=== PATIENT | male | born 1945 | race Caucasian/White ===

== ENCOUNTER 2018-01-23 00:14 | Outpatient (CLI) | payer OTHER, SELFPAY ==
--- NOTE | 2018-01-23 14:15 | DI.US_ITS ---
SYMPTOMS/DIAGNOSIS: ABDOMINAL PAIN, H/O PARTIAL NEPHRECTOMY, RENAL CELL CARCINOMA, HEMATOMA OF KIDNEY, C64.9, Z90.5, S37.019A RENAL ULTRASOUND: Routine examination. Comparison CT scans are 02/16/17 and 07/14/17. The right kidney measures 10.8 cm long. No renal mass, calculus or obstruction is seen. There is normal blood flow to the right kidney. The left kidney measures 9.3 cm long. No renal mass, calculus or obstruction is seen. Sonographically, the left kidney has a normal appearance. Given the CT scan on 07/14/17, if there is continued concern for recurrent mass, a noncontrast CT scan of the abdomen may be obtained. The prevoid urinary bladder volume is 48 cc. The ureteral jets were both visualized. Postvoid urinary bladder volume is 0. IMPRESSION: No sonographic evidence of a residual or recurrent renal mass. If there is continued clinical concern, a CT scan of the abdomen may be obtained for further evaluation.
== END 2018-01-23 00:34 ==
PROVIDERS: PCP Family Medicine; Visit Provider Urology
DX: R10.9 Unspecified abdominal pain (principal); C64.9 Malignant neoplasm of unspecified kidney, except renal pelvis; Z90.5 Acquired absence of kidney
CPT/HCPCS: 76770

== ENCOUNTER 2018-02-25 01:39 | Outpatient (RCR) | payer OTHER, SELFPAY ==
[2018-02-12] MEDS: Normal Saline Flush 10 ML SYR IVP (11:52)
[2018-02-12] MEDS: IRON SUCROSE COMPLEX 100 MG in Normal Saline 100 ML 420 MG IVPB (12:01)
[2018-02-25] MEDS: Normal Saline Flush 10 ML SYR IVP (08:53)
[2018-02-25] MEDS: IRON SUCROSE COMPLEX 100 MG in Normal Saline 100 ML 420 MG IVPB (08:56)
== END 2018-03-04 23:59 | disposition home or self-care (01) ==
LOC: INF 01:39
PROVIDERS: PCP Family Medicine; Visit Provider Internal Medicine
DX: N18.9 Chronic kidney disease, unspecified (principal); D63.1 Anemia in chronic kidney disease; D50.9 Iron deficiency anemia, unspecified
CPT/HCPCS: 96365; J1756

== ENCOUNTER 2018-03-10 01:35 | Outpatient (RCR) | payer OTHER, SELFPAY ==
[2018-03-10] MEDS: IRON SUCROSE COMPLEX 100 MG in Normal Saline 100 ML 420 MG IVPB (11:14)
[2018-03-10] MEDS: Normal Saline Flush 10 ML SYR IVP (11:37)
== END 2018-04-03 23:59 | disposition home or self-care (01) ==
LOC: INF 01:35
PROVIDERS: PCP Family Medicine; Visit Provider Internal Medicine
DX: N18.9 Chronic kidney disease, unspecified (principal); D63.1 Anemia in chronic kidney disease; D50.9 Iron deficiency anemia, unspecified
CPT/HCPCS: 96365; J1756

== ENCOUNTER 2018-04-15 10:01 | Outpatient (CLI) | payer OTHER, SELFPAY ==
[2018-04-15 11:18] LABS: Mean Corp. HGB Concentration 32.5 g/dL (32.0-36.0); Mean Corpuscular Hemoglobin 30.7 pg (27.0-33.0); Mean Corpuscular Volume 94.6 fL (80-95); Mean Platelet Volume 10.5 fL (8.0-11.0); Platelet Count 302 x1000/uL (130-400); RBC 4.23 m/cumm (4.50-6.00); RBC Distribution Width 14.3 % (11.8-14.1)
[2018-04-15 11:33] LABS: Hemoglobin A1C 8.2 % (4.5-6.2)
[2018-04-15 12:16] LABS: Anion Gap 7.7 mmol/L (3-11); BUN 20 mg/dL (7-18); CO2 28.3 mmol/L (21.0-32.0); CREATININE 1.79 mg/dL (0.70-1.30); Calcium 8.9 mg/dL (8.5-10.1); Chloride 106 mmol/L (98-107); Estimated GFR 37.52 (mL/min/1.73m2); Ferritin 70 ng/mL (8-388); Glucose 90 mg/dL (70-100); Potassium 4.4 mmol/L (3.5-5.1); Sodium 142 mmol/L (136-145)
[2018-04-15 12:17] LABS: Iron 83 ug/dL (50-175); Total Iron Binding Capacity 248 ug/dL (250-450); Transferrin Sat 33 % (20-55)
[2018-04-15 12:27] LABS: PHOSPHORUS 3.9 mg/dL (2.6-4.7)
[2018-04-16 07:58] LABS: Vitamin D 25 Total 65.2 ng/ml (30-100)
[2018-04-16 10:47] LABS: Parathyroid Hormone,Intact 96 pg/ml (19-88)
== END 2018-04-15 10:21 ==
PROVIDERS: PCP Family Medicine; Visit Provider Family Medicine
DX: D64.9 Anemia, unspecified (principal); I10 Essential (primary) hypertension; E11.9 Type 2 diabetes mellitus without complications; N18.3 Chronic kidney disease, stage 3 (moderate); C64.2 Malignant neoplasm of left kidney, except renal pelvis
CPT/HCPCS: 36415; 80048; 82306; 85027; 82728; 83036; 83540; 83550; 83970; 84100

== ENCOUNTER 2018-05-04 08:18 | Outpatient (CLI) | payer OTHER, SELFPAY | END 2018-05-04 08:38 | PROVIDERS: PCP Family Medicine; Visit Provider Internal Medicine Interventional Cardiology | DX: I25.10 Atherosclerotic heart disease of native coronary artery without angina pectoris (principal); I47.1 Supraventricular tachycardia; I10 Essential (primary) hypertension; Z90.2 Acquired absence of lung [part of]; J44.9 Chronic obstructive pulmonary disease, unspecified; Z87.891 Personal history of nicotine dependence; E78.5 Hyperlipidemia, unspecified; E11.9 Type 2 diabetes mellitus without complications; Z79.4 Long term (current) use of insulin | CPT/HCPCS: 93005; 93010; 99213 ==

== ENCOUNTER → 2018-05-04 11:54 | Outpatient (BNVA) | payer OTHER, SELFPAY | PROVIDERS: Visit Provider Internal Medicine Interventional Cardiology | DX: R69 Illness, unspecified (principal) ==

== ENCOUNTER → 2018-07-27 08:51 | Outpatient (BNVA) | payer OTHER, SELFPAY | PROVIDERS: PCP Family Medicine; Visit Provider Urology | DX: C64.2 Malignant neoplasm of left kidney, except renal pelvis (principal); R14.0 Abdominal distension (gaseous) | CPT/HCPCS: 99213 ==

== ENCOUNTER 2018-08-21 00:42 | Outpatient (CLI) | payer OTHER, SELFPAY ==
--- NOTE | 2018-08-21 08:30 | DI.US_ITS ---
SYMPTOM/DIAGNOSIS: RENAL CELL CA LT KIDNEY, C64.2, ? RECURRENCE RENAL ULTRASOUND: The patient has reportedly had a previous partial left nephrectomy for renal cell carcinoma. Left kidney is grossly unchanged in appearance in comparison with previous examination of 01/23/18. There is some limitation to renal scanning due to the patient's body habitus and if there is a clinical suspicion of recurrent disease, MRI or CT would be recommended. Right kidney is unremarkable in appearance. No hydronephrosis or nephrolithiasis identified on either side. Urinary bladder is unremarkable in appearance with pre and post void urinary bladder volume measurements of 94 cc's and 0 cc's respectively. CONCLUSION: No gross interval change in appearance of the kidneys in a patient who is reportedly status post left partial nephrectomy for renal cell carcinoma. Please note that in this patient ultrasound may not be an ideal screening tool to evaluate for recurrence and evaluation with MRI is recommended.
== END 2018-08-21 01:02 ==
PROVIDERS: PCP Family Medicine; Visit Provider Urology
DX: C64.2 Malignant neoplasm of left kidney, except renal pelvis (principal); Z90.5 Acquired absence of kidney; R14.0 Abdominal distension (gaseous)
CPT/HCPCS: 76770; 99213

== ENCOUNTER 2018-10-01 09:07 | Outpatient (REF) | payer OTHER, SELFPAY ==
[2018-10-01 12:37] LABS: Abs Immature Grans 0.12 k/cumm (0.0-0.09); Absolute Basophil Count 0.05 k/cumm (0.0-0.2); Absolute Monocyte Count 1.75 k/cumm (0.11-0.7); Basophils % 0.3; Eosinophils % 3.7; HCT 40.6 % (40.0-50.0); HGB 13.1 g/dL (13.5-17.5); Immature Grans % 0.7; Lymphocytes % 12.9; Mean Corp. HGB Concentration 32.3 g/dL (32.0-36.0); Mean Corpuscular Hemoglobin 31.2 pg (27.0-33.0); Mean Corpuscular Volume 96.7 fL (80-95); Mean Platelet Volume 11.1 fL (8.0-11.0); Monocytes % 9.6; Neutrophils % 72.8; Platelet Count 332 x1000/uL (130-400); RBC Distribution Width 13.3 % (11.8-14.1); White Blood Cell Count 18.28 k/cumm (4.4-10.8)
[2018-10-01 12:39] LABS: Absolute Eosinophil Count 0.68 k/cumm (0.0-0.7); Absolute Lymphocyte Count 2.36 k/cumm (1.2-3.4); Absolute Neutrophil Count 13.31 k/cumm (1.2-6.7)
[2018-10-01 12:54] LABS: ALT 18 U/L (12-78); AST 14 U/L (15-37); Albumin 3.6 g/dL (3.4-5.0); Alkaline Phosphatase 133 U/L (46-116); Anion Gap 6.7 mmol/L (3-11); BUN 24 mg/dL (7-18); Bilirubin, Total 0.3 mg/dL (0.2-1.0); CO2 27.3 mmol/L (21.0-32.0); CREATININE 1.83 mg/dL (0.70-1.30); Chloride 104 mmol/L (98-107); Estimated GFR 36.57 (mL/min/1.73m2); Glucose 169 mg/dL (70-100); Lipase 58 U/L (73-393); Potassium 5.3 mmol/L (3.5-5.1); Sodium 138 mmol/L (136-145); Total Protein 6.9 g/dL (6.4-8.2)
[2018-10-01 13:24] LABS: Diff Comment Agrees w/ Instrument; RBC Morphology Normal
[2018-10-01 14:14] LABS: COMMENT (LAB VIEW ONLY) 188.35 mg/dL; Microalb ug/mg Crea 8.1 ug/mg Cr
== END 2018-10-01 09:27 ==
LOC: NCHCN 09:07
PROVIDERS: PCP Family Medicine; Visit Provider Family Medicine
DX: R10.11 Right upper quadrant pain (principal); E11.9 Type 2 diabetes mellitus without complications; Z79.4 Long term (current) use of insulin
CPT/HCPCS: 80053; 83690; 82043; 82570; 85025

== ENCOUNTER 2018-12-03 09:57 | Outpatient (CLI) | payer OTHER, SELFPAY ==
--- NOTE | 2018-12-03 09:19 | DI.RAD_ITS ---
SYMPTOM/DIAGNOSIS: F/U LEFT FOOT: when compared with the prior examination of 06/29/16 there has been no appreciable interval change. Again noted is the amputation of the great toe and distal portion of the first metatarsal There are degenerative changes involving the intertarsal and tarsal metatarsal joints. There is nothing to suggest an acute fracture or dislocation.
== END 2018-12-03 10:17 ==
PROVIDERS: PCP Family Medicine; Referring Provider Family Medicine; Visit Provider Orthopaedic Surgery
DX: M86.9 Osteomyelitis, unspecified (principal); M19.072 Primary osteoarthritis, left ankle and foot; Z89.412 Acquired absence of left great toe; L08.9 Local infection of the skin and subcutaneous tissue, unspecified; Z79.4 Long term (current) use of insulin
CPT/HCPCS: 99212; 99213; 73630

== ENCOUNTER 2018-12-11 14:48 | Outpatient (REF) | payer OTHER, SELFPAY ==
[2018-12-11 18:57] LABS: Abs Immature Grans 0.28 k/cumm (0.0-0.09); Absolute Eosinophil Count 0.73 k/cumm (0.0-0.7); Absolute Neutrophil Count 10.89 k/cumm (1.2-6.7); Basophils % 0.3; Eosinophils % 4.7; HCT 38.9 % (40.0-50.0); HGB 12.4 g/dL (13.5-17.5); Immature Grans % 1.8; Mean Corp. HGB Concentration 31.9 g/dL (32.0-36.0); Mean Corpuscular Hemoglobin 30.5 pg (27.0-33.0); Mean Corpuscular Volume 95.6 fL (80-95); Mean Platelet Volume 10.9 fL (8.0-11.0); Monocytes % 7.1; Neutrophils % 70.1; Platelet Count 425 x1000/uL (130-400); RBC 4.07 m/cumm (4.50-6.00); RBC Distribution Width 13.1 % (11.8-14.1); White Blood Cell Count 15.53 k/cumm (4.4-10.8)
[2018-12-11 18:58] LABS: Absolute Basophil Count 0.05 k/cumm (0.0-0.2); Absolute Lymphocyte Count 2.48 k/cumm (1.2-3.4)
[2018-12-11 19:13] LABS: BUN 32 mg/dL (7-18); CREATININE 2.24 mg/dL (0.70-1.30); Calcium 8.7 mg/dL (8.5-10.1); Chloride 104 mmol/L (98-107); Estimated GFR 28.88 (mL/min/1.73m2); Glucose 267 mg/dL (70-100); Potassium 5.7 mmol/L (3.5-5.1); Sodium 138 mmol/L (136-145)
[2018-12-11 20:36] LABS: ESR 21 mm/hr (1-20)
== END 2018-12-11 15:08 ==
LOC: NCHCN 14:48
PROVIDERS: PCP Family Medicine; Visit Provider Family Medicine
DX: E11.621 Type 2 diabetes mellitus with foot ulcer (principal); N18.3 Chronic kidney disease, stage 3 (moderate)
CPT/HCPCS: 80048; 85652; 85025

== ENCOUNTER → 2018-12-17 08:44 | Outpatient (BNVA) | payer OTHER, SELFPAY | PROVIDERS: PCP Family Medicine; Referring Provider Family Medicine; Visit Provider Orthopaedic Surgery | DX: M86.9 Osteomyelitis, unspecified (principal); L08.9 Local infection of the skin and subcutaneous tissue, unspecified | CPT/HCPCS: 99213 ==

== ENCOUNTER 2019-01-15 10:01 | Outpatient (CLI) | payer OTHER, SELFPAY ==
--- NOTE | 2019-01-15 09:18 | DI.US_ITS ---
SYMPTOM/DIAGNOSIS: LOWER QUADRANT ABDOMINAL WALL MASS, LEFT R19.04, S/P NEPHRECTOMY ULTRASOUND OF THE LEFT ABDOMINAL WALL: The patient has a history of renal cell carcinoma. The area of palpable abnormality is seen in the skin and subcutaneous fat and measures 2.1 x 1 x 1.5 cm This is hypoechoic but solid appearing. The margins are irregular and there is some internal blood flow. This corresponds to the area of incision site. IMPRESSION: Solid appearing mass in the left anterior abdominal wall suspicious for a mass which could be related to renal cell carcinoma.
== END 2019-01-15 10:21 ==
PROVIDERS: PCP Family Medicine; Visit Provider Family Medicine
DX: R10.32 Left lower quadrant pain (principal); R19.04 Left lower quadrant abdominal swelling, mass and lump; Z85.528 Personal history of other malignant neoplasm of kidney
CPT/HCPCS: 76705

== ENCOUNTER → 2019-02-19 08:23 | Outpatient (BNVA) | payer OTHER, SELFPAY | PROVIDERS: PCP Family Medicine; Referring Provider Family Medicine; Visit Provider Urology | DX: C64.2 Malignant neoplasm of left kidney, except renal pelvis (principal); Z90.5 Acquired absence of kidney | CPT/HCPCS: 99213 ==

== ENCOUNTER → 2019-03-03 08:39 | Outpatient (BNVA) | payer OTHER, SELFPAY | PROVIDERS: PCP Family Medicine; Referring Provider Family Medicine; Visit Provider Orthopaedic Surgery | DX: E11.621 Type 2 diabetes mellitus with foot ulcer (principal); L97.529 Non-pressure chronic ulcer of other part of left foot with unspecified severity | CPT/HCPCS: 99214 ==

== ENCOUNTER 2019-04-29 12:14 | Outpatient (CLI) | payer OTHER, SELFPAY ==
--- NOTE | 2019-04-29 12:45 | DI.US_ITS ---
EXAM: US SOFT TISS ABD WALL/LOW BACK CLINICAL HISTORY: ANTERIOR ABD WALL MASS, R22.2, MASS REMOVED FEW MONTHS AGO, WAS RENAL CELL CA, NOW APPEARS TO BE RECURRING TECHNIQUE: Ultrasound performed using standard protocol. COMPARISON: US renal from 08/21/2018 FINDINGS: There is a hypoechoic mass in the right anterior abdominal wall. This corresponds to the palpable ab normality. This area measures 1.9 cm x 1.4 cm x 4.2 cm. No internal blood flow is seen. Finding is nonspecific sonographically. A CT scan of the abdomen is recommended for further evaluation.
== END 2019-04-29 12:34 ==
PROVIDERS: PCP Family Medicine; Visit Provider Family Medicine
DX: Z85.528 Personal history of other malignant neoplasm of kidney; R19.03 Right lower quadrant abdominal swelling, mass and lump
CPT/HCPCS: 76705

== ENCOUNTER 2019-05-31 01:19 | Outpatient (CLI) | payer OTHER, SELFPAY ==
--- NOTE | 2019-05-31 09:44 | DI.NM_ITS ---
APPROVED REPORT Exam: Pharmacologic Patient Location: Out-Patient Room/Bed: Stress Nurse: Erica Escamilla RN BMI: 31.19 Baseline Rhythm: RBBB Indications: Exertional chest pain. Medical History Medical History: CAD s/p stent, RBBB Cardiac Medications: Metoprolol, Atorvastatin, Aspirin, Albuterol, Allergies: Oxycodone. Lisinopril Cardiac Risk Factors: DM, Hyperlipidemia, FHX of CAD, Smoking, COPD Previous Cardiac Procedures: PCI Pretest Chest Pain Characteristics: Exertional Chest pain Exercise History: Physically active Lung Sounds: Crackles in left posterior base. Heart Sounds: Regular Stress Test Details Test: Pharmacologic stress testing performed using 0.4 mg of regadenoson per 5 mL given IV over 10 s econds. Nuclear Acquisition: Rest Tc-99m/Stress Tc-99m 1 day Rest Isotope: Tc-99m Sestamibi. Dose: 12.5 Date: 05/31/2019 Injection Time: 0815 Stress Isotope: Tc-99m Sestamibi. Dose: 38.5 Date: 05/31/2019 Injection Time: 1012 HR Max Heart Rate (APMHR): 147 bpm Resting HR Supine: 81 bpm Target HR (85% APMHR): 124 bpm Max HR Achieved: 99 bpm % of APMHR: 67 Recovery HR: 92 bpm HR response to stress: Normal HR response to stress BP Resting BP Supine: 142/72 mmHg Max BP: 142/76 mmHg Recovery BP: 140/70 mmHg BP response to stress: Normal blood pressure response to stress. ECG Resting ECG: RBBB ST Change: Normal Ectopy: none Stress ECG: RBBB ST Change: No significant ST segment changes noted Arrhythmia: None Recovery ECG: RBBB Recovery Arrhythmia: None Clinical Stress Symptoms: SOB 30 seconds after lexiscan injection, subsided after 3 minutes post injection. Stress ECG Conclusion 1. There was no evidence of ischemia on the ECG portion of this exam Protocol Used: Regadenoson Stress Test Summary STAGE HR BP Symptoms NOTES Supine 81 142/76 Standing 1 min 99 140/56 2 min 3 min 92 130/70 4 min 5 min 6 min 92 140/70 7 min 8 min 9 min 10 min 1 min recovery 3 min recovery 6 min recovery MPI Conclusion Ejection fraction was 78% without wall motion abnormalities. Bowel tracer uptake limited sensitivity of the interpretation of this study. There is no evidence of ischemia on the imaging portion of this exam. This represents a normal SPECT imaging study. Radiologist Interpretation Radiologist agrees with [employer]visor [employer]'s Interpretation. Radiologist Interpretation by: Phyllis Aguilar MD Interpretation Date/Time: 06/01/2019 09:27:52
[2019-05-31] MEDS: Regadenoson 0.4 MG/5 ML SYR IVP (10:47)
== END 2019-05-31 01:39 ==
PROVIDERS: PCP Family Medicine; Visit Provider Family Medicine
DX: R07.9 Chest pain, unspecified (principal); I25.10 Atherosclerotic heart disease of native coronary artery without angina pectoris; I45.10 Unspecified right bundle-branch block; I25.2 Old myocardial infarction; E78.5 Hyperlipidemia, unspecified; E11.9 Type 2 diabetes mellitus without complications; Z82.49 Family history of ischemic heart disease and other diseases of the circulatory system
CPT/HCPCS: 78452; 93016; 93018; 93017; J2785

== ENCOUNTER → 2019-06-15 13:51 | Outpatient (BNVA) | payer OTHER, SELFPAY | PROVIDERS: PCP Family Medicine; Referring Provider Family Medicine; Visit Provider Internal Medicine Cardiovascular Disease | DX: I25.10 Atherosclerotic heart disease of native coronary artery without angina pectoris (principal); R06.02 Shortness of breath; I47.1 Supraventricular tachycardia; E11.8 Type 2 diabetes mellitus with unspecified complications; Z79.4 Long term (current) use of insulin; J44.9 Chronic obstructive pulmonary disease, unspecified; Z87.891 Personal history of nicotine dependence | CPT/HCPCS: 99204; 99215 ==

== ENCOUNTER → 2019-09-13 14:01 | Outpatient (BNVA) | payer OTHER, SELFPAY | PROVIDERS: PCP Family Medicine; Referring Provider Family Medicine; Visit Provider Internal Medicine Cardiovascular Disease | DX: R06.02 Shortness of breath (principal); J44.9 Chronic obstructive pulmonary disease, unspecified; E11.621 Type 2 diabetes mellitus with foot ulcer; Z79.4 Long term (current) use of insulin | CPT/HCPCS: 99214; 99442 ==

== ENCOUNTER 2019-09-22 12:57 | Emergency (ER) | payer OTHER, SELFPAY ==
[2019-09-22] VITALS (32 sets, daily range): BP systolic 107–164; BP diastolic 39–70; PULSE 70–102; RESP 12–22; TEMP 36.5; O2SAT 90–93
--- NOTE | 2019-09-22 13:00 | DI.RAD_ITS ---
EXAM: XR CHEST 2V PA LATERAL CLINICAL HISTORY: Chest pain, SOB TECHNIQUE: 2D digital imaging was performed. COMPARISON: CR CHEST 2 VIEWS PA,LAT from 04/30/2016 FINDINGS: MEDIASTINUM: Normal. HEART: Normal. PULMONARY VASCULATURE: Normal. LUNGS: Pleural and parenchymal scarring is again seen in the right lung which appears stable parenchy mal scarring is also seen in the left lung base. No acute infiltrates are present. PLEURAL SPACE: No pleural effusion or pneumothorax. BONE:Age-appropriate degenerative changes. OTHER FINDINGS:Normal. IMPRESSION: No acute pulmonary findings. DATA REPOSITORY: RADIATION DOSE DELIVERED:
--- NOTE | 2019-09-22 13:13 | W.ED.GENAD ---
Discharge Plan Disposition Patient Disposition: HOME Condition: Stable Discharge Details Chief Complaint: Chest Pain Clinical Impression: Chest pain Primary Care Provider: Zakiya Reyna ED Provider: Mark Rosa Home Meds and New Rx's Prescriptions: New isosorbide mononitrate 30 mg tablet extended release 24 hr 30 mg PO DAILY Qty: 30 RF: 0 Continued oxycodone 10 mg tablet 10 mg PO HS PRN RF: 0 Victoza 2-Edy 0.6 mg/0.1 mL (18 mg/3 mL) pen injector 1.8 mg SC DAILY RF: 0 calcitriol 0.25 mcg capsule 0.25 mcg PO .3 DAYS/WK RF: 0 nitroglycerin 0.4 MG tablet, sublingual 0.4 mg Sublingual ONCE RF: 0 olmesartan [Benicar] 5 MG tablet 5 mg PO DAILY RF: 0 cholecalciferol (vitamin D3) 1,000 UNIT tablet 1,000 unit PO DAILY RF: 0 pantoprazole [Protonix] 40 MG tablet,delayed release (DR/EC) 40 mg PO BID Qty: 60 RF: 3 aspirin [Aspir-81] 81 MG tablet,delayed release (DR/EC) 81 mg PO DAILY RF: 0 multivitamin 1 EACH capsule 1 ea PO DAILY RF: 0 sertraline 50 MG tablet 50 mg PO DAILY RF: 0 Lantus U-100 Insulin 100 unit/mL solution 63 unit subcut HS RF: 0 atorvastatin [Lipitor] 40 MG tablet 40 mg PO DAILY RF: 0 ascorbic acid (vitamin C) [Vitamin C] 1,000 MG tablet 1,000 mg PO DAILY RF: 0 albuterol sulfate [Proventil HFA] 6.7 GM HFA aerosol inhaler 2 inh PO Q4H PRN PRNRF: 0 melatonin 10 MG tablet 10 mg PO HS RF: 0 cyanocobalamin (vitamin B-12) [Vitamin B-12] 1,000 mcg Tablet 1,000 mcg PO DAILY RF: 0 metoprolol succinate 50 mg tablet extended release 24 hr 50 mg PO DAILY RF: 0 Discharge Instructions Instructions: Chest Pain (ED) Additional Instructions: Follow-up with with cardiology within the next 2 to 3 days. Return immediately to the ED if any worsening chest pain, increase in frequency of chest pain or any concerns.. Referrals: Zakiya Reyna MD [Primary Care Provider] - Colby Velasquez MD [MD CONSULTING PHYSICIAN] - Discharge Data Discharge Date/Time-TO BE ENTERED AT DEPARTURE: 09/22/19 17:05 Medical Decision Making <Margaux Garcia - Last Filed: 09/24/19 16:43> 73-year-old male presents to the ED with chief complaint of chest pain. Patient has a history of coronary artery disease with multiple stents placed, history of COPD, insulin-dependent diabetic. Patient states approximately 30 minutes prior to arrival he was doing the dishes and began having chest pain associated with high heart rate. Patient states he checked his pulse at home had a heart rate in 160s, he states he took a nitro sublingual and 2 to 3 minutes later chest pain subsided. He reports intermittent chest pains lasting for approximately an hour x2 weeks. Patient had a telehealth visit recently September [address] Velasquez cardiology who recently stopped his Imdur. He had a stress test May 31 which showed no ischemic changes. He also had an echocardiogram done in May as well which showed mild left ventricular hypertrophy. Patient does state that he did take all of his medications today prior to arrival including aspirin. Upon arrival his chest pain is now gone 0 out of 10. Heart rate upon arrival is high 90s to low 100s. He does not use home O2, oxygen room air sat is 92%. Cardiac work-up ordered including BNP to evaluate for congestive heart failure. 1304: EKG was reviewed by Marlene Sherman MD ER attending, less than [address] depression in V2 and V3 T wave inversion in V3.. Initial troponin is negative within normal limits, BNP is within normal limits no significant change upon baseline to CBC and CMP. He does have a white blood cell count of 16.3 which has been more elevated in the past. His BUN is 22 creatinine 2.08 glucose is 209. 1424: Patient continues to be chest pain free through out stay, Cardiology paged for consult for possible unstable angina. Discussed options with patient, he does not wish to be admitted at this time. 1432: Cardiology at [facility] [place]aged for consult 1448: Spoke with Lucille Abreu with [facility] cardiology regarding patient discussed patient details in case. She recommends restarting the Imdur at 30 mg a day. She states that she will reach out to Dr. Jalloh regarding patient and having close follow-up care will give strict return instructions patient including worsening severe chest pain or recurrence of multiple chest pain episodes to return to the ED immediately. At this time patient has remained chest pain-free throughout stay and does not wish to be admitted at this time. Due to negative troponin I agree this is appropriate. I will however wait to discharge patient until second negative troponin result. Care is to be handed off to oncoming provider ALIZA Bowser pending negative second troponin. Discussed patient case in details with Mark, verbalized understanding. Patient was hemodynamically stable at the time of this dictation. Medical Records Medical records reviewed: Yes I reviewed the patient's medical records. Lab Data Lab results reviewed: Yes I reviewed the patient's lab results. <ALIZA Wells - Last Filed: 09/22/19 16:56> I assumed care of Mr. Thompson at shift change. Patient had initially presented with chest pain although asymptomatic now. Thorough work-up ensued, cardiology consultation was made. At this time patient is asymptomatic and the plan is to repeat an EKG and troponin if unremarkable then we will initiate a prescription for Imdur, he can safely be discharged, and will follow-up with cardiology. EKG performed at 1552. Reviewed and interpreted with Dr. Sherman. Sinus rhythm, first-degree AV block. Ventricular rate of 87. No acute ST elevation or depression. No dynamic changes when compared to earlier EKG. Repeat troponin is less than 0.05. Patient is resting comfortably in a home ER chair. He reports that he is currently asymptomatic. Head normocephalic. Moist mucous membranes. Lungs clear to auscultation, heart regular rate and rhythm. Patient appears well, no acute distress, nontoxic. We discussed his repeat EKG and troponin. He has no additional questions or concerns and is comfortable discharge at this time with the understanding he will initiate indoor therapy and follow-up with cardiology. He was encouraged to return to the ER for new or worsening symptoms. Lab Data Lab results reviewed: Yes I reviewed the patient's lab results. HPI <Margaux Garcia - Last Filed: 09/24/19 16:43> General Mode of arrival: ambulatory. Date/Time Provider Initiated Documentation: 09/22/19 13:00. Limitations to Documentation: no limitations. Information obtained by: patient. HPI Narrative: 73-year-old male presents to the ED with chief complaint of chest pain. Patient has a history of coronary artery disease with multiple stents placed, RBBB, history of COPD, insulin-dependent diabetic. Patient states approximately 30 minutes prior to arrival he was doing the dishes and began having chest pain associated with high heart rate. Patient states he checked his pulse at home had a heart rate in 160s, he states he took a nitro sublingual and 2 to 3 minutes later chest pain subsided. He reports intermittent chest pains lasting for approximately an hour x2 weeks. Patient had a telehealth visit recently September [address] Velasquez cardiology who recently stopped his Imdur. He had a stress test May 31 which showed no ischemic changes. He also had an echocardiogram done in May as well which showed mild left ventricular hypertrophy. Patient does state that he did take all of his medications today prior to arrival including aspirin. Upon arrival his chest pain is now gone 0 out of 10. Heart rate upon arrival is high 90s to low 100s. He does not use home O2, oxygen room air sat is 92%. Related Data Home Medications Medication Instructions Recorded Confirmed aspirin [Aspir-81] 81 mg PO DAILY 09/25/12 09/22/19 multivitamin 1 ea PO DAILY 09/25/12 09/22/19 sertraline 50 mg PO DAILY 09/25/12 09/22/19 cholecalciferol (vitamin D3) 1,000 unit PO DAILY tab-cap 09/21/15 09/22/19 nitroglycerin 0.4 mg SUBLINGUAL ONCE tab-cap 09/21/15 09/22/19 olmesartan [Benicar] 5 mg PO DAILY tab-cap 09/21/15 09/22/19 pantoprazole [Protonix] 40 mg PO BID #60 tab-cap 01/03/17 09/22/19 albuterol sulfate [Proventil HFA] 2 inh PO Q4H PRN PRN 02/16/17 09/22/19 ascorbic acid (vitamin C) [Vitamin 1,000 mg PO DAILY 02/16/17 09/22/19 C] atorvastatin [Lipitor] 40 mg PO DAILY 02/16/17 09/22/19 melatonin 10 mg PO HS 02/16/17 09/22/19 liraglutide 0.6 mg/0.1 mL (18 mg/3 1.8 mg SC DAILY ml 05/04/18 09/22/19 mL) subcutaneous pen injector oxycodone 10 mg tablet 10 mg PO HS PRN tab 05/04/18 09/22/19 insulin glargine 100 unit/mL 63 unit SUBCUT HS ml 12/03/18 09/22/19 subcutaneous solution calcitriol 0.25 mcg capsule 0.25 mcg PO .3 DAYS/WK 09/13/19 09/22/19 cyanocobalamin (vitamin B-12) 1,000 mcg PO DAILY 09/22/19 09/22/19 [Vitamin B-12] isosorbide mononitrate 30 mg PO DAILY #30 tab 09/22/19 metoprolol succinate 50 mg PO DAILY 09/22/19 09/22/19 Previous Rx's Medication Instructions Recorded isosorbide mononitrate 30 mg PO DAILY #30 tab 09/22/19 Allergies Allergy/AdvReac Type Severity Reaction Status Date / Time pneumococcal vaccine Allergy Severe Swelling/Ed Verified 09/22/19 13:07 nandini sulfamethoxazole Allergy difficulty Verified 09/22/19 13:07 [From Bactrim] breathing trimethoprim [From Bactrim] Allergy difficulty Verified 09/22/19 13:07 breathing General Stated Complaint: Chest Pain MESERET: 2 Review of Systems <Margaux Garcia - Last Filed: 09/24/19 16:43> Narrative: Constitutional: Negative for weight loss, alert and oriented, well groomed, normal body habitus, appears anxious. HEENT: Denies trauma, headaches, blurry vision, nasal discharge, sore throat, trouble swallowing. Chest: Denies irregular rhythm, hypertension. Positive intermittent chest pains on exertion and at rest, reports high heart rate earlier today at 160. Respiratory: Denies Shortness of breath, cough, hemoptysis. GI: Denies abdominal pain, nausea, vomiting, diarrhea, constipation. : Denies dysuria, hematuria, flank pain, rectal bleeding. Neuro: Denies dizziness, blurry vision, weakness, syncope, headache or facial numbness. Hematologic: Denies easy bruising, intolerance to heat or cold, hair loss. All systems reviewed & are unremarkable except as noted in HPI and below PFSH <Margaux Garcia - Last Filed: 09/24/19 16:43> Medical History Abdominal wall mass of left lower quadrant (Acute) Anemia (Chronic) Bilateral cataracts (Acute) COPD (chronic obstructive pulmonary disease) (Chronic) Coronary Artery Disease Depression (Chronic) Diabetes mellitus Diabetic foot ulcer (Acute) GERD (gastroesophageal reflux disease) (Chronic) Hoarseness (Acute) Hyperkalemia (Acute) RBBB (right bundle branch block) (Acute) RUQ pain (Acute) Surgical History Colonoscopy - MAC (12/18/16) Completion of amputation (09/30/12) L great toe EGD - MAC (12/18/16) Heart Stent (12/03/11) Pt records show heart stent placed 12/03/11 at [facility]. 12.02.12HE Lobectomy Pt states 2 lobes removed from R. lung. No date given. 12.02.12HE Osteotomy Partial & Debridment of first metatarsal on Left foot. Social History Smoking/Tobacco Use Status: Former Tobacco Use Quit Date: 05/05/14 Tobacco: How many years used: 50 Alcohol Intake: never Drug use: Never Current gender identity: male What type of physical activity do you participate in: none and independent ambulation Do you feel safe in your relationship?: Yes Exam <Margaux Garcia - Last Filed: 09/24/19 16:43> Narrative Exam Narrative: Constitutional: Alert and oriented x3. Appears stated age. Normal body habitus. Head: Normocephalic, no trauma. Eyes: Pupils PERRLA, Red reflex noted, EOM's intact. Eyelids symmetrical without lesions, discharge, or swelling. ENT: Bilateral TM's WNL, External ear normal to inspection, no mastoid TTP, swelling, or erythema, Nasal turbinates WNL, no nasal discharge. Normal dentition, Posterior pharynx WNL, no exudate. Chest: RRR, Normal S1, S2, distal pulses intact. Resp: Lungs clear to auscultation bilaterally, no wheezes, rales, or rhonchi. Abdomen: Soft nondistended nontender to palpation. Musculoskeletal: Normal gait, 5/5 strength to all four extremities. Skin: No suspicious rashes or lesions. Does have old surgical scars from basal cell carcinoma removal to face and nose. Capillary refill less than 2 sec. Neurologic: Cranial nerves II-XII intact. Alert and oriented x 3. DTR's intact. Hematologic/Lymphatic: No ecchymosis, no lymphadenopathy. Course <Margaux Garcia - Last Filed: 09/24/19 16:43> Vital Signs Vital signs: Vital Signs Temperature 36.5 C 09/22/19 13:02 Pulse 100 H 09/22/19 13:02 Respiratory Rate 09/22/19 13:02 Blood Pressure 164/70 H 09/22/19 13:02 Pulse Oximetry 92 L 09/22/19 13:02 Temperature 36.5 C 09/22/19 13:02 Temperature Source Skin 09/22/19 13:02 Pulse 100 H 09/22/19 13:02 Respiratory Rate 09/22/19 13:02 Respiratory Effort Non-Labored 09/22/19 13:02 Blood Pressure 164/70 H 09/22/19 13:02 Blood Pressure Position Sitting 09/22/19 13:02 Pulse Oximetry 92 L 09/22/19 13:02 Oxygen Delivery Method Room Air 09/22/19 13:02 Oxygen Flow Rate 0 09/22/19 13:02 Pain Level 0 09/22/19 13:02 Sign Out <Margaux Garcia - Last Filed: 09/24/19 16:43> Sign Out Data: Sign Out Comment: Pending Second troponin and discharge with instructions to restart his Isosorbide monotartrate Last updated by Margaux Garcia at 09/22/19 16:05
[2019-09-22 13:23] LABS: Abs Immature Grans 0.09 k/cumm (0.0-0.09); Absolute Basophil Count 0.03 k/cumm (0.0-0.2); Absolute Lymphocyte Count 2.64 k/cumm (1.2-3.4); Absolute Monocyte Count 0.99 k/cumm (0.11-0.7); Basophils % 0.2; Eosinophils % 2.8; Immature Grans % 0.6 %; Lymphocytes % 16.2; Mean Corp. HGB Concentration 31.7 g/dL (32.0-36.0); Mean Corpuscular Hemoglobin 30.7 pg (27.0-33.0); Mean Corpuscular Volume 96.7 fL (80-95); Mean Platelet Volume 10.4 fL (8.0-11.0); Monocytes % 6.1; Neutrophils % 74.1; Platelet Count 383 x1000/uL (130-400); RBC 4.24 m/cumm (4.50-6.00); RBC Distribution Width 13.4 % (11.8-14.1)
[2019-09-22 13:27] LABS: Absolute Eosinophil Count 0.46 k/cumm (0.0-0.7); Absolute Neutrophil Count 12.08 k/cumm (1.2-6.7)
[2019-09-22 13:48] LABS: ALT 20 U/L (16-63); AST 20 U/L (15-37); Albumin 3.6 g/dL (3.4-5.0); Alkaline Phosphatase 112 U/L (46-116); Anion Gap 5.4 mmol/L (3-11); BUN 22 mg/dL (7-18); Bilirubin, Total 0.5 mg/dL (0.2-1.0); CO2 29.6 mmol/L (21.0-32.0); CREATININE 2.08 mg/dL (0.70-1.30); Calcium 8.8 mg/dL (8.5-10.1); Chloride 102 mmol/L (98-107); Estimated GFR 31.46 (mL/min/1.73m2); Glucose 209 mg/dL (74-106); Magnesium 1.8 mg/dL (1.8-2.4); NT-proBNP 228 pg/mL (<300); Potassium 5.1 mmol/L (3.5-5.1); Sodium 137 mmol/L (136-145); Total Protein 7.5 g/dL (6.4-8.2)
[2019-09-22 13:50] LABS: Troponin I < 0.05 ng/Ml (<0.06)
[2019-09-22] MEDS: Normal Saline 250 ML IV (14:00)
[2019-09-22] MEDS: Normal Saline Flush 10 ML SYR IVP (14:46)
[2019-09-22 16:37] LABS: Troponin I < 0.05 ng/Ml (<0.06)
== END 2019-09-22 17:05 | disposition home or self-care (01) ==
PROVIDERS: Registered Nurse Emergency; Emergency Provider Physician Assistant; PCP Family Medicine
DX: R07.9 Chest pain, unspecified (principal); R00.0 Tachycardia, unspecified; I25.10 Atherosclerotic heart disease of native coronary artery without angina pectoris; Z95.5 Presence of coronary angioplasty implant and graft; J44.9 Chronic obstructive pulmonary disease, unspecified; Z87.891 Personal history of nicotine dependence; E11.9 Type 2 diabetes mellitus without complications; Z79.4 Long term (current) use of insulin
CPT/HCPCS: 36415; 80053; 93005; 96360; 99285; 71046; 83735; 83880; 84484; 85025; 93010

== ENCOUNTER → 2019-10-01 13:07 | Outpatient (BNVA) | payer OTHER, SELFPAY | PROVIDERS: PCP Family Medicine; Referring Provider Family Medicine; Visit Provider Internal Medicine Cardiovascular Disease | DX: I25.10 Atherosclerotic heart disease of native coronary artery without angina pectoris (principal); I47.1 Supraventricular tachycardia; R06.02 Shortness of breath | CPT/HCPCS: 99214 ==

== ENCOUNTER 2019-10-04 08:08 | Outpatient (CLI) | payer OTHER, SELFPAY ==
[2019-10-05 18:23] LABS: COVID-19 RT-PCR UVMMC Result Negative (Negative)
== END 2019-10-04 08:28 ==
PROVIDERS: PCP Family Medicine; Visit Provider Family Medicine
DX: Z11.59 Encounter for screening for other viral diseases (principal)
CPT/HCPCS: U0003

== ENCOUNTER 2019-10-07 04:41 | Outpatient (CLI) | payer OTHER, SELFPAY ==
--- NOTE | 2019-10-11 16:04 | W.PFT ---
Date of service: 10/07/19 Time of Service: 14:59 Pulmonary Function Test Result Interpretation Spirometry: Spirometry shows no evidence of obstructive airways disease, no bronchodilator response Lung Volumes: Lung volumes show moderate restriction Diffusion Capacity: Diffusion capacity is severely reduced which is mildly reduced when corrected to alveolar volume Airway Pressure: Airways resistance is normal Impression No evidence of obstructive airways disease. There is moderate restrictive lung disease, this is associated with severe diffusion defect. This constellation of finding can certainly be seen in interstitial lung disease. Respiratory neuromuscular dysfunction can also give similar findings. Therefore clinical correlation recommended. The patient already had a right middle and lower lobe resection, which can contribute to underlying restrictive pattern Clinical Correlation therefore is recommended.
== END 2019-10-07 05:01 ==
PROVIDERS: PCP Family Medicine; Visit Provider Internal Medicine Cardiovascular Disease
DX: R06.02 Shortness of breath (principal); R07.89 Other chest pain; Z87.891 Personal history of nicotine dependence
CPT/HCPCS: 94060; 94726; 94729

== ENCOUNTER → 2019-11-08 10:16 | Outpatient (BNVA) | payer OTHER, SELFPAY | PROVIDERS: PCP Family Medicine; Referring Provider Family Medicine; Visit Provider Internal Medicine Cardiovascular Disease | DX: R69 Illness, unspecified (principal) ==

== ENCOUNTER → 2019-11-09 13:54 | Outpatient (BNVA) | payer OTHER, SELFPAY | PROVIDERS: PCP Family Medicine; Referring Provider Family Medicine; Visit Provider Internal Medicine Cardiovascular Disease | DX: I47.1 Supraventricular tachycardia (principal); J44.9 Chronic obstructive pulmonary disease, unspecified; I25.10 Atherosclerotic heart disease of native coronary artery without angina pectoris; E11.9 Type 2 diabetes mellitus without complications; Z87.891 Personal history of nicotine dependence | CPT/HCPCS: 99212; 99442 ==

== ENCOUNTER 2019-11-16 07:07 | Outpatient (CLI) | payer OTHER, SELFPAY | END 2019-11-16 07:27 | PROVIDERS: PCP Family Medicine; Visit Provider Family Medicine | DX: R00.2 Palpitations (principal); R06.89 Other abnormalities of breathing | CPT/HCPCS: 93225 ==

== ENCOUNTER 2019-11-18 16:21 | Outpatient (CLI) | payer OTHER, SELFPAY ==
--- NOTE | 2019-11-22 08:37 | W.HOLTRPT ---
Date of service: 11/22/19 Time of Service: 08:38 Holter Monitor Report Referring Provider:: KEATON Indications:: Palpitations dyspnea on exertion Holter Monitor Note: There is a 2-day Holter monitor ordered for the indication of palpitations and dyspnea on exertion. ?Patient was normal sinus rhythm for majority of the cardia ?Patient had 17 episodes of supraventricular tachycardia with the longest lasting 255 beats (rate of 145 bpm) ?Patient had rare premature atrial contractions. ?There are no episodes of ventricular tachycardia and 6 total single ventricular ectopic beats. ?There were no episodes of atrial fibrillation, no pauses greater than 3 seconds and no evidence of high degree heart block. ?The single diary event was associated with sinus rhythm.
== END 2019-11-18 16:41 ==
PROVIDERS: PCP Family Medicine; Visit Provider Family Medicine
DX: R06.89 Other abnormalities of breathing (principal); R00.2 Palpitations
CPT/HCPCS: 93226

== ENCOUNTER 2019-11-22 12:00 | Outpatient (CLI) | payer OTHER, SELFPAY | END 2019-11-22 12:20 | PROVIDERS: PCP Family Medicine; Referring Provider Family Medicine; Visit Provider Internal Medicine Cardiovascular Disease | DX: R00.2 Palpitations (principal); R06.89 Other abnormalities of breathing; I47.1 Supraventricular tachycardia; I49.3 Ventricular premature depolarization | CPT/HCPCS: 93227 ==

== ENCOUNTER 2019-12-30 08:59 | Outpatient (RCR) | payer OTHER, SELFPAY ==
[2019-12-30 09:48] LABS: Abs Immature Grans 0.16 10^3/uL (0.0-0.06); Absolute Eosinophil Count 0.49 10^3/uL (0.0-0.7); Absolute Lymphocyte Count 2.06 10^3/uL (1.2-3.4); Absolute Monocyte Count 1.05 10^3/uL (0.1-0.8); Basophils % 0.3; Eosinophils % 3.1; HGB 13.2 g/dL (13.5-17.5); Lymphocytes % 12.9; MCH 29.3 pg (27.0-33.0); MCHC 30.7 % (32.0-36.0); MCV 95.6 fL (80-95); MPV 10.4 fL (8.0-11.0); Monocytes % 6.6; Neutrophils % 76.1; Nucleated RBC 0 %; Platelet Count 360 10^3/uL (130-400); RDW 13.2 % (11.8-14.1); RDW-SD 46.4 fL; WBC 15.95 10^3/uL (4.4-10.8)
[2019-12-30 09:50] LABS: Absolute Basophil Count 0.05 10^3/uL (0.0-0.2); Absolute Neutrophil Count 12.14 10^3/uL (1.2-6.7)
[2019-12-30 10:07] LABS: ALT 8 U/L (16-63); AST 10 U/L (15-37); Albumin 3.4 g/dL (3.4-5.0); Alkaline Phosphatase 96 U/L (46-116); Anion Gap 7.2 mmol/L (3-11); BUN 20 mg/dL (7-18); Bilirubin, Total 0.5 mg/dL (0.2-1.0); CO2 29.8 mmol/L (21.0-32.0); CREATININE 1.84 mg/dL (0.70-1.30); Calcium 8.6 mg/dL (8.5-10.1); Chloride 103 mmol/L (98-107); Estimated GFR 36.14 (mL/min/1.73m2); Glucose 144 mg/dL (74-106); Potassium 4.3 mmol/L (3.5-5.1); Sodium 140 mmol/L (136-145); Total Protein 7.1 g/dL (6.4-8.2)
[2019-12-30 10:36] LABS: ESR 16 mm/hr (1-20)
[2020-01-04 13:01] LABS: JAK2 Result see interpretation
[2020-01-06 10:16] LABS: Specimen Type Peripheral blood
== END 2020-01-03 23:59 | disposition home or self-care (01) ==
LOC: INF 08:59
PROVIDERS: PCP Family Medicine; Visit Provider Internal Medicine Hematology & Oncology
DX: D72.829 Elevated white blood cell count, unspecified (principal)
CPT/HCPCS: 36415; 80053; 81206; 85652; 81270; 85025

== ENCOUNTER 2020-01-20 01:20 | Outpatient (CLI) | payer OTHER, SELFPAY ==
[2020-01-20 08:07] LABS: Abs Immature Grans 0.15 10^3/uL (0.0-0.06); Absolute Basophil Count 0.04 10^3/uL (0.0-0.2); Absolute Monocyte Count 0.94 10^3/uL (0.1-0.8); Absolute Neutrophil Count 9.43 10^3/uL (1.2-6.7); Basophils % 0.3; Eosinophils % 4.3; HCT 39.7 % (40.0-50.0); HGB 12.2 g/dL (13.5-17.5); Immature Grans % 1.1; Lymphocytes % 16.9; MCH 29.5 pg (27.0-33.0); MCHC 30.7 % (32.0-36.0); MCV 96.1 fL (80-95); MPV 9.9 fL (8.0-11.0); Neutrophils % 70.4; Nucleated RBC 0 %; Platelet Count 340 10^3/uL (130-400); RBC 4.13 10^6/uL (4.36-5.78); RDW 13.2 % (11.8-14.1); RDW-SD 46.5 fL
[2020-01-20 08:08] LABS: Absolute Eosinophil Count 0.58 10^3/uL (0.0-0.7); Absolute Lymphocyte Count 2.26 10^3/uL (1.2-3.4)
[2020-01-20 08:22] LABS: ALT 12 U/L (16-63); AST 10 U/L (15-37); Albumin 3.2 g/dL (3.4-5.0); Alkaline Phosphatase 95 U/L (46-116); Anion Gap 4.8 mmol/L (3-11); BUN 23 mg/dL (7-18); Bilirubin, Total 0.4 mg/dL (0.2-1.0); CO2 31.2 mmol/L (21.0-32.0); CREATININE 2.31 mg/dL (0.70-1.30); Calcium 8.4 mg/dL (8.5-10.1); Chloride 104 mmol/L (98-107); Glucose 133 mg/dL (74-106); Potassium 4.3 mmol/L (3.5-5.1); Sodium 140 mmol/L (136-145); Total Protein 6.6 g/dL (6.4-8.2)
[2020-01-20 09:04] LABS: ESR 13 mm/hr (1-20)
[2020-01-24 10:10] LABS: BCR/ABL1, p210 Result see interpretation; Specimen Type blood
[2020-01-24 16:13] LABS: JAK2 Result see interpretation
== END 2020-01-20 01:40 ==
PROVIDERS: PCP Family Medicine; Visit Provider Internal Medicine Hematology & Oncology
DX: D72.829 Elevated white blood cell count, unspecified (principal)
CPT/HCPCS: 0027U; 80053; 85652; 81206; 81270; 85025

== ENCOUNTER → 2020-02-25 09:26 | Outpatient (BNVA) | payer OTHER, SELFPAY | PROVIDERS: PCP Family Medicine; Referring Provider Family Medicine; Visit Provider Internal Medicine Cardiovascular Disease | DX: I47.1 Supraventricular tachycardia (principal); J44.9 Chronic obstructive pulmonary disease, unspecified; Z87.891 Personal history of nicotine dependence; E11.9 Type 2 diabetes mellitus without complications | CPT/HCPCS: 99213 ==

== ENCOUNTER 2020-04-17 11:07 | Outpatient (REF) | payer OTHER, SELFPAY ==
[2020-04-18 15:21] LABS: COVID-19 RT-PCR UVMMC Result Negative (Negative)
== END 2020-04-17 11:27 ==
LOC: NCHCN 11:07
PROVIDERS: PCP Family Medicine; Visit Provider Nurse Practitioner Family
DX: Z11.59 Encounter for screening for other viral diseases (principal)
CPT/HCPCS: U0003

== ENCOUNTER 2020-04-18 21:18 | Emergency (ER) | payer OTHER, SELFPAY ==
[2020-04-18] VITALS (12 sets, daily range): BP systolic 124–167; BP diastolic 53–71; PULSE 66–93; RESP 10–20; TEMP 36.1; O2SAT 94–97
--- NOTE | 2020-04-18 21:15 | RT.EKG_ITS ---
APPROVED REPORT Exam: Resting ECG Patient Location: E HR:93 bpm ECG Measurements Heart Rate 93 AXIS HI 206 P 26 QRSd 117 QRS -157 QT 367 T 5 QTc 456 Conclusion Sinus rhythm...normal P axis, V-rate 60- 99 Ventricular premature complex...V complex w/ short R-R interval IRBBB and LPFB...RAD, QRSd>120, term axis(90,270) Low voltage, precordial leads...precordial leads <1.0mV No STEMI
--- NOTE | 2020-04-18 21:22 | W.ED.GENAD ---
Discharge Plan Disposition Patient Disposition: HOME Condition: Good Discharge Details Clinical Impression: Chest pain Primary Care Provider: Zakiya Reyna ED Provider: Blake Galicia [place] Meds and New Rx's Prescriptions: Continued oxycodone 10 mg tablet 10 mg PO HS PRN RF: 0 Victoza 2-Edy 0.6 mg/0.1 mL (18 mg/3 mL) pen injector 1.8 mg SC DAILY RF: 0 calcitriol 0.25 mcg capsule 0.25 mcg PO .3 DAYS/WK RF: 0 nitroglycerin 0.4 MG tablet, sublingual 0.4 mg Sublingual ONCE RF: 0 olmesartan [Benicar] 5 MG tablet 5 mg PO DAILY RF: 0 cholecalciferol (vitamin D3) 1,000 UNIT tablet 1,000 unit PO DAILY RF: 0 pantoprazole [Protonix] 40 MG tablet,delayed release (DR/EC) 40 mg PO BID Qty: 60 RF: 3 metoprolol succinate 50 mg tablet extended release 24 hr 50 mg PO BID RF: 0 aspirin [Aspir-81] 81 MG tablet,delayed release (DR/EC) 81 mg PO DAILY RF: 0 multivitamin 1 EACH capsule 1 ea PO DAILY RF: 0 sertraline 50 MG tablet 50 mg PO DAILY RF: 0 Lantus U-100 Insulin 100 unit/mL solution 63 unit subcut HS RF: 0 atorvastatin [Lipitor] 40 MG tablet 40 mg PO DAILY RF: 0 ascorbic acid (vitamin C) [Vitamin C] 1,000 MG tablet 1,000 mg PO DAILY RF: 0 albuterol sulfate [Proventil HFA] 6.7 GM HFA aerosol inhaler 2 inh PO Q4H PRN PRNRF: 0 melatonin 10 MG tablet 10 mg PO HS RF: 0 cyanocobalamin (vitamin B-12) [Vitamin B-12] 1,000 mcg Tablet 1,000 mcg PO DAILY RF: 0 isosorbide mononitrate 30 mg tablet extended release 24 hr 30 mg PO DAILY Qty: 30 RF: 0 Discharge Instructions Instructions: Chest Pain (ED) Additional Instructions: Please contact cardiology for prompt follow-up given that you are supposed to have surgery on . Contact your surgeon to discuss possible postponement of surgery. Continue medications as before. Avoid caffeine and other stimulants so as not to trigger your SVT. Return to ED for recurrent chest pain, shortness of breath, palpitations, fainting. Referrals: Unique Sánchez MD [ [facility] STAFF PHYSICIAN] - Zakiya Reyna MD [Primary Care Provider] - Medical Decision Making Patient presenting with chest pressure in the setting of rapid heart rate. He does have history of SVT. He is on metoprolol for this. Currently sinus rhythm at a rate of 90 with no chest discomfort. Seen recently by both cardiology and pulmonary. Nuclear stress test in May 2019 normal. He reports symptoms for about an hour this evening. Will hold of on aspirin since supposed to have surgery in three days. However, symptoms suggestive of demand ischemia so may need repeat consult/discussion with cardiology before proceeding. NTG did not help. Presentation not consistent with dissection, PE, pneumonia. Labs ok. Magnesium low so will replace. Kidney function and elevated WBC are baseline for patient. First trop is negative. CXR with continued right pleural effusion and bibasilar parenchymal markings seen previously, though more prominent tonight. Will plan repeat trop and EKG. Patient without any recurrent pain, no evidence of SVT on monitor. Patient requested coffee which prompted discussion regarding caffeine and stimulants in his SVT. Patient's repeat troponin remains negative. EKG remains unchanged with no evidence of ischemia. Patient will contact cardiology as well as his surgeon in morning to discuss follow up and pre-op clearance. 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 Patient unwilling to stay in hospital as his is just home from hospital herself and is currently wheelchair bound and reliant upon him. He will return if any recurrent symptoms. Medical Records Medical records reviewed: Yes I reviewed the patient's medical records. Medical records narrative: Reviewed [facility] and [facility] records Lab Data Lab results reviewed: Yes I reviewed the patient's lab results. ECG Data Attestation: I personally reviewed and interpreted this ECG (s) as follows: Interpretation: see EKG HPI General Mode of arrival: EMS. Date/Time Provider Initiated Documentation: 04/18/20 21:22. Limitations to Documentation: no limitations. Information obtained by: patient, RN notes reviewed and old records reviewed. HPI Narrative: Patient presents to the ED with episode of chest pressure at home. Patient reports developing chest pressure that lasted a little less than 1 hour. Currently no pain/pressure. Reports then when he had the pressure, heart rate was 140 to 160 on his portable pulse ox. He did not feel anymore short of breath than his baseline. He denied diaphoresis or nausea. [place] pressure in his shoulders some, but not in back, jaw, arms. He did take nitro without relief. Symptoms have resolved here. He denies leg pain or swelling. He denies fever or cough. He is due to surgery at [facility] in three days and reports pending COVID result. Related Data Home Medications Medication Instructions Recorded Confirmed aspirin [Aspir-81] 81 mg PO DAILY 09/25/12 09/22/19 multivitamin 1 ea PO DAILY 09/25/12 09/22/19 sertraline 50 mg PO DAILY 09/25/12 09/22/19 cholecalciferol (vitamin D3) 1,000 unit PO DAILY tab-cap 09/21/15 09/22/19 nitroglycerin 0.4 mg SUBLINGUAL ONCE tab-cap 09/21/15 09/22/19 olmesartan [Benicar] 5 mg PO DAILY tab-cap 09/21/15 09/22/19 pantoprazole [Protonix] 40 mg PO BID #60 tab-cap 01/03/17 09/22/19 albuterol sulfate [Proventil HFA] 2 inh PO Q4H PRN PRN 02/16/17 09/22/19 ascorbic acid (vitamin C) [Vitamin 1,000 mg PO DAILY 02/16/17 09/22/19 C] atorvastatin [Lipitor] 40 mg PO DAILY 02/16/17 09/22/19 melatonin 10 mg PO HS 02/16/17 09/22/19 liraglutide 0.6 mg/0.1 mL (18 mg/3 1.8 mg SC DAILY ml 05/04/18 09/22/19 mL) subcutaneous pen injector oxycodone 10 mg tablet 10 mg PO HS PRN tab 05/04/18 09/22/19 insulin glargine 100 unit/mL 63 unit SUBCUT HS ml 12/03/18 09/22/19 subcutaneous solution calcitriol 0.25 mcg capsule 0.25 mcg PO .3 DAYS/WK 09/13/19 09/22/19 cyanocobalamin (vitamin B-12) 1,000 mcg PO DAILY 09/22/19 09/22/19 [Vitamin B-12] isosorbide mononitrate 30 mg PO DAILY #30 tab 09/22/19 metoprolol succinate 50 mg 50 mg PO BID 03/27/20 tablet,extended release 24 hr Previous Rx's Medication Instructions Recorded isosorbide mononitrate 30 mg PO DAILY #30 tab 09/22/19 Allergies Allergy/AdvReac Type Severity Reaction Status Date / Time pneumococcal vaccine Allergy Severe Swelling/Ed Verified 11/09/19 11:40 nandini sulfamethoxazole Allergy difficulty Verified 11/09/19 11:40 [From Bactrim] breathing trimethoprim [From Bactrim] Allergy difficulty Verified 11/09/19 11:40 breathing General MESERET: 2 Review of Systems Narrative: As documented in HPI otherwise negative as below. Const: no fever, chills, weakness Resp: no cough, SOB, pleuritic pain CV: no diaphoresis, edema, syncope GI: no abdominal pain, nausea, vomiting, diarrhea Neuro: no headache, numbness, focal weakness, confusion PFSH Medical History (Updated 04/19/20 @ 01:20 by Blake Galicia MD) Anemia Bilateral cataracts CKD (chronic kidney disease) COPD (chronic obstructive pulmonary disease) Coronary Artery Disease Depression Diabetes mellitus Diabetic foot ulcer GERD (gastroesophageal reflux disease) Hoarseness Hyperkalemia RBBB (right bundle branch block) Renal cell carcinoma of left kidney (05/30/17) Surgical History (Updated 04/18/20 @ 21:50 by Blake Galicia MD) Colonoscopy - MAC (12/18/16) 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 12.02.13HE Lobectomy Pt states 2 lobes removed from R. lung. No date given. 12.02.12HE Osteotomy Partial & Debridment of first metatarsal on Left foot. Social History Smoking/Tobacco Use Status: Former Tobacco Use Quit Date: 05/05/14 Tobacco: How many years used: 50 Smoking risk assessment performed?: Yes Alcohol Intake: never Drug use: Never Current gender identity: male What type of physical activity do you participate in: none and independent ambulation Do you feel safe at home: Yes Do you feel safe in your relationship?: Yes Exam Narrative Exam Narrative: Const: WDWN elderly male in NAD. HEENT: NC/AT. Normal facial exam. Eyes: Normal conjunctiva and sclera. Neck: Supple. Trachea midline. Lungs: Normal respiratory effort. Lungs are clear anterior and laterally Cor: RRR without murmur/gallop. Good radial pulses. GI: Soft. NT/ND. No guarding or rebound. Neuro: A+O x 3. Normal speech, mentation. Cranial nerves II - XII grossly intact. No gross motor or sensory deficit. Ext: No C/C/E. No calf tenderness. Skin: Warm and dry without rash.
--- NOTE | 2020-04-18 21:30 | DI.RAD_ITS ---
EXAM: XR PORTABLE CHEST AP CLINICAL HISTORY: chest pain. TECHNIQUE: 2D digital imaging was performed. COMPARISON: CR XR CHEST 2V PA LATERAL from 09/22/2019 FINDINGS: Chest leads in place. Heart size unchanged. Right-sided aortic arch is again noted. There is a mod erate size right pleural effusion again noted, unchanged in size. Also some infiltrate in both lung bases, slightly increasing on the left. Findings are superimposed upon COPD. Healed right 5th rib f racture noted. IMPRESSION: Persistent moderate-sized right pleural effusion. Bibasilar infiltrates with slight increase in infi ltrate in the left lung base. DATA REPOSITORY: RADIATION DOSE DELIVERED:
[2020-04-18 21:52] LABS: Abs Immature Grans 0.21 10^3/uL (0.0-0.06); Absolute Basophil Count 0.05 10^3/uL (0.0-0.2); Absolute Eosinophil Count 0.36 10^3/uL (0.0-0.7); Absolute Monocyte Count 1.19 10^3/uL (0.1-0.8); Absolute Neutrophil Count 12.64 10^3/uL (1.2-6.7); Basophils % 0.3; Eosinophils % 2.2; HCT 37.4 % (40.0-50.0); Immature Grans % 1.3; Lymphocytes % 11.6; MCH 30.5 pg (27.0-33.0); MCHC 32.1 % (32.0-36.0); MCV 95.2 fL (80-95); MPV 10.4 fL (8.0-11.0); Monocytes % 7.3; Neutrophils % 77.3; Nucleated RBC 0 %; Platelet Count 325 10^3/uL (130-400); RBC 3.93 10^6/uL (4.36-5.78); RDW 13.6 % (11.8-14.1); RDW-SD 47.9 fL; WBC 16.35 10^3/uL (4.4-10.8)
[2020-04-18 22:12] LABS: ALT 13 U/L (16-63); AST 13 U/L (15-37); Albumin 3.3 g/dL (3.4-5.0); Alkaline Phosphatase 122 U/L (46-116); Anion Gap 4.7 mmol/L (3-11); BUN 24 mg/dL (7-18); Bilirubin, Total 0.3 mg/dL (0.2-1.0); CO2 28.3 mmol/L (21.0-32.0); CREATININE 2.22 mg/dL (0.70-1.30); Calcium 8.7 mg/dL (8.5-10.1); Chloride 103 mmol/L (98-107); Glucose 238 mg/dL (74-106); Magnesium 1.5 mg/dL (1.8-2.4); Potassium 4.3 mmol/L (3.5-5.1); Sodium 136 mmol/L (136-145); Total Protein 6.9 g/dL (6.4-8.2)
[2020-04-18 22:15] LABS: Troponin I < 0.05 ng/mL (<0.06)
--- NOTE | 2020-04-18 22:17 | DI.VRAD_ITS ---
PROCEDURE INFORMATION: Exam: XR Chest, 1 View Exam date and time: 04/18/2020 9:59 PM Age: 74 years old Clinical indication: Chest pain; Type not specified TECHNIQUE: Imaging protocol: XR of the chest Views: 1 view. Other technique: Portable exam. COMPARISON: CR XR CHEST 2V PA LATERAL 09/22/2019 1:26 PM FINDINGS: Lungs: Coarse bibasilar parenchymal markings are noted, increased at the left lung base compared to prior study. Pleural space: There is a small right pleural effusion which is increased since previous exam. Heart/Mediastinum: Unremarkable. No cardiomegaly. Vasculature: Mild aortic ectasia with right-sided aortic arch again noted. Atherosclerotic change present. Bones/joints: Unremarkable. IMPRESSION: 1. Increased right pleural effusion and left lung base markings. 2. Right-sided arch incidentally seen. Dictated and Authenticated by: Analisa Miller MD. Ordering:SHELLIE Lozano MD
[2020-04-18] MEDS: MAGNESIUM SULFATE 2 GM/50 ML BAG IVPB (22:27)
[2020-04-19] VITALS (10 sets, daily range): BP systolic 121–130; BP diastolic 57–59; PULSE 60–79; RESP 13–27; TEMP 36.1; O2SAT 83–97
--- NOTE | 2020-04-19 00:15 | RT.EKG_ITS ---
APPROVED REPORT Exam: Resting ECG Patient Location: E HR:71 bpm ECG Measurements Heart Rate 71 AXIS WI [id number] P [id number] QRSd 128 QRS 84 QT 403 T 7 QTc 437 Conclusion Atrial flutter/fibrillation...A-rate 224, multiple Ps NSR not Afib/Aflutter per computer Right bundle branch block...QRSd>120, terminal axis(90,270) No ST changes.
[2020-04-19 01:05] LABS: Troponin I < 0.05 ng/mL (<0.06)
== END 2020-04-19 01:33 | disposition home or self-care (01) ==
PROVIDERS: Emergency Provider Emergency Medicine; PCP Family Medicine
DX: R07.89 Other chest pain (principal); E83.42 Hypomagnesemia; I47.1 Supraventricular tachycardia; E11.22 Type 2 diabetes mellitus with diabetic chronic kidney disease; N18.9 Chronic kidney disease, unspecified; J44.9 Chronic obstructive pulmonary disease, unspecified; Z87.891 Personal history of nicotine dependence; Z99.81 Dependence on supplemental oxygen; I25.10 Atherosclerotic heart disease of native coronary artery without angina pectoris; Z95.5 Presence of coronary angioplasty implant and graft; Z79.4 Long term (current) use of insulin
CPT/HCPCS: 80053; 93005; 96365; 96366; 99285; 71045; 83735; 84484; 85025; 93010

== ENCOUNTER 2020-04-24 13:04 | Emergency (ER) | payer OTHER, SELFPAY ==
[2020-04-24] VITALS (37 sets, daily range): BP systolic 103–134; BP diastolic 48–67; PULSE 61–99; RESP 13–22; TEMP 36.3–36.6; O2SAT 91–97
--- NOTE | 2020-04-24 12:45 | RT.EKG_ITS ---
APPROVED REPORT Exam: Resting ECG Patient Location: E HR:99 bpm ECG Measurements Heart Rate 99 AXIS VA 214 P 34 QRSd 130 QRS 103 QT 357 T -25 QTc 458 Conclusion Sinus rhythm...normal P axis, V-rate 60- 99 Atrial premature complex...SV complex w/ short R-R interval Borderline prolonged VA interval...VA >207, V-rate 91-120 Right bundle branch block...QRSd>120, terminal axis(90,270) sinus rhythm at 99, right axis, right bundle branch block, nonspecific ST changes, no STEMI, nondiagn ostic EKG
--- NOTE | 2020-04-24 13:03 | ED.GENADUL_ITS ---
Discharge Plan Disposition Patient Disposition: STILL A PATIENT Condition: Stable Discharge Details Clinical Impression: SVT (supraventricular tachycardia), Chest pain, Hypomagnesemia Primary Care Provider: Zakiya Reyna ED Provider: Mario Freedman Home Meds and New Rx's Prescriptions: New metoprolol succinate 100 mg tablet extended release 24 hr 100 mg PO BID Qty: 60 RF: 0 Continued oxycodone 10 mg tablet 15 mg PO .QHS RF: 0 Victoza 2-Edy 0.6 mg/0.1 mL (18 mg/3 mL) pen injector 1.8 mg SC DAILY RF: 0 nitroglycerin 0.4 MG tablet, sublingual 0.4 mg Sublingual ONCE RF: 0 cholecalciferol (vitamin D3) 1,000 UNIT tablet 1,000 unit PO DAILY RF: 0 aspirin [Aspir-81] 81 MG tablet,delayed release (DR/EC) 81 mg PO DAILY RF: 0 multivitamin 1 EACH capsule 1 ea PO DAILY RF: 0 sertraline 50 MG tablet 50 mg PO DAILY RF: 0 Lantus U-100 Insulin 100 unit/mL solution 26 unit subcut HS RF: 0 atorvastatin [Lipitor] 40 MG tablet 40 mg PO DAILY RF: 0 ascorbic acid (vitamin C) [Vitamin C] 1,000 MG tablet 500 mg PO DAILY RF: 0 albuterol sulfate [Proventil HFA] 6.7 GM HFA aerosol inhaler 2 inh PO Q4H PRN PRNRF: 0 melatonin 10 MG tablet 3 mg PO HS PRNRF: 0 docusate sodium [Colace] 100 mg Capsule 100 mg PO BID RF: 0 acetaminophen [Tylenol Extra Strength] 500 mg Tablet 1,000 mg PO .Q6 HRS PRNRF: 0 tamsulosin 0.4 mg Capsule 0.4 mg PO DAILY RF: 0 pantoprazole 40 mg tablet,delayed release (DR/EC) 40 mg PO DAILY RF: 0 oxycodone 5 mg Tablet 5 mg PO .Q4HR PRNRF: 0 Lantus Solostar U-100 Insulin 100 unit/mL (3 mL) insulin pen 30 unit SUBCUT DAILY RF: 0 Breo Ellipta 200-25 mcg/dose blister with device 1 inh INHALATION DAILY RF: 0 Vision Oral RF: 0 cyanocobalamin (vitamin B-12) [Vitamin B-12] 1,000 mcg Tablet 1,000 mcg PO DAILY RF: 0 Discontinued metoprolol succinate 50 mg tablet extended release 24 hr 50 mg PO BID RF: 0 Discharge Instructions Instructions: Supraventricular Tachycardia (ED), Chest Pain (ED), Hypomagnesemia (ED) Additional Instructions: Please return immediately to the emergency department if you develop any new or worsening symptoms, if your condition does not improve as expected, or if you become otherwise concerned. It is extremely important that you call soon as possible to make an appointment to be seen in follow-up for this visit by your primary care doctor and with cardiology as we discussed. Please stop taking your metoprolol 50 mg twice daily, and begin taking your new prescription of metoprolol 100 mg twice daily. It is also strongly important that you have an echocardiogram performed as an outpatient. You will be contacting regarding scheduling this appointment. Referrals: Unique Sánchez MD [[facility] STAFF PHYSICIAN] - Zakiya Reyna MD [Primary Care Provider] - Discharge Data Discharge Date/Time-TO BE ENTERED AT DEPARTURE: 04/24/20 17:19 Medical Decision Making <Supriya Hanson MD - Last Filed: 05/08/20 15:21> Alvaro Thompson is a 24-year-old man with a history of COPD, SVT, coronary artery disease, renal cell carcinoma, skin cancer status post left abdominal wall mass resection 04/21 who presented to the emergency department with chest pain and rapid heart rate; patient found to be in SVT, converted spontaneously, now chest pain-free and back to baseline. Benign cardiopulmonary exam. O2 sats 92 to 95% on 2 L nasal cannula, per record review this appears to be patient's baseline. I discussed the patient's presentation with Dr. Velasquez of cardiology, who felt chest pain likely to be rate related in nature, if ED work-up negative no indication for ACS rule out admission. Dr. Velasquez recommends increase metoprolol to 100 mg twice daily, outpatient echocardiogram. Concern for metabolic/electrolyte derangement, other. Doubt ACS, chest pain likely secondary to SVT. Exam/history at this time is not consistent with pulmonary embolism, acute aortic pathology, pneumonia, pneumothorax, sepsis. EKG shows ST changes V2 V3 present intermittently on prior EKGs. Plan for screening labs, telemetry, if initial troponin negative plan for repeat trops/EKG. Troponin negative. Patient reports that he feels completely somatic at this time. Hypomagnesemia noted, will replete. Plan for delta troponin, repeat EKG. Patient signed out to Dr. Freedman at time of shift change with repeat EKG, troponin pending. Patient placed on care management list for outpatient echocardiogram. Medical Records Medical records reviewed: Yes I reviewed the patient's medical records. Lab Data Lab results reviewed: Yes I reviewed the patient's lab results. ECG Data Attestation: I personally reviewed and interpreted this ECG (s) as follows: Interpretation: EKG shows sinus rhythm at 99, right axis, right bundle branch b lock, nonspecific ST changes, no STEMI, nondiagnostic EKG <Mario Freedman MD - Last Filed: 04/24/20 17:29> Received signout from Dr. Hanson. Please see her note for details the initial presentation, exam, plan of care. Patient's repeat troponin negative. Will be discharged as per previous plan. Patient to increase Metoprolol as per Dr Hanson's Rx. HPI <Supriya Hanson MD - Last Filed: 05/08/20 15:21> General Mode of arrival: EMS . Date/Time Provider Initiated Documentation: 04/24/20 13:09 . Limitations to Documentation: no limitations . Information obtained by: patient, EMS, RN notes reviewed and old records reviewed . HPI Narrative: Alvaro Thompson is a 74-year-old man with a history of coronary artery disease, diabetes, COPD, SVT, skin cancer, renal cell carcinoma, chronic kidney disease presenting to emergency department with chest pain and rapid heart rate. Patient reports that approximately an hour prior to arrival he developed chest pain, which was a pressure sensation in his central chest. Pain was nonradiating. Patient noted a heart rate of 150s to 170s on his pulse oximeter at this time. Patient called EMS. EMS reports that patient was in SVT on their arrival, rate reportedly 150-170. EMS moved him onto the [facility], and patient converted spontaneously to sinus rhythm. Blood pressure was stable during episode per EMS. EMS reports that patient's chest pain gradually began to resolve after return to normal heart rate. EMS gave patient 324 mg of aspirin. Patient reports that he took 1 nitroglycerin at home after onset of chest pain, which did not improve his symptoms. Patient reports that he currently feels back to baseline. He denies any current chest pain. Patient reports that he recently had surgery at [facility], and has been feeling fatigued since his discharge. Patient was admitted to [facility] 04/20 and discharged 04/22. Patient underwent left abdominal wall mass excision extending to rectus muscle. Patient reports that since returning home he has had some constipation. He has had mild generalized abdominal pain that has been gradually improving. He denies any current pain, fevers, vomiting, diarrhea, numbness, weakness, skin rash. Patient reports that he has baseline shortness of breath which is unchanged. Per patient and record review, patient was seen here 04/18 for same, chest pain and elevated heart rate. Patient was found to be in SVT and converted spontaneously. Patient reports that this episode today felt exactly similar to that episode. No recent med changes. Related Data Home Medications Medication Instructions Recorded Confirmed aspirin [Aspir-81] 81 mg PO DAILY 09/25/12 04/24/20 multivitamin 1 ea PO DAILY 09/25/12 04/24/20 sertraline 50 mg PO DAILY 09/25/12 04/24/20 cholecalciferol (vitamin D3) 1,000 unit PO DAILY tab-cap 09/21/15 04/24/20 nitroglycerin 0.4 mg SUBLINGUAL ONCE tab-cap 09/21/15 04/24/20 albuterol sulfate [Proventil HFA] 2 inh PO Q4H PRN PRN 02/16/17 04/24/20 ascorbic acid (vitamin C) [Vitamin 500 mg PO DAILY 02/16/17 04/24/20 C] atorvastatin [Lipitor] 40 mg PO DAILY 02/16/17 04/24/20 melatonin 3 mg PO HS PRN 02/16/17 04/24/20 liraglutide 0.6 mg/0.1 mL (18 mg/3 1.8 mg SC DAILY ml 05/04/18 04/24/20 mL) subcutaneous pen injector oxycodone 10 mg tablet 15 mg PO .QHS tab 05/04/18 04/24/20 insulin glargine 100 unit/mL 26 unit SUBCUT HS ml 12/03/18 04/24/20 subcutaneous solution cyanocobalamin (vitamin B-12) 1,000 mcg PO DAILY 09/22/19 04/24/20 [Vitamin B-12] Breo Ellipta 1 inh INHALATION DAILY 04/24/20 04/24/20 Lantus Solostar U-100 Insulin 30 unit SUBCUT DAILY 04/24/20 04/24/20 Vision Oral 04/24/20 acetaminophen [Tylenol Extra 1,000 mg PO .Q6 HRS PRN 04/24/20 04/24/20 Strength] docusate sodium [Colace] 100 mg PO BID 04/24/20 04/24/20 metoprolol succinate 100 mg PO BID #60 tab 04/24/20 oxycodone 5 mg PO .Q4HR PRN 04/24/20 04/24/20 pantoprazole 40 mg PO DAILY 04/24/20 04/24/20 tamsulosin 0.4 mg PO DAILY 04/24/20 04/24/20 Previous Rx's Medication Instructions Recorded metoprolol succinate 100 mg PO BID #60 tab 04/24/20 Allergies Allergy/AdvReac Type Severity Reaction Status Date / Time pneumococcal vaccine Allergy Severe Swelling/Ed Verified 04/24/20 13:13 nandini sulfamethoxazole Allergy difficulty Verified 04/24/20 13:13 [From Bactrim] breathing trimethoprim [From Bactrim] Allergy difficulty Verified 04/24/20 13:13 breathing General MESERET: 2 Review of Systems <Supriya Hanson MD - Last Filed: 05/08/20 15:21> Narrative: Constitutional: denies fevers, report fatigue Eyes: denies eye pain ENT: denies ear pain, dental pain, sore throat Cardiovascular: denies edema, reports chest pain Respiratory: denies cough, report chronic shortness of breath at baseline (unchanged) GI: denies vomiting, diarrhea, reports abdominal pain as per HPI, constipation : denies flank pain MSK: denies back pain, neck pain, arthralgias, myalgias Skin: denies rash Neuro: denies headaches, numbness, weakness PFSH <Supriya Hanson MD - Last Filed: 05/08/20 15:21> Medical History Anemia Bilateral cataracts CKD (chronic kidney disease) COPD (chronic obstructive pulmonary disease) Coronary Artery Disease Depression Diabetes mellitus Diabetic foot ulcer GERD (gastroesophageal reflux disease) Hoarseness Hyperkalemia RBBB (right bundle branch block) Renal cell carcinoma of left kidney (05/30/17) Surgical History (Updated 04/18/20 @ 21:50 by Blake Galicia MD) Colonoscopy - MAC (12/18/16) Completion of amputation (09/30/12) L great toe EGD - MAC (12/18/16) H/O partial nephrectomy Heart Stent (12/03/11) Pt records show heart stent placed 12/03/11 at [facility] 12.02.12HE Lobectomy Pt states 2 lobes removed from R. lung. No date given. 12.02.12HE Osteotomy Partial & Debridment of first metatarsal on Left foot. Social History Smoking/Tobacco Use Status: Former Tobacco Use Quit Date: 05/05/14 Tobacco: How many years used: 50 Smoking risk assessment performed?: Yes Alcohol Intake: never Drug use: Never Current gender identity: male What type of physical activity do you participate in: none and independent ambulation Do you feel safe at home: Yes Do you feel safe in your relationship?: Yes Exam <Supriya Hanson MD - Last Filed: 05/08/20 15:21> Narrative Exam Narrative: Constitutional: well and [id number], pleasant, conversing normally HENT: head atraumatic/normocephalic/normal inspection, mucous membranes moist Eyes: conjunctiva normal, sclera normal, pupils 3mm b/l Neck: no stridor, normal ROM, trachea midline Chest: normal inspection Resp: normal work of breathing, LCTAB, sats 92-95% on RA Cardio: normal rate, normal rhythm, no murmur appreciated GI: abdomen soft, non-tender, non-distended, surgical wound with dressing in place, clean/dry/intact, no drainage or erythema Back: normal inspection, no rash Skin: warm, dry, normal color, no rash Neuro: alert, not altered, grossly non-focal, normal tone Ext: no edema, no posterior calf TTP Psych: normal mood, normal affect, normal behavior Sign Out <Supriya Hanson MD - Last Filed: 05/08/20 15:21> Sign Out Data: Sign Out Comment: Patient signed out to Dr. Freedman at time of shift change with repeat troponin, repeat EKG pending. Last updated by Supriya Hanson MD at 04/24/20 15:27
[2020-04-24 13:31] LABS: Abs Immature Grans 0.19 10^3/uL (0.0-0.06); Absolute Basophil Count 0.04 10^3/uL (0.0-0.2); Absolute Eosinophil Count 0.26 10^3/uL (0.0-0.7); Absolute Lymphocyte Count 0.84 10^3/uL (1.2-3.4); Basophils % 0.3; Eosinophils % 1.9; HCT 33.2 % (40.0-50.0); HGB 10.6 g/dL (13.5-17.5); Immature Grans % 1.4; Lymphocytes % 6.2; MCH 30.8 pg (27.0-33.0); MCHC 31.9 % (32.0-36.0); MCV 96.5 fL (80-95); MPV 10.2 fL (8.0-11.0); Monocytes % 6.7; Neutrophils % 83.5; Nucleated RBC 0 %; Platelet Count 307 10^3/uL (130-400); RBC 3.44 10^6/uL (4.36-5.78); RDW 14.1 % (11.8-14.1); RDW-SD 49.8 fL; WBC 13.48 10^3/uL (4.4-10.8)
[2020-04-24 13:38] LABS: Absolute Neutrophil Count 11.26 10^3/uL (1.2-6.7)
[2020-04-24 13:50] LABS: ALT 17 U/L (16-63); AST 20 U/L (15-37); Albumin 2.7 g/dL (3.4-5.0); Alkaline Phosphatase 113 U/L (46-116); Anion Gap 6.6 mmol/L (3-11); BUN 20 mg/dL (7-18); Bilirubin, Total 0.3 mg/dL (0.2-1.0); CO2 27.4 mmol/L (21.0-32.0); CREATININE 1.71 mg/dL (0.70-1.30); Calcium 8.7 mg/dL (8.5-10.1); Chloride 103 mmol/L (98-107); Estimated GFR 39.33 (mL/min/1.73m2); Glucose 378 mg/dL (74-106); Magnesium 1.6 mg/dL (1.8-2.4); Potassium 4.4 mmol/L (3.5-5.1); Sodium 137 mmol/L (136-145); Total Protein 6.3 g/dL (6.4-8.2); Troponin I < 0.05 ng/mL (<0.06)
[2020-04-24] MEDS: MAGNESIUM SULFATE 2 GM/50 ML BAG IVPB (14:12)
--- NOTE | 2020-04-24 16:22 | NUR.NOTE ---
Nursing Note: Request for outpatient echo faxed to DI. Nohemi Kimball
[2020-04-24 17:09] LABS: Troponin I < 0.05 ng/mL (<0.06)
--- NOTE | 2020-04-27 08:34 | NUR.NOTE ---
Nursing Note: Radu West states she spoke with pt to schedule ECHO, pt states he is recovery from surgery and has declined ECHO.
== END 2020-04-24 17:19 | disposition still patient (30) ==
PROVIDERS: Student in an Organized Health Care Education/Training Program; Emergency Provider Emergency Medicine; PCP Family Medicine
DX: I47.1 Supraventricular tachycardia (principal); R07.89 Other chest pain; E83.42 Hypomagnesemia; E11.65 Type 2 diabetes mellitus with hyperglycemia; Z79.4 Long term (current) use of insulin; E11.22 Type 2 diabetes mellitus with diabetic chronic kidney disease; N18.9 Chronic kidney disease, unspecified; J44.9 Chronic obstructive pulmonary disease, unspecified; Z87.891 Personal history of nicotine dependence
CPT/HCPCS: 36415; 80053; 93005; 96365; 96366; 99285; 83735; 84484; 85025; 93010

== ENCOUNTER → 2020-04-26 08:19 | Outpatient (BNVA) | payer OTHER, SELFPAY | PROVIDERS: PCP Family Medicine; Referring Provider Family Medicine; Visit Provider Nurse Practitioner Gerontology | DX: D30.02 Benign neoplasm of left kidney (principal); E11.22 Type 2 diabetes mellitus with diabetic chronic kidney disease; N18.9 Chronic kidney disease, unspecified; J44.9 Chronic obstructive pulmonary disease, unspecified; Z46.6 Encounter for fitting and adjustment of urinary device | CPT/HCPCS: 99213 ==

== ENCOUNTER → 2020-05-24 02:48 | Outpatient (CLI) | payer OTHER, SELFPAY ==
--- NOTE | 2020-05-24 | DI.US_ITS ---
APPROVED REPORT EXAM: Comprehensive 2D, Doppler, and color-flow Echocardiogram Patient Location: Out-Patient [facility] Operator: Courtney Cao RDCS (AE) Indications: H/O SVT, Hypoxemia, Chest pain Other Information Study Quality: Fair. Technically limited study due to body habitus. Conclusion Technically difficult but adequate study Normal left ventricular chamber size and wall thickness. Estimated ejection fraction is 60%. There are no segmental wall motion abnormalities Normal right ventricular size and systolic function Both atria are normal in size Normal aortic valve without stenosis or regurgitation Thickened mitral annulus. Trace mitral regurgitation Normal tricuspid valve with mild regurgitation. Estimated right ventricular systolic pressure is 54 mmHg consistent with moderate pulmonary hypertension The pulmonic valve is not well visualized Wall motion Left Ventricle The left ventricle is normal size. The left ventricular systolic function is normal. The left ventric ular ejection fraction is within the normal range. There is normal left ventricular wall thickness. T here is normal LV segmental wall motion. There is no ventricular septal defect visualized. LVEF is 60 %. Right Ventricle The right ventricle is normal size. The right ventricular systolic function is normal. The RVSP is 53 .5mmHg. Atria The left atrium size is normal. The right atrium size is normal. The interatrial septum is intact wit h no evidence for an atrial septal defect. Aortic Valve The aortic valve is normal in structure. Aortic valve is trileaflet. There is no aortic valvular sten osis. No aortic regurgitation is present. Mitral Valve Mild mitral annular calcification. No evidence of mitral valve stenosis. Trace mitral regurgitation. Tricuspid Valve The tricuspid valve is normal in structure. There is no tricuspid valve stenosis. Mild tricuspid regu rgitation. Pulmonic Valve Pulmonic valve is not well visualized. There is no pulmonic valvular stenosis. There is no pulmonic v alvular regurgitation. Great Vessels The aortic root is normal in size. The ascending aorta is normal in size. IVC is normal in size and c ollapses >50% with inspiration. Pericardium There is no pericardial effusion. 2D Dimensions IVSD d PLAX 1.10 cm M: 0.6-1.2 LV Vol A2C d MOD 86.7 mL LVPW d PLAX 1.15 cm M: 0.6 - 1.2 LV Vol A4C d MOD 87.7 mL LVID d PLAX 4.63 cm M: 4.2 - 5.8 LA vol/ BSA A2C s A-L 14.4 mL/m2 LVDs 3.00 cm M: 2.5 - 4.0 LA vol/ BSA A4C s A-L 13.6 mL/m2 Ao Root d 2.91 cm M: 3.1 - 3.7 LA Vol/ BSA Biplane s A-L 14.1 mL/m2 RA Area A4C 13.58 cm2 LA Area A4C s MOD 12.68 cm2 RA Vol/ BSA A4C s A-L 14.6 mL/m2 LA Area A2C s MOD 12.92 cm2 Ao Asc Diam d 2.92 cm M: 2.6 - 3.4 LV EF A4C MOD 57.2 % LV EF Teichholz 63.4 % LV EF A2C MOD 60.0 % LVEF (Weiner's) 58.29 % M: 52 - 72 LV EF Biplane MOD 58.3 % LV Volume 63.97 mL M: 62 - 150 SV 51.70 mL LV Volume Index 28.30 mL/m2 M: 34 - 74 SV Index 22.87 mL/m2 LV Vol Biplane MOD 88.7 mL FS 34.30 % M-Mode TAPSE 2.13 cm (M/F) >1.7 LV Diastology MV E' medial 0.066 (>0.07 m/s) E/A Ratio 1.0 LV E/e MED 11.20 (<14) MV E Vmax 0.75 (0.4-1.3 m/s) MV E' lateral 0.077 (>0.1 m/s) MV A Vmax 0.75 (0.4-1.3 m/s) LV E/e LAT 9.65 (<14) MV E/A Ratio 0.99 MV E/E' medial 11.21 MV E/E' lateral 9.65 Aortic Valve LVOT Area 3.20 cm2 AoV Area Vmax 2.84 cm2 LVOT Vmax 1.12 m/s AoV Area/ BSA (Vmax) 1.26 cm2/m2 LVOT Mean Callum. 0.65 m/s ZONIA Mean Callum. 2.37 cm2 LVOT Peak Grad 5.0 mmHg ZONIA Mean Callum. Index 1.05 cm2/m2 LVOT Mean Grad 2.1 mmHg LVOT VTI 0.264 m LVOT Diam s 2.00 cm AoV Vmax 1.25 m/s Velocity Ratio 0.89 AoV Mean Callum. 0.88 m/s AoV Peak Grad 6.3 mmHg LVOT SV 84.31 mL AoV Mean Grad 3.6 mmHg AoV VTI 0.295 m AoV Area VTI 2.86 cm2 AoV Area/ BSA (VTI) 1.26 cm/m2 Mitral Valve MV DT 255 (160-240 msec) MV PHT 74 msec MV Area PHT 2.98 cm2 Pulmonary Valve PV Vmax 1.00 (0.5-1.5 m/s) RVOT Peak Gr. 1.79 mmHg PV Peak Grad 4.0 mmHg RVOT Mean Gr. 0.90 mmHg PV Mean Grad 2.6 mmHg RVOT VTI 0.149 m PV VTI 0.220 m RVOT Vmax 0.67 m/s Tricuspid Valve TR Peak Grad 50.4 mmHg TR Vmax 3.55 m/s RA Pressure 3.00 mmHg RVSP (TR) 53.5 mmHg
== END ==
PROVIDERS: PCP Family Medicine; Visit Provider Family Medicine
DX: I07.1 Rheumatic tricuspid insufficiency (principal)
CPT/HCPCS: 93306

== ENCOUNTER 2020-06-14 19:30 | Outpatient (REF) | payer OTHER, SELFPAY ==
[2020-06-14 20:09] LABS: HCT 34.9 % (40.0-50.0); MCH 31.2 pg (27.0-33.0); MCHC 31.5 % (32.0-36.0); MCV 98.9 fL (80-95); MPV 11.1 fL (8.0-11.0); Platelet Count 331 10^3/uL (130-400); RBC 3.53 10^6/uL (4.36-5.78); RDW 13.2 % (11.8-14.1); RDW-SD 47.9 fL; WBC 15.73 10^3/uL (4.4-10.8)
[2020-06-14 20:27] LABS: Anion Gap 8.1 mmol/L (3-11); BUN 26 mg/dL (7-18); CO2 27.9 mmol/L (21.0-32.0); CREATININE 2.1 mg/dL (0.70-1.30); Calcium 8.6 mg/dL (8.5-10.1); Chloride 104 mmol/L (98-107); Estimated GFR 31.03 (mL/min/1.73m2); Glucose 237 mg/dL (74-106); Magnesium 1.7 mg/dL (1.8-2.4); Potassium 5.3 mmol/L (3.5-5.1); Sodium 140 mmol/L (136-145)
[2020-06-14 20:57] LABS: Hemoglobin A1C 7.6 % (<5.7)
[2020-06-14 23:00] LABS: Absolute Neutrophil Count 12.14 10^3/uL (1.2-6.7); Neutrophils % 77.2
[2020-06-14 23:01] LABS: Absolute Basophil Count 0.06 10^3/uL (0.0-0.2); Absolute Lymphocyte Count 1.87 10^3/uL (1.2-3.4); Basophils % 0.4; Eosinophils % 1.9; Immature Grans % 1.6; Lymphocytes % 11.9; Nucleated RBC 0 %
== END 2020-06-14 19:31 | disposition home or self-care (01) ==
LOC: NCHCN 19:30
PROVIDERS: PCP Family Medicine; Visit Provider Family Medicine
DX: E83.42 Hypomagnesemia (principal); E11.9 Type 2 diabetes mellitus without complications; D72.829 Elevated white blood cell count, unspecified
CPT/HCPCS: 80048; 85027; 83036; 83735; 85025

== ENCOUNTER 2020-09-06 09:55 | Outpatient (REF) | payer OTHER, SELFPAY ==
[2020-09-06 15:52] LABS: Microalb ug/mg Crea 14.9 ug/mg Cr
== END 2020-09-06 09:56 | disposition home or self-care (01) ==
LOC: NCHCN 09:55
PROVIDERS: PCP Family Medicine; Visit Provider Family Medicine
DX: E11.9 Type 2 diabetes mellitus without complications (principal)
CPT/HCPCS: 82043; 82570

== ENCOUNTER 2020-09-09 19:23 | Emergency (ER) | payer OTHER, SELFPAY ==
[2020-09-09] VITALS (53 sets, daily range): BP systolic 84–119; BP diastolic 38–98; PULSE 78–176; RESP 22–37; TEMP 36.5–38.9; O2SAT 84–96
--- NOTE | 2020-09-09 19:15 | RT.EKG_ITS ---
APPROVED REPORT Exam: Resting ECG Reason for Exam: DIFF BREATHING Patient Location: E HR:90 bpm ECG Measurements Heart Rate 90 AXIS MA [id number] P [id number] QRSd 125 QRS 67 QT 361 T -13 QTc 443 Conclusion Atrial fibrillation...V-rate 90- 91, irreg A-activity Right bundle branch block...QRSd>120, terminal axis(90,270) There are no significant changes compared to prior EKG performed on 04/19/2020 at 00:35.
--- NOTE | 2020-09-09 19:53 | W.ED.GENAD ---
Discharge Plan Disposition Patient Disposition: [facility] Condition: Serious Discharge Details Clinical Impression: Pneumonia, MARY (acute kidney injury), Elevated brain natriuretic peptide (BNP) level Primary Care Provider: Zakiya Reyna ED Provider: Mark Rosa Home Meds and New Rx's Prescriptions: No Action oxycodone 10 mg tablet 15 mg PO .QHS RF: 0 Victoza 2-Edy 0.6 mg/0.1 mL (18 mg/3 mL) pen injector 1.8 mg SC DAILY RF: 0 nitroglycerin 0.4 MG tablet, sublingual 0.4 mg Sublingual ONCE RF: 0 cholecalciferol (vitamin D3) 1,000 UNIT tablet 1,000 unit PO DAILY RF: 0 aspirin [Aspir-81] 81 MG tablet,delayed release (DR/EC) 81 mg PO DAILY RF: 0 multivitamin 1 EACH capsule 1 ea PO DAILY RF: 0 sertraline 50 MG tablet 50 mg PO DAILY RF: 0 Lantus U-100 Insulin 100 unit/mL solution 26 unit subcut HS RF: 0 atorvastatin [Lipitor] 40 MG tablet 40 mg PO DAILY RF: 0 ascorbic acid (vitamin C) [Vitamin C] 1,000 MG tablet 500 mg PO DAILY RF: 0 albuterol sulfate [Proventil HFA] 6.7 GM HFA aerosol inhaler 2 inh PO Q4H PRN PRNRF: 0 melatonin 10 MG tablet 3 mg PO HS PRNRF: 0 docusate sodium [Colace] 100 mg Capsule 100 mg PO BID RF: 0 acetaminophen [Tylenol Extra Strength] 500 mg Tablet 1,000 mg PO .Q6 HRS PRNRF: 0 tamsulosin 0.4 mg Capsule 0.4 mg PO DAILY RF: 0 pantoprazole 40 mg tablet,delayed release (DR/EC) 40 mg PO DAILY RF: 0 oxycodone 5 mg Tablet 5 mg PO .Q4HR PRNRF: 0 Lantus Solostar U-100 Insulin 100 unit/mL (3 mL) insulin pen 30 unit SUBCUT DAILY RF: 0 Breo Ellipta 200-25 mcg/dose blister with device 1 inh INHALATION DAILY RF: 0 Vision Oral RF: 0 metoprolol succinate 100 mg tablet extended release 24 hr 100 mg PO BID Qty: 60 RF: 0 cyanocobalamin (vitamin B-12) [Vitamin B-12] 1,000 mcg Tablet 1,000 mcg PO DAILY RF: 0 Medical Decision Making This is a 74-year-old gentleman, past medical history that includes anemia, CKD, COPD, CAD, depression, diabetes, GERD, renal cell carcinoma, presenting to the ER via EMS for shortness of breath. reports generalized weakness, bilateral hand swelling, decreased appetite, concern for dehydration. Clinically he is afebrile, satting 96% on 2 L nasal cannula, respirations 34, blood pressure 106/91. Although his mucous membranes are dry, his examination is certainly concerning for CHF. Will obtain a cardiac work-up, given his multiple comorbidities will obtain CTA of chest for further evaluation as opposed to 1 view chest x-ray. Will obtain Covid swab as well. Will not empirically treat with any antibiotics as he is afebrile. Denies productive cough. Will not reflexively give IV fluids given my concern for CHF. Laboratory values reveal a white blood cell count of 38.23, hemoglobin 11.1 hematocrit 34.9 platelet count 257. INR 1.2. Given his white blood cell count, will initiate more of a septic work-up including blood cultures. Lactate 2.0, BUN 53, creatinine 4.0 with GFR 14.75. Glucose 280. Magnesium 1.4. Initial troponin less than 0.05. BNP 9650. Procalcitonin of greater than 190. Given his GFR, will not obtain CTA Chest x-ray read by radiology as right pleural effusion with bibasilar atelectasis favored over pneumonia. Probable interstitial edema Blood pressure as high as 116/48, now 98/44. Will initiate IV antibiotic therapy 2 g IV ceftriaxone and 500 IV azithromycin as well as initiate gentle hydration at 125 cc/h. I did discuss the case with our hospitalist team Dr. Koehler, who after reviewing the case felt as though the patient may be too ill to keep the critical access hospital had recommended transfer to a higher level of care. Call was placed to [facility] at 9:30 PM to initiate transfer. Covid negative Patient was unable to provide a urinalysis. A straight catheter was inserted but no urine returned. Bladder scan revealed between 80 and 90 cc of urine. BP noted to be 84/45, recheck and up to 90/41. Considered initiating Levophed, patient still mentating, will hold off on any pressors at the moment. Manual BP 1113 was 90/54 I received a call from Dr. Navarro, hospitalist at [facility]. We discussed the case. She would like to initiate a bolus of 500 cc normal saline now, will hold off on any pressors, does not have any other recommendations. Patient will be transferred to the stepdown unit. This plan was discussed with patient. All appropriate paperwork completed. Patient has no additional questions or concerns and is comfortable with this plan. Medical Records Medical records reviewed: Yes I reviewed the patient's medical records. Imaging Data Radiologic Study: Attestation: I personally reviewed and interpreted this imaging study as follows: Imaging: X-Ray Radiologist's impression: Stable study. Right pleural effusion with bibasilar atelectasis favored over pneumonia. Probable interstitial edema Lab Data Lab results reviewed: Yes I reviewed the patient's lab results. Lab results narrative: 09/09/20 22:40 Blood Blood Culture - Pending 09/09/20 21:12 Blood Blood Culture - Pending Laboratory Tests Range/Units 09/09/20 09/09/20 09/09/20 19:40 19:40 19:40 WBC (4.4-10.8) 10^3/uL 38.23 H* RBC (4.36-5.78) 10^6/uL 3.52 L Hgb (13.5-17.5) g/dL 11.1 L Hct (40.0-50.0) % 34.9 L MCV (80-95) fL 99.1 H MCH (27.0-33.0) pg 31.5 MCHC (32.0-36.0) % 31.8 L RDW (11.8-14.1) % 13.2 Plt Count (130-400) 10^3/uL 257 MPV (8.0-11.0) fL 11.4 H Immature Gran % See Differential Neutrophils % 73.0 Band Neutrophils % 16 Lymphocytes % 9.0 Monocytes % 1.0 Eosinophils % 0.0 Basophils % 0.0 Metamyelocytes % 1 Nucleated RBC % % 0 Absolute Neutrophils (1.2-6.7) 10^3/uL 34.02 H Absolute Lymphocytes (1.2-3.4) 10^3/uL 3.44 H Absolute Monocytes (0.1-0.8) 10^3/uL 0.38 Absolute Eosinophils (0.0-0.7) 10^3/uL 0.00 Absolute Basophils (0.0-0.2) 10^3/uL 0.00 RBC Morphology Normal PT Cancelled INR Cancelled APTT Cancelled VBG Lactate (0.6-1.4) mmol/L Sodium (136-145) mmol/L 131 L Potassium (3.5-5.1) mmol/L 4.8 Chloride (98-107) mmol/L 96 L Carbon Dioxide (21.0-32.0) mmol/L 23.9 Anion Gap (3-11) mmol/L 11.1 H BUN (7-18) mg/dL 53 H Creatinine (0.70-1.30) mg/dL 4.0 H* Estimated GFR/1.73 m2 (mL/min/1.73m2) 14.75 Glucose (74-106) mg/dL 280 H Calcium (8.5-10.1) mg/dL 8.6 Magnesium (1.8-2.4) mg/dL 1.4 L Total Bilirubin (0.2-1.0) mg/dL 0.7 AST (15-37) U/L 19 ALT (16-63) U/L 18 Alkaline Phosphatase (46-116) U/L 109 Troponin I (<0.06) ng/mL < 0.05 NT-Pro-B Natriuret Pep (<300) pg/mL 9650 H Total Protein (6.4-8.2) g/dL 7.3 Albumin (3.4-5.0) g/dL 2.8 L Procalcitonin ng/mL COVID-19 Source SARS-CoV-2 (PCR) (Negative) Range/Units 09/09/20 09/09/20 09/09/20 20:30 21:00 21:12 WBC (4.4-10.8) 10^3/uL RBC (4.36-5.78) 10^6/uL Hgb (13.5-17.5) g/dL Hct (40.0-50.0) % MCV (80-95) fL MCH (27.0-33.0) pg MCHC (32.0-36.0) % RDW (11.8-14.1) % Plt Count (130-400) 10^3/uL MPV (8.0-11.0) fL Immature Gran % Neutrophils % Band Neutrophils % Lymphocytes % Monocytes % Eosinophils % Basophils % Metamyelocytes % Nucleated RBC % % Absolute Neutrophils (1.2-6.7) 10^3/uL Absolute Lymphocytes (1.2-3.4) 10^3/uL Absolute Monocytes (0.1-0.8) 10^3/uL Absolute Eosinophils (0.0-0.7) 10^3/uL Absolute Basophils (0.0-0.2) 10^3/uL RBC Morphology PT 12.4 H INR 1.2 H APTT 32.8 H VBG Lactate (0.6-1.4) mmol/L 2.0 H Sodium (136-145) mmol/L Potassium (3.5-5.1) mmol/L Chloride (98-107) mmol/L Carbon Dioxide (21.0-32.0) mmol/L Anion Gap (3-11) mmol/L BUN (7-18) mg/dL Creatinine (0.70-1.30) mg/dL Estimated GFR/1.73 m2 (mL/min/1.73m2) Glucose (74-106) mg/dL Calcium (8.5-10.1) mg/dL Magnesium (1.8-2.4) mg/dL Total Bilirubin (0.2-1.0) mg/dL AST (15-37) U/L ALT (16-63) U/L Alkaline Phosphatase (46-116) U/L Troponin I (<0.06) ng/mL NT-Pro-B Natriuret Pep (<300) pg/mL Total Protein (6.4-8.2) g/dL Albumin (3.4-5.0) g/dL Procalcitonin ng/mL > 190.0 COVID-19 Source Nasal/nares SARS-CoV-2 (PCR) (Negative) Negative Range/Units 09/09/20 22:40 WBC (4.4-10.8) 10^3/uL RBC (4.36-5.78) 10^6/uL Hgb (13.5-17.5) g/dL Hct (40.0-50.0) % MCV (80-95) fL MCH (27.0-33.0) pg MCHC (32.0-36.0) % RDW (11.8-14.1) % Plt Count (130-400) 10^3/uL MPV (8.0-11.0) fL Immature Gran % Neutrophils % Band Neutrophils % Lymphocytes % Monocytes % Eosinophils % Basophils % Metamyelocytes % Nucleated RBC % % Absolute Neutrophils (1.2-6.7) 10^3/uL Absolute Lymphocytes (1.2-3.4) 10^3/uL Absolute Monocytes (0.1-0.8) 10^3/uL Absolute Eosinophils (0.0-0.7) 10^3/uL Absolute Basophils (0.0-0.2) 10^3/uL RBC Morphology PT INR APTT VBG Lactate (0.6-1.4) mmol/L Sodium (136-145) mmol/L Potassium (3.5-5.1) mmol/L Chloride (98-107) mmol/L Carbon Dioxide (21.0-32.0) mmol/L Anion Gap (3-11) mmol/L BUN (7-18) mg/dL Creatinine (0.70-1.30) mg/dL Estimated GFR/1.73 m2 (mL/min/1.73m2) Glucose (74-106) mg/dL Calcium (8.5-10.1) mg/dL Magnesium (1.8-2.4) mg/dL Total Bilirubin (0.2-1.0) mg/dL AST (15-37) U/L ALT (16-63) U/L Alkaline Phosphatase (46-116) U/L Troponin I (<0.06) ng/mL < 0.05 NT-Pro-B Natriuret Pep (<300) pg/mL Total Protein (6.4-8.2) g/dL Albumin (3.4-5.0) g/dL Procalcitonin ng/mL COVID-19 Source SARS-CoV-2 (PCR) (Negative) ECG Data Attestation: I personally reviewed and interpreted this ECG (s) as follows: Interpretation: Please see official report by Dr. Galicia HPI General Mode of arrival: EMS. Date/Time Provider Initiated Documentation: 09/09/20 19:27. Limitations to Documentation: no limitations. Information obtained by: patient and EMS. HPI Narrative: This is a 74-year-old gentleman, past medical history that includes anemia, CKD, COPD, CAD, depression, diabetes, GERD, renal cell carcinoma, presenting to the ER via EMS for shortness of breath. Patient reports that he wears oxygen, 2 L at home at baseline. Unfortunately he is a rather vague and poor historian. He tells me that he has felt short of breath increased for the past 3-4 days, simply cannot take a deep breath. Denies recent illness or trauma, headache, visual changes, neck pain, chest pain, productive cough, dysuria, constipation. He does report chronic right flank discomfort that is unchanged, he has had couple episodes of vomiting over the past couple of days which she also reports is not that atypical. One episode of diarrhea yesterday. I was able to talk with his on the phone Kimber. She tells me that he has been short of breath for the past 3 or 4 days, overall weakness, decreased appetite, and she questions if his hands are slightly more swollen than baseline. She is able to elaborate on his overall medical history and provide us with a medication list. He is not anticoagulated. He has been taken off of medications as directed. She states that he was most recently admitted at [facility] approximately 6 months ago when he had a tumor removed from his left kidney Related Data Home Medications Medication Instructions Recorded Confirmed aspirin [Aspir-81] 81 mg PO DAILY 09/25/12 04/24/20 multivitamin 1 ea PO DAILY 09/25/12 04/24/20 sertraline 50 mg PO DAILY 09/25/12 04/24/20 cholecalciferol (vitamin D3) 1,000 unit PO DAILY tab-cap 09/21/15 04/24/20 nitroglycerin 0.4 mg SUBLINGUAL ONCE tab-cap 09/21/15 04/24/20 albuterol sulfate [Proventil HFA] 2 inh PO Q4H PRN PRN 02/16/17 04/24/20 ascorbic acid (vitamin C) [Vitamin 500 mg PO DAILY 02/16/17 04/24/20 C] atorvastatin [Lipitor] 40 mg PO DAILY 02/16/17 04/24/20 melatonin 3 mg PO HS PRN 02/16/17 04/24/20 liraglutide 0.6 mg/0.1 mL (18 mg/3 1.8 mg SC DAILY ml 05/04/18 04/24/20 mL) subcutaneous pen injector oxycodone 10 mg tablet 15 mg PO .QHS tab 05/04/18 04/24/20 insulin glargine 100 unit/mL 26 unit SUBCUT HS ml 12/03/18 04/24/20 subcutaneous solution cyanocobalamin (vitamin B-12) 1,000 mcg PO DAILY 09/22/19 04/24/20 [Vitamin B-12] Breo Ellipta 1 inh INHALATION DAILY 04/24/20 04/24/20 Lantus Solostar U-100 Insulin 30 unit SUBCUT DAILY 04/24/20 04/24/20 Vision Oral 04/24/20 acetaminophen [Tylenol Extra 1,000 mg PO .Q6 HRS PRN 04/24/20 04/24/20 Strength] docusate sodium [Colace] 100 mg PO BID 04/24/20 04/24/20 metoprolol succinate 100 mg PO BID #60 tab 04/24/20 oxycodone 5 mg PO .Q4HR PRN 04/24/20 04/24/20 pantoprazole 40 mg PO DAILY 04/24/20 04/24/20 tamsulosin 0.4 mg PO DAILY 04/24/20 04/24/20 Previous Rx's Medication Instructions Recorded metoprolol succinate 100 mg PO BID #60 tab 04/24/20 Allergies Allergy/AdvReac Type Severity Reaction Status Date / Time pneumococcal vaccine Allergy Severe Swelling/Ed Verified 09/09/20 19:42 nandini sulfamethoxazole Allergy difficulty Verified 09/09/20 19:42 [From Bactrim] breathing trimethoprim [From Bactrim] Allergy difficulty Verified 09/09/20 19:42 breathing General Stated Complaint: SOB MESERET: 2 Review of Systems Constitutional Constitutional: Denies fatigue and Denies fever(s) Eyes Eyes: Denies change in vision ENT Ears, Nose, Mouth, and Throat: Denies neck pain Cardiovascular Cardiovascular: Denies chest pain and Reports dyspnea Respiratory Respiratory: Denies cough and Reports dyspnea Gastrointestinal Gastrointestinal: Reports abdominal pain (Chronic), Denies nausea and Denies vomiting Genitourinary Genitourinary: Denies dysuria Musculoskeletal Musculoskeletal: Denies neck pain Integumentary/Breasts Skin/Breast: Denies rash Neurologic Neurologic: Reports weakness (Generalized) Endocrine Endocrine: Denies fatigue Hematologic/Lymphatic Hematologic/Lymphatic: Denies easy bleeding and Denies easy bruising [facility] Medical History Anemia Bilateral cataracts CKD (chronic kidney disease) COPD (chronic obstructive pulmonary disease) Coronary Artery Disease Depression Diabetes mellitus Diabetic foot ulcer GERD (gastroesophageal reflux disease) Hoarseness Hyperkalemia RBBB (right bundle branch block) Renal cell carcinoma of left kidney (05/30/17) Surgical History Colonoscopy - MAC (12/18/16) 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 12.02.13HE Lobectomy Pt states 2 lobes removed from R. lung. No date given. 12.02.HE Osteotomy Partial & Debridment of first metatarsal on Left foot. Social History Smoking/Tobacco Use Status: Former Tobacco Use Quit Date: 05/05/14 Tobacco: How many years used: 50 Smoking risk assessment performed?: Yes Alcohol Intake: never Drug use: Never Current gender identity: male What type of physical activity do you participate in: none and independent ambulation Do you feel safe at home: Yes Do you feel safe in your relationship?: Yes Exam Const General: cooperative, comfortable and no acute distress Orientation: alert, awake, oriented to person, oriented to place and confused (Of exact date) [facility] Head: normal to inspection, normocephalic and atraumatic Face and sinus: normal facial exam Mouth: moist mucous membranes abnormal (Dry) Eyes General: appearance normal, both eyes and all related structures Alignment and Position: alignment normal Periorbital: periorbital findings normal Eyelids: eyelids normal Conjunctivae: conjunctivae normal Sclera: sclerae normal Cornea: corneas normal Pupils: PERRL EOM: EOM intact bilaterally Direct ophthalmoscopy: normal light reflex Neck Neck: normal visual inspection, full ROM, no meningeal signs, trachea midline, supple and nontender Chest Chest: normal inspection of the chest and normal palpation of entire chest wall Resp Effort & Inspection: normal respiratory effort, able to speak in complete sentences and tachypneic (34) Auscultation: crackles bilaterally 1/[address] up and diminished lung sounds bilaterally in the lower lung segal Cardio Rate: regular rate Rhythm: regular rhythm GI Inspection: normal to inspection and obesity Palpation: soft and nontender Auscultation: normal bowel sounds Back/Spine/Pelvis Back: No back tenderness Skin General skin exam: no rashes or lesions noted Neuro General: patient alert, patient awake, moves all extremities and no focal motor deficits Cognition: normal cognition Speech: speech normal Sensory Exam: no sensory deficits noted Extrem General: full ROM, capillary refill normal, no calf tenderness and edema Laterality: bilateral (Lower extremities 1+) Psych Appearance: grossly normal Mental Status: mental status grossly normal Course Vital Signs Vital signs: Vital Signs Temperature 36.5 C 09/09/20 19:23 Pulse 91 H 09/09/20 19:23 Respiratory Rate 34 H 09/09/20 19:23 Blood Pressure 106/91 H 09/09/20 19:23 Pulse Oximetry 96 09/09/20 19:23 Temperature 36.5 C 09/09/20 19:23 Temperature Source Skin 09/09/20 19:23 Pulse 91 H 09/09/20 19:23 Respiratory Rate 34 H 09/09/20 19:23 Respiratory Effort Accessory Muscle Use 09/09/20 19:32 Blood Pressure 106/91 H 09/09/20 19:23 Blood Pressure Position Sitting 09/09/20 19:23 Pulse Oximetry 96 09/09/20 19:23 Oxygen Delivery Method Nasal Cannula 09/09/20 19:23 Oxygen Flow Rate 4 09/09/20 19:23 Pain Level 8 09/09/20 19:23 Critical Care Time Critical Care Time Critical Care Time: Yes Total Critical Care Time: 40 Attestation: Upon my evaluation, this patient had a high probability of clinically significant, life-threatening deterioration due to their current medical conditions, which required my direct attention, intervention, and personal management. I have personally provided greater than 30 minutes of critical care time exclusive of the time spend on separately billable procedures. Time includes obtaining a history, examining the patient, pulse oximetry, review of laboratory data, radiology results, discussion with consultants, arranging urgent treatment with development of a management plan, evaluation of patient's response to treatment, and monitoring for potential decompensation. Interventions were performed as documented above.
[2020-09-09 20:07] LABS: HCT 34.9 % (40.0-50.0); HGB 11.1 g/dL (13.5-17.5); MCH 31.5 pg (27.0-33.0); MCHC 31.8 % (32.0-36.0); MCV 99.1 fL (80-95); MPV 11.4 fL (8.0-11.0); Nucleated RBC 0 %; Platelet Count 257 10^3/uL (130-400); RBC 3.52 10^6/uL (4.36-5.78); RDW 13.2 % (11.8-14.1); RDW-SD 47.6 fL
[2020-09-09 20:13] LABS: WBC 38.23 10^3/uL (4.4-10.8)
--- NOTE | 2020-09-09 20:30 | DI.RAD_ITS ---
Exam(s) XR PORTABLE CHEST AP EXAM: XR PORTABLE CHEST AP CLINICAL HISTORY: sob. TECHNIQUE: 2D digital imaging was performed. COMPARISON: CR,XR XR PORTABLE CHEST AP from 04/18/2020 FINDINGS: Heart size is normal. The mediastinum is not widened. Lungs are clear. No infiltrates nor obvious pleural effusions. IMPRESSION: No acute pulmonary findings on this single AP portable view of the chest. DATA REPOSITORY: RADIATION DOSE DELIVERED: All CT scans at this facility use at least one of these dose optimization techniques: automated exposure control; mA and/or kV adjustment per patient size (includes targeted e xams where dose is matched to clinical indication); or iterative reconstruction.
[2020-09-09 20:33] LABS: ALT 18 U/L (16-63); AST 19 U/L (15-37); Albumin 2.8 g/dL (3.4-5.0); Alkaline Phosphatase 109 U/L (46-116); Anion Gap 11.1 mmol/L (3-11); BUN 53 mg/dL (7-18); Bilirubin, Total 0.7 mg/dL (0.2-1.0); CO2 23.9 mmol/L (21.0-32.0); Calcium 8.6 mg/dL (8.5-10.1); Chloride 96 mmol/L (98-107); Estimated GFR 14.75 (mL/min/1.73m2); Glucose 280 mg/dL (74-106); Magnesium 1.4 mg/dL (1.8-2.4); NT-proBNP 9650 pg/mL (<300); Potassium 4.8 mmol/L (3.5-5.1); Sodium 131 mmol/L (136-145); Total Protein 7.3 g/dL (6.4-8.2)
[2020-09-09 20:35] LABS: Troponin I < 0.05 ng/mL (<0.06)
[2020-09-09 20:45] LABS: Absolute Lymphocyte Count 3.44 10^3/uL (1.2-3.4); Absolute Monocyte Count 0.38 10^3/uL (0.1-0.8); Absolute Neutrophil Count 34.02 10^3/uL (1.2-6.7); Bands % 16; Diff Comment Manual Differential; Metamyelocytes % 1
[2020-09-09 20:46] LABS: RBC Morphology Normal
[2020-09-09 20:56] LABS: INR 1.2 (0.9-1.1); PTT Activated 32.8 sec (21.0-27.5); Prothrombin Time 12.4 sec (9.3-11.0)
[2020-09-09 21:17] LABS: Source Nasal/Nares
--- NOTE | 2020-09-09 21:23 | DI.VRAD_ITS ---
PROCEDURE INFORMATION: Exam: XR Chest Exam date and time: 09/09/2020 20:57 Age: 74 years old Clinical indication: Shortness of breath; Patient HX: SOB TECHNIQUE: Imaging protocol: XR of the chest. Views: 1 view. COMPARISON: CR XR PORTABLE CHEST AP 04/18/2020 21:44 FINDINGS: Lungs: Moderate bibasilar opacities right greater than left lung base. Low lung volumes. Interstitial prominence is stable and probably reflects edema. Pleural spaces: Persistent small right pleural effusion is similar to prior. No pneumothorax. Heart/Mediastinum: No significant cardiomegaly for position and projection. Vasculature: Right-sided aortic arch again seen, probably a normal variant. Atherosclerosis. Bones/joints: Chronic rib fractures. IMPRESSION: 1. Stable study. Right pleural effusion with bibasilar atelectasis favored over pneumonia. Probable interstitial edema. 2. Additional findings as described. Dictated and Authenticated by: Mariana Rick MD. Ordering:DEBBIE Flores MD
[2020-09-09 21:49] LABS: Procalcitonin > 190.0 ng/mL
[2020-09-09 21:59] LABS: COVID-19 PCR Negative (Negative)
[2020-09-09] MEDS: Acetaminophen 500 MG TAB 1000 MG PO (22:33)
[2020-09-09] MEDS: Normal Saline 1,000 ML 125 ML IV (22:33)
[2020-09-09] MEDS: cefTRIAXone 2 GM/50 ML BAG IVPB (22:39)
[2020-09-09] MEDS: MAGNESIUM SULFATE 1 GM/100 ML BAG IVPB (22:55)
[2020-09-09 23:01] LABS: Troponin I < 0.05 ng/mL (<0.06)
[2020-09-09] MEDS: AZITHROMYCIN 500 MG in Normal Saline 250 ML 250 MG IVPB (23:23)
[2020-09-09] MEDS: Normal Saline 500 ML IV (23:30)
[2020-09-09] MEDS: Lidocaine 2% Jelly 6 ML SYR (23:42)
[2020-09-10] VITALS (20 sets, daily range): BP systolic 78–92; BP diastolic 26–58; PULSE 72–86; RESP 17–31; O2SAT 91–94
[2020-09-10 00:07] LABS: Bilirubin Small (Negative); Blood Large (Negative); Clarity Cloudy (Clear); Glucose Negative (Negative); Ketones Trace mg/dL (Negative); Leukocyte Esterase Negative (Negative); Nitrite Negative (Negative); Specific Gravity >= 1.030 (1.005-1.025); Urobilinogen 0.2 EU/dL (Up TO 0.2)
[2020-09-10 00:08] LABS: Bacteria Few HPF (Negative); C & S Indicated? No; Casts Negative LPF (Negative); Crystals Moderate Amorphous HPF (Negative); Epithelial Cells Negative HPF (Negative); Mucus Negative (Negative); WBC Negative HPF (0-5)
== END 2020-09-10 01:35 | disposition short-term general hospital (02) ==
PROVIDERS: Emergency Provider Physician Assistant; PCP Family Medicine
DX: J18.9 Pneumonia, unspecified organism (principal); R06.02 Shortness of breath; N17.9 Acute kidney failure, unspecified; R79.89 Other specified abnormal findings of blood chemistry; Z20.822 Contact with and (suspected) exposure to COVID-19
CPT/HCPCS: 36415; 80053; 84145; 87040; 87635; 93005; 96361; 96365; 96367; 99291; 71045; 81003; 81015; 83605; 83735; 83880; 84484; 85025; 85610; 85730; 93010; J0456; J3475; J3490

== ENCOUNTER 2020-12-25 13:25 | Outpatient (CLI) | payer OTHER, SELFPAY ==
[2020-12-25 11:23] LABS: Anion Gap 12.5 mmol/L (3-11); BUN 40 mg/dL (7-18); CO2 22.5 mmol/L (21.0-32.0); Calcium 8.5 mg/dL (8.5-10.1); Chloride 103 mmol/L (98-107); Estimated GFR 12.84 (mL/min/1.73m2); Glucose 409 mg/dL (74-106); Potassium 4.1 mmol/L (3.5-5.1); Sodium 138 mmol/L (136-145)
[2020-12-25 11:30] LABS: CREATININE 4.5 mg/dL (0.70-1.30)
== END 2020-12-25 13:26 | disposition home or self-care (01) ==
LOC: LBO 13:31
PROVIDERS: PCP Family Medicine; Visit Provider Internal Medicine Nephrology
DX: N17.9 Acute kidney failure, unspecified (principal)
CPT/HCPCS: 36415; 80048

== ENCOUNTER 2021-03-09 14:54 | Emergency (ER) | payer OTHER, SELFPAY ==
--- NOTE | 2021-03-09 15:00 | RT.EKG_ITS ---
APPROVED REPORT Exam: Resting ECG Reason for Exam: sob Patient Location: E HR:94 bpm ECG Measurements Heart Rate 94 AXIS MI 189 P 19 QRSd 124 QRS 145 QT 379 T -7 QTc 475 Conclusion Sinus rhythm...normal P axis, V-rate 60- 99 Atrial premature complex...SV complex w/ short R-R interval RBBB and LPFB...QRSd >120mS, axis(90,210)
[2021-03-09 15:07] VITALS: BP 116/52; PULSE 100; RESP 15; TEMP 36.7; O2SAT 99
[2021-03-09] MEDS: methylPREDNISolone SUCC 125 MG VIAL IVP (15:47)
[2021-03-09] MEDS: diphenhydrAMINE 50 MG/ML VIAL 25 MG IVP (15:47)
--- NOTE | 2021-03-09 16:00 | W.ED.GENAD ---
Discharge Plan Disposition Patient Disposition: HOME Condition: Good Discharge Details Clinical Impression: Acute urticaria Primary Care Provider: Zakiya Reyna ED Provider: Evin Stoddard Home Meds and New Rx's Prescriptions: New prednisone 50 MG tablet 50 mg PO DAILY Qty: 5 RF: 0 diphenhydramine HCl [Benadryl] 25 MG capsule 25 mg PO Q6H Qty: 100 RF: 0 loratadine 10 mg capsule 10 mg PO DAILY Qty: 20 RF: 0 Continued oxycodone 10 mg tablet 15 mg PO .QHS RF: 0 Victoza 2-Edy 0.6 mg/0.1 mL (18 mg/3 mL) pen injector 1.8 mg SC DAILY RF: 0 nitroglycerin 0.4 MG tablet, sublingual 0.4 mg Sublingual ONCE PRNRF: 0 cholecalciferol (vitamin D3) 1,000 UNIT tablet 1,000 unit PO DAILY RF: 0 aspirin [Aspir-81] 81 MG tablet,delayed release (DR/EC) 81 mg PO DAILY RF: 0 multivitamin 1 EACH capsule 1 ea PO DAILY RF: 0 sertraline 50 MG tablet 100 mg PO DAILY RF: 0 Lantus U-100 Insulin 100 unit/mL solution 26 unit subcut HS RF: 0 atorvastatin [Lipitor] 40 MG tablet 40 mg PO DAILY RF: 0 ascorbic acid (vitamin C) [Vitamin C] 1,000 MG tablet 500 mg PO DAILY RF: 0 albuterol sulfate [Proventil HFA] 6.7 GM HFA aerosol inhaler 2 inh PO Q4H PRN PRNRF: 0 melatonin 10 MG tablet 10 mg PO HS PRNRF: 0 docusate sodium [Colace] 100 mg Capsule 100 mg PO BID RF: 0 acetaminophen [Tylenol Extra Strength] 500 mg Tablet 1,000 mg PO .Q6 HRS PRNRF: 0 tamsulosin 0.4 mg Capsule 0.4 mg PO DAILY RF: 0 pantoprazole 40 mg tablet,delayed release (DR/EC) 40 mg PO DAILY RF: 0 oxycodone 5 mg Tablet 5 mg PO .Q4HR PRNRF: 0 Lantus Solostar U-100 Insulin 100 unit/mL (3 mL) insulin pen 30 unit SUBCUT DAILY RF: 0 Breo Ellipta 200-25 mcg/dose blister with device 1 inh INHALATION DAILY RF: 0 Vision Oral RF: 0 metoprolol succinate 100 mg tablet extended release 24 hr 100 mg PO BID Qty: 60 RF: 0 cyanocobalamin (vitamin B-12) [Vitamin B-12] 1,000 mcg Tablet 1,000 mcg PO DAILY RF: 0 olmesartan [Benicar] 5 mg Tablet 5 mg PO DAILY RF: 0 lutein 20 mg Capsule 20 mg PO DAILY RF: 0 Incruse Ellipta 62.5 mcg/actuation Blister With Device 1 inh INHALATION DAILY RF: 0 oxycodone 10 mg tablet 30 mg PO HS PRN MDD 3 Tabs PRNRF: 0 Discharge Instructions Instructions: Urticaria (ED) Additional Instructions: At this time the exact cause of your 5 is unknown, it may have been caused from the new cactus that you have or a new cleaning solution. Please do your best to avoid these potential agents. Please take Benadryl 25 mg every 6 hours, loratadine 10 mg every day, and prednisone 50 mg every day. These 3 scripts have been sent to your pharmacy on file. Please fill these this evening. You do not have to take the steroid until tomorrow. Additionally your lab work did show an elevation in your white count. This appears to be a trend recently for you. Please follow-up closely with your primary care provider for further outpatient assessment of this. Thankfully at this time there is no clinical evidence of significant infection. If you notice any worsening of your symptoms or symptoms such as tightness in your throat, difficulty swallowing, vomiting or diarrhea, please return immediately for reassessment. If you notice any worsening of your symptoms, or any new symptoms such as vomiting, diarrhea, fever, chills, shortness of breath, chest pain, numbness, weakness, or fainting , please return immediately to the emergency department for reevaluation. Please follow up with your primary care provider as soon as possible for reassessment and reevaluation. As always, it was a pleasure participating in your medical care today. Referrals: Zakiya Reyna MD [Primary Care Provider] - Medical Decision Making This is a 75-year-old male with a past medical history of dialysis, partial nephrectomy, partial lobectomy of his lungs, diabetes, hypertension, coronary artery disease with stents, right bundle branch block, with no history of significant allergies, who presents today for evaluation of rash. Patient states that at around 3 AM this morning he woke up felt fatigued, noted notable pruritic rash over his arms chest legs. He took a Benadryl and had mild to moderate improvement of his symptoms. He went to dialysis later today, and that after dialysis he developed a notable return of his rash. In addition to this he noticed mild hoarseness of his voice. He denies any vomiting or diarrhea. He denies any difficulty breathing. He denies any history of allergies like this in the past. He denies any new medications, new foods, new detergent or bug bites. He had his to have a new mixing house operator that started yesterday, but they did get a new cactus at their house but he denies any trauma with the cactus, or any new cleaning agents/detergents being used by the new mixing house operator. No other complaints at this time. no other modifying factors. Physical exam demonstrates hives over his arms and abdomen just below his back. No angioedema, no stridor or wheeze. No signs of airway compromise whatsoever. Uncertain as to what the exact etiology/agent was at practice of bowel, the patient is very clear that he has not had anything atypical different different. We will give Benadryl, steroids, gently rehydrate, check basic labs, monitor closely and reassess. At this time there is no evidence of angioedema, or anaphylaxis this whatsoever. 5:51 PM Reassessment patient is feeling much better. His rash is completely resolved on his chest, abdomen, back, arms and neck except for 1 or 2 small lesions on his elbow. His voice has returned to normal. Patient states that he feels well and would like to get home and get to his . Uncertain as to what brought about his reaction, but it may have been the new cleaning person, potentially the cactus, toward something iatrogenic. Symptoms appear clinically inconsistent with mast cell degranulation syndrome. No current clinical evidence of staph scalded skin syndrome, erythema multiforme, erythema migrans, toxic epidermal necrolysis, Dominguez-Bernardo syndrome, Kawasaki-like rash, meningococcemia, pemphigus vulgaris, or necrotizing fasciitis. At this time we will discharge home with prescription for prednisone, loratadine, Benadryl. Patient does have an elevated white count, however upon review of records this is not new. I did discuss this with the patient, and he states that it is being followed on an outpatient basis already. Clinically he does not demonstrate evidence of infection. Likely has a chronic myelogenous component. Recommend close follow-up on an outpatient basis with his PCP. No signs of anaphylaxis whatsoever on exam at this time after prolonged observation. Patient will be discharged home. I have extensively reviewed the treatment plan and discharge instructions with the patient. I have addressed all patient concerns at this time. The patient was made aware of what symptoms to monitor for that would warrant a return to the emergency department. Discussed the plan with the patient, they demonstrate verbal understanding and agreement with our assessment and plan at this time. The documentation in this chart was dictated using [employer] dictation software. Please excuse any dictation errors. HPI General Date/Time Provider Initiated Documentation: 03/09/21 15:18. HPI Narrative: This is a 75-year-old male with a past medical history of dialysis, partial nephrectomy, partial lobectomy of his lungs, diabetes, hypertension, coronary artery disease with stents, right bundle branch block, with no history of significant allergies, who presents today for evaluation of rash. Patient states that at around 3 AM this morning he woke up felt fatigued, noted notable pruritic rash over his arms chest legs. He took a Benadryl and had mild to moderate improvement of his symptoms. He went to dialysis later today, and that after dialysis he developed a notable return of his rash. In addition to this he noticed mild hoarseness of his voice. He denies any vomiting or diarrhea. He denies any difficulty breathing. He denies any history of allergies like this in the past. He denies any new medications, new foods, new detergent or bug bites. He had his to have a new mixing house operator that started yesterday, but they did get a new cactus at their house but he denies any trauma with the cactus, or any new cleaning agents/detergents being used by the new mixing house operator. No other complaints at this time. no other modifying factors. Related Data Home Medications Medication Instructions Recorded Confirmed aspirin [Aspir-81] 81 mg PO DAILY 09/25/12 03/09/21 multivitamin 1 ea PO DAILY 09/25/12 03/09/21 sertraline 100 mg PO DAILY 09/25/12 03/09/21 cholecalciferol (vitamin D3) 1,000 unit PO DAILY tab-cap 09/21/15 03/09/21 nitroglycerin 0.4 mg SUBLINGUAL ONCE PRN tab-cap 09/21/15 03/09/21 albuterol sulfate [Proventil HFA] 2 inh PO Q4H PRN PRN 02/16/17 03/09/21 ascorbic acid (vitamin C) [Vitamin 500 mg PO DAILY 02/16/17 03/09/21 C] atorvastatin [Lipitor] 40 mg PO DAILY 02/16/17 03/09/21 melatonin 10 mg PO HS PRN 02/16/17 03/09/21 liraglutide 0.6 mg/0.1 mL (18 mg/3 1.8 mg SC DAILY ml 05/04/18 03/09/21 mL) subcutaneous pen injector oxycodone 10 mg tablet 15 mg PO .QHS tab 05/04/18 03/09/21 insulin glargine 100 unit/mL 26 unit SUBCUT HS ml 12/03/18 03/09/21 subcutaneous solution cyanocobalamin (vitamin B-12) 1,000 mcg PO DAILY 09/22/19 03/09/21 [Vitamin B-12] Breo Ellipta 1 inh INHALATION DAILY 04/24/20 03/09/21 Lantus Solostar U-100 Insulin 30 unit SUBCUT DAILY 04/24/20 03/09/21 Vision Oral 04/24/20 acetaminophen [Tylenol Extra 1,000 mg PO .Q6 HRS PRN 04/24/20 03/09/21 Strength] docusate sodium [Colace] 100 mg PO BID 04/24/20 03/09/21 metoprolol succinate 100 mg PO BID #60 tab 04/24/20 03/09/21 oxycodone 5 mg PO .Q4HR PRN 04/24/20 03/09/21 pantoprazole 40 mg PO DAILY 04/24/20 03/09/21 tamsulosin 0.4 mg PO DAILY 04/24/20 03/09/21 Incruse Ellipta 1 inh INHALATION DAILY 09/10/20 03/09/21 lutein 20 mg PO DAILY 09/10/20 03/09/21 olmesartan [Benicar] 5 mg PO DAILY 09/10/20 03/09/21 oxycodone 30 mg PO HS PRN PRN MDD 3 Tabs 09/10/20 03/09/21 diphenhydramine HCl [Benadryl] 25 mg PO Q6H #100 cap 03/09/21 loratadine 10 mg PO DAILY #20 cap 03/09/21 prednisone 50 mg PO DAILY #5 tab 03/09/21 Previous Rx's Medication Instructions Recorded metoprolol succinate 100 mg PO BID #60 tab 04/24/20 diphenhydramine HCl [Benadryl] 25 mg PO Q6H #100 cap 03/09/21 loratadine 10 mg PO DAILY #20 cap 03/09/21 prednisone 50 mg PO DAILY #5 tab 03/09/21 Allergies Allergy/AdvReac Type Severity Reaction Status Date / Time pneumococcal vaccine Allergy Severe Swelling/Ed Verified 03/09/21 15:10 nandini sulfamethoxazole Allergy difficulty Verified 03/09/21 15:10 [From Bactrim] breathing trimethoprim [From Bactrim] Allergy difficulty Verified 03/09/21 15:10 breathing General Stated Complaint: SOB MESERET: 2 Review of Systems All systems reviewed & are unremarkable except as noted in HPI and below PFSH Medical History Anemia Bilateral cataracts CKD (chronic kidney disease) COPD (chronic obstructive pulmonary disease) Coronary Artery Disease Depression Diabetes mellitus Diabetic foot ulcer GERD (gastroesophageal reflux disease) Hoarseness Hyperkalemia RBBB (right bundle branch block) Renal cell carcinoma of left kidney (05/30/17) Surgical History Colonoscopy - MAC (12/18/16) Completion of amputation (09/30/12) L great toe EGD - MAC (12/18/16) H/O partial nephrectomy Heart Stent (12/03/11) Pt records show heart stent placed 12/03/11 at [facility]. 12.02.12HE Lobectomy Pt states 2 lobes removed from R. lung. No date given. 12.02.12HE Osteotomy Partial & Debridment of first metatarsal on Left foot. Social History Smoking/Tobacco Use Status: Former Tobacco Use Quit Date: 05/05/14 Tobacco: How many years used: 50 Smoking risk assessment performed?: Yes Alcohol Intake: never Drug use: Never Current gender identity: male What type of physical activity do you participate in: none and independent ambulation Do you feel safe at home: Yes Do you feel safe in your relationship?: Yes Exam Narrative Exam Narrative: 1.Const: Well-nourished, Well-developed, appearing stated age 2.Eyes: PERRL, no conjunctival injection, and symmetrical lids. 3.ENT: Atraumatic external nose and ears. Moist MM. Neck: Symmetric, trachea midline, No thyromegaly. No signs of airway compromise whatsoever. No stridor or wheezes. Posterior oropharynx demonstrates no swelling in the posterior oropharynx, no angioedema of the tongue. 4.CVS: +S1/S2, No murmurs or gallops. Peripheral pulses 2+ and equal in all extremities. Brisk capillary refill in all extremities. 5.RESP: Unlabored respiratory effort. Clear to auscultation bilaterally. No wheezes rales or rhonchi 6.GI: Soft, Nontender/Nondistended, No hepatosplenomegaly. No guarding or rebound. 7.MSK: Normocephalic/Atraumatic, Extremities w/o deformity or ttp No cyanosis or clubbing, Normal movement of all extremities 8.Skin: Warm, Dry. N multiple hives over his arms, abdomen, chest, just below his back. No lesions of the mouth. No other significant abnormality. Patient does haveII grossly intact. Sensation grossly intact, no focal neurologic deficits. 10.Psych: (AAO) x3. Appropriate mood and affect Course Vital Signs Vital signs: Vital Signs Temperature 36.7 C 03/09/21 15:07 Pulse 100 H 03/09/21 15:07 Respiratory Rate 15 03/09/21 15:07 Blood Pressure 116/52 L 03/09/21 15:07 Pulse Oximetry 99 03/09/21 15:07 Temperature 36.7 C 03/09/21 15:07 Temperature Source Temporal Artery Scan 03/09/21 15:07 Pulse 100 H 03/09/21 15:07 Respiratory Rate 15 03/09/21 15:07 Blood Pressure 116/52 L 03/09/21 15:07 Blood Pressure Position Sitting 03/09/21 15:07 Pulse Oximetry 99 03/09/21 15:07 Oxygen Delivery Method Room Air 03/09/21 15:07 Oxygen Flow Rate 0 03/09/21 15:07 Pain Level 0 03/09/21 15:07
[2021-03-09 16:02] LABS: HCT 39.8 % (40.0-50.0); HGB 12.7 g/dL (13.5-17.5); MCH 30.7 pg (27.0-33.0); MCHC 31.9 % (32.0-36.0); MCV 96.1 fL (80-95); MPV 11.5 fL (8.0-11.0); Nucleated RBC 0 %; Platelet Count 365 10^3/uL (130-400); RBC 4.14 10^6/uL (4.36-5.78); RDW 14.4 % (11.8-14.1); RDW-SD 51.3 fL; WBC 22.33 10^3/uL (4.4-10.8)
[2021-03-09] MEDS: Normal Saline 1,000 ML 500 ML IV (16:02)
[2021-03-09 16:30] LABS: Absolute Lymphocyte Count 2.68 10^3/uL (1.2-3.4); Absolute Monocyte Count 0.67 10^3/uL (0.1-0.8); Absolute Neutrophil Count 18.98 10^3/uL (1.2-6.7); Diff Comment Manual Differential; RBC Morphology Normal
[2021-03-09 16:34] VITALS: RESP 18
[2021-03-09 16:37] VITALS: BP 108/53; PULSE 89; RESP 20; TEMP 36.6; O2SAT 100
[2021-03-09 16:39] VITALS: BP 116/52; PULSE 93; O2SAT 94
[2021-03-09 16:44] LABS: ALT 11 U/L (16-63); AST 10 U/L (15-37); Alkaline Phosphatase 92 U/L (46-116); Anion Gap 7.2 mmol/L (3-11); BUN 18 mg/dL (7-18); Bilirubin, Total 0.4 mg/dL (0.2-1.0); CO2 32.8 mmol/L (21.0-32.0); CREATININE 2.6 mg/dL (0.70-1.30); Calcium 8.4 mg/dL (8.5-10.1); Chloride 100 mmol/L (98-107); Estimated GFR 24.18 (mL/min/1.73m2); Glucose 158 mg/dL (74-106); Potassium 3.2 mmol/L (3.5-5.1); Sodium 140 mmol/L (136-145); Total Protein 6.8 g/dL (6.4-8.2)
[2021-03-09 16:45] LABS: Troponin I < 0.05 ng/mL (<0.06)
[2021-03-09] MEDS: FAMOTIDINE 20 MG/50 ML BAG 200 MG IVPB (17:35)
[2021-03-09 17:54] VITALS: BP 116/52; PULSE 93; RESP 20; TEMP 36.6; O2SAT 94
== END 2021-03-09 18:38 | disposition home or self-care (01) ==
PROVIDERS: Emergency Provider Student in an Organized Health Care Education/Training Program; PCP Family Medicine
DX: L50.9 Urticaria, unspecified (principal)
CPT/HCPCS: 80053; 93005; 96361; 96374; 96375; 99284; 84484; 85025; 93010; J1200; J2930

== ENCOUNTER 2021-06-05 11:59 | Inpatient (IN) | payer MEDICARE, SELFPAY ==
[2021-06-05] VITALS (120 sets, daily range): BP systolic 115–165; BP diastolic 45–64; PULSE 58–107; RESP 12–28; TEMP 36.6–36.9; O2SAT 78–100
--- NOTE | 2021-06-05 12:00 | RT.EKG_ITS ---
APPROVED REPORT Exam: Resting ECG Reason for Exam: tachycardia Patient Location: E HR:99 bpm ECG Measurements Heart Rate 99 AXIS OR 210 P 27 QRSd 122 QRS 76 QT 371 T -14 QTc 477 Conclusion Sinus rhythm...normal P axis, V-rate 60- 99 Borderline prolonged OR interval...OR >207, V-rate 91-120 Right bundle branch block...QRSd>120, terminal axis(90,270)
[2021-06-05 13:24] LABS: Source Nasal/Nares
[2021-06-05 13:25] LABS: Abs Immature Grans 0.27 10^3/uL (0.0-0.06); Absolute Eosinophil Count 0.35 10^3/uL (0.0-0.7); Absolute Lymphocyte Count 3.07 10^3/uL (1.2-3.4); Absolute Monocyte Count 1.29 10^3/uL (0.1-0.8); Basophils % 0.4; Eosinophils % 1.7; HGB 11.9 g/dL (13.5-17.5); Immature Grans % 1.3; MCH 31.5 pg (27.0-33.0); MCHC 31.3 % (32.0-36.0); MCV 100.5 fL (80-95); Monocytes % 6.3; Neutrophils % 75.3; Nucleated RBC 0 %; Platelet Count 367 10^3/uL (130-400); RBC 3.78 10^6/uL (4.36-5.78); RDW 13.5 % (11.8-14.1); RDW-SD 50.4 fL; WBC 20.44 10^3/uL (4.4-10.8)
[2021-06-05 13:27] LABS: Absolute Basophil Count 0.08 10^3/uL (0.0-0.2); Absolute Neutrophil Count 15.39 10^3/uL (1.2-6.7)
[2021-06-05 13:42] LABS: ALT 13 U/L (16-63); AST 14 U/L (15-37); Albumin 3.6 g/dL (3.4-5.0); Alkaline Phosphatase 126 U/L (46-116); Anion Gap 12.2 mmol/L (3-11); BUN 18 mg/dL (7-18); Bilirubin, Total 0.4 mg/dL (0.2-1.0); CO2 28.8 mmol/L (21.0-32.0); CREATININE 3.2 mg/dL (0.70-1.30); Calcium 8.8 mg/dL (8.5-10.1); Chloride 99 mmol/L (98-107); Estimated GFR 19.03 (mL/min/1.73m2); Glucose 283 mg/dL (74-106); Magnesium 1.7 mg/dL (1.8-2.4); Potassium 3.8 mmol/L (3.5-5.1); Sodium 140 mmol/L (136-145); Total Protein 7.5 g/dL (6.4-8.2); Troponin I < 50 ng/L (<or=60)
--- NOTE | 2021-06-05 13:43 | ED.GENADUL_ITS ---
Discharge Plan Disposition Condition: Improving Discharge Details Chief Complaint: Chest Pain Admit Date/Time: 06/05/21 18:33 Admit Provider: Tammy Jimenez Attending Provider: Tammy Jimenez Primary Care Provider: Zakiya Reyna ED Provider: Aung Hanson Discharge Instructions Activity:: Activity as Tolerated Equipment/Supplies:: No Equipment Needed Diet:: renal diet Discharge Orders Discharge Orders: Discharge Order (Routine); Ordered 06/06/21 Ordered By: Mark Pruitt Discharge Data Discharge Date/Time-TO BE ENTERED AT DEPARTURE: 06/05/21 19:22 Medical Decision Making 1530--75-year-old male with multimedical problems occluding history of coronary artery disease status post stent, COPD, on chronic home O2, palpitations in the past, here with episodes of palpitations that started last night with associated chest pain. Patient is tachycardic on arrival. Normotensive. Saturating well on 2 L nasal cannula. I am concerned that he is having intermittent tachyarrhythmia and experiencing anginal chest pain during these episodes. EKG was reviewed and interpreted by me: Please see report, sinus rhythm 99 bpm, right bundle branch block, borderline prolonged GA, no STEMI, nondiagnostic. Consider pulmonary embolism. Will check D-dimer. 1644 -- Labs reviewed: age-adjusted D-dimer normal. Initial troponin negative. Second troponin at 2 hours elevated to 66. Repeat EKG was reviewed and interpreted by me: No significant change, nondiagnostic, please see report. Chest x-ray reviewed and interpreted by radiology: 1. Increased interstitial markings in the left lung base. Developing pneumonia or edema cannot be excluded. Please correlate clinically. 2. Stable pleural and parenchymal scarring in the right hemithorax. No signs or symptoms concerning for pneumonia on exam. I called [facility] transfer center and requested transfer. I spoke with the historical guide continuous improvement engineer and discussed ED presentation and course, he notes that that [facility] is unable to accept as result of capacity and recommends starting the patient on low-dose beta-nohemi, obtaining echocardiogram, not treating for ACS unless troponin continues to trends up, and calling [facility] tomorrow morning and providing update. I called [facility] transfer center and requested transfer and I am awaiting call back. 1654 --I spoke with Dr. Aguila at [facility], discussed ED presentation and course, he agrees with likely demand ischemia and notes that typically there is some bump in troponin that is expected. Unfortunately, [facility] does not have a bed to accept the patient in transfer. 1728 -- [place], [facility], [facility], [place], and [facility] were contacted and unable to accept patient in transfer secondary to capacity. 181 -- I spoke with Dr. Angeles and Dr. Macedo (transfer medical directors at [facility]), they will plan to accept patient tomorrow if needs dialysis and [facility] cannot accept and patient cannot be discharged. I spoke again with [facility] transfer center and spoke with Dr. Perales, continuous improvement engineer hospitalist, she recommends hospitalizing at [facility] and reassesing in AM. 1823 -- I spoke with Dr. Jones, continuous improvement engineer hospitalist, discussed ED presentation and course and transfer challenges, she will contact [facility]. HPI General Mode of arrival: ambulatory . Date/Time Provider Initiated Documentation: 06/05/21 12:04 . Limitations to Documentation: no limitations . Information obtained by: patient . HPI Narrative: 75-year-old male with mult iple medical problems including history of coronary artery disease status post stent, COPD on chronic home O2, here with chief complaint of palpitations. Patient notes intermittent episodes of fast heart rate. This started last night and lasted about 30 to 45 minutes. He had another episode this morning of similar duration. Symptoms were severe. No modifiers. He notes he has had similar in the past. He has associated central chest discomfort when he is having the palpitations. No associated shortness of breath or leg swelling. Related Data Home Medications Medication Instructions Recorded Confirmed aspirin [Aspir-81] 81 mg PO DAILY 09/25/12 06/05/21 multivitamin 1 ea PO DAILY 09/25/12 06/05/21 sertraline 100 mg PO DAILY 09/25/12 06/05/21 cholecalciferol (vitamin D3) 1,000 unit PO DAILY tab-cap 09/21/15 06/05/21 nitroglycerin 0.4 mg SUBLINGUAL ONCE PRN tab-cap 09/21/15 06/05/21 albuterol sulfate [Proventil HFA] 2 inh PO Q4H PRN PRN 02/16/17 06/05/21 ascorbic acid (vitamin C) [Vitamin 500 mg PO DAILY 02/16/17 06/05/21 C] atorvastatin [Lipitor] 40 mg PO DAILY 02/16/17 06/05/21 melatonin 10 mg PO HS PRN 02/16/17 06/05/21 cyanocobalamin (vitamin B-12) 1,000 mcg PO DAILY 09/22/19 06/05/21 [Vitamin B-12] Breo Ellipta 1 inh INHALATION DAILY 04/24/20 06/05/21 Lantus Solostar U-100 Insulin 24 - 26 unit SUBCUT HS 04/24/20 06/05/21 acetaminophen [Tylenol Extra 1,000 mg PO .Q6 HRS PRN 04/24/20 06/05/21 Strength] pantoprazole 40 mg PO DAILY 04/24/20 06/05/21 tamsulosin 0.4 mg PO DAILY 04/24/20 06/05/21 lutein 20 mg PO DAILY 09/10/20 06/05/21 diphenhydramine HCl [Benadryl] 25 mg PO Q6H #100 cap 03/09/21 06/05/21 loratadine 10 mg PO DAILY #20 cap 03/09/21 06/05/21 Eliquis 2.5 mg PO BID 06/05/21 06/05/21 insulin lispro [Humalog KwikPen 1 sliding scale dose SUBCUT 06/05/21 06/05/21 Insulin] USEASDIRECTD midodrine 2.5 mg PO TID 06/05/21 06/05/21 sennosides [senna] 8.6 mg PO DAILY 06/05/21 06/05/21 trazodone 25 mg PO HS 06/05/21 06/05/21 metoprolol tartrate [Lopressor] 25 mg PO BID #30 tab 06/06/21 Previous Rx's Medication Instructions Recorded diphenhydramine HCl [Benadryl] 25 mg PO Q6H #100 cap 03/09/21 loratadine 10 mg PO DAILY #20 cap 03/09/21 metoprolol tartrate [Lopressor] 25 mg PO BID #30 tab 06/06/21 Allergies Allergy/AdvReac Type Severity Reaction Status Date / Time pneumococcal vaccine Allergy Severe Swelling/Ed Verified 06/05/21 12:15 nandini sulfamethoxazole Allergy difficulty Verified 06/05/21 12:15 [From Bactrim] breathing trimethoprim [From Bactrim] Allergy difficulty Verified 06/05/21 12:15 breathing General Stated Complaint: Chest Pain MESERET: 2 Review of Systems All systems reviewed & are unremarkable except as noted in HPI and below Constitutional Constitutional: Denies fever(s) Cardiovascular Cardiovascular: Reports as per HPI, Reports chest pain, Denies syncope and Reports dyspnea (chronic) Respiratory Respiratory: Reports dyspnea (chronic) Neurologic Neurologic: Denies syncope PFSH All Active Problems (Updated 06/06/21 @ 15:58 by Mark Pruitt) Elevated troponin I level (Acute) Leucocytosis (Chronic) DVT prophylaxis (Acute) Chest discomfort (Acute) Palpitations (Acute) Exertional shortness of breath (Chronic) Neoplasm of unspecified nature of bone, soft tissue, and skin (Acute 06/19/15) Medical History (Updated 06/06/21 @ 15:58 by Mark Pruitt) Actinic keratosis (05/01/16) Anemia Basal cell carcinoma of skin (03/11/16) Bilateral cataracts Bronchiectasis Chronic respiratory failure with hypoxia 2L of O2 by [place] COPD (chronic obstructive pulmonary disease) Coronary Artery Disease Depression Diabetes mellitus Diabetic foot ulcer Diabetic ulcer of left foot ESRD on hemodialysis GERD (gastroesophageal reflux disease) Hoarseness Hyperkalemia Moderate pulmonary hypertension Orthostatic hypotension Paroxysmal atrial fibrillation with rapid ventricular response Perihepatic abscess RBBB (right bundle branch block) Renal cell carcinoma of left kidney (05/30/17) Shortness of breath Supraventricular tachycardia Toe infection Tubular adenoma of colon (12/18/16) Surgical History Colonoscopy - MAC (12/18/16) 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 12.02.12HE Hx of cardiac cath x2, per patient Lobectomy Pt states 2 lobes removed from R. lung. No date given. 12.02.12HE Osteotomy Partial & Debridment of first metatarsal on Left foot. S/P hemodialysis catheter insertion Family History Mother Heart disease Diabetes Sister Stroke Diabetes Sister Diabetes Cancer laryngeal cancer Sister Diabetes Social History Smoking/Tobacco Use Status: Former Tobacco Use tobacco type: cigarettes Quit Date: 05/05/14 Pack-years: 100 Tobacco: How many years used: 50 Counseling given: provider counseling Smoking risk assessment performed?: Yes Alcohol Intake: never Drug use: Never Household members: spouse Current gender identity: male What type of physical activity do you participate in: none and independent ambulation Do you feel safe at home: Yes Do you feel safe in your relationship?: Yes Exam Const General: cooperative and no acute distress HENMT Head: normocephalic and atraumatic Eyes Conjunctivae: normal conjunctivae Sclera: normal sclerae Neck Neck: trachea midline and supple Resp Auscultation: clear to auscultation bilaterally, no rales, no rhonchi and no wheezes Cardio Rate: tachycardic Rhythm: regular rhythm GI Palpation: soft, not firm, no guarding, no masses, not rigid and nontender Skin General skin exam: no rashes or lesions noted Neuro General: patient alert, patient awake, patient oriented x3 and tone normal Extrem General: no calf tenderness and no edema Psych Appearance: grossly normal Mental Status: mental status grossly normal Course Vital Signs Vital signs: Vital Signs Temperature 36.6 C 06/05/21 12:02 Pulse 107 H 06/05/21 12:02 Respiratory Rate 20 06/05/21 12:02 Blood Pressure 149/62 H 06/05/21 12:02 Pulse Oximetry 92 06/05/21 12:02 Temperature 36.6 C 06/05/21 12:02 Temperature Source Temporal Artery Scan 06/05/21 12:02 Pulse 107 H 06/05/21 12:02 Respiratory Rate 18 06/05/21 12:21 Respiratory Effort Labored 06/05/21 12:21 Blood Pressure 149/62 H 06/05/21 12:02 Blood Pressure Position Supine 06/05/21 12:02 Pulse Oximetry 92 06/05/21 12:02 Oxygen Delivery Method Nasal Cannula 06/05/21 12:02 Oxygen Flow Rate 2 06/05/21 12:02 Pain Level 2 06/05/21 12:21 Comment 06/05/21 12:02 Lab/Test Results Lab/Test Results: Laboratory Tests Range/Units 06/05/21 06/05/21 12:14 12:50 WBC (4.4-10.8) 10^3/uL 20.44 H RBC (4.36-5.78) 10^6/uL 3.78 L Hgb (13.5-17.5) g/dL 11.9 L Hct (40.0-50.0) % 38.0 L MCV (80-95) fL 100.5 H MCH (27.0-33.0) pg 31.5 MCHC (32.0-36.0) % 31.3 L RDW (11.8-14.1) % 13.5 Plt Count (130-400) 10^3/uL 367 MPV (8.0-11.0) fL 11.0 Immature Gran % 1.3 Neutrophils % 75.3 Lymphocytes % 15.0 Monocytes % 6.3 Eosinophils % 1.7 Basophils % 0.4 Nucleated RBC % % 0 Absolute Neutrophils (1.2-6.7) 10^3/uL 15.39 H Absolute Lymphocytes (1.2-3.4) 10^3/uL 3.07 Absolute Monocytes (0.1-0.8) 10^3/uL 1.29 H Absolute Eosinophils (0.0-0.7) 10^3/uL 0.35 Absolute Basophils (0.0-0.2) 10^3/uL 0.08 COVID-19 Source Nasal/Nares
[2021-06-05 14:14] LABS: D-Dimer 637 ng/mlFEU (<500)
--- NOTE | 2021-06-05 14:51 | DI.RAD_ITS ---
Exam(s) XR CHEST 2V PA LATERAL EXAM: XR CHEST 2V PA LATERAL CLINICAL HISTORY: chest pain TECHNIQUE: 2D digital imaging was performed of the chest. Two images were obtained. PA and lateral views were obtained. COMPARISON: CR XR CHEST 2V PA LATERAL from 09/22/2019 FINDINGS: MEDIASTINUM: Normal. HEART: Normal. PULMONARY VASCULATURE: Normal. LUNGS: There is unchanged pleural and parenchymal scarring in the right hemithorax. Increased inters titial markings are seen in the left lung base. PLEURAL SPACE: No pleural effusion or pneumothorax. BONE:Within normal limits for the patient's age. OTHER FINDINGS:A right IJ catheter is present. The tip is in the superior vena cava. IMPRESSION: 1. Increased interstitial markings in the left lung base. Developing pneumonia or edema cannot be ex cluded. Please correlate clinically. 2. Stable pleural and parenchymal scarring in the right hemithorax. DATA REPOSITORY: RADIATION DOSE DELIVERED:
--- NOTE | 2021-06-05 15:00 | RT.EKG_ITS ---
APPROVED REPORT Exam: Resting ECG Reason for Exam: chest pain Patient Location: E HR:67 bpm ECG Measurements Heart Rate 67 AXIS MO 204 P 26 QRSd 124 QRS 56 QT 428 T -2 QTc 452 Conclusion Sinus rhythm...normal P axis, V-rate 60- 99 Right bundle branch block...QRSd>120, terminal axis(90,270)
[2021-06-05 15:03] LABS: Troponin I 66 ng/L (<or=60)
[2021-06-05 16:28] LABS: COVID-19 PCR Negative (Negative)
[2021-06-05 16:35] LABS: Lab Add On Test DONE
[2021-06-05 17:06] LABS: TSH (W/Ref FT4) 1.18 uIU/mL (0.36-3.74)
[2021-06-05 17:41] LABS: Troponin I 133 ng/L (<or=60)
--- NOTE | 2021-06-05 21:22 | W.PM.HP.N ---
Date of service: 06/05/21 Time of Service: 20:15 Assessment and Plan Assessment and plan (1) Palpitations: Status: Acute Assessment and plan: Given h/o both SVT and Afib, I suspect that he had a recurrence of one of these tachyarrhythmias, causing elevation in his troponin. Continue cardiac monitoring. Trend serial troponins. I will re-initiate low dose metoprolol (12.5 mg PO BID). Monitor for sings of infection which could be triggering the HR to go up. Obtain echo in am. Also, given h/o pulmonary hypertension and both Afib/SVT,the patient should undergo an outpatient sleep study. He should also have extended cardiac monitoring once he is discharged. (2) Chest discomfort: Status: Acute Assessment and plan: With mildly elevated troponins in setting of tachyarrhythmia. Continue aspirin, statin. Trend troponins. Continue cardiac monitoring. Obtain echo. Control HR - initiate beta blockade. (3) Coronary Artery Disease: Assessment and plan: The patient is s/p cardiac cath x 2 at [facility]: -in 2011, PCI to OM1. -in 2015, DEE x 2 to mid 2nd obtuse marginal A. There was also 60% in-stent restenosis in the left circumflex. He had a negative MPI stress test in 2019. As above. (4) ESRD on hemodialysis: Assessment and plan: The patient is due for HD tomorrow. He is accepted in transfer to [facility] where HD can be provided. (5) Leucocytosis: Status: Chronic Assessment and plan: The patient appears to have a chronic leucocytosis. He was evaluated for this in the past by ID in the setting of his septic illness in September-November, at [facility], but I do not believe that he has ever seen heme/onc. We will obtain a UA, as the patient has a h/o UTIs. He does still urinate. He also has a h/o perihepatic abscess, but reports no abdominal discomfort at this point. He specifically denies diarrhea, endorsing chronically soft stools. He denies a cough. Denies fevers. We will monitor for a fever. I am not initiating him on empiric abx at this time. (6) DVT prophylaxis: Status: Acute Assessment and plan: on apixaban (7) Discharge planning issues: Status: Acute Assessment and plan: Full code The patient was accepted in transfer to [facility] with a bed expected tomorrow. Accepted MD: Dr Paola Perales. 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 The first episode happened yesterday between 5 and 6 pm, at rest. It lasted about 30 minutes and resolved on its own. The patient states that he felt palpitations and chest pressure. He denies dizziness, numbness/tingling, radiation, worsening shortness of breath (always feels a little short of breath), or nausea at that time.The 2nd episode woke him up from sleep at 10 pm last night and, again, resolved on its own. The third episode hapened at 10 am today and lasted until he got to the hospital, he thinks for about an hour, resolving spontaneously right before he was put on a transformer builder. He has had no symptoms ever since. His last HD was yesterday. He still urinates. He ended up on HD as a result of sepsis, per [facility] records. He denies any exposures to anyone with COVID-19 and denies any sx of COVID-19. In the ED, his workup revealed a mildly elevated troponin of 66 ng/L, while repeat troponin was 133 ng/L. His EKGs revealed a RBBB with exaggerated ST depressions on his first EKG as opposed to repeat. RBBB is old. The patient states that he usually gets palpitations about once a month. He wore a holter monitor in 11/2019 for palpitations, which was read as SVT and no Afib. Reviewing his [facility] records from admission 09/10/2020 until 11/17/2020, he was diagnosed with Afib there. He was on amiodarone therapy which was stopped after 1 month. It appears that his beta blockers were discontinued during that admission due to bradycardia and because he had remained in NSR. He was initiated on apixaban on that admission. He is s/p cardiac cath x 2 at [facility]. He thinks he has 3 stents, but he is not sure. He had an echo at our facility on 05/24/2020 which revealed LVEF of 60%, no wall motion abnormalities, no significant valvular disease, and moderate pulmonary hypertension with RVSP of 54 mmHg. His MPI stress test on 05/31/2019 did not show ischemia. The patient is expected to have his next HD tomorrow. [facility] is unable to provide hemodialysis, and the patient was accepted at [facility] by Dr Paola Perales of Hospitalist Medicine for a bed tomorrow. Review of Systems All systems reviewed & are unremarkable except as noted in HPI and below PFSH All Active Problems (Updated 06/05/21 @ 22:11 by Tammy Jimenez MD) Leucocytosis (Chronic) Discharge planning issues (Acute) DVT prophylaxis (Acute) Chest discomfort (Acute) Palpitations (Acute) Pneumonia (Acute) MARY (acute kidney injury) (Acute) Elevated brain natriuretic peptide (BNP) level (Acute) Acute urticaria (Acute) Exertional shortness of breath (Acute) Neoplasm of unspecified nature of bone, soft tissue, and skin (Acute 06/19/15) GI (gastrointestinal bleed) (Acute) Medical History (Updated 06/05/21 @ 22:11 by Tammy Jimenez MD) Actinic keratosis (05/01/16) Anemia Basal cell carcinoma of skin (03/11/16) Bilateral cataracts Bronchiectasis Chronic respiratory failure with hypoxia 2L of O2 by FL COPD (chronic obstructive pulmonary disease) Coronary Artery Disease Depression Diabetes mellitus Diabetic foot ulcer Diabetic ulcer of left foot ESRD on hemodialysis GERD (gastroesophageal reflux disease) Hoarseness Hyperkalemia Moderate pulmonary hypertension Orthostatic hypotension Paroxysmal atrial fibrillation with rapid ventricular response Perihepatic abscess RBBB (right bundle branch block) Renal cell carcinoma of left kidney (05/30/17) Shortness of breath Supraventricular tachycardia Toe infection Tubular adenoma of colon (12/18/16) Surgical History Colonoscopy - MAC (12/18/16) 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 12.02.12HE Hx of cardiac cath x2, per patient Lobectomy Pt states 2 lobes removed from R. lung. No date given. 12.02.12HE Osteotomy Partial & Debridment of first metatarsal on Left foot. S/P hemodialysis catheter insertion Family History Mother Heart disease Diabetes Sister Stroke Diabetes Sister Diabetes Cancer laryngeal cancer Sister Diabetes Social History Smoking/Tobacco Use Status: Former Tobacco Use tobacco type: cigarettes Quit Date: 05/05/14 Pack-years: 100 Tobacco: How many years used: 50 Counseling given: provider counseling Smoking risk assessment performed?: Yes Alcohol Intake: never Drug use: Never Household members: spouse Current gender identity: male What type of physical activity do you participate in: none and independent ambulation Do you feel safe at home: Yes Do you feel safe in your relationship?: Yes Meds Allergies and Home Medications Allergies Allergy/AdvReac Type Severity Reaction Status Date / Time pneumococcal vaccine Allergy Severe Swelling/Ed Verified 06/05/21 12:15 nandini sulfamethoxazole Allergy difficulty Verified 06/05/21 12:15 [From Bactrim] breathing trimethoprim [From Bactrim] Allergy difficulty Verified 06/05/21 12:15 breathing Home Medications Medication Instructions Recorded Confirmed Type aspirin [Aspir-81] 81 mg PO DAILY 09/25/12 06/05/21 History multivitamin 1 ea PO DAILY 09/25/12 06/05/21 History sertraline 100 mg PO DAILY 09/25/12 06/05/21 History cholecalciferol (vitamin D3) 1,000 unit PO DAILY tab-cap 09/21/15 06/05/21 History nitroglycerin 0.4 mg SUBLINGUAL ONCE PRN tab-cap 09/21/15 06/05/21 History albuterol sulfate [Proventil HFA] 2 inh PO Q4H PRN PRN 02/16/17 06/05/21 History ascorbic acid (vitamin C) [Vitamin 500 mg PO DAILY 02/16/17 06/05/21 History C] atorvastatin [Lipitor] 40 mg PO DAILY 02/16/17 06/05/21 History melatonin 10 mg PO HS PRN 02/16/17 06/05/21 History cyanocobalamin (vitamin B-12) 1,000 mcg PO DAILY 09/22/19 06/05/21 History [Vitamin B-12] Breo Ellipta 1 inh INHALATION DAILY 04/24/20 06/05/21 History Lantus Solostar U-100 Insulin 24 - 26 unit SUBCUT HS 04/24/20 06/05/21 History acetaminophen [Tylenol Extra 1,000 mg PO .Q6 HRS PRN 04/24/20 06/05/21 History Strength] pantoprazole 40 mg PO DAILY 04/24/20 06/05/21 History tamsulosin 0.4 mg PO DAILY 04/24/20 06/05/21 History lutein 20 mg PO DAILY 09/10/20 06/05/21 History diphenhydramine HCl [Benadryl] 25 mg PO Q6H #100 cap 03/09/21 06/05/21 Rx loratadine 10 mg PO DAILY #20 cap 03/09/21 06/05/21 Rx apixaban [Eliquis] 2.5 mg PO BID 06/05/21 06/05/21 History insulin lispro [Humalog KwikPen 1 sliding scale dose SUBCUT 06/05/21 06/05/21 History Insulin] USEASDIRECTD midodrine 2.5 mg PO TID 06/05/21 06/05/21 History sennosides [senna] 8.6 mg PO DAILY 06/05/21 06/05/21 History trazodone 25 mg PO HS 06/05/21 06/05/21 History Exam Narrative Exam Narrative: General: Very pleasant male who is not dyspneic/tachypneic laying flat in bed, A&Ox3, mildly anxious when talking about the health of his and his son Neurological: A&Ox3, no focal deficits Psychiatric: Appropriate speech pattern/content Skin: Visible skin, including skin on B feet, intact HEENT: Atraumatic, normocephalic, EOMI, dry MM, white film over tongue, no submandibular or cervical lymphadenopathy, no goiter or JVD Cardiovascular: RRR, no m/r/g; R chest TDC dressed - c/d/i. Lungs: No breath sounds at R base -up until about 1/2 of the R lung field. CTA on L Gastrointestinal: soft, nontender, nondistended Genitourinary: deferred Extremities: no edema, clubbing, or cyanosis. Trace pedal pulses B; s//p amputation of LLE 1st digit Results Imaging Additional studies: CXR: 1. Increased interstitial markings in the left lung base. Developing pneumonia or edema cannot be excluded. Please correlate clinically. 2. Stable pleural and parenchymal scarring in the right hemithorax. EKG #1: HR 99, sinus tachycardia, RBBB (old), exaggerated ST depressions EKG #2: HR 67, NSR, improvement in ST depressions, RBBB Labs Result diagrams: 06/05/21 12:14 06/05/21 12:14 Labs: Laboratory Results - last 24 hr 06/05/21 06/05/21 06/05/21 12:14 12:14 12:14 WBC 20.44 H RBC 3.78 L Hgb 11.9 L Hct 38.0 L MCV 100.5 H MCH 31.5 MCHC 31.3 L RDW 13.5 Plt Count 367 MPV 11.0 Immature Gran % 1.3 Neutrophils % 75.3 Lymphocytes % 15.0 Monocytes % 6.3 Eosinophils % 1.7 Basophils % 0.4 Nucleated RBC % 0 Absolute Neutrophils 15.39 H Absolute Lymphocytes 3.07 Absolute Monocytes 1.29 H Absolute Eosinophils 0.35 Absolute Basophils 0.08 D-Dimer 637 H Sodium 140 Potassium 3.8 Chloride 99 Carbon Dioxide 28.8 Anion Gap 12.2 H BUN 18 Creatinine 3.2 H Estimated GFR/1.73 m2 19.03 Glucose 283 H Calcium 8.8 Magnesium 1.7 L Total Bilirubin 0.4 AST 14 L ALT 13 L Alkaline Phosphatase 126 H Troponin I < 50 Total Protein 7.5 Albumin 3.6 TSH COVID-19 Source SARS-CoV-2 (PCR) Influenza Type A (PCR) Influenza Type B (PCR) RSV (PCR) Add-On Test Request 06/05/21 06/05/21 06/05/21 12:50 14:20 14:20 WBC RBC Hgb Hct MCV MCH MCHC RDW Plt Count MPV Immature Gran % Neutrophils % Lymphocytes % Monocytes % Eosinophils % Basophils % Nucleated RBC % Absolute Neutrophils Absolute Lymphocytes Absolute Monocytes Absolute Eosinophils Absolute Basophils D-Dimer Sodium Potassium Chloride Carbon Dioxide Anion Gap BUN Creatinine Estimated GFR/1.73 m2 Glucose Calcium Magnesium Total Bilirubin AST ALT Alkaline Phosphatase Troponin I 66 H* Total Protein Albumin TSH COVID-19 Source Nasal/Nares SARS-CoV-2 (PCR) Negative Influenza Type A (PCR) Influenza Type B (PCR) RSV (PCR) Add-On Test Request DONE 06/05/21 06/05/21 06/05/21 14:20 17:15 18:47 WBC RBC Hgb Hct MCV MCH MCHC RDW Plt Count MPV Immature Gran % Neutrophils % Lymphocytes % Monocytes % Eosinophils % Basophils % Nucleated RBC % Absolute Neutrophils Absolute Lymphocytes Absolute Monocytes Absolute Eosinophils Absolute Basophils D-Dimer Sodium Potassium Chloride Carbon Dioxide Anion Gap BUN Creatinine Estimated GFR/1.73 m2 Glucose Calcium Magnesium Total Bilirubin AST ALT Alkaline Phosphatase Troponin I 133 H* Total Protein Albumin TSH 1.18 COVID-19 Source Cancelled SARS-CoV-2 (PCR) Cancelled Influenza Type A (PCR) Cancelled Influenza Type B (PCR) Cancelled RSV (PCR) Cancelled Add-On Test Request Last Vital Signs Temp 36.9 C 06/05/21 19:49 Pulse 65 06/05/21 19:31 Resp 21 06/05/21 19:31 BP 146/56 H 06/05/21 19:31 Pulse Ox 99 06/05/21 19:31
[2021-06-05 22:46] LABS: Troponin I 171 ng/L (<or=60)
[2021-06-05] MEDS: Aspirin 81 MG CHEW 162 MG CH (23:16)
[2021-06-05] MEDS: Apixaban 2.5 MG TAB PO (23:17)
[2021-06-05] MEDS: traZODone 50 MG TAB 25 MG PO (23:18)
[2021-06-05] MEDS: Midodrine 2.5 MG TAB PO (23:19)
[2021-06-05] MEDS: Metoprolol 12.5 MG TAB PO (23:19)
[2021-06-05] MEDS: Insulin Aspart 300 UNITS/3 ML PEN SC (23:21)
[2021-06-05] MEDS: Insulin Glargine 300 UNITS/3 ML PEN 24 UNITS SC (23:22)
[2021-06-06] VITALS (139 sets, daily range): BP systolic 101–131; BP diastolic 37–60; PULSE 51–72; RESP 0–26; TEMP 36.5–36.6; O2SAT 91–98
[2021-06-06 00:19] LABS: Bilirubin Negative (Negative); Blood Trace-intact (Negative); Clarity Sl Cloudy (Clear); Glucose 100 mg/dL (Negative); Ketones Negative (Negative); Leukocyte Esterase Small (Negative); Nitrite Negative (Negative); Urobilinogen 0.2 EU/dL (Up TO 0.2); pH 6.5 (5-8)
[2021-06-06 00:33] LABS: Epithelial Cells Rare HPF (Negative); WBC >50 HPF (0-5)
[2021-06-06 00:34] LABS: Bacteria Few HPF (Negative); C & S Indicated? Yes; Casts Negative LPF (Negative); Crystals Negative HPF (Negative); Mucus Negative (Negative); Other Cells Moderate Yeast (Negative)
[2021-06-06] MEDS: diphenhydrAMINE 25 MG CAP PO ×2 (00:44→06:00)
[2021-06-06] MEDS: Nystatin 500000 UNITS/5 ML SUSP 5ML CUP PO (06:47)
--- NOTE | 2021-06-06 07:15 | RT.EKG_ITS ---
APPROVED REPORT Exam: Resting ECG Reason for Exam: elevated troponin, chest pain Patient Location: I HR:55 bpm ECG Measurements Heart Rate 55 AXIS RI 201 P 19 QRSd 125 QRS 35 QT 470 T 0 QTc 450 Conclusion Sinus rhythm...normal P axis, V-rate 50- 99 Right bundle branch block...QRSd>120, terminal axis(90,270) Baseline wander in lead(s) V3
[2021-06-06 07:21] LABS: Abs Immature Grans 0.19 10^3/uL (0.0-0.06); Absolute Basophil Count 0.04 10^3/uL (0.0-0.2); Absolute Lymphocyte Count 2.57 10^3/uL (1.2-3.4); Absolute Monocyte Count 1.11 10^3/uL (0.1-0.8); Absolute Neutrophil Count 9.87 10^3/uL (1.2-6.7); Basophils % 0.3; HCT 32.4 % (40.0-50.0); Immature Grans % 1.3; Lymphocytes % 18.1; MCH 30.9 pg (27.0-33.0); MCHC 30.9 % (32.0-36.0); MPV 10.9 fL (8.0-11.0); Monocytes % 7.8; Neutrophils % 69.5; Nucleated RBC 0 %; Platelet Count 320 10^3/uL (130-400); RBC 3.24 10^6/uL (4.36-5.78); RDW 13.6 % (11.8-14.1); RDW-SD 49.6 fL
[2021-06-06 07:25] LABS: Absolute Eosinophil Count 0.43 10^3/uL (0.0-0.7)
[2021-06-06 07:46] LABS: Anion Gap 7.6 mmol/L (3-11); BUN 29 mg/dL (7-18); CO2 30.4 mmol/L (21.0-32.0); CREATININE 3.4 mg/dL (0.70-1.30); Calcium 8.2 mg/dL (8.5-10.1); Chloride 102 mmol/L (98-107); Estimated GFR 17.75 (mL/min/1.73m2); Glucose 171 mg/dL (74-106); Magnesium 1.6 mg/dL (1.8-2.4); Potassium 3.5 mmol/L (3.5-5.1); Sodium 140 mmol/L (136-145)
[2021-06-06 08:11] LABS: Calculated LDL 51 mg/dL (<100); Cholesterol 127 mg/dL (<200); HDL Cholesterol 55 mg/dL (40-60); Triglyceride 109 mg/dL (<150)
[2021-06-06 08:21] LABS: Troponin I 106 ng/L (<or=60)
[2021-06-06] MEDS: Loratidine 10 MG TAB PO (09:00)
[2021-06-06] MEDS: Apixaban 2.5 MG TAB PO (09:00)
[2021-06-06] MEDS: Ascorbic Acid 500 MG TAB PO (09:00)
[2021-06-06] MEDS: Multivitamin TAB 1 TAB PO (09:00)
[2021-06-06] MEDS: Aspirin E.C. 81 MG TABEC PO (09:00)
[2021-06-06] MEDS: Metoprolol 12.5 MG TAB PO (09:01)
[2021-06-06] MEDS: Atorvastatin 40 MG TAB PO (09:01)
[2021-06-06] MEDS: Cyanocobalamin 500 MCG TAB 1000 MCG PO (09:01)
[2021-06-06] MEDS: Pantoprazole 40 MG TABCR PO (09:01)
[2021-06-06] MEDS: Cholecalciferol (Vitamin D3) 1,000 UNIT TAB 1000 UNITS PO (09:01)
[2021-06-06] MEDS: Sertraline 50 MG TAB 100 MG PO (09:01)
[2021-06-06] MEDS: Tamsulosin 0.4 MG CAPCR PO (09:02)
[2021-06-06] MEDS: Midodrine 2.5 MG TAB PO (09:13)
--- NOTE | 2021-06-06 09:23 | PDOC.CMIN ---
- If Service Date Differs Date of service: 06/06/21 Time of Service: 09:23 Care Management Initial Assess REASON FOR HOSPITALIZATION:: Palpitations
[2021-06-06] MEDS: Insulin Aspart 300 UNITS/3 ML PEN SC (09:54)
[2021-06-06] MEDS: Budesonide/Formoterol 160/4.5 6 GM 60 PUFF INH IH (10:36)
--- NOTE | 2021-06-06 11:15 | PGE_ITS ---
Date of Service Date of service: 06/06/21 Time of Service: 11:16 Assessment and Plan Assessment and plan (1) Palpitations: Status: Acute Assessment and plan: probable PSVT although may have been afib. He is now in sinus rhythm to sinus bradycardia. He has been off metoprolol for some time now. He is willing to take this and to undergo follow up w/ cardiology next week. I think his transient rise in troponin is d/t demand ischemia. He can be discharged home on lopressor and we will set him up w/ a holter monitor to go home on and he will follow up w/ Dr. Andrews next week. His echocardiogram was done this morning and showed normal LV fxn LVEF 65% wtih no RWMA but borderline concentric LVH. RV size and systolic fxn were normal but he has mild PHTN w/ PASP 46 mm. He has no hemodynamically significant valvular lesions. I will defer to Dr. Sánchez's decision as to whether or not to order a stress Lexiscan MPI study. (2) Elevated troponin I level: Status: Acute Assessment and plan: demand ischemia as above (3) Discharge planning issues: Status: Resolved Assessment and plan: dc home. CM arranged for RCT to take him to the dialysis center in [facility] for 12:30 pm appointment. Subjective Subjective Interval history since last seen: Patient denies any chest pain or palpitations. He remains in NSR. He was admitted last night for palpitations and chest pain. he had transient rise in his tropoonin I levels which peaked last night at 171 and are coming down to 106 ng/L this morning. His EKG's demonstrated NSR w/ RBBB (which is unchanged from prior EKG's from 03/09/2021). Upon arrival to the ER his palpitations stopped prior to his getting on any telemetry monitoring. He has hx of PAF and PSVT associated w/ prior admission to [facility] last year for sepsis in which he developed respiratory failure and was intubated and developed renal failure. He has ESRD and is on hemodialysis every Mon/Wed/Fri. He is due for hemodialysis today and wants to be discharged home. He was set up for transfer to [facility] for today because of his acute troponin rise in setting of CP and tachycardia and because he would need inpatient hemodialysis which we can not provide. He is concerned about his who is ill and he is her sole support. He understands that if he absolutely needed to go to [facility] then he would have to go. However given that he is now back on a beta nohemi and his rhythm has remained stable overnight, I think it reasonable to discharge him home on lopressor w/ follow up 48 hr holter monitor and cardiology office visit early next week. I told him that he probably should have a chemical stress test (which he did not like the idea due to prior poor experience), however, I will defer to cargo surveyor to decide when he is seen on Friday. By allowing him to be discharged home now he can make it to his dialysis appointment in [facility] for 12:30 pm. Exam Narrative Exam Narrative: male sitting up in his bed in no acute respiratory distress. He is wearing his oxygen which he is on chronically at home. He is on 2 L/min nasal cannula with oxygen saturation 95%. Lungs with diminished breath sounds over the right lung base coarse breath sounds of the left lung base with some end expiratory wheezing Heart is regular slightly bradycardic no appreciable murmur Abdomen: soft, nontender, nondistended Objective Last Vital Signs Temp 36.5 C 06/06/21 04:00 Pulse 54 L 06/06/21 06:00 Resp 20 06/06/21 06:30 BP 118/60 06/06/21 06:00 Pulse Ox 97 06/06/21 06:30 Laboratory Results - last 24 hr 06/05/21 06/05/21 06/05/21 12:14 12:14 12:14 WBC 20.44 H RBC 3.78 L Hgb 11.9 L Hct 38.0 L MCV 100.5 H MCH 31.5 MCHC 31.3 L RDW 13.5 Plt Count 367 MPV 11.0 Immature Gran % 1.3 Neutrophils % 75.3 Lymphocytes % 15.0 Monocytes % 6.3 Eosinophils % 1.7 Basophils % 0.4 Nucleated RBC % 0 Absolute Neutrophils 15.39 H Absolute Lymphocytes 3.07 Absolute Monocytes 1.29 H Absolute Eosinophils 0.35 Absolute Basophils 0.08 D-Dimer 637 H Sodium 140 Potassium 3.8 Chloride 99 Carbon Dioxide 28.8 Anion Gap 12.2 H BUN 18 Creatinine 3.2 H Estimated GFR/1.73 m2 19.03 Glucose 283 H Calcium 8.8 Phosphorus Magnesium 1.7 L Total Bilirubin 0.4 AST 14 L ALT 13 L Alkaline Phosphatase 126 H Troponin I < 50 Total Protein 7.5 Albumin 3.6 Triglycerides Total Cholesterol LDL Cholesterol, Calc HDL Cholesterol TSH Urine Color Urine Clarity Urine pH Ur Specific [place] Urine Protein Urine Ketones Urine Blood Urine Nitrite Urine Bilirubin Urine Urobilinogen Ur Leukocyte Esterase Urine RBC Urine WBC Ur Epithelial Cells Urine Crystals Urine Bacteria Urine Casts Urine Mucus Urine Other Ur Culture Indicated? Urine Glucose COVID-19 Source SARS-CoV-2 (PCR) Influenza Type A (PCR) Influenza Type B (PCR) RSV (PCR) Add-On Test Request 06/05/21 06/05/21 06/05/21 12:50 14:20 14:20 WBC RBC Hgb Hct MCV MCH MCHC RDW Plt Count MPV Immature Gran % Neutrophils % Lymphocytes % Monocytes % Eosinophils % Basophils % Nucleated RBC % Absolute Neutrophils Absolute Lymphocytes Absolute Monocytes Absolute Eosinophils Absolute Basophils D-Dimer Sodium Potassium Chloride Carbon Dioxide Anion Gap BUN Creatinine Estimated GFR/1.73 m2 Glucose Calcium Phosphorus Magnesium Total Bilirubin AST ALT Alkaline Phosphatase Troponin I 66 H* Total Protein Albumin Triglycerides Total Cholesterol LDL Cholesterol, Calc HDL Cholesterol TSH Urine Color Urine Clarity Urine pH Ur Specific [place] Urine Protein Urine Ketones Urine Blood Urine Nitrite Urine Bilirubin Urine Urobilinogen Ur Leukocyte Esterase Urine RBC Urine WBC Ur Epithelial Cells Urine Crystals Urine Bacteria Urine Casts Urine Mucus Urine Other Ur Culture Indicated? Urine Glucose COVID-19 Source Nasal/Nares SARS-CoV-2 (PCR) Negative Influenza Type A (PCR) Influenza Type B (PCR) RSV (PCR) Add-On Test Request DONE 06/05/21 06/05/21 06/05/21 14:20 17:15 18:47 WBC RBC Hgb Hct MCV MCH MCHC RDW Plt Count MPV Immature Gran % Neutrophils % Lymphocytes % Monocytes % Eosinophils % Basophils % Nucleated RBC % Absolute Neutrophils Absolute Lymphocytes Absolute Monocytes Absolute Eosinophils Absolute Basophils D-Dimer Sodium Potassium Chloride Carbon Dioxide Anion Gap BUN Creatinine Estimated GFR/1.73 m2 Glucose Calcium Phosphorus Magnesium Total Bilirubin AST ALT Alkaline Phosphatase Troponin I 133 H* Total Protein Albumin Triglycerides Total Cholesterol LDL Cholesterol, Calc HDL Cholesterol TSH 1.18 Urine Color Urine Clarity Urine pH Ur Specific [place] Urine Protein Urine Ketones Urine Blood Urine Nitrite Urine Bilirubin Urine Urobilinogen Ur Leukocyte Esterase Urine RBC Urine WBC Ur Epithelial Cells Urine Crystals Urine Bacteria Urine Casts Urine Mucus Urine Other Ur Culture Indicated? Urine Glucose COVID-19 Source Cancelled SARS-CoV-2 (PCR) Cancelled Influenza Type A (PCR) Cancelled Influenza Type B (PCR) Cancelled RSV (PCR) Cancelled Add-On Test Request 06/05/21 06/05/21 06/06/21 22:00 23:45 06:13 WBC RBC Hgb Hct MCV MCH MCHC RDW Plt Count MPV Immature Gran % Neutrophils % Lymphocytes % Monocytes % Eosinophils % Basophils % Nucleated RBC % Absolute Neutrophils Absolute Lymphocytes Absolute Monocytes Absolute Eosinophils Absolute Basophils D-Dimer Sodium 140 Potassium 3.5 Chloride 102 Carbon Dioxide 30.4 Anion Gap 7.6 BUN 29 H D Creatinine 3.4 H Estimated GFR/1.73 m2 17.75 Glucose 171 H D Calcium 8.2 L Phosphorus 4.0 Magnesium 1.6 L Total Bilirubin AST ALT Alkaline Phosphatase Troponin I 171 H* Total Protein Albumin Triglycerides 109 Total Cholesterol 127 LDL Cholesterol, Calc 51 HDL Cholesterol 55 TSH Urine Color Yellow Urine Clarity Sl Cloudy Urine pH 6.5 Ur Specific [place] 1.020 Urine Protein 100 H Urine Ketones Negative Urine Blood Trace-intact H Urine Nitrite Negative Urine Bilirubin Negative Urine Urobilinogen 0.2 Ur Leukocyte Esterase Small H Urine RBC Urine WBC >50 H Ur Epithelial Cells Rare Urine Crystals Negative Urine Bacteria Few Urine Casts Negative Urine Mucus Negative Urine Other Moderate Yeast Ur Culture Indicated? Yes Urine Glucose 100 COVID-19 Source SARS-CoV-2 (PCR) Influenza Type A (PCR) Influenza Type B (PCR) RSV (PCR) Add-On Test Request 06/06/21 06/06/21 06:13 06:13 WBC 14.20 H D RBC 3.24 L Hgb 10.0 L Hct 32.4 L MCV 100.0 H MCH 30.9 MCHC 30.9 L RDW 13.6 Plt Count 320 MPV 10.9 Immature Gran % 1.3 Neutrophils % 69.5 Lymphocytes % 18.1 Monocytes % 7.8 Eosinophils % 3.0 Basophils % 0.3 Nucleated RBC % 0 Absolute Neutrophils 9.87 H Absolute Lymphocytes 2.57 Absolute Monocytes 1.11 H Absolute Eosinophils 0.43 Absolute Basophils 0.04 D-Dimer Sodium Potassium Chloride Carbon Dioxide Anion Gap BUN Creatinine Estimated GFR/1.73 m2 Glucose Calcium Phosphorus Magnesium Total Bilirubin AST ALT Alkaline Phosphatase Troponin I 106 H* Total Protein Albumin Triglycerides Total Cholesterol LDL Cholesterol, Calc HDL Cholesterol TSH Urine Color Urine Clarity Urine pH Ur Specific [place] Urine Protein Urine Ketones Urine Blood Urine Nitrite Urine Bilirubin Urine Urobilinogen Ur Leukocyte Esterase Urine RBC Urine WBC Ur Epithelial Cells Urine Crystals Urine Bacteria Urine Casts Urine Mucus Urine Other Ur Culture Indicated? Urine Glucose COVID-19 Source SARS-CoV-2 (PCR) Influenza Type A (PCR) Influenza Type B (PCR) RSV (PCR) Add-On Test Request
--- NOTE | 2021-06-06 11:39 | W.PM.DS.N ---
Date of service: 06/06/21 Time of Service: 11:40 DS: Diagnosis Discharge Diagnosis (1) Palpitations: Status: Acute (2) Chest discomfort: Status: Acute (3) Coronary Artery Disease: (4) ESRD on hemodialysis: (5) Leucocytosis: Status: Chronic (6) DVT prophylaxis: Status: Acute (7) Discharge planning issues: Status: Resolved Discharge Plan Disposition Patient Disposition: HOME Condition: Improving Discharge Details Reason For Visit: NSTEMI, Palpitations, Hemodialysis Patient Admit Date/Time: 06/05/21 18:33 Admit Provider: Tammy Jimenez Attending Provider: Tammy Jimenez Primary Care Provider: Zakiya Reyna [facility] Hospital Course: Jay is 75 year old male with PMHx of SVT and Afib, on anticoagulation with eliquis, ESRD on HD MWF (via R chest TDC; last HD yesterday), as well as h/o CAD s/p two cardiac caths and 3 stents, per patient, pulmonary hypertension, IDDM2, O2-dependent COPD (chronically on 2L of O2 by DC), bronchiectasis s/p lobectomies x 2, and renal cell ca s/p 3 partial nephrectomies, who presented to [facility] ED today complaining of 3 episodes of palpitations and midsternal chest pressure/pain. The first episode happened yesterday between 5 and 6 pm, at rest. It lasted about 30 minutes and resolved on its own. The patient states that he felt palpitations and chest pressure. He denies dizziness, numbness/tingling, radiation, worsening shortness of breath (always feels a little short of breath), or nausea at that time.The 2nd episode woke him up from sleep at 10 pm last night and, again, resolved on its own. The third episode hapened at 10 am today and lasted until he got to the hospital, he thinks for about an hour, resolving spontaneously right before he was put on a court recording monitor. He has had no symptoms ever since. His last HD was yesterday. He still urinates. He ended up on HD as a result of sepsis, per [facility] records. He denies any exposures to anyone with COVID-19 and denies any sx of COVID-19. In the ED, his workup revealed a mildly elevated troponin of 66 ng/L, while repeat troponin was 133 ng/L. His EKGs revealed a RBBB with exaggerated ST depressions on his first EKG as opposed to repeat. RBBB is old. The patient states that he usually gets palpitations about once a month. He wore a holter monitor in 11/2019 for palpitations, which was read as SVT and no Afib. Reviewing his [facility] records from admission 09/10/2020 until 11/17/2020, he was diagnosed with Afib there. He was on amiodarone therapy which was stopped after 1 month. It appears that his beta blockers were discontinued during that admission due to bradycardia and because he had remained in NSR. He was initiated on apixaban on that admission. He is s/p cardiac cath x 2 at [facility]. He thinks he has 3 stents, but he is not sure. He had an echo at our facility on 05/24/2020 which revealed LVEF of 60%, no wall motion abnormalities, no significant valvular disease, and moderate pulmonary hypertension with RVSP of 54 mmHg. His MPI stress test on 05/31/2019 did not show ischemia. The patient is expected to have his next HD tomorrow. [facility] is unable to provide hemodialysis, and the patient was accepted at [facility] by Dr Paola Perales of Hospitalist Medicine for a bed tomorrow. While in the ER but prior to being hooked up to a monitor his palpitations ceased and he was in NSR. Because of the elevated troponin levels and the hx of PSVT/afib and symptoms of palpitations and chest pain and due to lack of bed capacity in any of the [facility] he was admitted to [facility] intensive care unit. He as started back on lopressor 12.5 mg bid and he remains in sinus bradycardia in the mid to upper 50's. He has had no chest pain nor pressure overnight. His troponins have declined to 106 ng/L from a peak of 171. His repeat EKG on the morning of discharge did not demonstrate any acute ischemia or injury pattern (sinus bradycardia @ 54 bpm w/ RBBB). An echocardiogram was performed and demonstrated: Normal global left ventricular systolic function.Left ventricular chamber size is normal. Borderline concentric LVH. Left ventricular ejection fraction 65%. No left ventricular segmental wall motion abnormalities. Right ventricular chamber size, wall thickness, systolic function within normal limits. Estimated pulmonary artery systolic pressure 46 mm. No hemodynamically significant valvular disease. The patient desires to return home after discharge to his local hemodialysis center. As it appears that his primary issue was one of probable supraventricular tachycardia causing demand ischemia leading to transient elevated troponin I and he did not have evidence of an acute myocardial infarction, it seems that the most sensible thing to do is to keep him on beta blockers and follow up w/ holter monitoring and arrange outpatient cardiology followup which he is willing to do. I will defer to cardiology decision to proceed with a stress test. Patient was discharged to go immediately to the dialysis center in [facility] for his appointed hemodialysis run and a 48 hr holter monitor was applied prior to his leaving the hospital. A follow up was set up for him to see Dr. Unique Sánchez next Friday, 06/11 at 9:40 am. An Rx for lopressor 25 mg 1/2 tablet po bid was sent to his pharmacy. Home Meds and New Rx's Prescriptions: New metoprolol tartrate [Lopressor] 50 mg tablet 25 mg PO BID Qty: 30 RF: 1 Continued nitroglycerin 0.4 MG tablet, sublingual 0.4 mg Sublingual ONCE PRNRF: 0 cholecalciferol (vitamin D3) 1,000 UNIT tablet 1,000 unit PO DAILY RF: 0 aspirin [Aspir-81] 81 MG tablet,delayed release (DR/EC) 81 mg PO DAILY RF: 0 multivitamin 1 EACH capsule 1 ea PO DAILY RF: 0 sertraline 50 MG tablet 100 mg PO DAILY RF: 0 atorvastatin [Lipitor] 40 MG tablet 40 mg PO DAILY RF: 0 ascorbic acid (vitamin C) [Vitamin C] 1,000 MG tablet 500 mg PO DAILY RF: 0 albuterol sulfate [Proventil HFA] 6.7 GM HFA aerosol inhaler 2 inh PO Q4H PRN PRNRF: 0 melatonin 10 MG tablet 10 mg PO HS PRNRF: 0 acetaminophen [Tylenol Extra Strength] 500 mg Tablet 1,000 mg PO .Q6 HRS PRNRF: 0 tamsulosin 0.4 mg Capsule 0.4 mg PO DAILY RF: 0 pantoprazole 40 mg tablet,delayed release (DR/EC) 40 mg PO DAILY RF: 0 Lantus Solostar U-100 Insulin 100 unit/mL (3 mL) insulin pen 24 - 26 unit SUBCUT HS RF: 0 Breo Ellipta 200-25 mcg/dose blister with device 1 inh INHALATION DAILY RF: 0 cyanocobalamin (vitamin B-12) [Vitamin B-12] 1,000 mcg Tablet 1,000 mcg PO DAILY RF: 0 lutein 20 mg Capsule 20 mg PO DAILY RF: 0 diphenhydramine HCl [Benadryl] 25 MG capsule 25 mg PO Q6H Qty: 100 RF: 0 loratadine 10 mg capsule 10 mg PO DAILY Qty: 20 RF: 0 sennosides [senna] 8.6 mg Tablet 8.6 mg PO DAILY RF: 0 trazodone 50 mg tablet 25 mg PO HS RF: 0 midodrine 2.5 mg tablet 2.5 mg PO TID RF: 0 insulin lispro [Humalog KwikPen Insulin] 100 unit/mL Insulin Pen 1 sliding scale dose SUBCUT USEASDIRECTD RF: 0 Eliquis 2.5 mg tablet 2.5 mg PO BID RF: 0 Discharge Instructions Referrals: Unique Sánchez MD [ [facility] STAFF PHYSICIAN] - 06/11/21 9:40 am Zakiya Reyna MD [Primary Care Provider] - Activity:: Activity as Tolerated Equipment/Supplies:: No Equipment Needed Diet:: renal diet Discharge Orders Discharge Orders: Discharge Order (Routine); Ordered 06/06/21 Ordered By: Mark Pruitt Other Ambulatory Orders: Holter Monitor (Routine) Timeframe: 1 Day Facility: [facility] - Location: Respiratory Therapy Ordered By: Mark Pruitt Discharge Data Discharge Date/Time-TO BE ENTERED AT DEPARTURE: 06/06/21 11:58 Discharge Comment: Pt transported to Dialysis by [facility] at discharge DS: Summary Time Spent with Patient providing and/or coordinating discharge services: Greater than 30 minutes Status at Discharge Functional status at discharge: independent ambulation Overall status at discharge: patient is back to baseline Mental Status: mental status grossly normal Speech and Movement: speech and movement normal Mood: congruent mood Affect: normal affect Exam Narrative Exam Narrative: male sitting up in his bed in no acute respiratory distress. He is wearing his oxygen which he is on chronically at home. He is on 2 L/min nasal cannula with oxygen saturation 95%. Lungs with diminished breath sounds over the right lung base coarse breath sounds of the left lung base with some end expiratory wheezing Heart is regular slightly bradycardic no appreciable murmur Abdomen: soft, nontender, nondistended Psych Mental Status: mental status grossly normal Speech and Movement: speech and movement normal Mood: congruent mood Affect: normal affect DS: Data Vitals/I&O Vitals and I&O: Vital Signs Temperature 36.5 C 06/06/21 04:00 Temperature Source Temporal Artery Scan 06/06/21 04:00 Pulse 54 L 06/06/21 06:00 Pulse 54 L 06/06/21 06:30 Respiratory Rate 20 06/06/21 06:30 Respiratory Effort Non-Labored 06/06/21 04:00 Respiratory Depth Normal 06/06/21 04:00 Respiratory Pattern Normal 06/06/21 04:00 Blood Pressure 118/60 06/06/21 06:00 Blood Pressure Mean 75 06/06/21 06:00 Blood Pressure Position Supine 06/06/21 04:00 Pulse Oximetry 97 06/06/21 06:30 Oxygen Delivery Method Nasal Cannula 06/06/21 04:00 Oxygen Flow Rate 2 06/06/21 04:00 Pain Level 0 06/06/21 04:00 Comment 06/05/21 12:02 Intake & Output 06/05/21 06/05/21 06/06/21 11:59 23:59 11:59 Intake Total 400 / 400 1200 / 1200 Output Total 550 / 550 Balance 400 / 400 650 / 650 Weight 96.7 kg 89.6 kg Intake: Oral 400 / 400 1200 / 1200 Output: Urine 550 / 550 Other: Urine Color Dark Ila Urine Appearance Cloudy Sediment Urine Odor None Comment pt able to void in urinal about every 4 hrs Voiding Methods Urinal Data Completed and Pending Labs on day of discharge: Labs from last 24 hours 06/06/21 06/06/21 06/06/21 06:13 06:13 06:13 WBC 14.20 H D RBC 3.24 L Hgb 10.0 L Hct 32.4 L MCV 100.0 H MCH 30.9 MCHC 30.9 L RDW 13.6 Plt Count 320 MPV 10.9 Immature Gran % 1.3 Neutrophils % 69.5 Lymphocytes % 18.1 Monocytes % 7.8 Eosinophils % 3.0 Basophils % 0.3 Nucleated RBC % 0 Absolute Neutrophils 9.87 H Absolute Lymphocytes 2.57 Absolute Monocytes 1.11 H Absolute Eosinophils 0.43 Absolute Basophils 0.04 D-Dimer Sodium 140 Potassium 3.5 Chloride 102 Carbon Dioxide 30.4 Anion Gap 7.6 BUN 29 H D Creatinine 3.4 H Estimated GFR/1.73 m2 17.75 Glucose 171 H D Calcium 8.2 L Phosphorus 4.0 Magnesium 1.6 L Total Bilirubin AST ALT Alkaline Phosphatase Troponin I 106 H* Total Protein Albumin Triglycerides 109 Total Cholesterol 127 LDL Cholesterol, Calc 51 HDL Cholesterol 55 TSH Urine Color Urine Clarity Urine pH Ur Specific Inverness Urine Protein Urine Ketones Urine Blood Urine Nitrite Urine Bilirubin Urine Urobilinogen Ur Leukocyte Esterase Urine RBC Urine WBC Ur Epithelial Cells Urine Crystals Urine Bacteria Urine Casts Urine Mucus Urine Other Ur Culture Indicated? Urine Glucose COVID-19 Source SARS-CoV-2 (PCR) Influenza Type A (PCR) Influenza Type B (PCR) RSV (PCR) Add-On Test Request 06/05/21 06/05/21 06/05/21 23:45 22:00 18:47 WBC RBC Hgb Hct MCV MCH MCHC RDW Plt Count MPV Immature Gran % Neutrophils % Lymphocytes % Monocytes % Eosinophils % Basophils % Nucleated RBC % Absolute Neutrophils Absolute Lymphocytes Absolute Monocytes Absolute Eosinophils Absolute Basophils D-Dimer Sodium Potassium Chloride Carbon Dioxide Anion Gap BUN Creatinine Estimated GFR/1.73 m2 Glucose Calcium Phosphorus Magnesium Total Bilirubin AST ALT Alkaline Phosphatase Troponin I 171 H* Total Protein Albumin Triglycerides Total Cholesterol LDL Cholesterol, Calc HDL Cholesterol TSH Urine Color Yellow Urine Clarity Sl Cloudy Urine pH 6.5 Ur Specific [place] 1.020 Urine Protein 100 H Urine Ketones Negative Urine Blood Trace-intact H Urine Nitrite Negative Urine Bilirubin Negative Urine Urobilinogen 0.2 Ur Leukocyte Esterase Small H Urine RBC Urine WBC >50 H Ur Epithelial Cells Rare Urine Crystals Negative Urine Bacteria Few Urine Casts Negative Urine Mucus Negative Urine Other Moderate Yeast Ur Culture Indicated? Yes Urine Glucose 100 COVID-19 Source Cancelled SARS-CoV-2 (PCR) Cancelled Influenza Type A (PCR) Cancelled Influenza Type B (PCR) Cancelled RSV (PCR) Cancelled Add-On Test Request 06/05/21 06/05/21 06/05/21 17:15 14:20 14:20 WBC RBC Hgb Hct MCV MCH MCHC RDW Plt Count MPV Immature Gran % Neutrophils % Lymphocytes % Monocytes % Eosinophils % Basophils % Nucleated RBC % Absolute Neutrophils Absolute Lymphocytes Absolute Monocytes Absolute Eosinophils Absolute Basophils D-Dimer Sodium Potassium Chloride Carbon Dioxide Anion Gap BUN Creatinine Estimated GFR/1.73 m2 Glucose Calcium Phosphorus Magnesium Total Bilirubin AST ALT Alkaline Phosphatase Troponin I 133 H* Total Protein Albumin Triglycerides Total Cholesterol LDL Cholesterol, Calc HDL Cholesterol TSH 1.18 Urine Color Urine Clarity Urine pH Ur Specific Inver[place] Urine Protein Urine Ketones Urine Blood Urine Nitrite Urine Bilirubin Urine Urobilinogen Ur Leukocyte Esterase Urine RBC Urine WBC Ur Epithelial Cells Urine Crystals Urine Bacteria Urine Casts Urine Mucus Urine Other Ur Culture Indicated? Urine Glucose COVID-19 Source SARS-CoV-2 (PCR) Influenza Type A (PCR) Influenza Type B (PCR) RSV (PCR) Add-On Test Request DONE 06/05/21 06/05/21 06/05/21 14:20 12:50 12:14 WBC RBC Hgb Hct MCV MCH MCHC RDW Plt Count MPV Immature Gran % Neutrophils % Lymphocytes % Monocytes % Eosinophils % Basophils % Nucleated RBC % Absolute Neutrophils Absolute Lymphocytes Absolute Monocytes Absolute Eosinophils Absolute Basophils D-Dimer 637 H Sodium Potassium Chloride Carbon Dioxide Anion Gap BUN Creatinine Estimated GFR/1.73 m2 Glucose Calcium Phosphorus Magnesium Total Bilirubin AST ALT Alkaline Phosphatase Troponin I 66 H* Total Protein Albumin Triglycerides Total Cholesterol LDL Cholesterol, Calc HDL Cholesterol TSH Urine Color Urine Clarity Urine pH Ur Specific Inverness Urine Protein Urine Ketones Urine Blood Urine Nitrite Urine Bilirubin Urine Urobilinogen Ur Leukocyte Esterase Urine RBC Urine WBC Ur Epithelial Cells Urine Crystals Urine Bacteria Urine Casts Urine Mucus Urine Other Ur Culture Indicated? Urine Glucose COVID-19 Source Nasal/Nares SARS-CoV-2 (PCR) Negative Influenza Type A (PCR) Influenza Type B (PCR) RSV (PCR) Add-On Test Request 06/05/21 06/05/21 12:14 12:14 WBC 20.44 H RBC 3.78 L Hgb 11.9 L Hct 38.0 L MCV 100.5 H MCH 31.5 MCHC 31.3 L RDW 13.5 Plt Count 367 MPV 11.0 Immature Gran % 1.3 Neutrophils % 75.3 Lymphocytes % 15.0 Monocytes % 6.3 Eosinophils % 1.7 Basophils % 0.4 Nucleated RBC % 0 Absolute Neutrophils 15.39 H Absolute Lymphocytes 3.07 Absolute Monocytes 1.29 H Absolute Eosinophils 0.35 Absolute Basophils 0.08 D-Dimer Sodium 140 Potassium 3.8 Chloride 99 Carbon Dioxide 28.8 Anion Gap 12.2 H BUN 18 Creatinine 3.2 H Estimated GFR/1.73 m2 19.03 Glucose 283 H Calcium 8.8 Phosphorus Magnesium 1.7 L Total Bilirubin 0.4 AST 14 L ALT 13 L Alkaline Phosphatase 126 H Troponin I < 50 Total Protein 7.5 Albumin 3.6 Triglycerides Total Cholesterol LDL Cholesterol, Calc HDL Cholesterol TSH Urine Color Urine Clarity Urine pH Ur Specific Inverness Urine Protein Urine Ketones Urine Blood Urine Nitrite Urine Bilirubin Urine Urobilinogen Ur Leukocyte Esterase Urine RBC Urine WBC Ur Epithelial Cells Urine Crystals Urine Bacteria Urine Casts Urine Mucus Urine Other Ur Culture Indicated? Urine Glucose COVID-19 Source SARS-CoV-2 (PCR) Influenza Type A (PCR) Influenza Type B (PCR) RSV (PCR) Add-On Test Request 06/05/21 23:45 Urine - Reflex from Urine Culture - Pending Preliminary micro results at discharge 06/05/21 23:45 Urine Culture - Pending Urine - Reflex from [facility] All Active Problems (Updated 06/06/21 @ 15:58 by Mark Pruitt) Elevated troponin I level (Acute) Leucocytosis (Chronic) DVT prophylaxis (Acute) Chest discomfort (Acute) Palpitations (Acute) Exertional shortness of breath (Chronic) Neoplasm of unspecified nature of bone, soft tissue, and skin (Acute 06/19/15) Medical History (Updated 06/06/21 @ 15:58 by Mark Pruitt) Actinic keratosis (05/01/16) Anemia Basal cell carcinoma of skin (03/11/16) Bilateral cataracts Bronchiectasis Chronic respiratory failure with hypoxia 2L of O2 by DC COPD (chronic obstructive pulmonary disease) Coronary Artery Disease Depression Diabetes mellitus Diabetic foot ulcer Diabetic ulcer of left foot ESRD on hemodialysis GERD (gastroesophageal reflux disease) Hoarseness Hyperkalemia Moderate pulmonary hypertension Orthostatic hypotension Paroxysmal atrial fibrillation with rapid ventricular response Perihepatic abscess RBBB (right bundle branch block) Renal cell carcinoma of left kidney (05/30/17) Shortness of breath Supraventricular tachycardia Toe infection Tubular adenoma of colon (12/18/16) Surgical History Colonoscopy - MAC (12/18/16) 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 7.31.13HE Hx of cardiac cath x2, per patient Lobectomy Pt states 2 lobes removed from R. lung. No date given. 12.02.12HE Osteotomy Partial & Debridment of first metatarsal on Left foot. S/P hemodialysis catheter insertion Family History Mother Heart disease Diabetes Sister Stroke Diabetes Sister Diabetes Cancer laryngeal cancer Sister Diabetes Social History Smoking/Tobacco Use Status: Former Tobacco Use tobacco type: cigarettes Quit Date: 05/05/14 Pack-years: 100 Tobacco: How many years used: 50 Counseling given: provider counseling Smoking risk assessment performed?: Yes Alcohol Intake: never Drug use: Never Household members: spouse Current gender identity: male What type of physical activity do you participate in: none and independent ambulation Do you feel safe at home: Yes Do you feel safe in your relationship?: Yes
--- NOTE | 2021-06-06 11:45 | NUR.NOTE ---
[facility] transfer center called per MD request to cancel transfer. Nursing Note:
--- NOTE | 2021-06-06 15:53 | PDOC.CMPRO ---
- If Service Date Differs Date of service: 06/06/21 Time of Service: 15:53 Care Management Progress Note S/O: Alvaro was sitting up in bed when CM met with him. He was anxious to be discharged to enable him to have his dialysis treatment at the [facility] down the [place]. ERIN was able to get his appointment postponed and schedule [facility] for transportation. He will return home following his treatment and follow up with cardiology. He has an appointment with Dr. Sánchez on Friday06/11/21. He will also follow up with his PCP and plan of care. A: Alvaro is a 75 year old man admitted on 06/05/21 with an NSTEMI P: Alvaro will be discharged today. He will go to the dialysis center for his dialysis treatment with [facility] transporting and then return home after the treatment. He has a prescription for beta blockers, a Holter monitor and an appointment with Dr. Sánchez on Friday06/11/21 at 9:40 am.
== END 2021-06-06 11:58 | disposition home or self-care (01) | DRG 308 ==
LOC: ER 18:54 → ICU 19:20
PROVIDERS: Admitting Provider Internal Medicine; Emergency Provider Student in an Organized Health Care Education/Training Program; PCP Family Medicine; Visit Provider Internal Medicine
DX: I48.0 Paroxysmal atrial fibrillation (principal); N18.6 End stage renal disease; J96.10 Chronic respiratory failure, unspecified whether with hypoxia or hypercapnia; I24.8 Other forms of acute ischemic heart disease; I47.1 Supraventricular tachycardia; I27.20 Pulmonary hypertension, unspecified; R07.89 Other chest pain; I25.10 Atherosclerotic heart disease of native coronary artery without angina pectoris; Z95.5 Presence of coronary angioplasty implant and graft; D72.829 Elevated white blood cell count, unspecified; Z79.01 Long term (current) use of anticoagulants; Z99.2 Dependence on renal dialysis; J44.9 Chronic obstructive pulmonary disease, unspecified; Z99.81 Dependence on supplemental oxygen; K21.9 Gastro-esophageal reflux disease without esophagitis; I45.10 Unspecified right bundle-branch block; E11.621 Type 2 diabetes mellitus with foot ulcer; L97.529 Non-pressure chronic ulcer of other part of left foot with unspecified severity; Z85.528 Personal history of other malignant neoplasm of kidney; Z90.5 Acquired absence of kidney; Z90.2 Acquired absence of lung [part of]
CPT/HCPCS: 36415; 80048; 80053; 80061; 87635; 87637; 93005; 99285; 71046; 81003; 81015; 83735; 84100; 84443; 84484; 85025; 85379; 87086; 93010; 93225; 93306; 99223; 99232; 99239; J3490

== ENCOUNTER 2021-06-06 11:33 | Outpatient (RCR) | payer MEDICARE, SELFPAY ==
--- NOTE | 2021-06-06 11:30 | HOLTER_ITS ---
APPROVED REPORT Conclusion This was a 48-hour Holter monitor reportedly ordered for palpitations Predominant rhythm is sinus with an average heart rate of 68. Minimum was 49, maximum 105 There were rare ventricular ectopic beats Patient had several episodes of supraventricular tachycardia. The longest of these lasted for severa l minutes, at a rate of 147. The others were more brief lasting anywhere from 4 to 28 beats in durat ion There was no atrial fibrillation, no high-grade AV block, no pauses greater than 3 seconds Unable to determine if patient symptoms were present
== END 2021-07-02 23:59 | disposition home or self-care (01) ==
LOC: RT 11:33
PROVIDERS: PCP Family Medicine; Visit Provider Family Medicine
DX: R00.2 Palpitations (principal); I47.1 Supraventricular tachycardia
CPT/HCPCS: 93227; 93225; 93226

== ENCOUNTER 2021-06-11 08:54 | Outpatient (CLI) | payer MEDICARE, SELFPAY ==
--- NOTE | 2021-06-11 08:45 | RT.EKG_ITS ---
APPROVED REPORT Exam: Resting ECG Reason for Exam: afib, svt Patient Location: O HR:62 bpm ECG Measurements Heart Rate 62 AXIS OH 204 P 11 QRSd 122 QRS 12 QT 423 T -3 QTc 430 Conclusion Sinus rhythm...normal P axis, V-rate 50- 99 Right bundle branch block...QRSd>120, terminal axis(90,270)
== END 2021-06-11 08:55 | disposition home or self-care (01) ==
LOC: DI.CARD 08:55
PROVIDERS: PCP Family Medicine; Visit Provider Internal Medicine Cardiovascular Disease
DX: R00.2 Palpitations (principal)
CPT/HCPCS: 93010

== ENCOUNTER → 2021-06-11 09:23 | Outpatient (BNVA) | payer MEDICARE, SELFPAY | PROVIDERS: PCP Family Medicine; Referring Provider Family Medicine; Visit Provider Internal Medicine Cardiovascular Disease | DX: R00.2 Palpitations (principal); I47.1 Supraventricular tachycardia; N18.6 End stage renal disease; Z99.2 Dependence on renal dialysis; J44.9 Chronic obstructive pulmonary disease, unspecified; I48.0 Paroxysmal atrial fibrillation | CPT/HCPCS: 93005; 99214 ==

== ENCOUNTER 2021-06-22 12:34 | Outpatient (REF) | payer MEDICARE, SELFPAY ==
--- NOTE | 2021-06-22 10:00 | SKI_PTH ---
PATIENT: Alvaro Thompson LOC: [facility] U#:[id number] AGE/SX: 75/M ROOM: RE06/22/[address]: ALIZA Merchant : 1945 BED: DIS: 06/22/2021 SPEC #: [id number] RECD: 06/22/21 18:18 STATUS: SANKET REAnisa #: [id number] MICHELLE: 06/22/21 10:[address]: Shyam Phoenix DEPT: Surgical Specimen RECD BY: Neelima Campos ENTERED: 06/22/21 18:19 SP TYPE: JENNA ALVARADO DR: Zakiya Reyna Tissues: 1 - SKIN BIOPSY(SHAVE/PUNCH) 2 - SKIN BIOPSY(SHAVE/PUNCH) 3 - SKIN BIOPSY(SHAVE/PUNCH) Procedures: SKIN LEVEL 4 Comments: [id number]
== END 2021-06-22 12:35 | disposition home or self-care (01) ==
LOC: LBN 12:34
PROVIDERS: PCP Family Medicine; Visit Provider Physician Assistant
DX: C44.619 Basal cell carcinoma of skin of left upper limb, including shoulder (principal); C44.311 Basal cell carcinoma of skin of nose; C44.219 Basal cell carcinoma of skin of left ear and external auricular canal
CPT/HCPCS: 88305

== ENCOUNTER 2021-09-28 08:50 | Outpatient (REF) | payer MEDICARE, SELFPAY ==
--- NOTE | 2021-09-28 08:00 | SKI_PTH ---
PATIENT: Alvaro Thompson LOC: [facility] U#:[id number] AGE/SX: 75/M ROOM: RE09/28/[address]: ALIZA Merchant : 1945 BED: DIS: 09/28/2021 SPEC #: [id number] RECD: 09/28/21 15:45 STATUS: SANKET REQ #: [id number] MICHELLE: 09/28/21 08:[address]: Shyam Phoenix DEPT: Surgical Specimen RECD BY: Neelima Campos ENTERED: 09/28/21 15:46 SP TYPE: SKI OTHR DR: Zakiya Reyna Tissues: 1 - SKIN BIOPSY(SHAVE/PUNCH) Procedures: SKIN LEVEL 4 Comments: [id number]
== END 2021-09-28 08:51 | disposition home or self-care (01) ==
LOC: LBN 08:50
PROVIDERS: PCP Family Medicine; Visit Provider Physician Assistant
DX: C44.629 Squamous cell carcinoma of skin of left upper limb, including shoulder (principal)
CPT/HCPCS: 88305

== ENCOUNTER 2021-10-16 13:01 | Outpatient (CLI) | payer MEDICARE, SELFPAY ==
--- OUTSIDE RECORDS SUMMARY | 2021-10-16 13:07 | XMS_ITS ---
:[address] [facility], NA DOCUMENT DISCLAIMER The information in the [facility] Continuity of Care Document represents a summary of certain health and medical information. It may not contain the complete medical history for the patient and should be independently verified. The represented time in the document is Eastern Time. PROBLEMS Problem Code Status Onset Date Pain, unspecified R52 Active May 01, 2021 Pruritus, unspecified L29.9 Active April 24, 2021 End stage renal disease N18.6 Active Octobe r 2020 Other specified symptoms and signs R09.89 Active December 01, 2020 involving the circulatory and respiratory systems Pure hypercholesterolemia, unspecified E78.00 Active November 19, 2020 Encounter for immunization Z23 Active Nov Secondary hyperparathyroidism of renal N25.81 Active November 19, 2020 origin Encounter for adequacy testing for Z49.31 Active November 19, 2020 hemodialysis Coagulation defect, unspecified D68.9 Active November 19, 2020 Encounter for screening for respiratory Z11.1 Active November 19, 2020 tuberculosis Type 2 diabetes mellitus with E11.65 Active November 14, 2020 hyperglycemia Anemia in chronic kidney disease D63.1 Active November 14, 2020 Iron deficiency anemia, unspecified D50.9 Active November 14, 2020 Type 2 diabetes mellitus with hypoglycemia E11.649 Act vasu October 17, 2020 without coma Unspecified atrial flutter I48.92 Active Oct Type 2 diabetes mellitus with diabetic E11.22 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, 2020 chronic kidney disease Major depressive disorder, single episode, F32.9 Act vasu October 13, 2020 unspecified Acute on chronic diastolic (congestive) I50.33 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, 2020 heart failure Chronic obstructive pulmonary disease, J44.9 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, 2020 unspecified 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, 2020 disease with heart failure and stage 1 through stage 4 chronic kidney disease, or unspecified chronic kidney disease 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, 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 Chronic kidney disease, stage 3 N18.30 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, 2020 unspecified Acquired absence of kidney Z90.5 Active Oct Personal history of nicotine dependence Z87.891 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, 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 Z79.4 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, 2020 halfway (current) use of aspirin Z79.82 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, 2020 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 Z79.899 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, 2020 Unspecified atrial fibrillation I48.91 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, 2020 Basal cell carcinoma of skin, unspecified C44.91 Acti ve October 13, 2020 Dependence on renal dialysis Z99.2 Active J 2020 ALLERGIES AND ADVERSE REACTIONS No Known Allergies SOCIAL HISTORY Tobacco Use Status Tobacco Type Unknown if ever consumed tobacco - 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 Characteristics No Information Available Characteristics of Home environment No Information Available MEDICATIONS Prescribed Medications for Dialysis Treatments Medication Instructions Dosage Route Start Date End Date Statu s Acetaminophen PRN 650 mg Oral April Acti ve 2020 Heparin Sodium Every 2000 Arterial Red November 20November 19, Active (Porcine) 1,000 Treatment units Port 2020 2021 Units/mL Catheter Lock Arterial Heparin Sodium Every 2000 Venous Blue November 20November 19, Active (Porcine) 1,000 Treatment units Port 2020 2021 Units/mL Catheter Lock Venous Heparin Sodium Bolus, Every 6000 Intravenous November 20November 02 8, Active (Porcine) 1,000 Treatment, units - push 2020 2021 Units/mL Total Systemic treatment minutes 240 Iron Sucrose 1X Week 50 mg Intravenous September 28September 20, Ac tive (Venofer) - push 2021 2022 Mircera Every 4 weeks 30 mcg Intravenous September 07September 06, A ctive - push 2021 2022 Ondansetron HCl During 4 mg Intravenous October 03October 02, Active (Zofran) Dialysis, - push 2021 2022 PRN-september repeat x1 nausea/vomitin g Vitamin D Every 1.0 mcg Oral August 17August 16, Active (Calcitriol) Treatment 2021 2022 Oral Iron Sucrose Every 100 mg Intravenous September 14September 24, Di scontinued (Venofer) Treatment - push 2021 2021 Home Medications Medication Instructions Dosage Route Start Date End Statu s Date acetaminophen 500 Take by mouth 2 tablet ORAL November 29, Active mg every six hours 2020 as needed for pain apixaban 2.5 mg Take by mouth 1 tablet May Active twice a day as 2021 directed ascorbate calcium Take by mouth 1 tablet ORAL November 29, Active (vitamin C) 500 mg once a day 2020 atorvastatin 40 Take by mouth 1 tablet ORAL November 29, Active mg once a day 2020 Chayito Low Dose Take by mouth 1 tablet ORAL November 29, Active Aspirin 81 mg once a day 2020 Breo Ellipta Inhale as 1 puff INHALATION November 29, Ac tive 200-25 mcg/dose directed once a 2020 day cholecalciferol Take by mouth 1 capsule ORAL November 29, Active (vitamin D3) 25 once a day 2020 mcg (1,000 unit) cyanocobalamin Take by mouth 1 tablet ORAL November 29, Active (vitamin B-12) once a day 2020 1,000 mcg Humalog KwikPen subcutaneously 2 unit SUBCUTANEOUS November 29, Active Insulin 100 as directed 2020 unit/mL Humalog KwikPen SUBCUTANEOUS November 29, Active Insulin 100 2020 unit/mL Lantus U-100 Inject 22 unit SUBCUTANEOUS November 29, A ctive Insulin 100 subcutaneously 2020 unit/mL once a day melatonin 3 mg Take by mouth 2 tablet ORAL November 29, Active every night as 2020 needed metoprolol Take by mouth 1 tablet ORAL September 17, Ac tive tartrate 25 mg twice a day 2021 midodrine 2.5 mg Take by mouth 1 tablet ORAL December Active twice a day as 2020 directed multivitamin Take by mouth 1 tablet ORAL November 29, Active once a day 2020 nitroglycerin 0.4 Take under 1 tablet SUBLINGUAL November 29, Active mg tongue as 2020 directed pantoprazole 40 Take by mouth 1 tablet ORAL November 29, Active mg once a day as 2020 directed ProAir HFA 90 Inhale using 1 puff INHALATION November 29, Active mcg/actuation inhaler once a 2020 day as directed senna 8.6 mg Take by mouth 1 tablet ORAL November 29, Active once a day as 2020 directed sertraline 50 mg Take by mouth 2 tablet ORAL November 29, Active once a day 2020 tamsulosin 0.4 mg Take by mouth 1 capsule ORAL November 29, Active once a day as 2020 directed trazodone 50 mg Take by mouth 1 tablet ORAL December Active every evening 2020 with meals VITAL SIGNS Post-Treatment Vital Signs Vital Sign Value Date / Time Blood Pressure-sitting 146/66 mmHg October 15, 2021 10: 24 AM Blood Pressure-standing 135/62 mmHg October 15, 2021 10 :24 AM Heart Rate 75 beats per minute October 15, 2021 10:24 AM Respiratory Rate 15 breaths per minute October 15, 2021 10:2 4 AM Temperature 100.0 deg. F October 15, 2021 10:24 AM Weight Vital Sign Value Date / Time Estimated Dry Weight 98.5 kg June 04, 2021 11 :59 PM Pre-Dialysis 97.40 kg October 15, 2021 10:24 AM Post-Dialysis 99.00 kg October 15, 2021 10:24 AM Other Other Value Date / Time Height 182 cm November 20, 2020 12:00 AM HEALTH CONCERNS Tuberculosis Testing TST Date Administered TST Date Read TST Result 11/20/2020 11/22/2020 Negative (<5) mm LAB RESULTS Hematology Result Type Result Value Relevant Reference Range Interpretation D ate HGB 11.2 g/dL Males: 14.0 - 18.0 g/dL Low September 17, 2021 Females: 12.0 - 16.0 g/dL Hemoglobin x 3 33.6 % Male: 14.0 - 18.0 g/dL; Low Ma y 2021 Female: 12.0-16.0 g/dL HGB 11.0 g/dL Males: 14.0 - 18.0 g/dL Low September 24, 2021 Females: 12.0 - 16.0 g/dL Hemoglobin x 3 33.0 % Male: 14.0 - 18.0 g/dL; Low Ma y 2021 Female: 12.0-16.0 g/dL HGB 11.2 g/dL Males: 14.0 - 18.0 g/dL Low October 01, 2021 Females: 12.0 - 16.0 g/dL Hemoglobin x 3 33.6 % Male: 14.0 - 18.0 g/dL; Low Ma y 2021 Female: 12.0-16.0 g/dL Hemoglobin x 3 35.4 % Male: 14.0 - 18.0 g/dL; Low ne 2021 Female: 12.0-16.0 g/dL HGB 11.8 g/dL Males: 14.0 - 18.0 g/dL Low October 08, 2021 Females: 12.0 - 16.0 g/dL Infectious Diseases Result Type Result Value Relevant Reference Interpretation Date Range Hep B core Ab Negative Negative - November 20, 2020 Total (anti-HBc) HCV Ab (anti-HCV) Nonreactive Non-Reactive - May Hep B Surface Ab < 10 mIU/mL < 10 mIU/mL, Non- - Januar 2021 (anti-HBs) Immune Hep B Surface Ag Negative Negative - September 10 2 (HBsAg) DIALYSIS PRESCRIPTION Conventional Hemodialysis Data Element Value Order Date/Time June 04, 2021 Frequency 3X Week Treatment Days MonWedFri Dialyzer [id number] Optiflux Treatment Time (Total Minutes) 240 min Blood Flow Rate (mL/min) 450 mL/min Dialysate Flow Rate Manual 500 Estimated Dry Weight 98.5 kg Dialysate Concentrate 3.0 K, 2.5 Ca, 1.0 Mg, 100 D extrose (G3251) Sodium (mEq/L) 137 meq/L Bicarb Machine Setting (mEq/L) 35 meq/L Dialysis Access Hemodialysis-CV Catheter-Al neled, Chest, Right Jugular Access Placed on September 23 21 IMMUNIZATIONS Vaccine Date Dose Route Status HEPLISAV-B, series 4 October 15, 2021 20.0 mcg Intramuscular C ompleted of 4 HEPLISAV-B, series 3 August 13, 2021 20.0 mcg Intramuscular Completed of 4 HEPLISAV-B, series 2 July 16, 2021 20.0 mcg Intramuscular Completed of 4 HEPLISAV-B, series 1 June 18, 2021 20.0 mcg Intramuscula r Completed of 4 HEPLISAV-B, series 4 April 16, 2021 20.0 mcg Intramuscula r Completed of 4 HEPLISAV-B, series 3 February 12, 2021 20.0 mcg Intramuscular Completed of 4 HEPLISAV-B, series 2 January 15, 2021 20.0 mcg Intramuscul ar Completed of 4 HEPLISAV-B, series 1 December 11, 2020 20.0 mcg Intramuscular Completed of 4 TRANSPLANT WAITLIST STATUS No Information on Transplant Waitlist Status ADVANCE DIRECTIVES Directive Description Ordered By Effective Date Resuscitation status Full Code Esvinana Ramírezsadie May 30 2 DIALYSIS TREATMENTS Conventional Hemodialysis Date Pre-Treatment Post-Treatment Duration BFR Dialysate Dialyzer Dialysis Meds Vitals Vitals (hr) (mL/min) Access Admin Abigail Weight 99.90 Weight 98.20 03:57:00 420 3.0 K, 180nre Hemodial ysis-CV Catheter-Tunneled, Chest, Right Jugular Heparin Sodium (Porcine) 1,000 Units/mL Catheter Lock Arterial; 2000units,Arterial Red Port 08, kg kg 2.5 Ca, Optiflux Access Placed on September 23, 2020 Heparin Sodium (Porcine) 1,000 Units/mL Catheter Lock Venous; 2000units,Venous Blue Port 2021 1.0 Mg, Heparin Sodi um (Porcine) 1,000 Units/mL Systemic; 6000units,Intravenous - push 100 Vitamin D (Zhen citriol) Oral; 1.0mcg,Oral Dextrose (G3251) Blood Pressure-sitting 103/51 mmHg Blood Pressure-sitting 11 5/58 mmHg Heart Rate 65 beats per Blood Pressure-standing 102/50 m mHg minute Respiratory Rate 14 breaths per Heart Rate 52 beats per minute minute Temperature 97.4 deg. F Respiratory Rate 14 breaths per minute - - Temperature 98.2 deg. F October Weight 99.90 Weight 98.30 04:01:00 370 3.0 K, 180nre Hemodial ysis-CV Catheter-Tunneled, Chest, Right Jugular Heparin Sodium (Porcine) 1,000 Units/mL Catheter Lock Arterial; 2000units,Arterial Red Port 10, kg kg 2.5 Ca, Optiflux Access Placed on September 23, 2020 Heparin Sodium (Porcine) 1,000 Units/mL Catheter Lock Venous; 1999units,Venous Blue Port 2021 1.0 Mg, Heparin Sodi um (Porcine) 1,000 Units/mL Systemic; 6000units,Intravenous - push 100 Iron Sucrose ( Venofer); 50mg,Intravenous - push Dextrose Vitamin D ( Calcitriol) Oral; 1.0mcg,Oral (G3251) Blood Pressure-sitting 115/55 mmHg Blood Pressure-sitting 10 1/49 mmHg Heart Rate 67 beats per Blood Pressure-standing 113/51 m mHg minute Respiratory Rate 12 breaths per Heart Rate 65 beats per minute minute Temperature 97.8 deg. F Respiratory Rate 12 breaths per minute - - Temperature 97.6 deg. F October Weight 97.40 Weight 99.00 04:05:00 450 3.0 K, 180nre Hemodial ysis-CV Catheter-Tunneled, Chest, Right Jugular Acetaminophen; 650mg,Oral 13, kg kg 2.5 Ca, Optiflux Access Placed on September 23, 2020 Heparin Sodium (Porcine) 1,000 Units/mL Catheter Lock Arterial; 2000units,Arterial Red Port 2021 1.0 Mg, Heparin Sodi um (Porcine) 1,000 Units/mL Catheter Lock Venous; 2000units,Venous Blue Port 100 Heparin Sodium (Porcine) 1,000 Units/mL Systemic; 6000units,Intravenous - push Dextrose Vitamin D ( Calcitriol) Oral; 1.0mcg,Oral (G3251) Blood Pressure-sitting 111/55 mmHg Blood Pressure-sitting 14 6/66 mmHg Heart Rate 68 beats per Blood Pressure-standing 135/62 m mHg minute Respiratory Rate 15 breaths per Heart Rate 75 beats per minute minute Temperature 97.2 deg. F Respiratory Rate 15 breaths per minute - - Temperature 100.0 deg. F
[2021-10-16 13:30] VITALS: BP 94/44; PULSE 70; RESP 16; TEMP 37; O2SAT 96
[2021-10-16 13:55] VITALS: BP 95/46; PULSE 70; RESP 12; O2SAT 95
[2021-10-16 14:19] VITALS: BP 101/50; PULSE 70; RESP 12; O2SAT 94
[2021-10-16 14:31] VITALS: BP 107/48; PULSE 70; RESP 16; O2SAT 93
[2021-10-16 14:43] VITALS: BP 114/50; PULSE 68; RESP 12; O2SAT 93
[2021-10-16 14:52] VITALS: BP 116/48; PULSE 68; RESP 12; TEMP 37.2; O2SAT 96
== END 2021-10-16 13:02 | disposition home or self-care (01) ==
LOC: INF 13:05
PROVIDERS: PCP Family Medicine; Visit Provider Family Medicine
DX: U07.1 COVID-19 (principal)
CPT/HCPCS: 96374; Q0222

== ENCOUNTER 2021-11-16 09:21 | Emergency (ER) | payer MEDICARE, SELFPAY ==
[2021-11-16] VITALS (21 sets, daily range): BP systolic 87–111; BP diastolic 43–57; PULSE 0–70; RESP 14–25; TEMP 36.6; O2SAT 95–99
--- NOTE | 2021-11-16 09:15 | RT.EKG_ITS ---
APPROVED REPORT Exam: Resting ECG Reason for Exam: palpatations Patient Location: E HR:63 bpm ECG Measurements Heart Rate 63 AXIS RI 187 P 14 QRSd 125 QRS 57 QT 425 T 6 QTc 435 Conclusion Sinus rhythm...normal P axis, V-rate 60- 99 Right bundle branch block...QRSd>120, terminal axis(90,270)
[2021-11-16 09:56] LABS: Abs Immature Grans 0.39 10^3/uL (0.0-0.06); Absolute Eosinophil Count 0.24 10^3/uL (0.0-0.7); Absolute Monocyte Count 1.28 10^3/uL (0.1-0.8); Basophils % 0.4; Eosinophils % 1.3; HCT 34.6 % (40.0-50.0); HGB 10.9 g/dL (13.5-17.5); Immature Grans % 2.1; Lymphocytes % 8.7; MCHC 31.5 % (32.0-36.0); MCV 102 fL (80-95); MPV 10.7 fL (8.0-11.0); Neutrophils % 80.5; Platelet Count 285 10^3/uL (130-400); RBC 3.41 10^6/uL (4.36-5.78); RDW 13.8 % (11.8-14.1); RDW-SD 51.6 fL; WBC 18.25 10^3/uL (4.4-10.8)
[2021-11-16 09:58] LABS: Absolute Basophil Count 0.07 10^3/uL (0.0-0.2); Absolute Lymphocyte Count 1.59 10^3/uL (1.2-3.4); Absolute Neutrophil Count 14.69 10^3/uL (1.2-6.7)
--- NOTE | 2021-11-16 10:03 | ED.GENADUL_ITS ---
Discharge Plan Disposition Patient Disposition: AGAINST MEDICAL ADVICE Condition: Serious Discharge Details Clinical Impression: Acute chest pain, Rapid palpitations, Hyperkalemia Primary Care Provider: Zakiya Reyna ED Provider: Aung Hanson Home Meds and New Rx's Prescriptions: No Action nitroglycerin 0.4 MG tablet, sublingual 0.4 mg Sublingual ONCE PRN Label Comments: has never used it at home cholecalciferol (vitamin D3) 1,000 UNIT tablet 1,000 unit PO DAILY aspirin [Aspir-81] 81 MG tablet,delayed release (DR/EC) 81 mg PO DAILY multivitamin 1 EACH capsule 1 ea PO DAILY sertraline 50 MG tablet 100 mg PO DAILY atorvastatin [Lipitor] 40 MG tablet 40 mg PO DAILY ascorbic acid (vitamin C) [Vitamin C] 1,000 MG tablet 500 mg PO DAILY albuterol sulfate [Proventil HFA] 6.7 GM HFA aerosol inhaler 2 inh PO Q4H PRN PRN melatonin 10 MG tablet 10 mg PO HS PRN acetaminophen [Tylenol Extra Strength] 500 mg Tablet 1,000 mg PO .Q6 HRS PRN tamsulosin 0.4 mg Capsule 0.4 mg PO DAILY pantoprazole 40 mg tablet,delayed release (DR/EC) 40 mg PO DAILY insulin glargine [Lantus Solostar U-100 Insulin] 100 unit/mL (3 mL) insulin pen 24 - 26 unit SUBCUT HS fluticasone furoate-vilanterol [Breo Ellipta] 200-25 mcg/dose blister with device 1 inh INHALATION DAILY Label Comments: INHALE ONE PUFF BY MOUTH EVERY DAY cyanocobalamin (vitamin B-12) [Vitamin B-12] 1,000 mcg Tablet 1,000 mcg PO DAILY lutein 20 mg Capsule 20 mg PO DAILY diphenhydramine HCl [Benadryl] 25 MG capsule 25 mg PO Q6H Qty: 100 0RF loratadine 10 mg capsule 10 mg PO DAILY Qty: 20 0RF sennosides [senna] 8.6 mg Tablet 8.6 mg PO DAILY trazodone 50 mg tablet 25 mg PO HS Label Comments: TAKE ONE-HALF TABLET BY MOUTH EVERY EVENING midodrine 2.5 mg tablet 2.5 mg PO TID Label Comments: TAKE ONE TABLET BY MOUTH THREE TIMES A DAY BEFORE MEALS insulin lispro [Humalog KwikPen Insulin] 100 unit/mL Insulin Pen 1 sliding scale dose SUBCUT USEASDIRECTD Eliquis 2.5 mg tablet 2.5 mg PO BID Label Comments: TAKE ONE TABLET BY MOUTH TWICE A DAY metoprolol tartrate [Lopressor] 50 mg tablet 25 mg PO BID Qty: 30 1RF Discharge Instructions Instructions: Against Medical Advice (ED) Additional Instructions: You are leaving AGAINST MEDICAL ADVICE. Please return to the emergency department at any time for further work-up and treatment as recommended. 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 Medical Decision Making 75-year-old male with multiple medical problems including history of COPD on chronic O2, end-stage renal disease on hemodialysis, insulin-dependent diabetes, coronary artery disease, presents with chief complaint of palpitations with rapid heart rate this morning and associated chest discomfort. Symptoms have completely resolved. Concern for atrial versus ventricular tachycardia with associated exertional angina versus acute coronary syndrome. Screening EKG was reviewed and interpreted by me: Please see report, nondiagnostic, no STEMI. Plan for serial cardiac enzymes. Initial troponin was negative. Patient patient reassessed and notes that he continues to have no symptoms. Plan was discussed with the patient and he provided informed refusal. Patient request to leave against advice to go to outpatient dialysis today. I had a discussion with the patient about my diagnostic/treatment plan. Patient declines plan and wishes to leave against medical advise. I reiterated my concerns to the patient and explained the risks of leaving prior to completion of workup and treatment. I specifically emphasized the possibility of life- threatening or lifestyle modifying disease that would not be appropriately treated if they leave. Patient verbalized understanding of my concerns and the potential for life threatening or lifestyle modifying disease. Patient has cap acity to make informed decision. I again explained my concerns and urged the patient to stay for treatment as outlined. Patient continued to refuse. I then discussed potential less ideal alternatives to diagnostic/treatment plan as outlines and patient refused. I recommended that the patient follow-up with primary care physician MAUREEN or return to the Emergency Department at any time for further treatment. HPI General Mode of arrival: ambulatory . Date/Time Provider Initiated Documentation: 11/16/21 09:22 . Limitations to Documentation: no limitations . Information obtained by: patient . HPI Narrative: 75-year-old male with multiple medical problems including history of COPD, partial lung resection, on home O2, insulin-dependent diabetes, end-stage renal disease on hemodialysis, coronary artery disease status post stenting, paroxysmal atrial fibrillation, here with chief complaint of chest discomfort. Patient notes around 530 this morning he developed palpitations. He states his heart rate was around 180 and then it settled to 140 and lasted for couple hours. During this time he developed chest pain. Pain was initially severe. Patient took 2 nitroglycerin sublingual tablets which did not help his pain. He notes he vomited and that his pain improved. Palpitations have since resolved. Pain also resolved. He has no symptoms at this time. Related Data Home Medications Medication Instructions Recorded Confirmed aspirin 81 mg tablet,delayed 81 mg PO DAILY 09/25/12 11/16/21 release (Aspir-) multivitamin 1 ea PO DAILY 09/25/12 11/16/21 sertraline 50 mg tablet 100 mg PO DAILY 09/25/12 11/16/21 cholecalciferol (vitamin D3) 25 1,000 unit PO DAILY 09/21/15 11/16/21 mcg (1,000 unit) tablet nitroglycerin 0.4 mg sublingual 0.4 mg sublingual ONCE PRN 09/21/15 11/16/21 tablet albuterol sulfate 90 mcg/actuation 2 inh PO Q4H PRN PRN 02/16/17 11/16/21 aerosol inhaler (Proventil HFA) ascorbic acid (vitamin C) 1,000 mg 500 mg PO DAILY 02/16/17 11/16/21 tablet (Vitamin C) atorvastatin 40 mg tablet (Lipitor) 40 mg PO DAILY 02/16/17 11/16/21 melatonin 10 mg tablet 10 mg PO HS PRN 02/16/17 11/16/21 cyanocobalamin (vitamin B-12) 1,000 mcg PO DAILY 09/22/19 11/16/21 1,000 mcg tablet (Vitamin B-12) acetaminophen 500 mg tablet 1,000 mg PO .Q6 HRS PRN 04/24/20 11/16/21 (Tylenol Extra Strength) fluticasone furoate 200 1 inh inhalation DAILY 04/24/20 11/16/21 mcg-vilanterol 25 mcg/dose inhalation powder (Breo Ellipta) insulin glargine 100 unit/mL (3 24 - 26 unit subcut HS 04/24/20 11/16/21 mL) subcutaneous pen (Lantus Solostar U-100 Insulin) pantoprazole 40 mg tablet,delayed 40 mg PO DAILY 04/24/20 11/16/21 release tamsulosin 0.4 mg capsule 0.4 mg PO DAILY 04/24/20 11/16/21 lutein 20 mg capsule 20 mg PO DAILY 09/10/20 11/16/21 diphenhydramine HCl 25 mg capsule 25 mg PO Q6H #100 caps 03/09/21 11/16/21 (Benadryl) loratadine 10 mg capsule 10 mg PO DAILY #20 caps 03/09/21 11/16/21 apixaban 2.5 mg tablet (Eliquis) 2.5 mg PO BID 06/05/21 11/16/21 insulin lispro 100 unit/mL 1 sliding scale dose subcut 06/05/21 11/16/21 subcutaneous pen (Humalog KwikPen USEASDIRECTD (U-100) Insulin) midodrine 2.5 mg tablet 2.5 mg PO TID 06/05/21 11/16/21 sennosides 8.6 mg tablet (senna) 8.6 mg PO DAILY 06/05/21 11/16/21 trazodone 50 mg tablet 25 mg PO HS 06/05/21 11/16/21 metoprolol tartrate 50 mg tablet 25 mg PO BID #30 tabs 06/06/21 11/16/21 (Lopressor) Previous Rx's Medication Instructions Recorded diphenhydramine HCl 25 mg capsule 25 mg PO Q6H #100 caps 03/09/21 (Benadryl) loratadine 10 mg capsule 10 mg PO DAILY #20 caps 03/09/21 metoprolol tartrate 50 mg tablet 25 mg PO BID #30 tabs 06/06/21 (Lopressor) Allergies Allergy/AdvReac Type Severity Reaction Status Date / Time pneumococcal vaccine Allergy Severe Swelling/Ed Verified 11/16/21 09:36 nandini sulfamethoxazole Allergy difficulty Verified 11/16/21 09:36 [From Bactrim] breathing trimethoprim [From Bactrim] Allergy difficulty Verified 11/16/21 09:36 breathing General Stated Complaint: Chest Pain MESERET: 2 Review of Systems All systems reviewed & are unremarkable except as noted in HPI and below Constitutional Constitutional: Denies fever(s) Cardiovascular Cardiovascular: Reports as per HPI PFSH All Active Problems (Updated 11/16/21 @ 11:19 by Aung Hanson MD) Acute chest pain (Acute) Rapid palpitations (Acute) Hyperkalemia (Acute) 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) Basal cell carcinoma of multiple sites (Acute) Leucocytosis (Chronic) Palpitations (Acute) Exertional shortness of breath (Chronic) Neoplasm of unspecified nature of bone, soft tissue, and skin (Acute 06/19/15) Medical History Actinic keratosis (05/01/16) Anemia Basal cell carcinoma of skin (03/11/16) Bilateral cataracts Bronchiectasis Chronic respiratory failure with hypoxia 2L of O2 by NC COPD (chronic obstructive pulmonary disease) Coronary Artery Disease Depression Diabetes mellitus Diabetic foot ulcer Diabetic ulcer of left foot ESRD on hemodialysis GERD (gastroesophageal reflux disease) Hoarseness Hyperkalemia Moderate pulmonary hypertension Orthostatic hypotension Paroxysmal atrial fibrillation with rapid ventricular response Perihepatic abscess RBBB (right bundle branch block) Renal cell carcinoma of left kidney (05/30/17) Shortness of breath Supraventricular tachycardia Toe infection Tubular adenoma of colon (12/18/16) Surgical History Colonoscopy - MAC (12/18/16) 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 12.02.13HE Hx of cardiac cath x2, per patient Lobectomy Pt states 2 lobes removed from R. lung. No date given. 13HE Osteotomy Partial & Debridment of first metatarsal on Left foot. S/P hemodialysis catheter insertion Family History Mother Heart disease Diabetes Sister Stroke Diabetes Sister Diabetes Cancer laryngeal cancer Sister Diabetes Social History Smoking/Tobacco Use Status: Former Tobacco Use tobacco type: cigarettes Quit Date: 05/05/14 Pack-years: 100 Tobacco: How many years used: 50 Counseling given: provider counseling Smoking risk assessment performed?: Yes Alcohol Intake: never Drug use: Never Substance use type: does not use Household members: spouse Current gender identity: male What type of physical activity do you participate in: none and independent ambulation Do you feel safe at home: Yes Do you feel safe in your relationship?: Yes Exam Const General: cooperative and no acute distress HENMT Mouth: moist mucous membranes Eyes Conjunctivae: normal conjunctivae Sclera: normal sclerae Neck Neck: trachea midline and supple Resp Effort & Inspection: normal respiratory effort Auscultation: clear to auscultation bilaterally, no rales, no rhonchi and no wheezes Other: nasal canula oxygen being administered Cardio Rate: regular rate and not tachycardic Rhythm: regular rhythm GI Palpation: soft, not firm, no guarding, no masses, not rigid and nontender Neuro General: patient alert, patient awake, patient oriented x3 and tone normal Extrem General: no calf tenderness and no edema Psych Appearance: grossly normal Mental Status: mental status grossly normal Speech and Movement: speech and movement normal Course Vital Signs Vital signs: Vital Signs Temperature 36.6 C 11/16/21 09:20 Pulse 63 11/16/21 09:20 Respiratory Rate 16 11/16/21 09:20 Blood Pressure 105/57 L 11/16/21 09:20 Pulse Oximetry 99 11/16/21 09:20 Temperature 36.6 C 11/16/21 09:20 Pulse 63 11/16/21 09:20 Respiratory Rate 16 11/16/21 09:29 Respiratory Effort Non-Labored 11/16/21 09:29 Respiratory Depth Normal 11/16/21 09:29 Respiratory Pattern Normal 11/16/21 09:29 Blood Pressure 105/57 L 11/16/21 09:20 Blood Pressure Position Sitting 11/16/21 09:20 Pulse Oximetry 99 11/16/21 09:20 Oxygen Delivery Method Nasal Cannula 11/16/21 09:20 Oxygen Flow Rate 4 11/16/21 09:20 Pain Level 2 11/16/21 09:29 Lab/Test Results Lab/Test Results: Laboratory Tests Range/Units 11/16/21 09:40 WBC (4.4-10.8) 10^3/uL 18.25 H RBC (4.36-5.78) 10^6/uL 3.41 L Hgb (13.5-17.5) g/dL 10.9 L Hct (40.0-50.0) % 34.6 L MCV (80-95) fL 102 H MCH (27.0-33.0) pg 32.0 MCHC (32.0-36.0) % 31.5 L RDW (11.8-14.1) % 13.8 Plt Count (130-400) 10^3/uL 285 MPV (8.0-11.0) fL 10.7 Immature Gran % 2.1 Neutrophils % 80.5 Lymphocytes % 8.7 Monocytes % 7.0 Eosinophils % 1.3 Basophils % 0.4 Nucleated RBC % (0.0-0.3) % 0.0 Absolute Neutrophils (1.2-6.7) 10^3/uL 14.69 H Absolute Lymphocytes (1.2-3.4) 10^3/uL 1.59 Absolute Monocytes (0.1-0.8) 10^3/uL 1.28 H Absolute Eosinophils (0.0-0.7) 10^3/uL 0.24 Absolute Basophils (0.0-0.2) 10^3/uL 0.07
[2021-11-16 10:04] LABS: ALT 12 U/L (16-63); AST 9 U/L (15-37); Alkaline Phosphatase 110 U/L (46-116); Anion Gap 8.3 mmol/L (3-11); BUN 41 mg/dL (7-18); Bilirubin, Total 0.2 mg/dL (0.2-1.0); CO2 31.7 mmol/L (21.0-32.0); Calcium 8.3 mg/dL (8.5-10.1); Chloride 98 mmol/L (98-107); Estimated GFR 10.63 (mL/min/1.73m2); Glucose 268 mg/dL (74-106); Magnesium 1.7 mg/dL (1.8-2.4); Potassium 4.4 mmol/L (3.5-5.1); Sodium 138 mmol/L (136-145); Total Protein 6.8 g/dL (6.4-8.2); Troponin I < 50 ng/L (<or=60)
[2021-11-16 10:06] LABS: CREATININE 5.3 mg/dL (0.70-1.30)
[2021-11-16 13:56] LABS: Hemoglobin A1C 7.9 % (<5.7)
== END 2021-11-16 11:25 | disposition left against medical advice (07) ==
PROVIDERS: Emergency Provider Student in an Organized Health Care Education/Training Program; PCP Family Medicine
DX: R00.2 Palpitations (principal); R07.89 Other chest pain; E87.5 Hyperkalemia; J44.9 Chronic obstructive pulmonary disease, unspecified; E11.22 Type 2 diabetes mellitus with diabetic chronic kidney disease; N18.6 End stage renal disease; I25.10 Atherosclerotic heart disease of native coronary artery without angina pectoris; I48.91 Unspecified atrial fibrillation; Z99.2 Dependence on renal dialysis; Z79.4 Long term (current) use of insulin; Z95.5 Presence of coronary angioplasty implant and graft; Z79.82 Long term (current) use of aspirin; Z79.51 Long term (current) use of inhaled steroids; Z87.891 Personal history of nicotine dependence
CPT/HCPCS: 36415; 80053; 93005; 96360; 96361; 99284; 83036; 83735; 84484; 85025; 93010

== ENCOUNTER 2021-11-20 17:29 | Outpatient (REF) | payer MEDICARE, SELFPAY ==
[2021-11-21 11:27] LABS: IgE 218 IU/mL (<158)
[2021-11-21 12:40] LABS: IgA 283 mg/dL (85-499); IgG 931 mg/dL (610-1,616); IgM 95 mg/dL (35-242)
== END 2021-11-20 17:30 | disposition home or self-care (01) ==
LOC: LBN 17:29
PROVIDERS: PCP Family Medicine; Visit Provider Student in an Organized Health Care Education/Training Program
DX: J47.9 Bronchiectasis, uncomplicated (principal)
CPT/HCPCS: 82784; 82785; 82787

== ENCOUNTER 2021-11-29 03:35 | Outpatient (CLI) | payer MEDICARE, SELFPAY ==
[2021-11-29] MEDS: Inhaler, Assist Device 1 EACH MC (16:04)
[2021-11-29] MEDS: Albuterol HFA 18 GM 200 PUFF INH IH (16:04)
--- NOTE | 2021-12-04 17:34 | W.PFT ---
Date of service: 11/29/21 Time of Service: 14:39 Pulmonary Function Test Result Requesting Provider Russ Indications: Chronic respiratory failure Note: 6 Minute Walk Test Distance walked: 400 feet Desaturations: 79% on 2LPM, required 3LPM to get to 90% Heart rate changes: no significant changes Recommendation: 3LPM with exertion Annabella Solano MD Pulmonary & Critical Care Medicine Clinical Correlation therefore is recommended.
--- NOTE | 2021-12-04 17:38 | W.PFT ---
Date of service: 11/29/21 Time of Service: 21:17 Pulmonary Function Test Result Requesting Provider Russ Indications: Chronic respiratory failure Note: Overnight Oximetry Amount of time analyzed: 10 hours 44 minutes on 2LPM Number of minutes under 88%: 9.1 minutes MONE: 2.5 Appearance of oxygen saturation pattern: Sharp increases and decreases that could be consistent with KADEN Recommendation: can consider PSG to assess for KADEN. Annabella Solano MD Pulmonary & Critical Care Medicine Clinical Correlation therefore is recommended.
--- NOTE | 2021-12-04 18:09 | W.PFT ---
Date of service: 10/30/21 Time of Service: 14:51 Pulmonary Function Test Result Requesting Provider Russ Indications: COPD Interpretation Spirometry: There is restrictive appearing spirometry. Therei is no significant bronchodilator response. Lung Volumes: There is moderate to severe restrictive lung disease. Diffusion Capacity: The diffusion is low. Airway Pressure: Airways resistance is normal. Impression Moderate to severe restrictive lung disease with a reduced diffusion. Interstitial lung disease could be consistent with this pattern. Clinical Correlation therefore is recommended.
== END 2021-11-29 03:36 | disposition home or self-care (01) ==
LOC: RT 03:35
PROVIDERS: PCP Family Medicine; Visit Provider Student in an Organized Health Care Education/Training Program
DX: R94.2 Abnormal results of pulmonary function studies (principal); J44.9 Chronic obstructive pulmonary disease, unspecified; J96.91 Respiratory failure, unspecified with hypoxia; R06.09 Other forms of dyspnea; Z87.891 Personal history of nicotine dependence
CPT/HCPCS: 94060; 94618; 94726; 94729; 94762

== ENCOUNTER → 2021-12-04 02:34 | Outpatient (CLI) | payer MEDICARE, SELFPAY ==
--- NOTE | 2021-12-04 07:45 | DI.CTLCSR_ITS ---
Exam(s) CT CHEST LUNG CANCER SCREEN EXAM: CT CHEST LUNG CANCER SCREEN CLINICAL HISTORY: Screening for lung cancer,FORMER SMOKER, Z87.891 TECHNIQUE: Imaging Protocol: Axial computed tomography images with coronal and sagittal reformatted images were created and reviewed COMPARISON: CT CHEST WITH CONTRAST from 12/18/2011 CT CHEST ABD PELVIS WO CONTRAST from 07/14/2017 FINDINGS: Tracheobronchial tree: Patent where visualized. Pulmonary parenchyma: No consolidation or dominant measurable mass. There appears to been a prior rig ht lower lobe resection. There is unchanged parenchymal scarring and architectural distortion in the right lung. Lung Nodules: None. Mediastinum and Olive: No dominant adenopathy or fluid collection. The esophagus is unremarkable. Thyroid gland: Unremarkable. Lymph nodes: Unremarkable. Pleura: No effusion or pneumothorax. Heart: The heart is not dilated. Coronary artery calcifications are present. No pericardial effusion. Aorta: Thoracic aorta non-dilated.Atherosclerosis is present. Note is again made of an right-sided a rch. Upper abdomen: Splenic granuloma are present. Soft Tissues: Mild left gynecomastia. Bones: Within normal limits. IMPRESSION: No pulmonary nodules. Stable appearance of the chest. Lung RADS Cat 1 - Negative: No nodules and definitely benign nodules Lung-RADS 1.0 CATEGORIES: Category 0 - Prior chest CT exam(s) being located for comparison. Category 1 - Annual screening in 12 months. No nodules or definitely benign nodules. Category 2 - Annual screening in 12 months. Benign appearance. Nodules with low likelihood of becomin g active cancer. Category 3 - 6-month follow-up. Probably benign. Short-term follow-up suggested. Nodules with low lik elihood of becoming active cancer. Category 4A - 3-month follow-up and CT/PET if >8 mm in size. Suspicious finding. Findings which requi re additional testing. Category 4B - Findings which require additional testing and tissue sampling. Suspicious finding. Category 4X - Category 3 or 4 nodules with additional features or imaging findings that increases the suspicion of malignancy. Modifier S- Potentially clinically significant finding. (Non lung cancer) RADIATION DOSE DELIVERED: 79.63mGy.cm Total DLP 2.21mGy CTDIvol 79.63mGy.cm Total DLP 2.21mGy CTDIvol DATA REPOSITORY: All CT scans at this facility are submitted to the National Radiology Data Registry (NRDR) Dose Index Registry (DIR) with the [employer] (ACR). RADIATION OPTIMIZATION: All CT scans at this facility use at least one of these dose optimization te chniques: automated exposure control; mA and/or kV adjustment per patient size (includes targeted exa ms where dose is matched to clinical indication); or iterative reconstruction.
== END ==
PROVIDERS: PCP Family Medicine; Visit Provider Student in an Organized Health Care Education/Training Program
DX: Z87.891 Personal history of nicotine dependence (principal); Z12.2 Encounter for screening for malignant neoplasm of respiratory organs
CPT/HCPCS: 71271

== ENCOUNTER → 2021-12-13 13:13 | Outpatient (BNVA) | payer MEDICARE, SELFPAY | PROVIDERS: PCP Family Medicine; Visit Provider Internal Medicine Cardiovascular Disease | DX: I25.10 Atherosclerotic heart disease of native coronary artery without angina pectoris (principal); E11.9 Type 2 diabetes mellitus without complications; N18.6 End stage renal disease; Z99.2 Dependence on renal dialysis; Z99.81 Dependence on supplemental oxygen; Z95.5 Presence of coronary angioplasty implant and graft; J96.11 Chronic respiratory failure with hypoxia; I47.1 Supraventricular tachycardia; I48.0 Paroxysmal atrial fibrillation | CPT/HCPCS: 99214 ==

== ENCOUNTER → 2021-12-18 01:13 | Outpatient (CLI) | payer MEDICARE, SELFPAY ==
--- NOTE | 2021-12-18 10:08 | DI.RAD_ITS ---
Exam(s) XR CERVICAL SPINE COMP 4-5V EXAM: XR CERVICAL SPINE COMP 4-5V CLINICAL HISTORY: CHRONIC NECK PAIN, M54.2. TECHNIQUE: 2D digital imaging was performed. COMPARISON: No exams were available for comparison FINDINGS: Five views: There is no evidence of acute fracture.. No listhesis. No offset of the spinal laminar line. No fa cet malalignment. No cervical ribs. Calcification in the carotid arteries bilaterally indicative of plaque therein. IMPRESSION: No acute fracture evident in the cervical vertebrae. Calcified plaque noted in both carotid arteries. DATA REPOSITORY: RADIATION DOSE DELIVERED:
--- NOTE | 2021-12-18 12:08 | DI.CT_ITS ---
Exam(s) CT ABDOMEN PELVIS WO EXAM: CT ABDOMEN PELVIS WO CLINICAL HISTORY: H/O LT RENAL CELL CA,C64.2,PARTIAL NEPHRECTOMY,? RECURRENT CA. TECHNIQUE: Imaging Protocol: Axial computed tomography images with coronal and sagittal reformatted images were created and reviewed CONTRAST MATERIAL: Intravenous: none Oral: Yes. COMPARISON: CT CHEST ABD PELVIS WO CONTRAST from 07/14/2017 FINDINGS: VISUALIZED LUNG BASES: Significant infiltrate in right lower lobe in this patient who has had prior r ight thoracotomy. This, however, exhibits minimal change from the CT scan performed july 2017. The re are mild benign-appearing increased markings in the visualized left lung. Benign calcified granul yvrose noted posterior basal segment of the left lower lobe. No pleural effusion on the left side.. ABDOMEN: There is no ascites. LIVER: There are no obvious focal hepatic lesions evident of this noninfused study. GALLBLADDER/BILIARY: No obvious acute gallbladder pathology. CBD is not dilated. PANCREAS: No evidence of pancreatic mass nor dilatation of the pancreatic duct. SPLEEN: Spleen size is normal. Again noted are multiple calcified granulomas in the spleen. No omin ous splenic masses evident on this non study. ADRENALS: There are no significant adrenal masses. KIDNEYS:No cysts evident. No solid renal masses. No calculi nor hydronephrosis. . ABDOMINAL AORTA: Heavily calcified but not enlarged. There is also heavy calcification of the nondil ated common iliac arteries again noted. LYMPH NODES: There is no retroperitoneal nor paraaortic adenopathy. ABDOMINAL WALL: Small fat only containing umbilical hernia. No transition point at this level. No b owel obstruction. No evidence of significant inguinal hernia. GI: There is no evidence of bowel obstruction, free air, nor abscess. PELVIS: LYMPH NODES: There is no intrapelvic nor inguinal adenopathy. GI: No evidence of appendicitis.There are no distinct sigmoid diverticuli but there appears to be josefina e circumferential muscular thickening in the lower half the sigmoid. URINARY BLADDER: No calculi nor obvious masses evident REPRODUCTIVE: Prostate mildly enlarged. Seminal vesicles unremarkable. OTHER: There is a new finding in the pelvis which was not evident on the prior 2018 CT scan. This is a partially calcified structure measuring 2.2 cm wide by 1.5 cm craniocaudal by 1.2 cm AP and is ant erior to the rectum and posterior to the urinary bladder and immediately above the seminal vesicles. Density unit measurements are higher than fluid. OSSEOUS: No significant osseous lesions. No fractures. IMPRESSION: 1. Lung base findings as described above but unchanged from 2018. 2. Calcified splenic granulomas again noted. Spleen size remains normal. There are no calcified gra nulomas in the liver. 3. There is some circumferential muscular thickening in the sigmoid but no evidence of diverticuli no r diverticulitis. No evidence of appendicitis. 4. In the deep pelvis there is a 2.2 x 1.5 x 1.2 cm density now evident which contains a single smal l calcifications therein. This is located anterior to the rectum and posterior to the urinary bladde r and is a significant finding given that it was not evident on the 2018 CT scan. Does not have the appearance of a benign lymph node or fluid collection. RADIATION DOSE DELIVERED: 1,074.27mGy.cm Total DLP DATA REPOSITORY: All CT scans at this facility are submitted to the National Radiology Data Registry (NRDR) Dose Index Registry (DIR) with the [employer] ([employer]). RADIATION OPTIMIZATION: All CT scans at this facility use at least one of these dose optimization te chniques: automated exposure control; mA and/or kV adjustment per patient size (includes targeted exa ms where dose is matched to clinical indication); or iterative reconstruction.
== END ==
PROVIDERS: PCP Family Medicine; Visit Provider Family Medicine
DX: M54.2 Cervicalgia (principal); C64.2 Malignant neoplasm of left kidney, except renal pelvis
CPT/HCPCS: 72050; 74176

== ENCOUNTER 2021-12-25 03:51 | Outpatient (CLI) | payer MEDICARE, SELFPAY ==
--- NOTE | 2022-01-31 09:36 | W.CARDEVENT ---
Date of service: 01/31/22 Time of Service: 09:36 Cardiac Event Recorder Referring Provider:: Zakiya Reyna Indications:: Palpitations Cardiac Event Note: This is a 14-day event monitor ordered for palpitations. Predominant rhythm was sinus with an average heart rate of 61. Minimum was 46, maximum 194 There were very rare ventricular ectopic beats There were occasional atrial premature beats. A total of 36 episodes of supraventricular tachycardia occurred. The longest of these lasted 9 minutes and 15 seconds. No patient symptoms were reported to correspond to dysrhythmia There was no atrial fibrillation, no high-grade AV block, no pauses greater than 3 seconds
== END 2021-12-25 03:52 | disposition home or self-care (01) ==
LOC: RT 03:52
PROVIDERS: PCP Family Medicine; Visit Provider Family Medicine
DX: I48.91 Unspecified atrial fibrillation (principal); R00.1 Bradycardia, unspecified
CPT/HCPCS: 93246

== ENCOUNTER 2022-01-15 03:16 | Emergency (ER) | payer MEDICARE, SELFPAY ==
[2022-01-15] VITALS (161 sets, daily range): BP systolic 75–129; BP diastolic 31–84; PULSE 79–120; RESP 11–26; TEMP 36.7; O2SAT 86–99
--- NOTE | 2022-01-15 03:15 | DI.CT_ITS ---
Exam(s) CT HEAD CERVICAL SPINE WO EXAM: CT HEAD CERVICAL SPINE WO CLINICAL HISTORY: fall. TECHNIQUE: Imaging Protocol: Axial computed tomography images with coronal and sagittal reformatted images were created and reviewed COMPARISON: CT HEAD WITHOUT CONTRAST from 01/10/2012 FINDINGS: Head CT Ventricles and Extra axial spaces: Normal in size and morphology for the patient's age. Hemorrhage: None. Cerebral parenchyma: Mild atrophy. White matter changes of small vessel disease. Midline shift: None. Brainstem/Cerebellum: Normal. Calvarium: Normal. Visualized Paranasal sinuses/Mastoids: Chronic appearing deformity of the right maxillary sinus and n rhys bones. Cervical Spine CT BONES: Vertebral body heights are maintained. Alignment is normal. There is no evidence of acute frac ture. Degenerative disc changes and facet degenerative changes are seen . SOFT TISSUES: No paraspinal hematoma. The airway appears intact. Right-sided central venous catheter. IMPRESSION: Head CT: No acute abnormality. C-spine CT: Degenerative changes, no acute abnormality. RADIATION DOSE DELIVERED: 1,477.74mGy.cm Total DLP DATA REPOSITORY: All CT scans at this facility are submitted to the National Radiology Data Registry (NRDR) Dose Index Registry (DIR) with the [employer] (ACR). RADIATION OPTIMIZATION: All CT scans at this facility use at least one of these dose optimization te chniques: automated exposure control; mA and/or kV adjustment per patient size (includes targeted exa ms where dose is matched to clinical indication); or iterative reconstruction.
--- NOTE | 2022-01-15 03:15 | DI.RAD_ITS ---
Exam(s) XR CHEST 2V PA LATERAL EXAM: XR CHEST 2V PA LATERAL CLINICAL HISTORY: syncope TECHNIQUE: 2D digital imaging was performed. COMPARISON: CR XR CHEST 2V PA LATERAL from 06/05/[address] CHEST LUNG CANCER SCREEN from 12/04/2021 FINDINGS: Heart size is within normal limits. A small central venous catheter is noted. There is bilateral sc arring, with right-sided volume loss. There has been no gross change compared with prior CT. There is apical pleural thickening. This appears stable. No gross evidence of an acute infiltrate or effu darrell. IMPRESSION: Stable appearance of bilateral pulmonary scarring. No gross evidence of an acute abnormality. DATA REPOSITORY: RADIATION DOSE DELIVERED:
--- NOTE | 2022-01-15 03:15 | RT.EKG_ITS ---
APPROVED REPORT Exam: Resting ECG Reason for Exam: dizzy Patient Location: E HR:86 bpm ECG Measurements Heart Rate 86 AXIS MA 172 P -10 QRSd 129 QRS 88 QT 430 T -14 QTc 517 Conclusion Sinus rhythm...normal P axis, V-rate 60- 99 Right bundle branch block...QRSd>120, terminal axis(90,270)
--- NOTE | 2022-01-15 03:27 | ED.GENADUL_ITS ---
Discharge Plan Disposition Patient Disposition: HOME Condition: Stable Discharge Details Clinical Impression: Syncope Primary Care Provider: Zakiya Reyna ED Provider: Gregg Coppola Home Meds and New Rx's Prescriptions: New cyclobenzaprine 10 mg tablet 10 mg PO TID PRNQty: 20 0RF prednisone 20 mg tablet 60 mg PO DAILY 4 Days Qty: 12 0RF Continued Advair HFA 115-21 mcg/actuation HFA aerosol inhaler 2 puff inhalation BID Qty: 12 12RF Rx Instructions: Wash mouth after use nitroglycerin 0.4 MG tablet, sublingual 0.4 mg Sublingual ONCE PRN Label Comments: has never used it at home cholecalciferol (vitamin D3) 1,000 UNIT tablet 1,000 unit PO DAILY Breztri Aerosphere 160-9-4.8 mcg/actuation HFA aerosol inhaler 2 inh inhalation BID Qty: 10.7 12RF aspirin [Aspir-81] 81 MG tablet,delayed release (DR/EC) 81 mg PO DAILY multivitamin 1 EACH capsule 1 ea PO DAILY sertraline 50 MG tablet 100 mg PO DAILY atorvastatin [Lipitor] 40 MG tablet 40 mg PO DAILY ascorbic acid (vitamin C) [Vitamin C] 1,000 MG tablet 500 mg PO DAILY albuterol sulfate [Proventil HFA] 6.7 GM HFA aerosol inhaler 2 inh PO Q4H PRN PRN melatonin 10 MG tablet 10 mg PO HS PRN acetaminophen [Tylenol Extra Strength] 500 mg Tablet 1,000 mg PO .Q6 HRS PRN tamsulosin 0.4 mg Capsule 0.4 mg PO DAILY pantoprazole 40 mg tablet,delayed release (DR/EC) 40 mg PO DAILY insulin glargine [Lantus Solostar U-100 Insulin] 100 unit/mL (3 mL) insulin pen 24 - 26 unit SUBCUT HS oxycodone 5 mg Tablet 10 mg PO QHS PRN (Reason: pain) cyanocobalamin (vitamin B-12) [Vitamin B-12] 1,000 mcg Tablet 1,000 mcg PO DAILY lutein 20 mg Capsule 20 mg PO DAILY loratadine 10 mg capsule 10 mg PO DAILY Qty: 20 0RF sennosides [senna] 8.6 mg Tablet 8.6 mg PO DAILY trazodone 50 mg tablet 25 mg PO HS Label Comments: TAKE ONE-HALF TABLET BY MOUTH EVERY EVENING midodrine 2.5 mg tablet 2.5 mg PO TID Label Comments: TAKE ONE TABLET BY MOUTH THREE TIMES A DAY BEFORE MEALS insulin lispro [Humalog KwikPen Insulin] 100 unit/mL Insulin Pen 1 sliding scale dose SUBCUT USEASDIRECTD Eliquis 2.5 mg tablet 2.5 mg PO BID Label Comments: TAKE ONE TABLET BY MOUTH TWICE A DAY metoprolol tartrate [Lopressor] 50 mg tablet 25 mg PO BID Qty: 30 1RF Discharge Instructions Instructions: Syncope (ED) Additional Instructions: you can increase your dose of midodrine to 5mg three times a day do not take the oxycodone and cyclobenzaprine within 3 hours of each other follow up with your primary care provider if you feel more ill, have severe worsening pain or difficulty breathing return to the emergency department Medical Decision Making 76 year old male with PMHx of SVT and Afib, on anticoagulation with eliquis, ESRD on HD MWF, as well as h/o CAD s/p two cardiac caths and stents, pulmonary hypertension, IDDM2, O2-dependent COPD, bronchiectasis s/p lobectomies x 2, and renal cell ca s/p 3 partial nephrectomies,?comes in with cc of syncope. He states for 3 days he hasn't been sleeping well and has been tired. Tonight he was on the toilet, stood up got lightheaded and passed out Unsure how long he was down for but thinks it was only a few seconds. He lives with his and ems was called. HE currently has no complaints other than general malaise and being tired. He denies chest pain, dyspnea, abdomen pain, fevers, chills. He has no focal deficits, caxo4 speaking clearly. Soft nontender abdomen. HE states he has chronic neck pain that is unchanged from baseline, perrl, eomi. NIH of 0. He is noted to have a low bp, no tachcycardia, bp on my exam 92/55. HE denies missing dialysis recently. I suspect orthostasis and is on midodrine for hypotension. Will obtain ct head and c spine given the fall, obtain ecg, troponin, cbc, cmp, lactate and reassess. No evidence of cellulitis of his legs but does have diffuse urticarial rash on legs, arms and torso. No tongue swelling, no dyspnea, no gi symptoms so doubt anaphylaxis. He states he gets this rash often and thinks it might be a detergent they use at his house. He states it is pruritic, will treat with benadryl and solumedrol and reassess. pt bp now 108/70 and rash resolved, feels much better in terms of pruritus. He has chronic leukocytosis on lab review and negative troponin, ct head and c spine negative. Xray pending. He does note he has had neck pain for over a year now and takes oxycodone for it, this seems to be his primary complaint now. He localizes it to the paraspinous muscle bilaterally and has no midline tenderness, no erythema or warmth. Suspect arthritis vs musculoskeletal pain, will give morphine given he is on oxycodone to see if it helps along with a lidocaine patch. no fevers and no numbness or unilateral weakness so doubt spinal epidural abscess. pt's xray shows no acute changes from ct from earlier this month, no acute infiltrates. He is sleeping on reassessment, awakens easily and states he has no pain and feels well requesting d/c. Given his improved bp and no symptoms suspect this was orthostatic hypotension in the setting of multiple chronic medical problems. Will have him increase his midodrine and advised to f/u with pcp, return precautions given Differential Diagnosis Differential Diagnosis: orthostasis, sepsis, pneumonia, Medical Records Medical records reviewed: Yes I reviewed the patient's medical records. Imaging Data Radiologic Study: Attestation: I personally reviewed and interpreted this imaging study as follows: Imaging: X-Ray Radiologist's impression: IMPRESSION: 1. Right-sided volume loss and spiculated parenchymal density on the right, as seen on the comparison CT exam from December. Platelike atelectasis in the left lower lung zone. 2. Possible small right apical pleural effusion versus pleural thickening. Lab Data Lab results reviewed: Yes I reviewed the patient's lab results. ECG Data Attestation: I personally reviewed and interpreted this ECG (s) as follows: Prior ECG tracings: available for review Interpretation: sinus rhythm, rate of 86, rbbb, no acute st t wave ischemic findings compared to old ekg HPI General Mode of arrival: EMS . Date/Time Provider Initiated Documentation: 09/13/22 03:19 . Limitations to Documentation: no limitations . Information obtained by: patient . History of Present Illness 76 year old M presents to the emergency department with the chief complaint of passed out, Patient started experiencing this hour(s) (1) and it has been now resolved. No relieving factors improve symptom(s), No exacerbating factors reported . Patient notes no other symptoms.. Patient did receive the following treatments prior to arrival, none Related Data Home Medications Medication Instructions Recorded Confirmed aspirin 81 mg tablet,delayed 81 mg PO DAILY 09/25/12 12/13/21 release (Aspir-) multivitamin 1 ea PO DAILY 09/25/12 01/15/22 sertraline 50 mg tablet 100 mg PO DAILY 09/25/12 01/15/22 cholecalciferol (vitamin D3) 25 1,000 unit PO DAILY 09/21/15 01/15/22 mcg (1,000 unit) tablet nitroglycerin 0.4 mg sublingual 0.4 mg sublingual ONCE PRN 09/21/15 01/15/22 tablet albuterol sulfate 90 mcg/actuation 2 inh PO Q4H PRN PRN 02/16/17 01/15/22 aerosol inhaler (Proventil HFA) ascorbic acid (vitamin C) 1,000 mg 500 mg PO DAILY 02/16/17 01/15/22 tablet (Vitamin C) atorvastatin 40 mg tablet (Lipitor) 40 mg PO DAILY 02/16/17 01/15/22 melatonin 10 mg tablet 10 mg PO HS PRN 02/16/17 01/15/22 cyanocobalamin (vitamin B-12) 1,000 mcg PO DAILY 09/22/19 01/15/22 1,000 mcg tablet (Vitamin B-12) acetaminophen 500 mg tablet 1,000 mg PO .Q6 HRS PRN 04/24/20 01/15/22 (Tylenol Extra Strength) insulin glargine 100 unit/mL (3 24 - 26 unit subcut HS 04/24/20 01/15/22 mL) subcutaneous pen (Lantus Solostar U-100 Insulin) pantoprazole 40 mg tablet,delayed 40 mg PO DAILY 04/24/20 01/15/22 release tamsulosin 0.4 mg capsule 0.4 mg PO DAILY 04/24/20 01/15/22 lutein 20 mg capsule 20 mg PO DAILY 09/10/20 01/15/22 loratadine 10 mg capsule 10 mg PO DAILY #20 caps 03/09/21 01/15/22 apixaban 2.5 mg tablet (Eliquis) 2.5 mg PO BID 06/05/21 01/15/22 insulin lispro 100 unit/mL 1 sliding scale dose subcut 06/05/21 01/15/22 subcutaneous pen (Humalog KwikPen USEASDIRECTD (U-100) Insulin) midodrine 2.5 mg tablet 2.5 mg PO TID 06/05/21 01/15/22 sennosides 8.6 mg tablet (senna) 8.6 mg PO DAILY 06/05/21 01/15/22 trazodone 50 mg tablet 25 mg PO HS 06/05/21 01/15/22 metoprolol tartrate 50 mg tablet 25 mg PO BID #30 tabs 06/06/21 01/15/22 (Lopressor) fluticasone propionate 115 2 puff inhalation BID #12 grams 11/20/21 01/15/22 mcg-salmeterol 21 mcg/actuation HFA inhaler (Advair HFA) budesonide 160 mcg-glycopyr 9 2 inh inhalation BID #10.7 grams 11/26/21 01/15/22 mcg-formot 4.8 mcg/actuation HFA inhaler (Breztri Aerosphere) cyclobenzaprine 10 mg tablet 10 mg PO TID PRN #20 tabs 01/15/22 oxycodone 5 mg tablet 10 mg PO QHS PRN pain 01/15/22 01/15/22 prednisone 20 mg tablet 60 mg PO DAILY 4 days #12 tabs 01/15/22 Previous Rx's Medication Instructions Recorded loratadine 10 mg capsule 10 mg PO DAILY #20 caps 03/09/21 metoprolol tartrate 50 mg tablet 25 mg PO BID #30 tabs 06/06/21 (Lopressor) fluticasone propionate 115 2 puff inhalation BID #12 grams 11/20/21 mcg-salmeterol 21 mcg/actuation HFA inhaler (Advair HFA) budesonide 160 mcg-glycopyr 9 2 inh inhalation BID #10.7 grams 11/26/21 mcg-formot 4.8 mcg/actuation HFA inhaler (Breztri Aerosphere) cyclobenzaprine 10 mg tablet 10 mg PO TID PRN #20 tabs 01/15/22 prednisone 20 mg tablet 60 mg PO DAILY 4 days #12 tabs 01/15/22 Allergies Allergy/AdvReac Type Severity Reaction Status Date / Time pneumococcal vaccine Allergy Severe Swelling/Ed Verified 12/13/21 14:30 nandini sulfamethoxazole Allergy difficulty Verified 12/13/21 14:30 [From Bactrim] breathing trimethoprim [From Bactrim] Allergy difficulty Verified 12/13/21 14:30 breathing General Stated Complaint: Dizzy/Sync MESERET: 2 Review of Systems All systems reviewed & are unremarkable except as noted in HPI and below Constitutional Constitutional: Denies chills and Denies fever(s) ENT Ears, Nose, Mouth, and Throat: Denies change in voice Cardiovascular Cardiovascular: Denies chest pain and Denies dyspnea Respiratory Respiratory: Denies cough and Denies dyspnea Gastrointestinal Gastrointestinal: Denies abdominal pain, Denies nausea and Denies vomiting Endocrine Endocrine: Denies cold intolerance PFSH All Active Problems (Updated 01/15/22 @ 06:51 by Gregg Coppola MD) Syncope (Chronic) Pulmonary scarring (Acute) Chronic respiratory failure with hypoxia (Acute) 2L of O2 by NC COPD (chronic obstructive pulmonary disease) (Chronic) Bronchiectasis (Acute) 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) Basal cell carcinoma of multiple sites (Acute) Leucocytosis (Chronic) Palpitations (Acute) Exertional shortness of breath (Chronic) Neoplasm of unspecified nature of bone, soft tissue, and skin (Acute 06/19/15) Medical History Actinic keratosis (05/01/16) Anemia Basal cell carcinoma of skin (03/11/16) Bilateral cataracts Coronary Artery Disease Depression Diabetes mellitus Diabetic foot ulcer Diabetic ulcer of left foot ESRD on hemodialysis GERD (gastroesophageal reflux disease) Hoarseness Hyperkalemia Moderate pulmonary hypertension Orthostatic hypotension Paroxysmal atrial fibrillation with rapid ventricular response Perihepatic abscess RBBB (right bundle branch block) Renal cell carcinoma of left kidney (05/30/17) Shortness of breath Supraventricular tachycardia Toe infection Tubular adenoma of colon (12/18/16) Surgical History Colonoscopy - MAC (12/18/16) Completion of amputation (09/30/12) L great toe EGD - MAC (12/18/16) H/O partial nephrectomy x3 Heart Stent (12/03/11) Pt records show heart stent placed 12/03/11 at [facility] 12.02.12HE Hx of cardiac cath x2, per patient Lobectomy Pt states 2 lobes removed from R. lung. No date given. 12.02.12HE Osteotomy Partial & Debridment of first metatarsal on Left foot. S/P hemodialysis catheter insertion Family History Mother Heart disease Diabetes Sister Stroke Diabetes Sister Diabetes Cancer laryngeal cancer Sister Diabetes Social History Smoking/Tobacco Use Status: Former Tobacco Use tobacco type: cigarettes Quit Date: 05/05/14 Pack-years: 100 Tobacco: How many years used: 50 Counseling given: provider counseling Smoking risk assessment performed?: Yes Alcohol Intake: never Drug use: Never Substance use type: does not use Household members: spouse Current gender identity: male What type of physical activity do you participate in: none and independent ambulation Do you feel safe at home: Yes Do you feel safe in your relationship?: Yes Exam Const General: no acute distress Orientation: alert HENMT Head: normal to inspection Ears: external ears normal General nose exam: external nose normal Mouth: moist mucous membranes Eyes General: appearance normal, both eyes and all related structures Neck Neck: normal visual inspection Resp Effort & Inspection: normal respiratory effort and able to speak in complete sentences Cardio Rate: regular rate GI Palpation: soft and nontender Skin General skin exam: elasticity normal Neuro General: patient alert and patient oriented x3 Extrem General: normal to inspection Psych Mental Status: mental status grossly normal Course Vital Signs Vital signs: Vital Signs Temperature 36.7 C 01/15/22 03:16 Pulse 88 01/15/22 03:16 Respiratory Rate 17 01/15/22 03:16 Blood Pressure 88/48 L 01/15/22 03:16 Pulse Oximetry 94 01/15/22 03:16 Temperature 36.7 C 01/15/22 03:16 Temperature Source Temporal Artery Scan 01/15/22 03:16 Pulse 88 01/15/22 03:16 Respiratory Rate 16 01/15/22 03:18 Respiratory Effort Non-Labored 01/15/22 03:18 Respiratory Depth Normal 01/15/22 03:18 Respiratory Pattern Normal 01/15/22 03:18 Blood Pressure 88/48 L 01/15/22 03:16 Blood Pressure Position Sitting 01/15/22 03:16 Pulse Oximetry 94 01/15/22 03:16 Oxygen Delivery Method Nasal Cannula 01/15/22 03:16 Oxygen Flow Rate 4 01/15/22 03:16 Lab/Test Results Lab/Test Results: 01/15/22 03:21 Blood Blood Culture - Pending 01/15/22 03:21 Blood Blood Culture - Pending
[2022-01-15 03:39] LABS: Source Nasal/Nares
[2022-01-15 03:42] LABS: BE (Venous) 4 mmol/L (-2-3); HCO3 (Venous) 29 mmol/L (23-28); O2 Sat (Venous) 56 %; TCO2 (Venous) 27 mmol/L (24-29); pCO2 (Venous) 49 mmHg (41-51); pH (Venous) 7.38 (7.31-7.41); pO2 (Venous) 29 mmHg
[2022-01-15 03:44] LABS: Lactate 3.1 mmol/L (0.6-1.4)
[2022-01-15] MEDS: Normal Saline 250 ML 500 ML IV (03:44)
[2022-01-15 03:45] LABS: Abs Immature Grans 0.48 10^3/uL (0.0-0.06); Basophils % 0.3; Eosinophils % 0.2; HCT 38.5 % (40.0-50.0); HGB 12.7 g/dL (13.5-17.5); Immature Grans % 1.8; Lymphocytes % 10.7; MCH 32.2 pg (27.0-33.0); MCV 98 fL (80-95); MPV 11.8 fL (8.0-11.0); Monocytes % 8.8; Neutrophils % 78.2; Platelet Count 385 10^3/uL (130-400); RBC 3.95 10^6/uL (4.36-5.78); RDW 13.2 % (11.8-14.1); RDW-SD 47.6 fL
[2022-01-15] MEDS: methylPREDNISolone SUCC 125 MG VIAL IVP (03:45)
[2022-01-15 03:47] LABS: Absolute Basophil Count 0.08 10^3/uL (0.0-0.2); Absolute Eosinophil Count 0.05 10^3/uL (0.0-0.7); Absolute Neutrophil Count 20.46 10^3/uL (1.2-6.7)
[2022-01-15] MEDS: diphenhydrAMINE 50 MG/ML VIAL 25 MG IVP ×2 (03:48→09:03)
[2022-01-15 03:49] LABS: WBC 26.17 10^3/uL (4.4-10.8)
[2022-01-15 04:01] LABS: PTT Activated 24.1 sec (21.0-27.5)
[2022-01-15 04:07] LABS: Diff Comment Agrees w/ Instrument; RBC Morphology Normal
[2022-01-15 04:09] LABS: COVID-19 PCR Negative (Negative)
[2022-01-15 04:11] LABS: ALT 10 U/L (16-63); AST 11 U/L (15-37); Albumin 2.7 g/dL (3.4-5.0); Alkaline Phosphatase 90 U/L (46-116); Anion Gap 7.3 mmol/L (3-11); BUN 20 mg/dL (7-18); Bilirubin, Total 0.4 mg/dL (0.2-1.0); CO2 30.7 mmol/L (21.0-32.0); Calcium 8.8 mg/dL (8.5-10.1); Chloride 95 mmol/L (98-107); Estimated GFR 15.72 (mL/min/1.73m2); Glucose 421 mg/dL (74-106); Magnesium 1.5 mg/dL (1.8-2.4); NT-proBNP 3860 pg/mL (<300); Potassium 3.9 mmol/L (3.5-5.1); Sodium 133 mmol/L (136-145); TSH (W/Ref FT4) 2.33 uIU/mL (0.36-3.74); Total Protein 6.5 g/dL (6.4-8.2); Troponin I < 50 ng/L (<or=60)
[2022-01-15 04:13] LABS: CREATININE 3.8 mg/dL (0.70-1.30)
[2022-01-15] MEDS: Midodrine 2.5 MG TAB 5 MG PO (04:23)
--- NOTE | 2022-01-15 04:31 | DI.VRAD_ITS ---
PROCEDURE INFORMATION: Exam: CT Head Without Contrast Exam date and time: 01/15/2022 4:02 AM Age: 76 years old Clinical indication: Injury or trauma; Blunt trauma (contusions or hematomas); With loss of consciousness; Not specified; Injury date: 01/15/22; Injury details: Fall, syncope TECHNIQUE: Imaging protocol: Computed tomography of the head without contrast. Radiation optimization: All CT scans at this facility use at least one of these dose optimization techniques: automated exposure control; mA and/or kV adjustment per patient size (includes targeted exams where dose is matched to clinical indication); or iterative reconstruction. COMPARISON: CR XR CERVICAL SPINE COMP 4-5V 12/18/2021 9:50 AM FINDINGS: Brain: No acute hemorrhage identified. No large territorial areas of hypoattenuation concerning for ischemic infarct identified. No intracranial mass effect. Subcortical and periventricular white matter hypoattenuation likely consistent with mild chronic microvascular ischemic disease. Cerebral ventricles: The ventricles are within normal limits. Paranasal sinuses: Chronic mild deformity of the right maxillary sinus. Mastoid air cells: The visualized mastoid air cells are well aerated. Bones/joints: Mild chronic appearing irregularity of the nasal bones. No acute cranial fracture identified. Soft tissues: Unremarkable. IMPRESSION: 1. No acute intracranial abnormality identified. 2. Mild chronic microvascular ischemic disease. PROCEDURE INFORMATION: Exam: CT Cervical Spine Without Contrast Exam date and time: 01/15/2022 4:02 AM Age: 76 years old Clinical indication: Injury or trauma; Blunt trauma (contusions or hematomas); With loss of consciousness; Not specified; Injury date: 01/15/22; Injury details: Fall, syncope TECHNIQUE: Imaging protocol: Computed tomography of the cervical spine without contrast. Radiation optimization: All CT scans at this facility use at least one of these dose optimization techniques: automated exposure control; mA and/or kV adjustment per patient size (includes targeted exams where dose is matched to clinical indication); or iterative reconstruction. COMPARISON: CR XR CERVICAL SPINE COMP 4-5V 12/18/2021 9:50 AM FINDINGS: Bones/joints: The cervical spine maintains a normal lordotic curvature. No spondylolisthesis. The vertebral bodies maintain normal height. No fracture identified. Multilevel left-sided facet arthropathy. Lungs: The visualized lung apices are normal. Soft tissues: No prevertebral soft tissue swelling identified. Partially visualized right-sided central venous line. IMPRESSION: No acute fracture or traumatic malalignment identified within the cervical spine. Dictated and Authenticated by: Colby García MD. Ordering:GILBERT Escobedo MD
[2022-01-15] MEDS: MORPHine 4 MG/ML SYR IVP (05:02)
[2022-01-15] MEDS: Lidocaine 5% Patch 1 PATCH TP (05:16)
[2022-01-15 06:16] LABS: Troponin I < 50 ng/L (<or=60)
--- NOTE | 2022-01-15 06:28 | DI.VRAD_ITS ---
PROCEDURE INFORMATION: Exam: XR Chest Exam date and time: 01/15/2022 4:09 AM Age: 76 years old Clinical indication: Other: Syncope; Prior surgery; Surgery date: 6+ months; Surgery type: Right lobectomy, heart stents TECHNIQUE: Imaging protocol: Radiologic exam of the chest. Views: 2 views. COMPARISON: CT CHEST LUNG CANCER SCREEN 12/04/2021 10:12 AM FINDINGS: Limitations: Patient positioning is rotated. Tubes, catheters and devices: There is a large-bore dual-lumen central venous catheter on the right terminating in the right atrium. Lungs: There is asymmetric volume loss on the right and spiculated parenchymal density, as seen on the comparison CT examination from December. There is platelike atelectasis in the left lower lung zone. Pleural spaces: No pneumothorax or left-sided pleural effusion is seen. There is possibly a small right apical pleural effusion versus pleural thickening. Heart/Mediastinum: Heart size is normal. Diaphragm: There is elevation of the right hemidiaphragm. Bones/joints: The visualized bony structures appear grossly intact, as seen. IMPRESSION: 1. Right-sided volume loss and spiculated parenchymal density on the right, as seen on the comparison CT exam from December. Platelike atelectasis in the left lower lung zone. 2. Possible small right apical pleural effusion versus pleural thickening. Dictated and Authenticated by: Mohsen Angel MD. Ordering:GILBERT Escobedo MD
--- NOTE | 2022-01-15 08:36 | W.EDPROG ---
Date of service: 01/15/22 Time of Service: 08:36 Medical Decision Making 0836 -- Pt already has been discharged per Dr. Coppola but requested at bedside per nurse. Patient is reporting return of pruritic rash. Patient does have a diffuse circular maculopapular rash with central clearing does not appear specifically consistent with urticaria but considering his pruritic nature is possible. He is hypotensive again at 88/33. He was sitting up to drink water and became hypotensive so this does appear consistent with orthostasis. His last dose of IV Benadryl was 3:30 AM. We will give another dose of IV Benadryl. He is planning to speak to care management regarding needing help at home with caring for his . 0850 -- BP 105/84. Pt states he has a follow-up appointment with Dr. Reyna this for further discussion regarding something they found in my pelvis. Review of records notes that pt had a CT scan abd/pelvis on 12/18/[address] Reyna for a reason stated as ?H/O LT RENAL CELL CA,C64.2,PARTIAL NEPHRECTOMY,? RECURRENT CA. IMPRESSION: 1. Lung base findings as described above but unchanged from 2018. 2. Calcified splenic granulomas again noted.? Spleen size remains normal.? There are no calcified granulomas in the liver. 3. There is some circumferential muscular thickening in the sigmoid but no evidence of diverticuli nor diverticulitis.? No evidence of appendicitis. 4.? In the deep pelvis there is a 2.2 x 1.5 x 1.2 cm density now evident which contains a single small calcifications therein.? This is located anterior to the rectum and posterior to the urinary bladder and is a significant finding given that it was not evident on the 2018 CT scan.? Does not have the appearance of a benign lymph node or fluid collection. Discussed with patient that the exact etiology of his rash is unclear but he states the visiting housekeeper recenty changed detergent so allergic reaction is possible. He states he had a similar rash which resolved with steroids 6 months ago so with plan for continued treatment with steroids per Dr. Coppola. Consider possible paraneoplastic syndrome manifesting as a rash. He states he has missed 2 recent dermatology appointments due to transportation issues. Patient was evaluated by care management at bedside due to concerns with inability to care for his at home. He already has been referred to [facility]. Patient declined use of [facility] for his appointments. He feels comfortable going home. Usual and customary return precautions given prior to discharge. Medical Records Medical records reviewed: Yes I reviewed the patient's medical records. Discharge Plan Disposition Patient Disposition: HOME Condition: Stable Discharge Details Clinical Impression: Syncope, Pruritic rash, Orthostatic hypotension Primary Care Provider: Zakiya Reyna ED Provider: Marlene Sherman Home Meds and New Rx's Prescriptions: New cyclobenzaprine 10 mg tablet 10 mg PO TID PRNQty: 20 0RF prednisone 20 mg tablet 60 mg PO DAILY 4 Days Qty: 12 0RF Continued Advair HFA 115-21 mcg/actuation HFA aerosol inhaler 2 puff inhalation BID Qty: 12 12RF Rx Instructions: Wash mouth after use nitroglycerin 0.4 MG tablet, sublingual 0.4 mg Sublingual ONCE PRN Label Comments: has never used it at home cholecalciferol (vitamin D3) 1,000 UNIT tablet 1,000 unit PO DAILY Breztri Aerosphere 160-9-4.8 mcg/actuation HFA aerosol inhaler 2 inh inhalation BID Qty: 10.7 12RF aspirin [Aspir-81] 81 MG tablet,delayed release (DR/EC) 81 mg PO DAILY multivitamin 1 EACH capsule 1 ea PO DAILY sertraline 50 MG tablet 100 mg PO DAILY atorvastatin [Lipitor] 40 MG tablet 40 mg PO DAILY ascorbic acid (vitamin C) [Vitamin C] 1,000 MG tablet 500 mg PO DAILY albuterol sulfate [Proventil HFA] 6.7 GM HFA aerosol inhaler 2 inh PO Q4H PRN PRN melatonin 10 MG tablet 10 mg PO HS PRN acetaminophen [Tylenol Extra Strength] 500 mg Tablet 1,000 mg PO .Q6 HRS PRN tamsulosin 0.4 mg Capsule 0.4 mg PO DAILY pantoprazole 40 mg tablet,delayed release (DR/EC) 40 mg PO DAILY insulin glargine [Lantus Solostar U-100 Insulin] 100 unit/mL (3 mL) insulin pen 24 - 26 unit SUBCUT HS oxycodone 5 mg Tablet 10 mg PO QHS PRN (Reason: pain) cyanocobalamin (vitamin B-12) [Vitamin B-12] 1,000 mcg Tablet 1,000 mcg PO DAILY lutein 20 mg Capsule 20 mg PO DAILY loratadine 10 mg capsule 10 mg PO DAILY Qty: 20 0RF sennosides [senna] 8.6 mg Tablet 8.6 mg PO DAILY trazodone 50 mg tablet 25 mg PO HS Label Comments: TAKE ONE-HALF TABLET BY MOUTH EVERY EVENING midodrine 2.5 mg tablet 2.5 mg PO TID Label Comments: TAKE ONE TABLET BY MOUTH THREE TIMES A DAY BEFORE MEALS insulin lispro [Humalog KwikPen Insulin] 100 unit/mL Insulin Pen 1 sliding scale dose SUBCUT USEASDIRECTD Eliquis 2.5 mg tablet 2.5 mg PO BID Label Comments: TAKE ONE TABLET BY MOUTH TWICE A DAY metoprolol tartrate [Lopressor] 50 mg tablet 25 mg PO BID Qty: 30 1RF Discharge Instructions Instructions: Syncope (ED), Acute Rash (ED) Additional Instructions: You can increase your dose of midodrine to 5mg three times a day. Do not take the oxycodone and cyclobenzaprine within 3 hours of each other. Follow-up with your scheduled appointment with Dr. Reyna on . Reschedule another appointment with dermatology for further evaluation of your rash. If you feel more ill, have severe worsening pain or difficulty breathing return to the emergency department. Discharge Data Discharge Physician: Marlene Sherman
--- NOTE | 2022-01-16 14:51 | CMPROGNOTE_ITS ---
- If Service Date Differs Date of service: 01/15/22 Time of Service: 09:00 Care Management Progress Note Alvaro (Mario) presents in the ED for syncope. At the request of RN, ERIN meets with Mario and his daughter, Dolores, to address concerns and identify needs. Mario states he is managing just fine at home but has a lot of concerns related to his . 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 He states his is unable to walk and uses a Hoveround to move about the apartment. He reports she is in need of a new wheelchair but in order to qualify for a new wheelchair she needs to have an assessment and she is unwilling to go anywhere for that assessment. Her PCP's office ([facility]) is reportedly working on arranging the assessment but Mario states it has been weeks and he hasn't heard anything from them. He further reports his has become quite forgetful and cries constantly. Mario says his own health is deteriorating and he goes to dialysis 3 times a week (Friday, Friday and Friday afternoons) and worries about leaving his home alone. He tells ERIN if no one is available to be with his so he can go to his appointments, he is going to stop going to dialysis, doctor's appointments, etc. With his verbal permission, ERIN telephones Cynthia Pham at [facility] [place] [facility] as she is involved with the family. Cynthia advises that Mario has CFC Moderate Needs and his has CFC Highest Needs. His has 15 hours of respite care per week and 33 hours of in-home services bi- weekly through [facility]. She additionally advises that their daughter, Dolores, is signed up under [facility] to provide the respite care and Mario has the ability to hire another individual if Dolores is unable to provide respite during his appointment times. Cynthia agrees to outreach to Mario to discuss this further with him. She is also going to call [facility] to ask that in-home services be provided in the afternoon when Mario is at dialysis. ERIN additionally telephones Analisa Buenrostro, human resource statistician at [facility], to enlist her assistance with the wheelchair issue. Analisa advises that a physical therapist from [facility] is scheduled to go to the home tomorrow (01/16) to do the assessment needed to obtain a new wheelchair. Analisa will contact Home Health to ensure they have spoken with Mario and that Mario is aware of the home visit.
== END 2022-01-15 10:07 | disposition home or self-care (01) ==
PROVIDERS: Emergency Medicine; Emergency Provider Physician Assistant; PCP Family Medicine
DX: R55 Syncope and collapse (principal); L29.9 Pruritus, unspecified; E11.22 Type 2 diabetes mellitus with diabetic chronic kidney disease; N18.6 End stage renal disease; I48.91 Unspecified atrial fibrillation; Z79.01 Long term (current) use of anticoagulants; Z99.2 Dependence on renal dialysis
CPT/HCPCS: 36415; 80053; 82805; 87040; 87635; 93005; 96361; 96374; 96375; 96376; 99284; 99285; 70450; 71046; 72125; 83605; 83735; 83880; 84443; 84484; 85025; 85610; 85730; 93010; J1200; J2270; J2930

== ENCOUNTER 2022-01-18 09:18 | Emergency (ER) | payer MEDICARE, SELFPAY ==
[2022-01-18 09:19] VITALS: BP 123/65; PULSE 95; RESP 18; TEMP 36.6; O2SAT 95
--- NOTE | 2022-01-18 09:26 | W.ED.GENAD ---
Discharge Plan Disposition Patient Disposition: HOME Condition: Stable Discharge Details Clinical Impression: Chest wall pain, Pneumonia Primary Care Provider: Zakiya Reyna ED Provider: Mark Rosa Home Meds and New Rx's Prescriptions: New doxycycline hyclate 100 mg capsule 100 mg PO BID 10 Days Qty: 20 0RF Continued Advair HFA 115-21 mcg/actuation HFA aerosol inhaler 2 puff inhalation BID Qty: 12 12RF Rx Instructions: Wash mouth after use nitroglycerin 0.4 MG tablet, sublingual 0.4 mg Sublingual ONCE PRN Label Comments: has never used it at home cholecalciferol (vitamin D3) 1,000 UNIT tablet 1,000 unit PO DAILY Breztri Aerosphere 160-9-4.8 mcg/actuation HFA aerosol inhaler 2 inh inhalation BID Qty: 10.7 12RF aspirin [Aspir-81] 81 MG tablet,delayed release (DR/EC) 81 mg PO DAILY multivitamin 1 EACH capsule 1 ea PO DAILY sertraline 50 MG tablet 100 mg PO DAILY atorvastatin [Lipitor] 40 MG tablet 40 mg PO DAILY ascorbic acid (vitamin C) [Vitamin C] 1,000 MG tablet 500 mg PO DAILY albuterol sulfate [Proventil HFA] 6.7 GM HFA aerosol inhaler 2 inh PO Q4H PRN PRN melatonin 10 MG tablet 6 mg PO HS PRN acetaminophen [Tylenol Extra Strength] 500 mg Tablet 1,000 mg PO .Q6 HRS PRN tamsulosin 0.4 mg Capsule 0.4 mg PO DAILY pantoprazole 40 mg tablet,delayed release (DR/EC) 40 mg PO DAILY insulin glargine [Lantus Solostar U-100 Insulin] 100 unit/mL (3 mL) insulin pen 24 - 26 unit SUBCUT HS oxycodone 5 mg Tablet 20 mg PO QHS PRN (Reason: pain) cyclobenzaprine 10 mg tablet 10 mg PO TID PRNQty: 20 0RF cyanocobalamin (vitamin B-12) [Vitamin B-12] 1,000 mcg Tablet 1,000 mcg PO DAILY lutein 20 mg Capsule 20 mg PO DAILY loratadine 10 mg capsule 10 mg PO DAILY Qty: 20 0RF sennosides [senna] 8.6 mg Tablet 8.6 mg PO DAILY trazodone 50 mg tablet 25 mg PO HS Label Comments: TAKE ONE-HALF TABLET BY MOUTH EVERY EVENING midodrine 2.5 mg tablet 2.5 mg PO TID Label Comments: TAKE ONE TABLET BY MOUTH THREE TIMES A DAY BEFORE MEALS insulin lispro [Humalog KwikPen Insulin] 100 unit/mL Insulin Pen 1 sliding scale dose SUBCUT USEASDIRECTD Eliquis 2.5 mg tablet 2.5 mg PO BID Label Comments: TAKE ONE TABLET BY MOUTH TWICE A DAY metoprolol tartrate [Lopressor] 50 mg tablet 25 mg PO BID Qty: 30 1RF diphenhydramine HCl [Banophen] 25 mg capsule 25 mg PO Q6H Label Comments: TAKE ONE CAPSULE BY MOUTH EVERY 6 HOURS Victoza 2-Edy 0.6 mg/0.1 mL (18 mg/3 mL) pen injector 0.6 mg SUBCUT DAILY Label Comments: INJECT 0.6MG UNDER THE SKIN ONCE DAILY Spiriva Respimat 2.5 mcg/actuation mist 2 spray INHALATION PRN PRN Label Comments: Inhale 2 puff as directed once a day prednisone 20 mg tablet 50 mg PO DAILY Discharge Instructions Instructions: Pneumonia (ED), Chest Wall Pain (ED) Additional Instructions: Doxycycline as directed. Please leave the ER and go directly to your dialysis appointment. Watch for new or worsening symptoms and return to the ER for any concerns. Lastly, please contact your primary care provider later today or first thing Friday to discuss your ongoing discomfort and need for outpatient reevaluation. Medical Decision Making This is a 76 year old male with past medical history of SVT and Afib, on anticoagulation with eliquis, ESRD on HD MWF, as well as h/o CAD s/p two cardiac caths and stents, pulmonary hypertension, IDDM2, O2-dependent COPD, bronchiectasis s/p lobectomies x 2, and renal cell ca s/p 3 partial nephrectomies presenting to the ER today reporting left sided chest wall pain status post a fall 3 days ago. Reports that he was seen at that time, had a head and neck CT as well as a chest x-ray but continues to have pain and concern for a rib fracture. Patient does have a chronic rash and was also provided a prescription of prednisone as well as a muscle relaxer for his discomfort. Patient states that he has dialysis scheduled today at 10 AM. Patient denies additional fall since his ER visit 3 days ago. He denies any other chest pain, shortness of breath, cough, abdominal pain, nausea, vomiting. Does report chronic back pain. Clinically he appears well, nontoxic, hemodynamically stable. He does have reproducible left chest wall discomfort. Upon reviewing his record from his recent visit he had a chest x-ray and a recent outpatient chest, abdomen, pelvis CT but no CT on 01-15-2021. At this time I see little indication to repeat laboratory values but I do believe obtaining CT imaging of his chest, abdomen, pelvis without contrast secondary to his recent trauma is reasonable. We also contacted the dialysis center who stated that he has 4 hours dialysis appointment today and they would prefer if we can get him to their center before noon so they can complete the dialysis today before the weekend. Of note, patient does have a scant rash, reports he has had this intermittently over the past year, is currently on steroids, missed his recent dermatology appointment but does have an outpatient appointment scheduled. Patient reports that he typically only takes his pain medication at night, we did discuss the importance of potentially taking it during the day for the short-term while he is having increased discomfort. Patient states that he would like to go to his dialysis appointments and is requesting discharge. I explained to him that I have contacted the dialysis center and he just needs to get there before noon today, his CT is still pending. He is resting comfortably and appears well. CT reveals chronic post thoracotomy findings on the right, new appearing infiltrate on the left lower lobe. No rib fracture. Incidental right sided aortic arch. Mild dilatation of the left kidney collecting system, correlate with history of recently passed calculi. Of concern there is presence of small amount of free fluid in the pelvis, recommend follow-up. Patient appears well, nontoxic, afebrile, O2 sat 95%. Clinically no obvious signs of pneumonia but given CT findings will initiate doxycycline therapy. No additional left flank pain, evaluation not consistent with recently passed stone. Case was then discussed with our surgeon on-call, Dr. Lebron. He was able to review the CT and did not feel as though there is any further treatment required at this time. Believe the patient can be safely discharged from the ER. I did discuss the importance of outpatient follow-up through his PCP with both the patient and his daughter. Patient was able to eat a turkey sandwich and have his p.o. doxycycline without difficulty. Strict discharge and return precautions were provided. Patient understands, is agreeable to this plan, and has no additional questions or concerns upon discharge. This documentation was generated using [employer] dictation system, please disregard any oddities of phrase or misspellings. Medical Records Medical records reviewed: Yes I reviewed the patient's medical records. Imaging Data Radiologic Study: Attestation: I personally reviewed and interpreted this imaging study as follows: Imaging: CT Scan Radiologist's impression: Exam(s) CT CHEST/ABD/PEL WO EXAM: CT CHEST/ABD/PEL WO CLINICAL HISTORY: L lower rib/upper abd pain/fall. TECHNIQUE: Imaging Protocol: Axial computed tomography images with coronal and sagittal reformatted images were created and reviewed CONTRAST MATERIAL: Intravenous: none Oral: None COMPARISON: CT ABD PELVIS WO CONTRAST from 02/16/[address] ABDOMEN PELVIS WO from 12/18/2021 FINDINGS: CHEST: LUNGS: There is decreased right hemithoracic volume again noted in this patient who has had prior right thoracotomy.. Again noted is a previously described right lower lobe infiltrate measuring approximately 4 by 2.5 cm, unchanged and also exhibiting minimal change from CT scans performed February 2017 and 2017. Therefore most likely benign. No new pleural effusions evident. In the opposite-left lung there is some mild infiltrate in the left lower lobe, more so than previous. No associated pleural effusion. Calcified granuloma in the left lower lobe again noted. MEDIASTINUM: No mediastinal hematoma. No sternal fractures. No obvious hilar nor mediastinal adenopathy. Visualized thyroid unremarkable. CARDIAC: Heart size is normal. Right sided aortic arch is noted.Caliber of the thoracic aorta is within normal limits. OSSEOUS: No acute fractures evident. No osseous lesions.. ABDOMEN: No obvious mesenteric nor bowel wall hematoma. LIVER: There are no obvious focal hepatic lesions evident of this noninfused study. No a patent laceration. No perihepatic fluid. GALLBLADDER/BILIARY: No obvious gallbladder pathology. CBD is not dilated. PANCREAS: No evidence of obvious pancreatic mass nor dilatation of the pancreatic duct. SPLEEN: Spleen size normal. No splenic laceration. Multiple calcified granulomas in the spleen again noted. ADRENALS: There are no significant adrenal masses. KIDNEYS: No evidence of significant renal trauma. No renal lacerations. No subcapsular hematomas. There is mild dilatation left collecting system including minimal dilatation left ureter. No radiopaque calculus evident.. There is perinephric streaking around the kidneys but this is unchanged. No dilatation of the right kidney collecting system. ABDOMINAL AORTA: Calcified but not enlarged. Both common iliac arteries are also calcified but not enlarged. LYMPH NODES: There is no retroperitoneal nor para-aortic adenopathy. ABDOMINAL WALL/GI: No evidence of significant anterior abdominal wall nor inguinal hernia. No evidence of bowel obstruction. PELVIS: There is mild amount of free fluid in the pelvis. LYMPH NODES: There is no intrapelvic nor inguinal adenopathy. GI: No evidence of appendicitis.No evidence of sigmoid diverticulitis. URINARY BLADDER: Mildly contracted. No radiopaque calculi nor obvious mass therein. REPRODUCTIVE: Prostate size normal. Contains some calcifications. Seminal vesicles unremarkable. No obturator adenopathy nor adenopathy elsewhere in the pelvis. The previously described finding anterior to the rectum and post of the urinary bladder is again noted, unchanged. OSSEOUS: No significant osseous lesions. No fractures evident. IMPRESSION: 1. Chronic post thoracotomy findings on the right side including prominent infiltrate in the right lung base which is unchanged from at least 2017 and therefore benign. However, there is some new appearing infiltrate in the left lower lobe. No pleural effusions. No pneumothorax (apparent trauma history). No obvious rib fractures. 2. 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 3. Compared to 12/18/2021 there is mild dilatation of the left kidney collecting system as well as mild dilatation of the left ureter down to the level of the bladder. There is no radiopaque calculus at the UVJ nor in the urinary bladder. Correlation with any history of recently passed urinary tract calculi recommended. However, recent CT scan of 12/18/2021 did not reveal radiopaque calculus within the left kidney. Scarring in the inferior pole left kidney is again noted. 4. Of concern here is the presence of a small amount of free fluid in the pelvis, not previously present. This is never a normal finding in a male patient. This may or may not be related to the left renal tract findings. There is, however, no obvious bowel wall nor mesenteric hematoma. Nevertheless, follow-up recommended. HPI General Mode of arrival: EMS. Date/Time Provider Initiated Documentation: 01/18/22 09:19. Limitations to Documentation: no limitations. Information obtained by: patient and EMS. History of Present Illness 76 year old M presents to the emergency department with the chief complaint of L abd/rib pain, described as moderate, with intensity rated at 7. Quality is described as aching, and is localized to the chest, abdomen and left. Patient reports no radiation. Patient started experiencing this day(s) (3) and it has been constant. No relieving factors improve symptom(s), Movement worsens symptoms . Patient notes chest pain (L rib) and other (rash, chronic). Patient did receive the following treatments prior to arrival, none Related Data Home Medications Medication Instructions Recorded Confirmed aspirin 81 mg tablet,delayed 81 mg PO DAILY 09/25/12 01/18/22 release (Aspir-) multivitamin 1 ea PO DAILY 09/25/12 01/18/22 sertraline 50 mg tablet 100 mg PO DAILY 09/25/12 01/18/22 cholecalciferol (vitamin D3) 25 1,000 unit PO DAILY 09/21/15 01/18/22 mcg (1,000 unit) tablet nitroglycerin 0.4 mg sublingual 0.4 mg sublingual ONCE PRN 09/21/15 01/18/22 tablet albuterol sulfate 90 mcg/actuation 2 inh PO Q4H PRN PRN 02/16/17 01/18/22 aerosol inhaler (Proventil HFA) ascorbic acid (vitamin C) 1,000 mg 500 mg PO DAILY 02/16/17 01/18/22 tablet (Vitamin C) atorvastatin 40 mg tablet (Lipitor) 40 mg PO DAILY 02/16/17 01/18/22 melatonin 10 mg tablet 6 mg PO HS PRN 02/16/17 01/15/22 cyanocobalamin (vitamin B-12) 1,000 mcg PO DAILY 09/22/19 01/18/22 1,000 mcg tablet (Vitamin B-12) acetaminophen 500 mg tablet 1,000 mg PO .Q6 HRS PRN 04/24/20 01/18/22 (Tylenol Extra Strength) insulin glargine 100 unit/mL (3 24 - 26 unit subcut HS 04/24/20 01/18/22 mL) subcutaneous pen (Lantus Solostar U-100 Insulin) pantoprazole 40 mg tablet,delayed 40 mg PO DAILY 04/24/20 01/18/22 release tamsulosin 0.4 mg capsule 0.4 mg PO DAILY 04/24/20 01/18/22 lutein 20 mg capsule 20 mg PO DAILY 09/10/20 01/18/22 loratadine 10 mg capsule 10 mg PO DAILY #20 caps 03/09/21 01/18/22 apixaban 2.5 mg tablet (Eliquis) 2.5 mg PO BID 06/05/21 01/18/22 insulin lispro 100 unit/mL 1 sliding scale dose subcut 06/05/21 01/18/22 subcutaneous pen (Humalog KwikPen USEASDIRECTD (U-100) Insulin) midodrine 2.5 mg tablet 2.5 mg PO TID 06/05/21 01/18/22 sennosides 8.6 mg tablet (senna) 8.6 mg PO DAILY 06/05/21 01/18/22 trazodone 50 mg tablet 25 mg PO HS 06/05/21 01/18/22 metoprolol tartrate 50 mg tablet 25 mg PO BID #30 tabs 06/06/21 01/18/22 (Lopressor) fluticasone propionate 115 2 puff inhalation BID #12 grams 11/20/21 01/18/22 mcg-salmeterol 21 mcg/actuation HFA inhaler (Advair HFA) budesonide 160 mcg-glycopyr 9 2 inh inhalation BID #10.7 grams 11/26/21 01/15/22 mcg-formot 4.8 mcg/actuation HFA inhaler (Breztri Aerosphere) cyclobenzaprine 10 mg tablet 10 mg PO TID PRN #20 tabs 01/15/22 oxycodone 5 mg tablet 20 mg PO QHS PRN pain 01/15/22 01/18/22 diphenhydramine HCl 25 mg capsule 25 mg PO Q6H 01/18/22 01/18/22 (Banophen) doxycycline hyclate 100 mg capsule 100 mg PO BID 10 days #20 caps 01/18/22 liraglutide 0.6 mg/0.1 mL (18 mg/3 0.6 mg subcut DAILY 01/18/22 01/18/22 mL) subcutaneous pen injector (Victoza 2-Edy) prednisone 20 mg tablet 50 mg PO DAILY 01/18/22 tiotropium bromide 2.5 2 spray inhalation PRN PRN 01/18/22 01/18/22 mcg/actuation mist for inhalation (Spiriva Respimat) Previous Rx's Medication Instructions Recorded loratadine 10 mg capsule 10 mg PO DAILY #20 caps 03/09/21 metoprolol tartrate 50 mg tablet 25 mg PO BID #30 tabs 06/06/21 (Lopressor) fluticasone propionate 115 2 puff inhalation BID #12 grams 11/20/21 mcg-salmeterol 21 mcg/actuation HFA inhaler (Advair HFA) budesonide 160 mcg-glycopyr 9 2 inh inhalation BID #10.7 grams 11/26/21 mcg-formot 4.8 mcg/actuation HFA inhaler (Breztri Aerosphere) cyclobenzaprine 10 mg tablet 10 mg PO TID PRN #20 tabs 01/15/22 doxycycline hyclate 100 mg capsule 100 mg PO BID 10 days #20 caps 01/18/22 Allergies Allergy/AdvReac Type Severity Reaction Status Date / Time pneumococcal vaccine Allergy Severe Swelling/Ed Verified 01/18/22 09:57 nandini sulfamethoxazole Allergy difficulty Verified 01/18/22 09:57 [From Bactrim] breathing trimethoprim [From Bactrim] Allergy difficulty Verified 01/18/22 09:57 breathing General Stated Complaint: Chest/Rib MESERET: 3 Review of Systems Constitutional Constitutional: Denies fever(s), Denies headache(s) and Denies weakness Eyes Eyes: Denies change in vision ENT Ears, Nose, Mouth, and Throat: Denies headache(s) Cardiovascular Cardiovascular: Reports chest pain (L lower rib) and Denies dyspnea Respiratory Respiratory: Denies cough and Denies dyspnea Gastrointestinal Gastrointestinal: Reports abdominal pain (LUQ), Denies nausea and Denies vomiting Musculoskeletal Musculoskeletal: Reports back pain (chronic) Integumentary/Breasts Skin/Breast: Reports rash Neurologic Neurologic: Denies headache(s) and Denies weakness Hematologic/Lymphatic Hematologic/Lymphatic: Denies easy bleeding and Reports easy bruising PFSH All Active Problems (Updated 01/18/22 @ 11:40 by ALIZA Wells) Syncope (Chronic) Pruritic rash (Acute) Orthostatic hypotension (Acute) Chest wall pain (Acute) Pneumonia (Acute) Pulmonary scarring (Acute) Chronic respiratory failure with hypoxia (Acute) 2L of O2 by NC COPD (chronic obstructive pulmonary disease) (Chronic) Bronchiectasis (Acute) 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) Basal cell carcinoma of multiple sites (Acute) Leucocytosis (Chronic) Palpitations (Acute) Exertional shortness of breath (Chronic) Neoplasm of unspecified nature of bone, soft tissue, and skin (Acute 06/19/15) Medical History Actinic keratosis (05/01/16) Anemia Basal cell carcinoma of skin (03/11/16) Bilateral cataracts Coronary Artery Disease Depression Diabetes mellitus Diabetic foot ulcer Diabetic ulcer of left foot ESRD on hemodialysis GERD (gastroesophageal reflux disease) Hoarseness Hyperkalemia Moderate pulmonary hypertension Orthostatic hypotension Paroxysmal atrial fibrillation with rapid ventricular response Perihepatic abscess RBBB (right bundle branch block) Renal cell carcinoma of left kidney (05/30/17) Shortness of breath Supraventricular tachycardia Toe infection Tubular adenoma of colon (12/18/16) Surgical History Colonoscopy - MAC (12/18/16) 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 12.02.13HE Hx of cardiac cath x2, per patient Lobectomy Pt states 2 lobes removed from R. lung. No date given. 12.02.HE Osteotomy Partial & Debridment of first metatarsal on Left foot. S/P hemodialysis catheter insertion Family History Mother Heart disease Diabetes Sister Stroke Diabetes Sister Diabetes Cancer laryngeal cancer Sister Diabetes Social History Smoking/Tobacco Use Status: Former Tobacco Use tobacco type: cigarettes Quit Date: 05/05/14 Pack-years: 100 Tobacco: How many years used: 50 Counseling given: provider counseling Smoking risk assessment performed?: Yes Alcohol Intake: never Drug use: Never Substance use type: does not use Household members: spouse Current gender identity: male What type of physical activity do you participate in: none and independent ambulation Do you feel safe at home: Yes Do you feel safe in your relationship?: Yes Exam Const General: cooperative, comfortable and no acute distress Orientation: alert, awake and oriented x3 [facility] Head: normal to inspection, normocephalic and atraumatic Mouth: moist mucous membranes Eyes General: appearance normal, both eyes and all related structures Conjunctivae: conjunctivae normal Neck Neck: normal visual inspection, full ROM, trachea midline, supple and nontender Chest Other: Dialysis port right upper chest Chest/axillae images: 1. Diffuse discomfort, skin intact. No crepitus, erythema or ecchymosis. Resp Effort & Inspection: normal respiratory effort and able to speak in complete sentences Auscultation: diminished lung sounds bilaterally in the lower lung segal Cardio Rate: regular rate Rhythm: regular rhythm GI Palpation: soft, not firm, no guarding, no pulsatile masses and nontender Back/Spine/Pelvis Back: no CVA tenderness and back tenderness (Diffuse mild lumbar) Skin Other: Scant blanchable erythematous urticarial-like rash to left upper extremity and anterior chest. Neuro General: patient alert, patient awake, patient oriented x3, moves all extremities and no focal motor deficits Cognition: normal cognition Speech: speech normal Motor: muscle tone normal throughout Sensory Exam: no sensory deficits noted Extrem General: normal to inspection, full ROM, capillary refill normal and no pedal edema Psych Appearance: grossly normal Mental Status: mental status grossly normal Course Vital Signs Vital signs: Vital Signs Temperature 36.6 C 01/18/22 09:19 Pulse 95 H 01/18/22 09:19 Respiratory Rate 18 01/18/22 09:19 Blood Pressure 123/65 01/18/22 09:19 Pulse Oximetry 95 01/18/22 09:19 Temperature 36.6 C 01/18/22 09:19 Temperature Source Temporal Artery Scan 01/18/22 09:19 Pulse 95 H 01/18/22 09:19 Respiratory Rate 18 01/18/22 09:19 Blood Pressure 123/65 01/18/22 09:19 Pulse Oximetry 95 01/18/22 09:19
--- NOTE | 2022-01-18 09:30 | DI.CT_ITS ---
Exam(s) CT CHEST/ABD/PEL WO EXAM: CT CHEST/ABD/PEL WO CLINICAL HISTORY: L lower rib/upper abd pain/fall. TECHNIQUE: Imaging Protocol: Axial computed tomography images with coronal and sagittal reformatted images were created and reviewed CONTRAST MATERIAL: Intravenous: none Oral: None COMPARISON: CT ABD PELVIS WO CONTRAST from 02/16/[address] ABDOMEN PELVIS WO from 12/18/2021 FINDINGS: CHEST: LUNGS: There is decreased right hemithoracic volume again noted in this patient who has had prior rig ht thoracotomy.. Again noted is a previously described right lower lobe infiltrate measuring approxi mately 4 by 2.5 cm, unchanged and also exhibiting minimal change from CT scans performed February 2017 and 2017. Therefore most likely benign. No new pleural effusions evident. In the opposite-left lung there is some mild infiltrate in the left lower lobe, more so than previous . No associated pleural effusion. Calcified granuloma in the left lower lobe again noted. MEDIASTINUM: No mediastinal hematoma. No sternal fractures. No obvious hilar nor mediastinal adenop athy. Visualized thyroid unremarkable. CARDIAC: Heart size is normal. Right sided aortic arch is noted.Caliber of the thoracic aorta is wit hin normal limits. OSSEOUS: No acute fractures evident. No osseous lesions.. ABDOMEN: No obvious mesenteric nor bowel wall hematoma. LIVER: There are no obvious focal hepatic lesions evident of this noninfused study. No a patent lace ration. No perihepatic fluid. GALLBLADDER/BILIARY: No obvious gallbladder pathology. CBD is not dilated. PANCREAS: No evidence of obvious pancreatic mass nor dilatation of the pancreatic duct. SPLEEN: Spleen size normal. No splenic laceration. Multiple calcified granulomas in the spleen agai n noted. ADRENALS: There are no significant adrenal masses. KIDNEYS: No evidence of significant renal trauma. No renal lacerations. No subcapsular hematomas. There is mild dilatation left collecting system including minimal dilatation left ureter. No radiopa que calculus evident.. There is perinephric streaking around the kidneys but this is unchanged. No dilatation of the right kidney collecting system. ABDOMINAL AORTA: Calcified but not enlarged. Both common iliac arteries are also calcified but not e nlarged. LYMPH NODES: There is no retroperitoneal nor para-aortic adenopathy. ABDOMINAL WALL/GI: No evidence of significant anterior abdominal wall nor inguinal hernia. No evidence of bowel obstruction. PELVIS: There is mild amount of free fluid in the pelvis. LYMPH NODES: There is no intrapelvic nor inguinal adenopathy. GI: No evidence of appendicitis.No evidence of sigmoid diverticulitis. URINARY BLADDER: Mildly contracted. No radiopaque calculi nor obvious mass therein. REPRODUCTIVE: Prostate size normal. Contains some calcifications. Seminal vesicles unremarkable. N o obturator adenopathy nor adenopathy elsewhere in the pelvis. The previously described finding ante rior to the rectum and post of the urinary bladder is again noted, unchanged. OSSEOUS: No significant osseous lesions. No fractures evident. IMPRESSION: 1. Chronic post thoracotomy findings on the right side including prominent infiltrate in the right cody ng base which is unchanged from at least 2017 and therefore benign. However, there is some new appea ring infiltrate in the left lower lobe. No pleural effusions. No pneumothorax (apparent trauma hist ory). No obvious rib fractures. 2. 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 3. Compared to 12/18/2021 there is mild dilatation of the left kidney collecting system as well as mi ld dilatation of the left ureter down to the level of the bladder. There is no radiopaque calculus a t the UVJ nor in the urinary bladder. Correlation with any history of recently passed urinary tract calculi recommended. However, recent CT scan of 12/18/2021 did not reveal radiopaque calculus within the left kidney. Scarring in the inferior pole left kidney is again noted. 4. Of concern here is the presence of a small amount of free fluid in the pelvis, not previously pre sent. This is never a normal finding in a male patient. This may or may not be related to the left renal tract findings. There is, however, no obvious bowel wall nor mesenteric hematoma. Nevertheles s, follow-up recommended. RADIATION DOSE DELIVERED: 1,540.99mGy.cm Total DLP DATA REPOSITORY: All CT scans at this facility are submitted to the National Radiology Data Registry (NRDR) Dose Index Registry (DIR) with the [employer] ([employer]). RADIATION OPTIMIZATION: All CT scans at this facility use at least one of these dose optimization te chniques: automated exposure control; mA and/or kV adjustment per patient size (includes targeted exa ms where dose is matched to clinical indication); or iterative reconstruction.
[2022-01-18] MEDS: Doxycycline Hyclate 100 MG CAP PO (11:45)
[2022-01-18 11:50] VITALS: BP 106/66; PULSE 98; RESP 20; TEMP 36.6; O2SAT 90
== END 2022-01-18 11:48 | disposition home or self-care (01) ==
PROVIDERS: Emergency Provider Physician Assistant; PCP Family Medicine
DX: J18.9 Pneumonia, unspecified organism (principal); G89.11 Acute pain due to trauma; R07.89 Other chest pain; I12.0 Hypertensive chronic kidney disease with stage 5 chronic kidney disease or end stage renal disease; E11.22 Type 2 diabetes mellitus with diabetic chronic kidney disease; N18.6 End stage renal disease; J44.9 Chronic obstructive pulmonary disease, unspecified; I48.91 Unspecified atrial fibrillation; I25.10 Atherosclerotic heart disease of native coronary artery without angina pectoris; Z79.01 Long term (current) use of anticoagulants; Z99.2 Dependence on renal dialysis; Z95.5 Presence of coronary angioplasty implant and graft; Z79.4 Long term (current) use of insulin; Z79.82 Long term (current) use of aspirin; Z79.51 Long term (current) use of inhaled steroids; Z87.891 Personal history of nicotine dependence; W19.XXXA Unspecified fall, initial encounter
CPT/HCPCS: 71250; 99284; 74176

== ENCOUNTER 2022-01-21 10:59 | Emergency (ER) | payer MEDICARE, SELFPAY ==
[2022-01-21] VITALS (31 sets, daily range): BP systolic 116–156; BP diastolic 47–80; PULSE 78–93; RESP 10–25; TEMP 36.6–36.9; O2SAT 91–98
--- NOTE | 2022-01-21 11:16 | ED.GENADUL_ITS ---
Discharge Plan Disposition Patient Disposition: STILL A PATIENT Condition: Stable Discharge Details Clinical Impression: Pneumonia, Weakness Primary Care Provider: Zakiya Reyna ED Provider: Mark Rosa Home Meds and New Rx's Prescriptions: No Action Advair HFA 115-21 mcg/actuation HFA aerosol inhaler 2 puff inhalation BID Qty: 12 12RF Rx Instructions: Wash mouth after use nitroglycerin 0.4 MG tablet, sublingual 0.4 mg Sublingual ONCE PRN Label Comments: has never used it at home cholecalciferol (vitamin D3) 1,000 UNIT tablet 1,000 unit PO DAILY Breztri Aerosphere 160-9-4.8 mcg/actuation HFA aerosol inhaler 2 inh inhalation BID Qty: 10.7 12RF aspirin [Aspir-81] 81 MG tablet,delayed release (DR/EC) 81 mg PO DAILY multivitamin 1 EACH capsule 1 ea PO DAILY sertraline 50 MG tablet 100 mg PO DAILY atorvastatin [Lipitor] 40 MG tablet 40 mg PO DAILY ascorbic acid (vitamin C) [Vitamin C] 1,000 MG tablet 500 mg PO DAILY albuterol sulfate [Proventil HFA] 6.7 GM HFA aerosol inhaler 2 inh PO Q4H PRN PRN melatonin 10 MG tablet 6 mg PO HS PRN acetaminophen [Tylenol Extra Strength] 500 mg Tablet 1,000 mg PO .Q6 HRS PRN tamsulosin 0.4 mg Capsule 0.4 mg PO DAILY pantoprazole 40 mg tablet,delayed release (DR/EC) 40 mg PO DAILY insulin glargine [Lantus Solostar U-100 Insulin] 100 unit/mL (3 mL) insulin pen 24 - 26 unit SUBCUT HS oxycodone 5 mg Tablet 20 mg PO QHS PRN (Reason: pain) cyclobenzaprine 10 mg tablet 10 mg PO TID PRNQty: 20 0RF cyanocobalamin (vitamin B-12) [Vitamin B-12] 1,000 mcg Tablet 1,000 mcg PO DAILY lutein 20 mg Capsule 20 mg PO DAILY loratadine 10 mg capsule 10 mg PO DAILY Qty: 20 0RF sennosides [senna] 8.6 mg Tablet 8.6 mg PO DAILY trazodone 50 mg tablet 25 mg PO HS Label Comments: TAKE ONE-HALF TABLET BY MOUTH EVERY EVENING midodrine 2.5 mg tablet 2.5 mg PO TID Label Comments: TAKE ONE TABLET BY MOUTH THREE TIMES A DAY BEFORE MEALS insulin lispro [Humalog KwikPen Insulin] 100 unit/mL Insulin Pen 1 sliding scale dose SUBCUT USEASDIRECTD Eliquis 2.5 mg tablet 2.5 mg PO BID Label Comments: TAKE ONE TABLET BY MOUTH TWICE A DAY metoprolol tartrate [Lopressor] 50 mg tablet 25 mg PO BID Qty: 30 1RF diphenhydramine HCl [Banophen] 25 mg capsule 25 mg PO Q6H Label Comments: TAKE ONE CAPSULE BY MOUTH EVERY 6 HOURS Victoza 2-Edy 0.6 mg/0.1 mL (18 mg/3 mL) pen injector 0.6 mg SUBCUT DAILY Label Comments: INJECT 0.6MG UNDER THE SKIN ONCE DAILY Spiriva Respimat 2.5 mcg/actuation mist 2 spray INHALATION PRN PRN Label Comments: Inhale 2 puff as directed once a day prednisone 20 mg tablet 50 mg PO DAILY Discharge Data Discharge Date/Time-TO BE ENTERED AT DEPARTURE: 01/21/22 19:14 Medical Decision Making <ALIZA Harris - Last Filed: 01/21/22 16:27> Patient is a pleasant 76 year old male, brought in via EMS, with c/c of weakness and confusion. PMH recent pneumonia, chronic respiratory failure with hypoxia, typically on 4L NC at home, COPD, basal cells, renal cell carcinoma, CAD, depression, DM chronic renal failure on Friday hemodialysis, GERD, pulmonary hypertension, paroxysmal atrial fibrillation with RVR, right bundle branch block, SVT. Patient was seen here on 01/15/2022 after fall. Patient has been generally fatigued and feeling malaise at that time and had a syncopal episode. Orthostasis was suspected based on vital signs. Work-up did not show any other emergent pathology. Patient was seen here again 3 days later on 01/18/2022 and diagnosed with pneumonia. He was treated with doxycycline but does not sound, based on patient's description, that he took the entire course. Both of the patient's recent visits to emergency department ultimately ended in him going home as he is a dialysis patient, has been eager to keep his appointment is also take care of his who is wheelchair-bound.. On exam, patient appears chronically unwell. His vital signs are stable. He is on 4 L nasal cannula which replaces his baseline. Initially O2 is 93% but it was 98 when I was in the room with the patient. He states that his ambulation has greatly diminished and he is only able to tolerate short distances and this sounds to be persistent since prior to his fall with no acute change in this. This is due to 50 today that he was unable to go to dialysis, was supposed to h ave hemodialysis at 11 today. He has some crackles in the left lower lobe, lungs otherwise clear. No lower extremity edema. Abdomen is quite tender, maximal in the left upper and mid region. He does report that he has a history of constipation Concern at this time for worsening pneumonia based on the crackles in the left lower lobe. Patient not hypoxic, on his baseline amount of oxygen. Do not hear any wheezing to suggest COPD exacerbation. Consider potential pancreatitis given the left upper quadrant discomfort versus other abdominal etiology. He has had 2 CT imaging in the past month. However, there has been some concerns for some fluid in the pelvis as well as question of a mass in his pelvis between the rectum and bladder. With his history of renal carcinoma, considered recu rrent cancer. Also consider potential COVID-19, dehydration, electrolyte abnormality. Particular given patient's history, concern for potential hyperkalemia. Also considered ACS given comorbidities and weakness. ECG obtained and reviewed by Dr. Hanson, no acute ischemic changes noted. FINDINGS: CHEST: Tracheobronchial tree: Patent where visualized. Mediastinum and Olive: No dominant adenopathy or fluid collection. Pulmonary parenchyma: Right-sided volume loss and scarring, greatest in the right lower lobe.? Left lower lobe patchy infiltrates, not significantly changed.? Mild lingular densities, unchanged. Pleura: No effusion or pneumothorax. Lymph nodes: Within normal limits. Aorta: Thoracic portion non-dilated.? Right-sided aortic arch.? Heart: Within normal limits in size.? Coronary artery calcifications.? Bones: Unremarkable for age.? No lytic or blastic lesions. Central venous catheter. ABDOMEN: Liver: Normal density. No measurable mass. Gallbladder and biliary tract: No radiodense calculus or dilation. Pancreas: Normal atrophic., no abnormal calcifications or inflammatory process. Spleen: Calcifications. Kidneys: Scarring lower pole left kidney.? Left hydronephrosis, [id number] which may be slightly worse when compared with the previous exam.? There are multiple small nodular densities seen adjacent to the proximal left ureter, likely causing hydronephrosis.? Other small nodular densities are seen along the inferior aspect of Gerota's fascia.? Mild scarring right kidney.? No change perinephric stranding, likely chronic finding..? Adrenal glands: No masses seen. Aorta: Abdominal portion non-dilated. Aorta and iliac arteries are heavily calcified. Lymph nodes: Within normal limits. Soft tissues: Unremarkable. PELVIS:? Bladder: Mild bladder wall thickening and trabeculation.? There is again noted to be in a nodular density seen between the bladder and rectum.? Along with the findings of nodularity at the lower border of the low of the ureter and nodules and Gerota's fascia, the findings are? highly suspicious for metastatic disease. Bowel: No obstruction or bowel wall thickening. Peritoneal cavity: Trace ascites in low pelvis and border of liver., no focal collection or mesenteric inflammatory response. Bones: Unremarkable for age..? Reproductive organs: Within normal limits. IMPRESSION: Chest: Stable appearance of right-sided scarring and volume loss. Stable appearance of left lower lobe infiltrate. Abdomen pelvis: Slight increase in degree of left hydronephrosis, [id number]. Nodular densities are noted at the proximal left ureter likely causing partial obstruction. Other small nodular densities are seen along the perinephric fascia. A nodule is again noted in the low pelvis, between the bladder and rectum, consistent with a metastatic nodule. Labs reviewed. Leukocytosis of 15 but downtrending from 20. He chronically has elevated WBC but this is above his typical. Creatinine elevated at 5.9, K is WNL. Mag slightluy low at 1.6. Lipase WNL, troponin WNL. UA with hematuria, ketones. Reflexed to culture. Discussed with patient. He sttes that he has had his partial nephrectomies at 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 He is concerned about his weakness, feels is is unable to go home as this is progressive and weight worsening and he is not able to perform simple activities at home and certainly not able to care for his at this time. As patient mediacl home is at [facility] and we are unable to provide hemodialysis with the patient needs, will request transfer to [facility] for continued care. Further discussion revealed the patient only had 3 days of doxycycline as he did not feel well on this. However, does not think that she had an allergic reaction, more so that he just overall felt unwell and was not improving. We will give the patient IV Rocephin and Doxy now for his pneumonia and possible UTI. I have asked her care management team to come and speak with the patient regarding continued care of his . DH unable to accept d/t bed capacity. Have requrested transfer to [facility]. COVID negative. Supriya Hanson MD: I have discussed patient presentation results with Dr. Juan, [facility] hospitalist, who accepts patient for transfer.? Per transfer center there are no beds available at this time but patient is listed for transfer with plan for transfer tomorrow.? 01/21/22 4:20 pm EDT - Supriya Hanson [facility] is able to accept the patient, by Dr. Georges, but they do not have a bed today. Plan to accept tomorrow. Consulted with our hospitalist regarding admission today, they are concerned taht we do not have dialysis and there may be change in bed availability tomorro w so would prefer transfer elsewhere. I discussed long distant tranfer with [facility] patient. While not ideal with his social situation, is agreeable to this. At the end of my shift, care transitioned to Mark Rosa with disposition pending. <Supriya Hanson MD - Last Filed: 02/04/22 09:53> Patient is a pleasant 76 year old male, brought in via EMS, with c/c of weakness and confusion. PMH recent pneumonia, chronic respiratory failure with hypoxia, typically on 4L NC at home, COPD, basal cells, renal cell carcinoma, CAD, depression, DM chronic renal failure on Friday hemodialysis, GERD, pulmonary hypertension, paroxysmal atrial fibrillation with RVR, right bundle branch block, SVT. Patient was seen here on 01/15/2022 after fall. Patient has been generally fatigued and feeling malaise at that time and had a syncopal episode. Orthostasis was suspected based on vital signs. Work-up did not show any other emergent pathology. Patient was seen here again 3 days later on 01/18/2022 and diagnosed with pneumonia. He was treated with doxycycline but does not sound, based on patient's description, that he took the entire course. Both of the patient's recent visits to emergency department ultimately ended in him going home as he is a dialysis patient, has been eager to keep his appointment is also take care of his who is wheelchair-bound.. On exam, patient appears chronically unwell. His vital signs are stable. He is on 4 L nasal cannula which replaces his baseline. Initially O2 is 93% but it was 98 when I was in the room with the patient. He states that his ambulation has greatly diminished and he is only able to tolerate short distances and this sounds to be persistent since prior to his fall with no acute change in this. This is due to 50 today that he was unable to go to dialysis, was supposed to have hemodialysis at 11 today. He has some crackles in the left lower lobe, lungs otherwise clear. No lower extremity edema. Abdomen is quite tender, maximal in the left upper and mid region. He does report that he has a history of constipation Concern at this time for worsening pneumonia based on the crackles in the left lower lobe. Patient not hypoxic, on his baseline amount of oxygen. Do not hear any wheezing to suggest COPD exacerbation. Consider potential pancreatitis given the left upper quadrant discomfort versus other abdominal etiology. He has had 2 CT imaging in the past month. However, there has been some concerns for some fluid in the pelvis as well as question of a mass in his pelvis between the rectum and bladder. With his history of renal carcinoma, considered recurrent cancer. Also consider potential COVID-19, dehydration, electrolyte abnormality. Particular given patient's history, concern for potential hyperkalemia. Also considered ACS given FINDINGS: CHEST: Tracheobronchial tree: Patent where visualized. Mediastinum and Olive: No dominant adenopathy or fluid collection. Pulmonary parenchyma: Right-sided volume loss and scarring, greatest in the right lower lobe.? Left lower lobe patchy infiltrates, not significantly changed.? Mild lingular densities, unchanged. Pleura: No effusion or pneumothorax. Lymph nodes: Within normal limits. Aorta: Thoracic portion non-dilated.? Right-sided aortic arch.? Heart: Within normal limits in size.? Coronary artery calcifications.? Bones: Unremarkable for age.? No lytic or blastic lesions. Central venous catheter. ABDOMEN: Liver: Normal density. No measurable mass. Gallbladder and biliary tract: No radiodense calculus or dilation. Pancreas: Normal atrophic., no abnormal calcifications or inflammatory process. Spleen: Calcifications. Kidneys: Scarring lower pole left kidney.? Left hydronephrosis, [id number] which may be slightly worse when compared with the previous exam.? There are multiple small nodular densities seen adjacent to the proximal left ureter, likely causing hydronephrosis.? Other small nodular densities are seen along the inferior aspect of Gerota's fascia.? Mild scarring right kidney.? No change perinephric stranding, likely chronic finding..? Adrenal glands: No masses seen. Aorta: Abdominal portion non-dilated. Aorta and iliac arteries are heavily calcified. Lymph nodes: Within normal limits. Soft tissues: Unremarkable. PELVIS:? Bladder: Mild bladder wall thickening and trabeculation.? There is again noted to be in a nodular density seen between the bladder and rectum.? Along with the findings of nodularity at the lower border of the low of the ureter and nodules and Gerota's fascia, the findings are? highly suspicious for metastatic disease. Bowel: No obstruction or bowel wall thickening. Peritoneal cavity: Trace ascites in low pelvis and border of liver., no focal collection or mesenteric inflammatory response. Bones: Unremarkable for age..? Reproductive organs: Within normal limits. IMPRESSION: Chest: Stable appearance of right-sided scarring and volume loss. Stable appearance of left lower lobe infiltrate. Abdomen pelvis: Slight increase in degree of left hydronephrosis, [id number]. Nodular densities are noted at the proximal left ureter likely causing partial obstruction. Other small nodular densities are seen along the perinephric fascia. A nodule is again noted in the low pelvis, between the bladder and rectum, consistent with a metastatic nodule. Labs reviewed. Leukocytosis of 15 but downtrending from 20. He chronically has elevated WBC but this is above his typical. Creatinine elevated at 5.9, K is WNL. Mag slightluy low at 1.6. Lipase WNL, troponin WNL. UA with hematuria, ketones. Reflexed to culture. Discussed with patient. He sttes that he has had his partial nephrectomies at 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 He is concerned about his weakness, feels is is unable to go home as this is progressive and weight worsening and he is not able to perform simple activities at home and certainly not able to care for his at this time. As patient syncopal at home is at [facility] and we are unable to provide hemodialysis with the patient needs, will request transfer to [facility] for continued care. Further discussion revealed the patient only had 3 days of doxycycline as he did not feel well on this. However, does not think that she had an allergic reaction, more so that he just overall felt unwell and was not improving. We will give the patient IV Rocephin and Doxy now for his pneumonia and possible UTI. I have asked her care management team to come and speak with the patient regarding continued care of his . unable to accept d/t bed capacity. Have requrested transfer to [facility]. COVID negative. Supriya Hanson MD: I have discussed patient presentation results with Dr. Juan, [facility] hospitalist, who accepts patient for transfer. Per transfer center there are no beds available at this time but patient is listed for transfer with plan for transfer tomorrow. <ALIZA Wells - Last Filed: 01/21/22 18:11> Patient is a pleasant 76 year old male, brought in via EMS, with c/c of weakness and confusion. PMH recent pneumonia, chronic respiratory failure with hypoxia, typically on 4L NC at home, COPD, basal cells, renal cell carcinoma, CAD, depression, DM chronic renal failure on Friday hemodialysis, GERD, pulmonary hypertension, paroxysmal atrial fibrillation with RVR, right bundle branch block, SVT. Patient was seen here on 01/15/2022 after fall. Patient has been generally fatigued and feeling malaise at that time and had a syncopal episode. Orthostasis was suspected based on vital signs. Work-up did not show any other emergent pathology. Patient was seen here again 3 days later on 01/18/2022 and diagnosed with pneumonia. He was treated with doxycycline but does not sound, based on patient's description, that he took the entire course. Both of the patient's recent visits to emergency department ultimately ended in him going home as he is a dialysis patient, has been eager to keep his appointment is also take care of his who is wheelchair-bound.. On exam, patient appears chronically unwell. His vital signs are stable. He is on 4 L nasal cannula which replaces his baseline. Initially O2 is 93% but it was 98 when I was in the room with the patient. He states that his ambulation has greatly diminished and he is only able to tolerate short distances and this sounds to be persistent since prior to his fall with no acute change in this. This is due to 50 today that he was unable to go to dialysis, was supposed to have hemodialysis at 11 today. He has some crackles in the left lower lobe, lungs otherwise clear. No lower extremity edema. Abdomen is quite tender, maximal in the left upper and mid region. He does report that he has a history of constipation Concern at this time for worsening pneumonia based on the crackles in the left lower lobe. Patient not hypoxic, on his baseline amount of oxygen. Do not hear any wheezing to suggest COPD exacerbation. Consider potential pancreatitis given the left upper quadrant discomfort versus other abdominal etiology. He has had 2 CT imaging in the past month. However, there has been some concerns for some fluid in the pelvis as well as question of a mass in his pelvis between the rectum and bladder. With his history of renal carcinoma, considered recurrent cancer. Also consider potential COVID-19, dehydration, electrolyte abnormality. Particular given patient's history, concern for potential hyperkalemia. Also considered ACS given comorbidities and weakness. ECG obtained and reviewed by Dr. Hanson, no acute ischemic changes noted. FINDINGS: CHEST: Tracheobronchial tree: Patent where visualized. Mediastinum and Olive: No dominant adenopathy or fluid collection. Pulmonary parenchyma: Right-sided volume loss and scarring, greatest in the right lower lobe.? Left lower lobe patchy infiltrates, not significantly changed.? Mild lingular densities, unchanged. Pleura: No effusion or pneumothorax. Lymph nodes: Within normal limits. Aorta: Thoracic portion non-dilated.? Right-sided aortic arch.? Heart: Within normal limits in size.? Coronary artery calcifications.? Bones: Unremarkable for age.? No lytic or blastic lesions. Central venous catheter. ABDOMEN: Liver: Normal density. No measurable mass. Gallbladder and biliary tract: No radiodense calculus or dilation. Pancreas: Normal atrophic., no abnormal calcifications or inflammatory process. Spleen: Calcifications. Kidneys: Scarring lower pole left kidney.? Left hydronephrosis, [id number] which may be slightly worse when compared with the previous exam.? There are multiple small nodular densities seen adjacent to the proximal left ureter, likely causing hydronephrosis.? Other small nodular densities are seen along the inferior aspect of Gerota's fascia.? Mild scarring right kidney.? No change perinephric stranding, likely chronic finding..? Adrenal glands: No masses seen. Aorta: Abdominal portion non-dilated. Aorta and iliac arteries are heavily calcified. Lymph nodes: Within normal limits. Soft tissues: Unremarkable. PELVIS:? Bladder: Mild bladder wall thickening and trabeculation.? There is again noted to be in a nodular density seen between the bladder and rectum.? Along with the findings of nodularity at the lower border of the low of the ureter and nodules and Gerota's fascia, the findings are? highly suspicious for metastatic disease. Bowel: No obstruction or bowel wall thickening. Peritoneal cavity: Trace ascites in low pelvis and border of liver., no focal collection or mesenteric inflammatory response. Bones: Unremarkable for age..? Reproductive organs: Within normal limits. IMPRESSION: Chest: Stable appearance of right-sided scarring and volume loss. Stable appearance of left lower lobe infiltrate. Abdomen pelvis: Slight increase in degree of left hydronephrosis, [id number]. Nodular densities are noted at the proximal left ureter likely causing partial obstruction. Other small nodular densities are seen along the perinephric fascia. A nodule is again noted in the low pelvis, between the bladder and rectum, consistent with a metastatic nodule. Labs reviewed. Leukocytosis of 15 but downtrending from 20. He chronically has elevated WBC but this is above his typical. Creatinine elevated at 5.9, K is WNL. Mag slightluy low at 1.6. Lipase WNL, troponin WNL. UA with hematuria, ketones. Reflexed to culture. Discussed with patient. He sttes that he has had his partial nephrectomies at 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 He is concerned about his weakness, feels is is unable to go home as this is progressive and weight worsening and he is not able to perform simple activities at home and certainly not able to care for his at this time. As patient mediacl home is at [facility] and we are unable to provide hemodialysis with the patient needs, will request transfer to [facility] for continued care. Further discussion revealed the patient only had 3 days of doxycycline as he did not feel well on this. However, does not think that she had an allergic reaction, more so that he just overall felt unwell and was not improving. We will give the patient IV Rocephin and Doxy now for his pneumonia and possible UTI. I have asked her care management team to come and speak with the patient regarding continued care of his . DH unable to accept d/t bed capacity. Have requrested transfer to [facility]. COVID negative. Supriya Hanson MD: I have discussed patient presentation results with Dr. Juan, [facility] hospitalist, who accepts patient for transfer.? Per transfer center there are no beds available at this time but patient is listed for transfer with plan for transfer tomorrow.? 01/21/22 4:20 pm EDT - Supriya Hanson [facility] is able to accept the patient, by Dr. Georges, but they do not have a bed today. Plan to accept tomorrow. Consulted with our hospitalist regarding admission today, they are concerned taht we do not have dialysis and there may be change in bed availability tomorrow so would prefer transfer elsewhere. I discussed long distant suri choeh patient. While not ideal with his social situation, is agreeable to this. At the end of my shift, care transitioned to Mark Rosa with disposition pending. 1530: Mark Rosa PA-C I assumed care of this 76-year-old gentleman from my colleague ALIZA Monge, please see her initial HPI and examination. Patient is a dialysis patient, presenting with weakness and pneumonia, received IV doxycycline and Rocephin. Unfortunately he requires admission and we cannot meet his dialysis needs at our facility. A search for a facility decameters care has been initiated and thus far unfortunately unsuccessful. Confirmed with [facility] that there is no guarantee of a bed tomorrow, as a bed opens up they will keep us notified. Contacted [facility] at 1705, they cannot accept transfer. I was then able to speak with the [facility] transfer team at 1725. They have the capacity and are not auto excepted facility, no provider to provider conversation required. Patient to be transferred into the care of Dr. Eddy, hospitalist service. All appropriate transfer paperwork completed. Patient agreeable to transfer to [facility]. . This documentation was generated using Dragon dictation system, please disregard any oddities of phrase or misspellings. Please note that in the discharge plan section, patient disposition reflects still a patient. There is no box for [facility] or other. Medical Records Medical records reviewed: Yes I reviewed the patient's medical records. Lab Data Lab results reviewed: Yes I reviewed the patient's lab results. Labs: 01/21/22 14:38 Blood Blood Culture - Pending 01/21/22 14:30 Blood Blood Culture - Pending 01/21/22 13:17 Urine - Reflex from [facility] Urine Culture - Pending Laboratory Tests Range/Units 01/21/22 01/21/22 01/21/22 12:13 12:13 13:17 WBC (4.4-10.8) 10^3/uL 15.13 H RBC (4.36-5.78) 10^6/uL 3.10 L Hgb (13.5-17.5) g/dL 9.7 L Hct (40.0-50.0) % 30.1 L MCV (80-95) fL 97 H MCH (27.0-33.0) pg 31.3 MCHC (32.0-36.0) % 32.2 RDW (11.8-14.1) % 13.1 Plt Count (130-400) 10^3/uL 313 MPV (8.0-11.0) fL 10.9 Immature Gran % 0.0 Neutrophils % 84.0 Band Neutrophils % 3 Lymphocytes % 7.0 Monocytes % 6.0 Eosinophils % 0.0 Basophils % 0.0 Nucleated RBC % (0.0-0.3) % 0.0 Absolute Neutrophils (1.2-6.7) 10^3/uL 13.16 H Absolute Lymphocytes (1.2-3.4) 10^3/uL 1.06 L Absolute Monocytes (0.1-0.8) 10^3/uL 0.91 H Absolute Eosinophils (0.0-0.7) 10^3/uL 0.00 Absolute Basophils (0.0-0.2) 10^3/uL 0.00 RBC Morphology Normal Sodium (136-145) mmol/L 130 L Potassium (3.5-5.1) mmol/L 3.9 Chloride (98-107) mmol/L 91 L Carbon Dioxide (21.0-32.0) mmol/L 27.4 Anion Gap (3-11) mmol/L 11.6 H BUN (7-18) mg/dL 45 H Creatinine (0.70-1.30) mg/dL 5.9 H* Est GFR (CKD-EPI 2020) (mL/min/1.73m2) 9.27 Glucose (74-106) mg/dL 371 H Calcium (8.5-10.1) mg/dL 8.5 Magnesium (1.8-2.4) mg/dL 1.6 L Total Bilirubin (0.2-1.0) mg/dL 0.4 AST (15-37) U/L 7 L ALT (16-63) U/L 7 L Alkaline Phosphatase (46-116) U/L 86 Troponin I (<or=60) ng/L < 50 Total Protein (6.4-8.2) g/dL 6.3 L Albumin (3.4-5.0) g/dL 2.3 L Lipase (73-393) U/L 25 Urine Color (Yellow) Urine Clarity (Clear) Urine pH (5-8) Ur Specific [place] (1.005-1.025) Urine Protein (Negative) mg/dL Urine Ketones (Negative) mg/dL Urine Blood (Negative) Urine Nitrite (Negative) Urine Bilirubin (Negative) Urine Urobilinogen (Up TO 0.2) EU/dL Ur Leukocyte Esterase (Negative) Urine RBC (0-2) HPF Urine WBC (0-5) HPF Ur Epithelial Cells Urine Crystals Urine Bacteria Urine Mucus Ur Culture Indicated? Urine Glucose (Negative) mg/dL COVID-19 Source Nasal/Nares SARS-CoV-2 (PCR) (Negative) Negative Range/Units 01/21/22 01/21/22 13:17 15:27 WBC (4.4-10.8) 10^3/uL RBC (4.36-5.78) 10^6/uL Hgb (13.5-17.5) g/dL Hct (40.0-50.0) % MCV (80-95) fL MCH (27.0-33.0) pg MCHC (32.0-36.0) % RDW (11.8-14.1) % Plt Count (130-400) 10^3/uL MPV (8.0-11.0) fL Immature Gran % Neutrophils % Band Neutrophils % Lymphocytes % Monocytes % Eosinophils % Basophils % Nucleated RBC % (0.0-0.3) % Absolute Neutrophils (1.2-6.7) 10^3/uL Absolute Lymphocytes (1.2-3.4) 10^3/uL Absolute Monocytes (0.1-0.8) 10^3/uL Absolute Eosinophils (0.0-0.7) 10^3/uL Absolute Basophils (0.0-0.2) 10^3/uL RBC Morphology Sodium (136-145) mmol/L Potassium (3.5-5.1) mmol/L Chloride (98-107) mmol/L Carbon Dioxide (21.0-32.0) mmol/L Anion Gap (3-11) mmol/L BUN (7-18) mg/dL Creatinine (0.70-1.30) mg/dL Est GFR (CKD-EPI 2020) (mL/min/1.73m2) Glucose (74-106) mg/dL Calcium (8.5-10.1) mg/dL Magnesium (1.8-2.4) mg/dL Total Bilirubin (0.2-1.0) mg/dL AST (15-37) U/L ALT (16-63) U/L Alkaline Phosphatase (46-116) U/L Troponin I (<or=60) ng/L < 50 Total Protein (6.4-8.2) g/dL Albumin (3.4-5.0) g/dL Lipase (73-393) U/L Urine Color (Yellow) Yellow Urine Clarity (Clear) Sl Cloudy Urine pH (5-8) 5.5 Ur Specific [place] (1.005-1.025) 1.015 Urine Protein (Negative) mg/dL 100 H Urine Ketones (Negative) mg/dL 15 H Urine Blood (Negative) Moderate H Urine Nitrite (Negative) Negative Urine Bilirubin (Negative) Small H Urine Urobilinogen (Up TO 0.2) EU/dL 0.2 Ur Leukocyte Esterase (Negative) Small H Urine RBC (0-2) HPF 20-50 H Urine WBC (0-5) HPF 5-10 Ur Epithelial Cells Not Applicable Urine Crystals Not Applicable Urine Bacteria Not Applicable Urine Mucus Not Applicable Ur Culture Indicated? Yes Urine Glucose (Negative) mg/dL 500 H COVID-19 Source SARS-CoV-2 (PCR) (Negative) HPI <ALIZA Harris - Last Filed: 01/21/22 16:27> General Date/Time Provider Initiated Documentation: 01/21/22 11:02 . Limitations to Documentation: no limitations . Information obtained by: patient, EMS, RN notes reviewed and old records reviewed . History of Present Illness 76 year old M presents to the emergency department with the chief complaint of weakness, fatigue, LUQ discomfort, described as moderate and similar to prior episodes, with intensity rated at 4. Quality is described as aching (LUQ) and other (generalized weakness), and is localized to the abdomen. Patient reports no radiation. Patient started experiencing this week(s) and it has been constant. No relieving factors improve symptom(s), No exacerbating factors reported . Patient notes cough, malaise, shortness of breath (chronic, unchanged, on 4L baseline) and weakness (generalized); denies chest pain, diaphoresis, fever/chills, headaches, loss of appetite, nausea/vomiting, rash and syncope. Patient did receive the following treatments prior to arrival, none Related Data Home Medications Medication Instructions Recorded Confirmed aspirin 81 mg tablet,delayed 81 mg PO DAILY 09/25/12 01/21/22 release (Aspir-) multivitamin 1 ea PO DAILY 09/25/12 01/21/22 sertraline 50 mg tablet 100 mg PO DAILY 09/25/12 01/21/22 cholecalciferol (vitamin D3) 25 1,000 unit PO DAILY 09/21/15 01/21/22 mcg (1,000 unit) tablet nitroglycerin 0.4 mg sublingual 0.4 mg sublingual ONCE PRN 09/21/15 01/21/22 tablet albuterol sulfate 90 mcg/actuation 2 inh PO Q4H PRN PRN 02/16/17 01/21/22 aerosol inhaler (Proventil HFA) ascorbic acid (vitamin C) 1,000 mg 500 mg PO DAILY 02/16/17 01/21/22 tablet (Vitamin C) atorvastatin 40 mg tablet (Lipitor) 40 mg PO DAILY 02/16/17 01/21/22 melatonin 10 mg tablet 6 mg PO HS PRN 02/16/17 01/21/22 cyanocobalamin (vitamin B-12) 1,000 mcg PO DAILY 09/22/19 01/21/22 1,000 mcg tablet (Vitamin B-12) acetaminophen 500 mg tablet 1,000 mg PO .Q6 HRS PRN 04/24/20 01/21/22 (Tylenol Extra Strength) insulin glargine 100 unit/mL (3 24 - 26 unit subcut HS 04/24/20 01/21/22 mL) subcutaneous pen (Lantus Solostar U-100 Insulin) pantoprazole 40 mg tablet,delayed 40 mg PO DAILY 04/24/20 01/21/22 release tamsulosin 0.4 mg capsule 0.4 mg PO DAILY 04/24/20 01/21/22 lutein 20 mg capsule 20 mg PO DAILY 09/10/20 01/21/22 loratadine 10 mg capsule 10 mg PO DAILY #20 caps 03/09/21 01/21/22 apixaban 2.5 mg tablet (Eliquis) 2.5 mg PO BID 06/05/21 01/21/22 insulin lispro 100 unit/mL 1 sliding scale dose subcut 06/05/21 01/21/22 subcutaneous pen (Humalog KwikPen USEASDIRECTD (U-100) Insulin) midodrine 2.5 mg tablet 2.5 mg PO TID 06/05/21 01/21/22 sennosides 8.6 mg tablet (senna) 8.6 mg PO DAILY 06/05/21 01/21/22 trazodone 50 mg tablet 25 mg PO HS 06/05/21 01/21/22 metoprolol tartrate 50 mg tablet 25 mg PO BID #30 tabs 06/06/21 01/21/22 (Lopressor) fluticasone propionate 115 2 puff inhalation BID #12 grams 11/20/21 01/21/22 mcg-salmeterol 21 mcg/actuation HFA inhaler (Advair HFA) budesonide 160 mcg-glycopyr 9 2 inh inhalation BID #10.7 grams 11/26/21 01/21/22 mcg-formot 4.8 mcg/actuation HFA inhaler (Breztri Aerosphere) cyclobenzaprine 10 mg tablet 10 mg PO TID PRN #20 tabs 01/15/22 oxycodone 5 mg tablet 20 mg PO QHS PRN pain 01/15/22 01/21/22 diphenhydramine HCl 25 mg capsule 25 mg PO Q6H 01/18/22 01/21/22 (Banophen) liraglutide 0.6 mg/0.1 mL (18 mg/3 0.6 mg subcut DAILY 01/18/22 01/21/22 mL) subcutaneous pen injector (Victoza 2-Edy) prednisone 20 mg tablet 50 mg PO DAILY 01/18/22 01/21/22 tiotropium bromide 2.5 2 spray inhalation PRN PRN 01/18/22 01/21/22 mcg/actuation mist for inhalation (Spiriva Respimat) Previous Rx's Medication Instructions Recorded loratadine 10 mg capsule 10 mg PO DAILY #20 caps 03/09/21 metoprolol tartrate 50 mg tablet 25 mg PO BID #30 tabs 06/06/21 (Lopressor) fluticasone propionate 115 2 puff inhalation BID #12 grams 11/20/21 mcg-salmeterol 21 mcg/actuation HFA inhaler (Advair HFA) budesonide 160 mcg-glycopyr 9 2 inh inhalation BID #10.7 grams 11/26/21 mcg-formot 4.8 mcg/actuation HFA inhaler (Breztri Aerosphere) cyclobenzaprine 10 mg tablet 10 mg PO TID PRN #20 tabs 01/15/22 Allergies Allergy/AdvReac Type Severity Reaction Status Date / Time pneumococcal vaccine Allergy Severe Swelling/Ed Verified 01/18/22 09:57 nandini sulfamethoxazole Allergy difficulty Verified 01/18/22 09:57 [From Bactrim] breathing trimethoprim [From Bactrim] Allergy difficulty Verified 01/18/22 09:57 breathing General Stated Complaint: [facility] MESERET: 3 Review of Systems <ALIZA Harris - Last Filed: 01/21/22 16:27> Constitutional Constitutional: Reports as per HPI, Denies chills and Denies headache(s) Eyes Eyes: Denies change in vision ENT Ears, Nose, Mouth, and Throat: Denies dizziness and Denies headache(s) Cardiovascular Cardiovascular: Reports as per HPI Respiratory Respiratory: Reports as per HPI, Denies chest congestion, Denies cough, Denies pain on inspiration and Denies pain with cough Gastrointestinal Gastrointestinal: Reports as per HPI, Denies diarrhea and Denies vomiting Genitourinary Genitourinary: Denies system reviewed and no additional complaints, except as documented (denies change in urinary habits) Musculoskeletal Musculoskeletal: Reports as per HPI and Denies back pain Integumentary/Breasts Skin/Breast: Reports as per HPI and Denies rash Neurologic Neurologic: Reports as per HPI, Denies dizziness and Denies headache(s) PFSH <ALIZA Harris - Last Filed: 01/21/22 16:27> All Active Problems (Updated 01/21/22 @ 16:26 by ALIZA Harris) Syncope (Chronic) Pruritic rash (Acute) Orthostatic hypotension (Acute) Chest wall pain (Acute) Pneumonia (Acute) Pneumonia (Acute) Weakness (Acute) Pulmonary scarring (Acute) Chronic respiratory failure with hypoxia (Acute) 2L of O2 by NC COPD (chronic obstructive pulmonary disease) (Chronic) Bronchiectasis (Acute) 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) Basal cell carcinoma of multiple sites (Acute) Leucocytosis (Chronic) Palpitations (Acute) Exertional shortness of breath (Chronic) Neoplasm of unspecified nature of bone, soft tissue, and skin (Acute 06/19/15) Medical History Actinic keratosis (05/01/16) Anemia Basal cell carcinoma of skin (03/11/16) Bilateral cataracts Coronary Artery Disease Depression Diabetes mellitus Diabetic foot ulcer Diabetic ulcer of left foot ESRD on hemodialysis GERD (gastroesophageal reflux disease) Hoarseness Hyperkalemia Moderate pulmonary hypertension Orthostatic hypotension Paroxysmal atrial fibrillation with rapid ventricular response Perihepatic abscess RBBB (right bundle branch block) Renal cell carcinoma of left kidney (05/30/17) Shortness of breath Supraventricular tachycardia Toe infection Tubular adenoma of colon (12/18/16) Surgical History Colonoscopy - MAC (12/18/16) 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 7.31.13HE Hx of cardiac cath x2, per patient Lobectomy Pt states 2 lobes removed from R. lung. No date given. 12.02.12HE Osteotomy Partial & Debridment of first metatarsal on Left foot. S/P hemodialysis catheter insertion Family History Mother Heart disease Diabetes Sister Stroke Diabetes Sister Diabetes Cancer laryngeal cancer Sister Diabetes Social History Smoking/Tobacco Use Status: Former Tobacco Use tobacco type: cigarettes Quit Date: 05/05/14 Pack-years: 100 Tobacco: How many years used: 50 Counseling given: provider counseling Smoking risk assessment performed?: Yes Alcohol Intake: never Drug use: Never Substance use type: does not use Household members: spouse Current gender identity: male What type of physical activity do you participate in: none and independent ambulation Do you feel safe at home: Yes Do you feel safe in your relationship?: Yes Exam <ALIZA Harris - Last Filed: 01/21/22 16:27> Const General: cooperative, comfortable, no acute distress and well developed Nutritional Appearance: well nourished and obese Orientation: alert, awake and oriented x3 HENMT Head: normal to inspection Ears: hearing grossly normal bilaterally Mouth: moist mucous membranes Chest Chest: normal inspection of the chest, normal palpation of entire chest wall and no crepitus Resp Effort & Inspection: normal respiratory effort, able to speak in complete sentences and no respiratory distress Auscultation: crackles on the left in the lower lung segal, no rales, no rhonchi and no wheezes Cardio Rate: regular rate Rhythm: regular rhythm Heart Sounds: S1 normal and S2 normal GI Inspection: normal to inspection, no edema and non-distended Palpation: soft, no hepatosplenomegaly, not firm, no guarding, not rigid and tender in the LUQ Auscultation: normal bowel sounds Back/Spine/Pelvis Back: no CVA tenderness Thoracic/Lumbar Spine: thoracic and lumbar spine normal to inspection Skin General skin exam: no rashes or lesions noted Trauma: no lacerations or abrasions Neuro General: patient alert, patient awake and patient oriented x3 Cognition: normal cognition Speech: speech normal Gait: normal gait Extrem General: normal to inspection, capillary refill normal, no pedal edema and no calf tenderness Psych Appearance: grossly normal and well kempt Mental Status: mental status grossly normal Speech and Movement: speech and movement normal Course <ALIZA Harris - Last Filed: 01/21/22 16:27> Vital Signs Vital signs: Vital Signs Temperature 36.6 C 01/21/22 11:00 Pulse 91 H 01/21/22 11:00 Respiratory Rate 18 01/21/22 11:00 Blood Pressure 142/58 H 01/21/22 11:00 Pulse Oximetry 93 01/21/22 11:00 Temperature 36.6 C 01/21/22 11:00 Temperature Source Oral 01/21/22 11:00 Pulse 91 H 01/21/22 11:00 Respiratory Rate 18 01/21/22 11:00 Blood Pressure 142/58 H 01/21/22 11:00 Blood Pressure Position Supine 01/21/22 11:00 Pulse Oximetry 93 01/21/22 11:00 Oxygen Delivery Method Nasal Cannula 01/21/22 11:00 Oxygen Flow Rate 4 01/21/22 11:00 Sign Out <ALIZA Harris - Last Filed: 01/21/22 16:27> Sign Out Data: Sign Out Comment: Care transitioned to Mark Rosa PA-C, with disposition pending. Patient due for dialysis today. Stable with K+ of 3.9. Requires admiss ion for pneumonia, weakness, ?. [facility] unable to accept today. Hospitalist unable to accept here. Last updated by Makenna Monge PA at 01/21/22 16:29
--- NOTE | 2022-01-21 11:30 | RT.EKG_ITS ---
APPROVED REPORT Exam: Resting ECG Reason for Exam: generalized weakness Patient Location: E HR:88 bpm ECG Measurements Heart Rate 88 AXIS FL 180 P 13 QRSd 134 QRS 56 QT 410 T -9 QTc 496 Conclusion Sinus rhythm...normal P axis, V-rate 60- 99 Right bundle branch block...QRSd>120, terminal axis(90,270) no STEMI, no major change from prior, non-diagnostic EKG I have reviewed and interpreted ECG and agree with software generated interpretation.
--- NOTE | 2022-01-21 11:45 | DI.CT_ITS ---
Exam(s) CT CHEST/ABD/PEL WO EXAM: CT CHEST/ABD/PEL WO CLINICAL HISTORY: left sided crackles, left eduar abodminal pain. TECHNIQUE: Imaging Protocol: Axial computed tomography images with coronal and sagittal reformatted images were created and reviewed CONTRAST MATERIAL: Noncontrast Oral: no COMPARISON: CT ABD PELVIS WO CONTRAST from 02/16/2017 MR MRI ABDOMEN WWO from 10/05/[address] CHEST LUNG CANCER SCREEN from 12/04/[address] ABDOMEN PELVIS WO from 12/18/2021 CR,XR XR CHEST 2V PA LATERAL from 01/15/[address] CHEST/ABD/PEL WO from 01/18/2022 FINDINGS: CHEST: Tracheobronchial tree: Patent where visualized. Mediastinum and Olive: No dominant adenopathy or fluid collection. Pulmonary parenchyma: Right-sided volume loss and scarring, greatest in the right lower lobe. Left l ower lobe patchy infiltrates, not significantly changed. Mild lingular densities, unchanged. Pleura: No effusion or pneumothorax. Lymph nodes: Within normal limits. Aorta: Thoracic portion non-dilated. Right-sided aortic arch. Heart: Within normal limits in size. Coronary artery calcifications. Bones: Unremarkable for age. No lytic or blastic lesions. Central venous catheter. ABDOMEN: Liver: Normal density. No measurable mass. Gallbladder and biliary tract: No radiodense calculus or dilation. Pancreas: Normal atrophic., no abnormal calcifications or inflammatory process. Spleen: Calcifications. Kidneys: Scarring lower pole left kidney. Left hydronephrosis, [id number] which may be slightl y worse when compared with the previous exam. There are multiple small nodular densities seen adjace nt to the proximal left ureter, likely causing hydronephrosis. Other small nodular densities are see n along the inferior aspect of Gerota's fascia. Mild scarring right kidney. No change perinephric s tranding, likely chronic finding.. Adrenal glands: No masses seen. Aorta: Abdominal portion non-dilated. Aorta and iliac arteries are heavily calcified. Lymph nodes: Within normal limits. Soft tissues: Unremarkable. PELVIS: Bladder: Mild bladder wall thickening and trabeculation. There is again noted to be in a nodular den sity seen between the bladder and rectum. Along with the findings of nodularity at the lower border of the low of the ureter and nodules and Gerota's fascia, the findings are highly suspicious for met astatic disease. Bowel: No obstruction or bowel wall thickening. Peritoneal cavity: Trace ascites in low pelvis and border of liver., no focal collection or mesenteri c inflammatory response. Bones: Unremarkable for age.. Reproductive organs: Within normal limits. IMPRESSION: Chest: Stable appearance of right-sided scarring and volume loss. Stable appearance of left lower lob e infiltrate. Abdomen pelvis: Slight increase in degree of left hydronephrosis, [id number]. Nodular densities are noted at the proximal left ureter likely causing partial obstruction. Other small nodular densit ies are seen along the perinephric fascia. A nodule is again noted in the low pelvis, between the bubba dder and rectum, consistent with a metastatic nodule. RADIATION DOSE DELIVERED: 1,559.34mGy.cm Total DLP DATA REPOSITORY: All CT scans at this facility are submitted to the National Radiology Data Registry (NRDR) Dose Index Registry (DIR) with the [employer] (A[employer]). RADIATION OPTIMIZATION: All CT scans at this facility use at least one of these dose optimization te chniques: automated exposure control; mA and/or kV adjustment per patient size (includes targeted exa ms where dose is matched to clinical indication); or iterative reconstruction.
[2022-01-21 12:19] LABS: Abs Immature Grans 0.58 10^3/uL (0.0-0.06); HCT 30.1 % (40.0-50.0); HGB 9.7 g/dL (13.5-17.5); MCH 31.3 pg (27.0-33.0); MCHC 32.2 % (32.0-36.0); MCV 97 fL (80-95); MPV 10.9 fL (8.0-11.0); Platelet Count 313 10^3/uL (130-400); RDW 13.1 % (11.8-14.1); WBC 15.13 10^3/uL (4.4-10.8)
[2022-01-21 12:34] LABS: Absolute Lymphocyte Count 1.06 10^3/uL (1.2-3.4); Absolute Monocyte Count 0.91 10^3/uL (0.1-0.8); Absolute Neutrophil Count 13.16 10^3/uL (1.2-6.7); Bands % 3
[2022-01-21 12:35] LABS: Diff Comment Manual Differential; RBC Morphology Normal
[2022-01-21 12:40] LABS: ALT 7 U/L (16-63); AST 7 U/L (15-37); Albumin 2.3 g/dL (3.4-5.0); Alkaline Phosphatase 86 U/L (46-116); Anion Gap 11.6 mmol/L (3-11); BUN 45 mg/dL (7-18); Bilirubin, Total 0.4 mg/dL (0.2-1.0); CO2 27.4 mmol/L (21.0-32.0); Calcium 8.5 mg/dL (8.5-10.1); Chloride 91 mmol/L (98-107); Estimated GFR 9.27 (mL/min/1.73m2); Glucose 371 mg/dL (74-106); Lipase 25 U/L (73-393); Magnesium 1.6 mg/dL (1.8-2.4); Potassium 3.9 mmol/L (3.5-5.1); Sodium 130 mmol/L (136-145); Total Protein 6.3 g/dL (6.4-8.2); Troponin I < 50 ng/L (<or=60)
[2022-01-21 12:41] LABS: CREATININE 5.9 mg/dL (0.70-1.30)
[2022-01-21 13:27] LABS: Source Nasal/Nares
[2022-01-21 13:31] LABS: Bilirubin Small (Negative); Blood Moderate (Negative); Clarity Sl Cloudy (Clear); Glucose 500 mg/dL (Negative); Ketones 15 mg/dL (Negative); Leukocyte Esterase Small (Negative); Nitrite Negative (Negative); Specific Gravity 1.015 (1.005-1.025); Urobilinogen 0.2 EU/dL (Up TO 0.2); pH 5.5 (5-8)
[2022-01-21 13:39] LABS: C & S Indicated? Yes; RBC 20-50 HPF (0-2)
[2022-01-21 13:58] LABS: COVID-19 PCR Negative (Negative)
[2022-01-21 15:52] LABS: Troponin I < 50 ng/L (<or=60)
[2022-01-21] MEDS: DOXYCYCLINE 100 MG in Normal Saline 100 ML IVPB (16:10)
--- NOTE | 2022-01-22 12:03 | NUR.NOTE ---
Nursing Note: Provider note faxed to [facility] at their request.
--- NOTE | 2022-01-23 10:56 | NUR.NOTE ---
Nursing Note: Urine culture result faxed to [facility]. Dr. Aung Hanson aware. P [phone] F [phone]
== END 2022-01-21 19:14 | disposition still patient (30) ==
PROVIDERS: Physician Assistant; Emergency Provider Physician Assistant; PCP Family Medicine
DX: R53.1 Weakness (principal); J44.0 Chronic obstructive pulmonary disease with (acute) lower respiratory infection; J18.9 Pneumonia, unspecified organism; E11.621 Type 2 diabetes mellitus with foot ulcer; L97.529 Non-pressure chronic ulcer of other part of left foot with unspecified severity; E11.22 Type 2 diabetes mellitus with diabetic chronic kidney disease; I12.0 Hypertensive chronic kidney disease with stage 5 chronic kidney disease or end stage renal disease; N18.6 End stage renal disease; I48.0 Paroxysmal atrial fibrillation; Z99.0 Dependence on aspirator; Z79.4 Long term (current) use of insulin; Z79.82 Long term (current) use of aspirin; Z87.891 Personal history of nicotine dependence; Z79.51 Long term (current) use of inhaled steroids; Z79.52 Long term (current) use of systemic steroids; Z20.822 Contact with and (suspected) exposure to COVID-19
CPT/HCPCS: 36410; 71250; 80053; 83690; 87040; 87635; 93005; 96365; 96368; 99284; 99285; 74176; 81003; 81015; 83735; 84484; 85025; 87086; 93010; J0696

== ENCOUNTER 2022-01-31 09:36 | Outpatient (CLI) | payer MEDICARE, SELFPAY | END 2022-01-31 09:37 | LOC: CARDO 02-18 10:27 | PROVIDERS: PCP Family Medicine; Referring Provider Family Medicine; Visit Provider Internal Medicine Cardiovascular Disease | DX: R00.2 Palpitations (principal); I47.1 Supraventricular tachycardia | CPT/HCPCS: 93248 ==

== ENCOUNTER 2022-02-10 10:22 | Emergency (ER) | payer MEDICARE, SELFPAY ==
[2022-02-10 10:25] VITALS: BP 130/55; PULSE 86; RESP 20; TEMP 36.7; O2SAT 100
--- NOTE | 2022-02-10 10:45 | DI.RAD_ITS ---
Exam(s) XR PELVIS AP EXAM: XR PELVIS AP CLINICAL HISTORY: fall TECHNIQUE: COMPARISON: CR XR FEMUR RT from 02/10/2022 FINDINGS: Single AP view of the pelvis was obtained. No fracture identified. IMPRESSION: RADIATION DOSE DELIVERED: Total DLP
--- NOTE | 2022-02-10 10:45 | DI.RAD_ITS ---
Exam(s) XR CHEST 1V IN DI DEPT EXAM: XR CHEST 1V IN DI DEPT CLINICAL HISTORY: fall, pain ribs TECHNIQUE: COMPARISON: CR,XR XR CHEST 2V PA LATERAL from 01/15/2022 FINDINGS: Supine AP chest was obtained. There is a double lumen central venous catheter in position. Cardiac size appears within normal limits. Pleural based radiodensities are again noted on the right, unchan ged from examination of January 15. Bilateral changes of pulmonary scarring noted. No significa nt change. IMPRESSION: No evidence of acute process. RADIATION DOSE DELIVERED: Total DLP
--- NOTE | 2022-02-10 10:45 | DI.CT_ITS ---
Exam(s) CT HEAD CERVICAL SPINE WO EXAM: CT HEAD CERVICAL SPINE WO COMPARISON: CR,XR XR CHEST 2V PA LATERAL from 01/15/[address] HEAD CERVICAL SPINE WO from 01/15/2022 FINDINGS: CT examination of the cervical spine was performed without contrast administration. There are moderate degenerative changes of the cervical spine. Note is made of right apical pleural thickening as noted on prior chest radiographs. There is no evidence of acute cervical spine fracture or dislocation. Intervertebral disc spaces are well maintained. Tracheolaryngeal structures appear intact. No cervical mass or adenopathy. Noncontrast cranial CT was performed. There is severe generalized cerebral atrophy. No evidence of acute intracranial hemorrhage, mass effect, or midline shift. No calvarial fracture. The orbital and temporal bone structures appear intact. Visualized mastoid air cells and paranasal sinuses appear clear. IMPRESSION: No evidence of acute cervical spine injury. No evidence of acute intracranial injury. RADIATION DOSE DELIVERED: 1,748.93mGy.cm Total DLP 1,748.93mGy.cm Total DLP !Error CTDIvol DATA REPOSITORY: All CT scans at this facility are submitted to the National Radiology Data Registry (NRDR) Dose Index Registry (DIR) with the [employer] (ACR). RADIATION OPTIMIZATION: All CT scans at this facility use at least one of these dose optimization te chniques: automated exposure control; mA and/or kV adjustment per patient size (includes targeted exa ms where dose is matched to clinical indication); or iterative reconstruction.
--- NOTE | 2022-02-10 10:45 | DI.RAD_ITS ---
Exam(s) XR FEMUR LT EXAM: XR FEMUR LT CLINICAL HISTORY: fall, pain mid femur TECHNIQUE: COMPARISON: CR XR FEMUR RT from 02/10/2022 FINDINGS: Four views of the femur were obtained. There is no evidence of acute fracture or dislocation. IMPRESSION: RADIATION DOSE DELIVERED: Total DLP
--- NOTE | 2022-02-10 10:45 | RT.EKG_ITS ---
APPROVED REPORT Exam: Resting ECG Reason for Exam: syncope Patient Location: E HR:82 bpm ECG Measurements Heart Rate 82 AXIS [place] 172 P 1 QRSd 131 QRS -59 QT 406 T -6 QTc 475 Conclusion Sinus rhythm...normal P axis, V-rate 60- 99 RBBB and LAFB...QRSd >120mS, axis(-40,240) ST elevation secondary to IVCD...Multiple VCG criteria no stemi
--- NOTE | 2022-02-10 10:55 | ED.GENADUL_ITS ---
Discharge Plan Disposition Patient Disposition: HOME Condition: Stable Discharge Details Clinical Impression: Weakness, Anemia, Syncope, Hypomagnesemia Primary Care Provider: Zakiya Reyna ED Provider: Aung Hanson Home Meds and New Rx's Prescriptions: Continued Advair HFA 115-21 mcg/actuation HFA aerosol inhaler 2 puff inhalation BID Qty: 12 12RF Rx Instructions: Wash mouth after use nitroglycerin 0.4 MG tablet, sublingual 0.4 mg Sublingual ONCE PRN Label Comments: has never used it at home cholecalciferol (vitamin D3) 1,000 UNIT tablet 1,000 unit PO DAILY Breztri Aerosphere 160-9-4.8 mcg/actuation HFA aerosol inhaler 2 inh inhalation BID Qty: 10.7 12RF aspirin [Aspir-81] 81 MG tablet,delayed release (DR/EC) 81 mg PO DAILY multivitamin 1 EACH capsule 1 ea PO DAILY sertraline 50 MG tablet 100 mg PO DAILY atorvastatin [Lipitor] 40 MG tablet 40 mg PO DAILY ascorbic acid (vitamin C) [Vitamin C] 1,000 MG tablet 500 mg PO DAILY albuterol sulfate [Proventil HFA] 6.7 GM HFA aerosol inhaler 2 inh PO Q4H PRN PRN acetaminophen [Tylenol Extra Strength] 500 mg Tablet 1,000 mg PO .Q6 HRS PRN tamsulosin 0.4 mg Capsule 0.4 mg PO DAILY pantoprazole 40 mg tablet,delayed release (DR/EC) 40 mg PO DAILY insulin glargine [Lantus Solostar U-100 Insulin] 100 unit/mL (3 mL) insulin pen 24 - 26 unit SUBCUT HS cyclobenzaprine 10 mg tablet 10 mg PO TID PRNQty: 20 0RF cyanocobalamin (vitamin B-12) [Vitamin B-12] 1,000 mcg Tablet 1,000 mcg PO DAILY loratadine 10 mg capsule 10 mg PO DAILY Qty: 20 0RF sennosides [senna] 8.6 mg Tablet 8.6 mg PO DAILY trazodone 50 mg tablet 25 mg PO HS Label Comments: TAKE ONE-HALF TABLET BY MOUTH EVERY EVENING midodrine 2.5 mg tablet 2.5 mg PO TID Label Comments: TAKE ONE TABLET BY MOUTH THREE TIMES A DAY BEFORE MEALS insulin lispro [Humalog KwikPen Insulin] 100 unit/mL Insulin Pen 1 sliding scale dose SUBCUT USEASDIRECTD Eliquis 2.5 mg tablet 2.5 mg PO BID Label Comments: TAKE ONE TABLET BY MOUTH TWICE A DAY metoprolol tartrate [Lopressor] 50 mg tablet 25 mg PO BID Qty: 30 1RF diphenhydramine HCl [Banophen] 25 mg capsule 25 mg PO Q6H Label Comments: TAKE ONE CAPSULE BY MOUTH EVERY 6 HOURS Victoza 2-Edy 0.6 mg/0.1 mL (18 mg/3 mL) pen injector 0.6 mg SUBCUT DAILY Label Comments: INJECT 0.6MG UNDER THE SKIN ONCE DAILY Spiriva Respimat 2.5 mcg/actuation mist 2 spray INHALATION PRN PRN Label Comments: Inhale 2 puff as directed once a day prednisone 20 mg tablet 50 mg PO DAILY Discontinued oxycodone 5 mg Tablet 20 mg PO QHS PRN (Reason: pain) Discharge Instructions Instructions: Syncope (ED), Fall Prevention for Older Adults (ED), Weakness (ED ), Hypomagnesemia (ED), Anemia (ED) Additional Instructions: Please follow-up with your doctor this week. Call on Friday to arrange timely follow-up for recheck. Be sure to discuss results of diagnostic imaging and lab test today. You are found to be anemic. This requires follow-up and additional diagnostic testing. Please contact your primary care physician to arrange follow-up. Please go to dialysis tomorrow as scheduled. Return to the ER immediately for any worsening or new concerning symptoms. Referrals: Zakiya Reyna MD [Primary Care Provider] - Discharge Data Discharge Date/Time-TO BE ENTERED AT DEPARTURE: 02/10/22 14:12 Medical Decision Making 1105 --76-year-old male with multi medical problems including end-stage renal disease on hemodialysis, COPD, orthostatic hypotension, here after syncopal episode and fall from standing to the ground last night, continued leg pain bilateral thighs right greater than left since fall with associated weakness and recurrent fall this morning resulting in head trauma. Patient is on Eliquis. Consider acute life-threatening intracranial traumatic hemorrhage. Plan to obtain CT of the head. Patient does have cervical pain that he notes is chronic and unchanged. Consider C-spine fracture given potential distracting injury and mechanism. Patient does have tenderness mid thigh right greater than left with no obvious deformity or swelling. Consider pelvic/femur fracture. Will obtain x-ray imaging. Patient also notes pain bilateral lateral ribs. I will obtain chest x-ray to assess for pneumothorax/rib fracture. Abdominal exam is benign. Unclear etiology for syncope. Suspect orthostatic hypotension as patient has history of this. Consider arrhythmia. EKG was reviewed and interpreted by me: Please see report, sinus rhythm 82 bpm, right bundle branch block with left anterior fascicular block is present. I report reviewed old EKG from 01/21/2022: EKG has similar findings compared to today. I will consider ACS and check troponin. Consider electrolyte abnormality. Patient did have full course of dialysis on Friday. -- CT of the head was interpreted by Jareth: No acute trauma. CT of the cervical spine was interpreted by radiology: No acute traumatic injury. : 1. Moderate degenerative change. No acute fracture. 2. Parenchymal changes within the partially imaged lung apices.? Recommend comparison with earlier prior chest CTs which are not available Chest x-ray was reviewed and interpreted by radiology:FINDINGS: Supine AP chest was obtained.? There is a double lumen central venous catheter in position.? Cardiac size appears within normal limits.? Pleural based radiod ensities are again noted on the right, unchanged from examination of January 15.? Bilateral changes of pulmonary scarring noted.? No significant change. Pelvis x-ray and bilateral femurs interpreted by radiology, no fracture. Labs reviewed and anemia noted. Hypomagnesemia noted. Plan to plan to give magnesium 1 g. I discussed results with the patient and he notes that he has h ad dark stool recently that has since resolved and is now brown stool. 1529 --patient reassessed and notes some improvement in weakness. We discussed admission for syncope and given diagnostic results and patient provided informed refusal of admission or further diagnostic work-up or treatment. Plan for discharge with close outpatient follow-up. He has dialysis tomorrow. Patient was encouraged to return immediately for any worsening or new concerning symptoms. I advised the need to follow-up with PCP regarding his hemoglobin this week. Disposition decision was made weighing the risks and benefits of hospitalization versus outpatient treatment, the risk for further decompensation, and the patient's wishes. The patient was stable and requested discharge. Prior to discharge, my usual and customary return precautions were reviewed with the patient - this included follow-up instructions and reason to return to the emergency department if condition worsens, does not improve as expected, or other new concerns arise. --Patient would benefit from home health care services for generalized weakness. HPI General Mode of arrival: ambulatory . Date/Time Provider Initiated Documentation: 02/10/22 10:26 . Limitations to Documentation: no limitations . Information obtained by: patient . HPI Narrative: 76-year-old male with multi medical problems including end-stage renal disease on hemodialysis, orthostatic hypotension, COPD, here with chief complaint of leg pain. Patient notes pain in bilateral thighs right greater than left that started last night after fall from standing to the ground. Patient notes he was seated watching television and stood up was walking to the bedroom and believes he lost consciousness and fell to the ground and injured his legs. He was on the ground for about 20 minutes and was able to get to bed. This morning he notes he was ambulating andhis legs felt weak and painful in thigh and he fell to the ground again. He did hit his head during this fall. He has mild headache. He is on Eliquis. Patient has chronic unchanged neck pain. He denies back pain. He does have lateral rib pain bilaterally since the fall. No abdominal pain. Related Data Home Medications Medication Instructions Recorded Confirmed aspirin 81 mg tablet,delayed 81 mg PO DAILY 09/25/12 02/10/22 release (Aspir-) multivitamin 1 ea PO DAILY 09/25/12 02/10/22 sertraline 50 mg tablet 100 mg PO DAILY 09/25/12 02/10/22 cholecalciferol (vitamin D3) 25 1,000 unit PO DAILY 09/21/15 02/10/22 mcg (1,000 unit) tablet nitroglycerin 0.4 mg sublingual 0.4 mg sublingual ONCE PRN 09/21/15 02/10/22 tablet albuterol sulfate 90 mcg/actuation 2 inh PO Q4H PRN PRN 02/16/17 02/10/22 aerosol inhaler (Proventil HFA) ascorbic acid (vitamin C) 1,000 mg 500 mg PO DAILY 02/16/17 02/10/22 tablet (Vitamin C) atorvastatin 40 mg tablet (Lipitor) 40 mg PO DAILY 02/16/17 02/10/22 cyanocobalamin (vitamin B-12) 1,000 mcg PO DAILY 09/22/19 02/10/22 1,000 mcg tablet (Vitamin B-12) acetaminophen 500 mg tablet 1,000 mg PO .Q6 HRS PRN 04/24/20 02/10/22 (Tylenol Extra Strength) insulin glargine 100 unit/mL (3 24 - 26 unit subcut HS 04/24/20 02/10/22 mL) subcutaneous pen (Lantus Solostar U-100 Insulin) pantoprazole 40 mg tablet,delayed 40 mg PO DAILY 04/24/20 02/10/22 release tamsulosin 0.4 mg capsule 0.4 mg PO DAILY 04/24/20 02/10/22 loratadine 10 mg capsule 10 mg PO DAILY #20 caps 03/09/21 02/10/22 apixaban 2.5 mg tablet (Eliquis) 2.5 mg PO BID 06/05/21 02/10/22 insulin lispro 100 unit/mL 1 sliding scale dose subcut 06/05/21 02/10/22 subcutaneous pen (Humalog KwikPen USEASDIRECTD (U-100) Insulin) midodrine 2.5 mg tablet 2.5 mg PO TID 06/05/21 02/10/22 sennosides 8.6 mg tablet (senna) 8.6 mg PO DAILY 06/05/21 02/10/22 trazodone 50 mg tablet 25 mg PO HS 06/05/21 02/10/22 metoprolol tartrate 50 mg tablet 25 mg PO BID #30 tabs 06/06/21 02/10/22 (Lopressor) fluticasone propionate 115 2 puff inhalation BID #12 grams 11/20/21 02/10/22 mcg-salmeterol 21 mcg/actuation HFA inhaler (Advair HFA) budesonide 160 mcg-glycopyr 9 2 inh inhalation BID #10.7 grams 11/26/21 02/10/22 mcg-formot 4.8 mcg/actuation HFA inhaler (Breztri Aerosphere) cyclobenzaprine 10 mg tablet 10 mg PO TID PRN #20 tabs 01/15/22 02/10/22 diphenhydramine HCl 25 mg capsule 25 mg PO Q6H 01/18/22 02/10/22 (Banophen) liraglutide 0.6 mg/0.1 mL (18 mg/3 0.6 mg subcut DAILY 01/18/22 02/10/22 mL) subcutaneous pen injector (Victoza 2-Edy) prednisone 20 mg tablet 50 mg PO DAILY 01/18/22 02/10/22 tiotropium bromide 2.5 2 spray inhalation PRN PRN 01/18/22 02/10/22 mcg/actuation mist for inhalation (Spiriva Respimat) Previous Rx's Medication Instructions Recorded loratadine 10 mg capsule 10 mg PO DAILY #20 caps 03/09/21 metoprolol tartrate 50 mg tablet 25 mg PO BID #30 tabs 06/06/21 (Lopressor) fluticasone propionate 115 2 puff inhalation BID #12 grams 11/20/21 mcg-salmeterol 21 mcg/actuation HFA inhaler (Advair HFA) budesonide 160 mcg-glycopyr 9 2 inh inhalation BID #10.7 grams 11/26/21 mcg-formot 4.8 mcg/actuation HFA inhaler (Breztri Aerosphere) cyclobenzaprine 10 mg tablet 10 mg PO TID PRN #20 tabs 01/15/22 Allergies Allergy/AdvReac Type Severity Reaction Status Date / Time pneumococcal vaccine Allergy Severe Swelling/Ed Verified 02/10/22 11:14 nandini sulfamethoxazole Allergy difficulty Verified 02/10/22 11:14 [From Bactrim] breathing trimethoprim [From Bactrim] Allergy difficulty Verified 02/10/22 11:14 breathing General Stated Complaint: Trauma MESERET: 3 Review of Systems All systems reviewed & are unremarkable except as noted in HPI and below Cardiovascular Cardiovascular: Denies chest pain and Denies dyspnea Respiratory Respiratory: Denies cough and Denies dyspnea Musculoskeletal Musculoskeletal: Reports as per HPI PFSH All Active Problems (Updated 02/21/22 @ 00:10 by DARYA CARRERA) Weakness (Acute) Anemia (Chronic) Syncope (Chronic) Hypomagnesemia (Acute) Pulmonary scarring (Acute) Chronic respiratory failure with hypoxia (Acute) 2L of O2 by NC COPD (chronic obstructive pulmonary disease) (Chronic) Bronchiectasis (Acute) 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) Basal cell carcinoma of multiple sites (Acute) Leucocytosis (Chronic) Palpitations (Acute) Exertional shortness of breath (Chronic) Neoplasm of unspecified nature of bone, soft tissue, and skin (Acute 06/19/15) Medical History Actinic keratosis (05/01/16) Anemia Basal cell carcinoma of skin (03/11/16) Bilateral cataracts Coronary Artery Disease Depression Diabetes mellitus Diabetic foot ulcer Diabetic ulcer of left foot ESRD on hemodialysis GERD (gastroesophageal reflux disease) Hoarseness Hyperkalemia Moderate pulmonary hypertension Orthostatic hypotension Paroxysmal atrial fibrillation with rapid ventricular response Perihepatic abscess RBBB (right bundle branch block) Renal cell carcinoma of left kidney (05/30/17) Shortness of breath Supraventricular tachycardia Toe infection Tubular adenoma of colon (12/18/16) Surgical History Colonoscopy - MAC (12/18/16) 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 12.02.13HE Hx of cardiac cath x2, per patient Lobectomy Pt states 2 lobes removed from R. lung. No date given. 12.02.12HE Osteotomy Partial & Debridment of first metatarsal on Left foot. S/P hemodialysis catheter insertion Family History Mother Heart disease Diabetes Sister Stroke Diabetes Sister Diabetes Cancer laryngeal cancer Sister Diabetes Social History Smoking/Tobacco Use Status: Former Tobacco Use tobacco type: cigarettes Quit Date: 05/05/14 Pack-years: 100 Tobacco: How many years used: 50 Counseling given: provider counseling Smoking risk assessment performed?: Yes Alcohol Intake: never Drug use: Never Substance use type: does not use Household members: spouse Current gender identity: male What type of physical activity do you participate in: none and independent ambulation Do you feel safe at home: Yes Do you feel safe in your relationship?: Yes Exam Const General: cooperative and no acute distress Orientation: alert and awake [facility] Head: normocephalic, no hematomas, no palpable skull fracture, no raccoon eyes and No periorbital ecchymosis Mouth: moist mucous membranes Eyes Conjunctivae: normal conjunctivae Sclera: normal sclerae Neck Neck: trachea midline, supple and tender Resp Auscultation: clear to auscultation bilaterally, no rales, no rhonchi and no wheezes Cardio Rate: regular rate and not tachycardic Rhythm: regular rhythm GI Palpation: soft, not firm, no guarding, no masses, not rigid and nontender Back/Spine/Pelvis Thoracic/Lumbar Spine: No thoracic spinal tenderness and No lumbar spinal tenderness Skin General skin exam: no rashes or lesions noted Neuro General: patient alert, patient awake and tone normal Extrem General: no edema Right lower extremity: hip/thigh Details: tenderness Location: of the mid upper leg; no swelling and no deformity and knee Details: normal to inspection Left lower extremity: hip/thigh Details: tenderness Location: of the mid upper leg and knee Details: normal to inspection Other: Pelvis stable with tenderness right mid to proximal femur Psych Appearance: grossly normal Mental Status: mental status grossly normal Course Vital Signs Vital signs: Vital Signs Temperature 36.7 C 02/10/22 10:25 Pulse 86 02/10/22 10:25 Respiratory Rate 20 02/10/22 10:25 Blood Pressure 130/55 L 02/10/22 10:25 Pulse Oximetry 100 02/10/22 10:25 Temperature 36.7 C 02/10/22 10:25 Temperature Source Oral 02/10/22 10:25 Pulse 86 02/10/22 10:25 Respiratory Rate 20 02/10/22 10:25 Blood Pressure 130/55 L 02/10/22 10:25 Pulse Oximetry 100 02/10/22 10:25 Oxygen Delivery Method Room Air 02/10/22 10:25 Oxygen Flow Rate 0 02/10/22 10:25
[2022-02-10 11:23] LABS: Source Nasal/Nares
[2022-02-10 11:24] LABS: Abs Immature Grans 0.37 10^3/uL (0.0-0.06); Absolute Basophil Count 0.06 10^3/uL (0.0-0.2); Absolute Eosinophil Count 0.18 10^3/uL (0.0-0.7); Absolute Lymphocyte Count 1.32 10^3/uL (1.2-3.4); Absolute Monocyte Count 1.05 10^3/uL (0.1-0.8); Absolute Neutrophil Count 11.97 10^3/uL (1.2-6.7); Basophils % 0.4; Eosinophils % 1.2; HCT 28.8 % (40.0-50.0); HGB 9.3 g/dL (13.5-17.5); Immature Grans % 2.5; Lymphocytes % 8.8; MCH 31.5 pg (27.0-33.0); MCHC 32.3 % (32.0-36.0); MCV 98 fL (80-95); MPV 11.2 fL (8.0-11.0); Neutrophils % 80.1; Platelet Count 255 10^3/uL (130-400); RBC 2.95 10^6/uL (4.36-5.78); RDW 13.2 % (11.8-14.1); RDW-SD 47.4 fL; WBC 14.95 10^3/uL (4.4-10.8)
[2022-02-10 11:42] LABS: ALT 14 U/L (16-63); AST 17 U/L (15-37); Albumin 2.7 g/dL (3.4-5.0); Alkaline Phosphatase 108 U/L (46-116); Anion Gap 5.2 mmol/L (3-11); BUN 23 mg/dL (7-18); Bilirubin, Total 0.4 mg/dL (0.2-1.0); CO2 32.8 mmol/L (21.0-32.0); CREATININE 3.4 mg/dL (0.70-1.30); Calcium 8.5 mg/dL (8.5-10.1); Chloride 97 mmol/L (98-107); Estimated GFR 17.96 (mL/min/1.73m2); Glucose 277 mg/dL (74-106); Magnesium 1.3 mg/dL (1.8-2.4); Potassium 3.5 mmol/L (3.5-5.1); Sodium 135 mmol/L (136-145); Total Protein 5.9 g/dL (6.4-8.2); Troponin I < 50 ng/L (<or=60)
[2022-02-10 12:26] VITALS: BP 123/55; PULSE 77; RESP 16; O2SAT 93
--- NOTE | 2022-02-10 13:11 | DI.RAD_ITS ---
Exam(s) XR FEMUR RT EXAM: XR FEMUR RT CLINICAL HISTORY: fall, pain mid femur TECHNIQUE: COMPARISON: No exams were available for comparison FINDINGS: Four views of the femur were obtained. There is no evidence of acute fracture or dislocation. IMPRESSION: RADIATION DOSE DELIVERED: Total DLP
--- NOTE | 2022-02-10 13:39 | DI.VRAD_ITS ---
PROCEDURE INFORMATION: Exam: CT Head Without Contrast Exam date and time: 02/10/2022 12:37 PM Age: 76 years old Clinical indication: Injury or trauma; Fall; Blunt trauma (contusions or hematomas); Consciousness not specified; Injury date: 02/10/22 TECHNIQUE: Imaging protocol: Computed tomography of the head without contrast. Radiation optimization: All CT scans at this facility use at least one of these dose optimization techniques: automated exposure control; mA and/or kV adjustment per patient size (includes targeted exams where dose is matched to clinical indication); or iterative reconstruction. COMPARISON: CT HEAD CERVICAL SPINE WO 01/15/2022 4:02 AM FINDINGS: Brain: No acute hemorrhage or acute territorial infarct. Diffuse involutional changes with white matter hypodensities suggestive of small vessel disease. No midline shift or mass effect. Cerebral ventricles: Prominent ventricles, proportional to volume loss. Paranasal sinuses: Atrophic right mastoid sinus with dependent opacification that may represent layering fluid, unchanged. Mastoid air cells: Partial opacification of the partially visualized right mastoid air cells, similar to prior. Well aerated left mastoid air cells Bones/joints: No acute fracture. Soft tissues: No acute changes Vasculature: The vasculature demonstrates atherosclerotic calcification. IMPRESSION: 1. No significant acute abnormality identified. 2. Note that early ischemic change can be occult on CT. If concern persists, consider MRI or CTA. Atrophic right mastoid sinus with dependent opacity that may represent layering fluid, and partial opacification of right mastoid air cells unchanged. PROCEDURE INFORMATION: Exam: CT Cervical Spine Without Contrast Exam date and time: 02/10/2022 12:37 PM Age: 76 years old Clinical indication: Injury or trauma; Fall; Blunt trauma (contusions or hematomas); Consciousness not specified; Injury date: 02/10/22 TECHNIQUE: Imaging protocol: Computed tomography of the cervical spine without contrast. Radiation optimization: All CT scans at this facility use at least one of these dose optimization techniques: automated exposure control; mA and/or kV adjustment per patient size (includes targeted exams where dose is matched to clinical indication); or iterative reconstruction. COMPARISON: CT HEAD CERVICAL SPINE WO 01/15/2022 4:02 AM FINDINGS: Alignment is essentially anatomic. Vertebral body heights are preserved. No acute fracture or malalignment. No aggressive bone lesion. Moderate degenerative change including disc space narrowing, marginal spurring and facet arthropathy. No significant soft tissue abnormality. Proximal esophageal wall thickening Parenchymal changes within the partially imaged lung apices. IMPRESSION: 1. Moderate degenerative change. No acute fracture. 2. Parenchymal changes within the partially imaged lung apices. Recommend comparison with earlier prior chest CTs which are not available Dictated and Authenticated by: Rani Payton MD. Ordering:BOBBY Horan MD
[2022-02-10 13:57] LABS: COVID-19 PCR Negative (Negative)
[2022-02-10] MEDS: MAGNESIUM SULFATE 1 GM/100 ML BAG IVPB (14:05)
[2022-02-10 14:20] VITALS: BP 114/56
[2022-02-10 14:43] VITALS: BP 108/46; PULSE 80; RESP 17; O2SAT 99
[2022-02-10 15:05] VITALS: BP 133/53; PULSE 83
[2022-02-10 15:45] VITALS: BP 132/59; PULSE 81; RESP 21; O2SAT 98
== END 2022-02-10 14:12 | disposition home or self-care (01) ==
PROVIDERS: Emergency Provider Student in an Organized Health Care Education/Training Program; PCP Family Medicine
DX: R55 Syncope and collapse (principal); D64.9 Anemia, unspecified; E83.42 Hypomagnesemia; M79.651 Pain in right thigh; M79.652 Pain in left thigh; J44.9 Chronic obstructive pulmonary disease, unspecified; M54.2 Cervicalgia; G89.29 Other chronic pain; E11.22 Type 2 diabetes mellitus with diabetic chronic kidney disease; N18.6 End stage renal disease; Z99.2 Dependence on renal dialysis; Z79.4 Long term (current) use of insulin; Z87.891 Personal history of nicotine dependence; W18.30XA Fall on same level, unspecified, initial encounter; Y93.01 Activity, walking, marching and hiking; Z20.822 Contact with and (suspected) exposure to COVID-19
CPT/HCPCS: 73552; 80053; 87635; 93005; 96365; 99284; 99285; 70450; 71045; 72125; 72170; 83735; 84484; 85025; 93010; J3475

== ENCOUNTER → 2022-03-26 09:09 | Outpatient (BNVA) | payer MEDICARE, SELFPAY | PROVIDERS: PCP Family Medicine; Referring Provider Family Medicine; Visit Provider Nurse Practitioner Gerontology | DX: C64.2 Malignant neoplasm of left kidney, except renal pelvis (principal) | CPT/HCPCS: 99443 ==

== ENCOUNTER 2022-09-05 01:10 | Outpatient (CLI) | payer MEDICARE, BC, SELFPAY ==
--- NOTE | 2022-09-05 08:50 | DI.CT_ITS ---
Exam(s) CT CHEST/ABD/PEL WO EXAM: CT CHEST/ABD/PEL WO CLINICAL HISTORY: LT KIDNEY CANCER PARTIAL NEPHRECTOMY 04/2017 C64.2 TECHNIQUE: Imaging Protocol: Axial computed tomography images with coronal and sagittal reformatted images were created and reviewed COMPARISON: CT CT CHEST/ABD/PEL WO from 01/21/2022 FINDINGS: CHEST: Tracheobronchial tree: Patent where visualized. Pulmonary parenchyma: There is unchanged scarring in the right hemithorax. No new focal consolidatin g infiltrates are seen. Unchanged air trapping is seen in the lungs. There is a calcified granuloma in the left lower lobe. Mediastinum and Olive: No dominant adenopathy or fluid collection. There is mild unchanged mild proxim al esophageal wall thickening. Thyroid gland: Unremarkable. Pleura: No effusion or pneumothorax. Heart: The heart is not dilated. Coronary artery calcifications and/or stents are noted. No pericard ial effusion. Aorta: There is again seen a left-sided thoracic arch. Atherosclerosis is present. Lymph nodes: Within normal limits. Bones:Within normal limits for the patient's age. No aggressive osseous lesions. Tubes, Catheters, and Lines: There is a central venous catheter again noted with its tip at the junct ion of the superior vena cava and right atrium. Soft tissues: Unremarkable. ABDOMEN: Liver: Normal density. No measurable mass. Gallbladder and Biliary Tract: No radiodense calculus or dilation. Pancreas: Normal density, no abnormal calcifications or inflammatory process. Spleen: Calcified granuloma are seen in the spleen. Adrenals: No masses seen. Kidneys: There again seen findings of partial left nephrectomy. No radiodense stones or obstructive uropathy. No masses seen. The nodules in the left perinephric soft tissues are unchanged. Abdominal Aorta: Abdominal portion non-dilated. Atherosclerosis. Bowel: No obstruction or bowel wall thickening. Appendix is unremarkable. Peritoneal Cavity: There is a small amount of free fluid in the pelvis. No free air. Lymph Nodes: Within normal limits. Bones: Within normal limits for the patient's age. No aggressive osseous lesions. Soft Tissues: Small fat containing umbilical hernias. PELVIS: Bladder: The urinary bladder is not well distended. Reproductive Organs: Prostate gland is enlarged. The nodular appearance at the base of the bladder a nd upper prostate gland is unchanged. Lymph Nodes: Within normal limits. Bones: Within normal limits for the patient's age. IMPRESSION: 1. There is stable scarring and volume loss in the right lung. The left lower lobe is unchanged. 2. Status post partial left nephrectomy. 3. The nodules in the left perinephric soft tissues are unchanged. The nodule between the urinary bl adder and rectum is unchanged. Small amount of ascites. RADIATION DOSE DELIVERED: 1,473.53mGy.cm Total DLP 1,473.53mGy.cm Total DLP DATA REPOSITORY: All CT scans at this facility are submitted to the National Radiology Data Registry (NRDR) Dose Index Registry (DIR) with the [employer] ([employer]). RADIATION OPTIMIZATION: All CT scans at this facility use at least one of these dose optimization te chniques: automated exposure control; mA and/or kV adjustment per patient size (includes targeted exa ms where dose is matched to clinical indication); or iterative reconstruction.
== END 2022-09-05 01:30 ==
PROVIDERS: PCP Family Medicine; Visit Provider Family Medicine
DX: C64.2 Malignant neoplasm of left kidney, except renal pelvis (principal)
CPT/HCPCS: 71250; 74176

== ENCOUNTER 2022-09-06 04:31 | Emergency (ER) | payer MEDICARE, BC, SELFPAY ==
[2022-09-06] VITALS (30 sets, daily range): BP systolic 88–129; BP diastolic 35–57; PULSE 74–100; RESP 17–26; TEMP 36.6; O2SAT 96–100
[2022-09-06] MEDS: EPINEPHrine 0.3 MG KIT 0.5 MG IM (04:25)
--- NOTE | 2022-09-06 04:30 | RT.EKG_ITS ---
APPROVED REPORT Exam: Resting ECG Reason for Exam: SOB Patient Location: E HR:84 bpm ECG Measurements Heart Rate 84 AXIS WV 215 P 4 QRSd 118 QRS 100 QT 408 T -1 QTc 482 Conclusion Sinus arrhythmia...V-rate 66- 98, variation>10% Borderline prolonged WV interval...WV >212, V-rate 50- 90 IRBBB and LPFB...RAD, QRSd>120, term axis(90,270) Physician: unchanged from prior ekg
--- NOTE | 2022-09-06 04:44 | ED.GENADUL_ITS ---
Discharge Plan Discharge Details Chief Complaint: Allergic Clinical Impression: Anaphylaxis Primary Care Provider: Zakiya Reyna ED Provider: Evin Stoddard Home Meds and New Rx's Prescriptions: No Action Advair HFA 115-21 mcg/actuation HFA aerosol inhaler 2 puff inhalation BID Qty: 12 12RF Rx Instructions: Wash mouth after use nitroglycerin 0.4 MG tablet, sublingual 0.4 mg Sublingual ONCE PRN Patient Comments: has never used it at home cholecalciferol (vitamin D3) 1,000 UNIT tablet 1,000 unit PO DAILY Breztri Aerosphere 160-9-4.8 mcg/actuation HFA aerosol inhaler 2 inh inhalation BID Qty: 10.7 12RF aspirin [Aspir-81] 81 MG tablet,delayed release (DR/EC) 81 mg PO DAILY multivitamin 1 EACH capsule 1 ea PO DAILY sertraline 50 MG tablet 100 mg PO DAILY atorvastatin [Lipitor] 40 MG tablet 40 mg PO DAILY ascorbic acid (vitamin C) [Vitamin C] 1,000 MG tablet 500 mg PO DAILY albuterol sulfate [Proventil HFA] 6.7 GM HFA aerosol inhaler 2 inh PO Q4H PRN PRN acetaminophen [Tylenol Extra Strength] 500 mg Tablet 1,000 mg PO .Q6 HRS PRN tamsulosin 0.4 mg Capsule 0.4 mg PO DAILY pantoprazole 40 mg tablet,delayed release (DR/EC) 40 mg PO DAILY insulin glargine [Lantus Solostar U-100 Insulin] 100 unit/mL (3 mL) insulin pen 24 - 26 unit SUBCUT HS cyclobenzaprine 10 mg tablet 10 mg PO TID PRNQty: 20 0RF cyanocobalamin (vitamin B-12) [Vitamin B-12] 1,000 mcg Tablet 1,000 mcg PO DAILY loratadine 10 mg capsule 10 mg PO DAILY Qty: 20 0RF sennosides [senna] 8.6 mg Tablet 8.6 mg PO DAILY trazodone 50 mg tablet 25 mg PO HS Patient Comments: TAKE ONE-HALF TABLET BY MOUTH EVERY EVENING midodrine 2.5 mg tablet 2.5 mg PO TID Patient Comments: TAKE ONE TABLET BY MOUTH THREE TIMES A DAY BEFORE MEALS insulin lispro [Humalog KwikPen Insulin] 100 unit/mL Insulin Pen 1 sliding scale dose SUBCUT USEASDIRECTD Eliquis 2.5 mg tablet 2.5 mg PO BID Patient Comments: TAKE ONE TABLET BY MOUTH TWICE A DAY metoprolol tartrate [Lopressor] 50 mg tablet 25 mg PO BID Qty: 30 1RF diphenhydramine HCl [Banophen] 25 mg capsule 25 mg PO Q6H Patient Comments: TAKE ONE CAPSULE BY MOUTH EVERY 6 HOURS Victoza 2-Edy 0.6 mg/0.1 mL (18 mg/3 mL) pen injector 0.6 mg SUBCUT DAILY Patient Comments: INJECT 0.6MG UNDER THE SKIN ONCE DAILY Spiriva Respimat 2.5 mcg/actuation mist 2 spray INHALATION PRN PRN Patient Comments: Inhale 2 puff as directed once a day prednisone 20 mg tablet 50 mg PO DAILY Discharge Instructions Instructions: General Allergic Reaction (ED) Additional Instructions: While it is not completely clear what caused your symptoms, it may have been due to an allergen or a mast cell degranulation syndrome. Please follow-up closely with your primary care provider. Please take the steroid as directed for the next 5 days. The prescription has been sent to your pharmacy on file. Please keep the EpiPen's with you at all times to use if your symptoms return. If you notice any worsening of your symptoms, or any new symptoms such as vomiting, diarrhea, fever, chills, shortness of breath, chest pain, numbness, weakness, or fainting , please return immediately to the emergency department for reevaluation. Please follow up with your primary care provider as soon as possible for reassessment and reevaluation. As always, it was a pleasure participating in your medical care today. Referrals: Zakiya Reyna MD [Primary Care Provider] - Medical Decision Making This is a 76-year-old male with a past medical history of renal mass and subsequent surgery, currently on dialysis MWF, atrial fibrillation, COPD on 4 L of oxygen at baseline, on Eliquis for his A-fib, who presents today for hives. Patient states that he had hotdogs for dinner, and did nothing abnormal or out of the ordinary today. He had no new medications. He went to bed well, and at 3:30 AM he woke up and was extremely itchy. He noticed hives all over himself. 911 was called, upon EMSs arrival patient was hypotensive, altered, and with fulminant hives. 0.3 mg of epinephrine was administered IM, 50 mg of Benadryl was given and the patient had a notable improvement. He was brought to the ER for further assessment. Upon arrival to the ER his hives had begun to return again. Patient states that his voice is much deeper than normal. He states that he feels slightly short of breath, he was nauseous and vomited radiographs, and states he still feels nauseous now. He denies any chest pain, abdominal pain, numbness tingling or weakness. No other complaints at this time. No other modifying factors. Exam demonstrates diffuse hives throughout. No angioedema. Airway clear. Patient able to swallow well. Minimal wheeze. Symptoms certainly have a presentation consistent with anaphylaxis, however with no clear etiology as a source I doubt an allergic component. This may be reflective of mast cell degranulation. Patient states that he had an episode like this once in the past and they never found the source. With his blood pressure again being low, with his return of his hives, and his notable deep voice which is concerning for laryngeal component, we we will give an additional dose of 0.5 mg of epinephrine. We will give 125 of Solu-Medrol, 20 of Pepcid, and additional 25 mg of IV Benadryl. We will monitor closely and reassess 5:07 AM On reassessment hives have completely resolved. Blood pressure is stabilized. Patient looks notably improved. We will continue to monitor 6:30 AM Patient remained stable and high free. We will continue to monitor closely. 7:15 a.m. Patient continues to look clinically well. No repeat evidence of anaphylaxis. Because of the 2 rounds of epinephrine that were given I do feel that prolonged observation is indicated. He does have dialysis at 930. I do feel that discharge prior to that is certainly reasonable. We will continue to monitor here for the next 1 to 2 hours with plan for expectant discharge if the patient's symptoms remained stable. Patient will be signed out to my colleague Dr. Sampson Salas for follow-up on reassessment. HPI General Date/Time Provider Initiated Documentation: 09/06/22 05:07 . HPI Narrative: This is a 76-year-old male with a past medical history of renal mass and subsequent surgery, currently on dialysis MWF, atrial fibrillation, COPD on 4 L of oxygen at baseline, on Eliquis for his A-fib, who presents today for hives. Patient states that he had hotdogs for dinner, and did nothing abnormal or out of the ordinary today. He had no new medications. He went to bed well, and at 3:30 AM he woke up and was extremely itchy. He noticed hives all over himself. 911 was called, upon EMSs arrival patient was hypotensive, altered, and with fulminant hives. 0.3 mg of epinephrine was administered IM, 50 mg of Benadryl was given and the patient had a notable improvement. He was brought to the ER for further assessment. Upon arrival to the ER his hives had begun to return again. Patient states that his voice is much deeper than normal. He states that he feels slightly short of breath, he was nauseous and vomited radiographs, and states he still feels nauseous now. He denies any chest pain, abdominal pain, numbness tingling or weakness. No other complaints at this time. No other modifying factors. Related Data Home Medications Medication Instructions Recorded Confirmed aspirin 81 mg tablet,delayed 81 mg PO DAILY 09/25/12 03/26/22 release (Aspir-) multivitamin 1 ea PO DAILY 09/25/12 03/26/22 sertraline 50 mg tablet 100 mg PO DAILY 09/25/12 03/26/22 cholecalciferol (vitamin D3) 25 1,000 unit PO DAILY 09/21/15 03/26/22 mcg (1,000 unit) tablet nitroglycerin 0.4 mg sublingual 0.4 mg sublingual ONCE PRN 09/21/15 03/26/22 tablet albuterol sulfate 90 mcg/actuation 2 inh PO Q4H PRN PRN 02/16/17 03/26/22 aerosol inhaler (Proventil HFA) ascorbic acid (vitamin C) 1,000 mg 500 mg PO DAILY 02/16/17 03/26/22 tablet (Vitamin C) atorvastatin 40 mg tablet (Lipitor) 40 mg PO DAILY 02/16/17 03/26/22 cyanocobalamin (vitamin B-12) 1,000 mcg PO DAILY 09/22/19 03/26/22 1,000 mcg tablet (Vitamin B-12) acetaminophen 500 mg tablet 1,000 mg PO .Q6 HRS PRN 04/24/20 03/26/22 (Tylenol Extra Strength) insulin glargine 100 unit/mL (3 24 - 26 unit subcut HS 04/24/20 03/26/22 mL) subcutaneous pen (Lantus Solostar U-100 Insulin) pantoprazole 40 mg tablet,delayed 40 mg PO DAILY 04/24/20 03/26/22 release tamsulosin 0.4 mg capsule 0.4 mg PO DAILY 04/24/20 03/26/22 loratadine 10 mg capsule 10 mg PO DAILY #20 caps 03/09/21 03/26/22 apixaban 2.5 mg tablet (Eliquis) 2.5 mg PO BID 06/05/21 03/26/22 insulin lispro 100 unit/mL 1 sliding scale dose subcut 06/05/21 03/26/22 subcutaneous pen (Humalog KwikPen USEASDIRECTD (U-100) Insulin) midodrine 2.5 mg tablet 2.5 mg PO TID 06/05/21 03/26/22 sennosides 8.6 mg tablet (senna) 8.6 mg PO DAILY 06/05/21 03/26/22 trazodone 50 mg tablet 25 mg PO HS 06/05/21 03/26/22 metoprolol tartrate 50 mg tablet 25 mg PO BID #30 tabs 06/06/21 03/26/22 (Lopressor) fluticasone propionate 115 2 puff inhalation BID #12 grams 11/20/21 03/26/22 mcg-salmeterol 21 mcg/actuation HFA inhaler (Advair HFA) budesonide 160 mcg-glycopyr 9 2 inh inhalation BID #10.7 grams 11/26/21 03/26/22 mcg-formot 4.8 mcg/actuation HFA inhaler (Breztri Aerosphere) cyclobenzaprine 10 mg tablet 10 mg PO TID PRN #20 tabs 01/15/22 03/26/22 diphenhydramine HCl 25 mg capsule 25 mg PO Q6H 01/18/22 03/26/22 (Banophen) liraglutide 0.6 mg/0.1 mL (18 mg/3 0.6 mg subcut DAILY 01/18/22 03/26/22 mL) subcutaneous pen injector (Victoza 2-Edy) prednisone 20 mg tablet 50 mg PO DAILY 01/18/22 03/26/22 tiotropium bromide 2.5 2 spray inhalation PRN PRN 01/18/22 03/26/22 mcg/actuation mist for inhalation (Spiriva Respimat) Previous Rx's Medication Instructions Recorded loratadine 10 mg capsule 10 mg PO DAILY #20 caps 03/09/21 metoprolol tartrate 50 mg tablet 25 mg PO BID #30 tabs 06/06/21 (Lopressor) fluticasone propionate 115 2 puff inhalation BID #12 grams 11/20/21 mcg-salmeterol 21 mcg/actuation HFA inhaler (Advair HFA) budesonide 160 mcg-glycopyr 9 2 inh inhalation BID #10.7 grams 11/26/21 mcg-formot 4.8 mcg/actuation HFA inhaler (Breztri Aerosphere) cyclobenzaprine 10 mg tablet 10 mg PO TID PRN #20 tabs 01/15/22 Allergies Allergy/AdvReac Type Severity Reaction Status Date / Time pneumococcal vaccine Allergy Severe Swelling/Ed Verified 09/06/22 05:05 nandini sulfamethoxazole Allergy difficulty Verified 09/06/22 05:05 [From Bactrim] breathing trimethoprim [From Bactrim] Allergy difficulty Verified 09/06/22 05:05 breathing General MESERET: 3 Review of Systems All systems reviewed & are unremarkable except as noted in HPI and below PFSH All Active Problems (Updated 09/06/22 @ 07:00 by Evin Stoddard DO) Anaphylaxis (Acute) Pulmonary scarring (Acute) Chronic respiratory failure with hypoxia (Acute) 2L of O2 by NC COPD (chronic obstructive pulmonary disease) (Chronic) Bronchiectasis (Acute) 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) Basal cell carcinoma of multiple sites (Acute) Leucocytosis (Chronic) Palpitations (Acute) Exertional shortness of breath (Chronic) Neoplasm of unspecified nature of bone, soft tissue, and skin (Acute 06/19/15) Medical History Actinic keratosis (05/01/16) Anemia Basal cell carcinoma of skin (03/11/16) Bilateral cataracts Coronary Artery Disease Depression Diabetes mellitus Diabetic foot ulcer Diabetic ulcer of left foot ESRD on hemodialysis GERD (gastroesophageal reflux disease) Hoarseness Hyperkalemia Moderate pulmonary hypertension Orthostatic hypotension Paroxysmal atrial fibrillation with rapid ventricular response Perihepatic abscess RBBB (right bundle branch block) Renal cell carcinoma of left kidney (05/30/17) Shortness of breath Supraventricular tachycardia Toe infection Tubular adenoma of colon (12/18/16) Surgical History Colonoscopy - MAC (12/18/16) Completion of amputation (09/30/12) L great toe EGD - MAC (12/18/16) H/O partial nephrectomy x3 Heart Stent (12/03/11) Pt records show heart stent placed 12/03/11 at [facility]. 12.02.12HE Hx of cardiac cath x2, per patient Lobectomy Pt states 2 lobes removed from R. lung. No date given. 12.02.12HE Osteotomy Partial & Debridment of first metatarsal on Left foot. S/P hemodialysis catheter insertion Family History Mother Heart disease Diabetes Sister Stroke Diabetes Sister Diabetes Cancer laryngeal cancer Sister Diabetes Social History Smoking/Tobacco Use Status: Former Tobacco Use tobacco type: cigarettes Quit Date: 05/05/14 Pack-years: 100 Tobacco: How many years used: 50 Counseling given: provider counseling Smoking risk assessment performed?: Yes Alcohol Intake: never Drug use: Never Substance use type: does not use Household members: spouse Current gender identity: male What type of physical activity do you participate in: none and independent ambulation Do you feel safe at home: Yes Do you feel safe in your relationship?: Yes Exam Narrative Exam Narrative: 1.Const: Well-nourished, Well-developed, appearing stated age 2.Eyes: PERRL, no conjunctival injection, and symmetrical lids. 3.ENT: Atraumatic external nose and ears. Notably dry MM. Neck: Symmetric, trachea midline, No thyromegaly. 4.CVS: +S1/S2, No murmurs or gallops. Peripheral pulses 2+ and equal in all extremities. Brisk capillary refill in all extremities. 5.RESP: Unlabored respiratory effort. Minimal wheeze 6.GI: Soft, Nontender/Nondistended, No hepatosplenomegaly. No guarding or rebound. 7.MSK: Normocephalic/Atraumatic, Extremities w/o deformity or ttp No cyanosis or clubbing, Normal movement of all extremities 8.Skin: Warm, Dry. Diffuse hives all over the patient's body. 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 Sensation grossly intact, no focal neurol ogic deficits. 10.Psych: (AAO) x3. Appropriate mood and affect
[2022-09-06] MEDS: methylPREDNISolone SUCC 125 MG VIAL IVP (04:46)
[2022-09-06] MEDS: Normal Saline 500 ML IV (04:46)
[2022-09-06] MEDS: diphenhydrAMINE 50 MG/ML VIAL 25 MG IVP (04:47)
[2022-09-06 04:50] LABS: Abs Immature Grans 0.45 10^3/uL (0.0-0.06); Absolute Eosinophil Count 0.03 10^3/uL (0.0-0.7); Absolute Lymphocyte Count 2.32 10^3/uL (1.2-3.4); Basophils % 0.4; Eosinophils % 0.1; HCT 38.9 % (40.0-50.0); HGB 12.6 g/dL (13.5-17.5); Immature Grans % 1.5; Lymphocytes % 7.9; MCH 32.6 pg (27.0-33.0); MCHC 32.4 % (32.0-36.0); MCV 101 fL (80-95); MPV 11.3 fL (8.0-11.0); Monocytes % 7.8; Neutrophils % 82.3; Platelet Count 337 10^3/uL (130-400); RBC 3.86 10^6/uL (4.36-5.78); RDW-SD 55.3 fL
[2022-09-06] MEDS: Famotidine 20 MG/2 ML VIAL IVP (04:50)
[2022-09-06 05:00] LABS: Absolute Basophil Count 0.12 10^3/uL (0.0-0.2); Absolute Neutrophil Count 24.22 10^3/uL (1.2-6.7); WBC 29.43 10^3/uL (4.4-10.8)
[2022-09-06 05:01] LABS: Diff Comment Agrees w/ Instrument; RBC Morphology Normal
[2022-09-06 05:08] LABS: PTT Activated 26.3 sec (21.5-31.9); Prothrombin Time 10.4 sec (9.3-11.0)
--- NOTE | 2022-09-06 05:10 | NUR.NOTE ---
message left for [facility] telepharmacy-complicated med list, pt unable to help.Nursing Note:
[2022-09-06 05:13] LABS: ALT 9 U/L (16-63); AST 11 U/L (15-37); Albumin 2.8 g/dL (3.4-5.0); Alkaline Phosphatase 75 U/L (46-116); Anion Gap 10.3 mmol/L (3-11); BUN 40 mg/dL (7-18); Bilirubin, Total 0.5 mg/dL (0.2-1.0); CO2 24.7 mmol/L (21.0-32.0); Calcium 8.5 mg/dL (8.5-10.1); Chloride 100 mmol/L (98-107); Estimated GFR 9.27 (mL/min/1.73m2); Glucose 269 mg/dL (74-106); Potassium 4.5 mmol/L (3.5-5.1); Sodium 135 mmol/L (136-145); TSH (W/Ref FT4) 3.07 uIU/mL (0.36-3.74); Total Protein 6.2 g/dL (6.4-8.2); Troponin I < 50 ng/L (<or=60)
[2022-09-06 05:16] LABS: CREATININE 5.9 mg/dL (0.70-1.30)
[2022-09-06 08:10] LABS: Troponin I < 50 ng/L (<or=60)
[2022-09-06] MEDS: EPINEPHrine 0.3 MG KIT IM (08:30)
== END 2022-09-06 08:46 | disposition home or self-care (01) ==
PROVIDERS: Student in an Organized Health Care Education/Training Program; Emergency Provider Emergency Medicine; PCP Family Medicine
DX: T78.2XXA Anaphylactic shock, unspecified, initial encounter (principal); Z79.899 Other long term (current) drug therapy; J44.9 Chronic obstructive pulmonary disease, unspecified; I48.91 Unspecified atrial fibrillation; R06.02 Shortness of breath; R11.0 Nausea
CPT/HCPCS: 36415; 80053; 93005; 96361; 96372; 96374; 96375; 99284; 84443; 84484; 85025; 85610; 85730; 93010; J0171; J1200; J2930

== ENCOUNTER 2022-09-08 18:02 | Emergency (ER) | payer MEDICARE, BC, SELFPAY ==
[2022-09-08] VITALS (41 sets, daily range): BP systolic 89–124; BP diastolic 40–53; PULSE 71–100; RESP 15–29; TEMP 37.1; O2SAT 91–98
--- NOTE | 2022-09-08 18:30 | DI.CT_ITS ---
Exam(s) CT HEAD WO EXAM: CT HEAD WO CLINICAL HISTORY: fall head injury on AC. TECHNIQUE: Imaging Protocol: Axial computed tomography images with coronal and sagittal reformatted images were created and reviewed COMPARISON: CT CT HEAD CERVICAL SPINE WO from 02/10/2022 FINDINGS: Ventricles and Extra axial spaces: Normal in size and morphology for the patient's age. Hemorrhage: None. Cerebral parenchyma: Atrophy. White matter changes of small vessel disease. Midline shift: None. Brainstem/Cerebellum: Normal. Calvarium: Normal. Visualized Paranasal sinuses/Mastoids: Clear. Soft Tissues: Left frontal scalp swelling. IMPRESSION: Left frontal scalp swelling. No acute intracranial process. RADIATION DOSE DELIVERED: 913.72mGy.cm Total DLP DATA REPOSITORY: All CT scans at this facility are submitted to the National Radiology Data Registry (NRDR) Dose Index Registry (DIR) with the [employer] (ACR). RADIATION OPTIMIZATION: All CT scans at this facility use at least one of these dose optimization te chniques: automated exposure control; mA and/or kV adjustment per patient size (includes targeted exa ms where dose is matched to clinical indication); or iterative reconstruction.
--- NOTE | 2022-09-08 18:45 | W.ED.GENAD ---
Discharge Plan Disposition Patient Disposition: Home Discharge Details Chief Complaint: Trauma Clinical Impression: Head injury Primary Care Provider: Zakiya Reyna ED Provider: Igor Kinsey Home Meds and New Rx's Prescriptions: No Action fluticasone propion-salmeterol [Advair HFA] 115-21 mcg/actuation HFA aerosol inhaler 2 puff inhalation BID Qty: 12 12RF Rx Instructions: Wash mouth after use nitroglycerin 0.4 MG tablet, sublingual 0.4 mg Sublingual ONCE PRN Patient Comments: has never used it at home cholecalciferol (vitamin D3) 1,000 UNIT tablet 1,000 unit PO DAILY Breztri Aerosphere 160-9-4.8 mcg/actuation HFA aerosol inhaler 2 inh inhalation BID Qty: 10.7 12RF Patient Comments: not on med list aspirin [Aspir-81] 81 MG tablet,delayed release (DR/EC) 81 mg PO DAILY multivitamin 1 EACH capsule 1 ea PO DAILY sertraline 50 MG tablet 100 mg PO DAILY atorvastatin [Lipitor] 40 MG tablet 40 mg PO DAILY ascorbic acid (vitamin C) [Vitamin C] 1,000 MG tablet 500 mg PO DAILY albuterol sulfate [Proventil HFA] 6.7 GM HFA aerosol inhaler 2 inh PO Q4H PRN PRN acetaminophen [Tylenol Extra Strength] 500 mg Tablet 1,000 mg PO .Q6 HRS PRN tamsulosin 0.4 mg Capsule 0.4 mg PO DAILY pantoprazole 40 mg tablet,delayed release (DR/EC) 40 mg PO DAILY insulin glargine [Lantus Solostar U-100 Insulin] 100 unit/mL (3 mL) insulin pen 24 - 26 unit SUBCUT HS cyclobenzaprine 10 mg tablet 10 mg PO TID PRNQty: 20 0RF bupropion HCl 100 mg tablet sustained-release 12 hr 100 mg PO BID Patient Comments: TAKE ONE TABLET BY MOUTH TWICE A DAY polyethylene glycol 3350 [Miralax] 17 gram Powder In Packet 17 g PO BID bisacodyl [Dulcolax (bisacodyl)] 10 mg Suppository 10 mg NC DAILY PRN oxycodone 10 mg tablet 10 mg PO TID Patient Comments: TAKE TWO TABLETS BY MOUTH EVERY DAY - MAX DAILY DOSE OF 2 PER DAY cyanocobalamin (vitamin B-12) [Vitamin B-12] 1,000 mcg Tablet 1,000 mcg PO DAILY Patient Comments: not on med list loratadine 10 mg capsule 10 mg PO DAILY Qty: 20 0RF sennosides [senna] 8.6 mg Tablet 8.6 mg PO DAILY trazodone 50 mg tablet 25 mg PO HS Patient Comments: TAKE ONE-HALF TABLET BY MOUTH EVERY EVENING midodrine 2.5 mg tablet 2.5 mg PO TID Patient Comments: TAKE ONE TABLET BY MOUTH THREE TIMES A DAY BEFORE MEALS insulin lispro [Humalog KwikPen Insulin] 100 unit/mL Insulin Pen 1 sliding scale dose SUBCUT USEASDIRECTD Eliquis 2.5 mg tablet 2.5 mg PO BID Patient Comments: TAKE ONE TABLET BY MOUTH TWICE A DAY metoprolol tartrate [Lopressor] 50 mg tablet 25 mg PO BID Qty: 30 1RF diphenhydramine HCl [Banophen] 25 mg capsule 25 mg PO Q6H Patient Comments: TAKE ONE CAPSULE BY MOUTH EVERY 6 HOURS Victoza 2-Edy 0.6 mg/0.1 mL (18 mg/3 mL) pen injector 0.6 mg SUBCUT DAILY Patient Comments: INJECT 0.6MG UNDER THE SKIN ONCE DAILY Spiriva Respimat 2.5 mcg/actuation mist 2 spray INHALATION PRN PRN Patient Comments: Inhale 2 puff as directed once a day prednisone 20 mg tablet 50 mg PO DAILY Patient Comments: not on med list prednisone 50 mg tablet 50 mg PO DAILY Qty: 5 0RF Patient Comments: not on med list Discharge Instructions Instructions: Head Injury (ED) Additional Instructions: Please follow-up with your primary care physician. Please return to the emergency department for any worsening symptoms. Medical Decision Making 76-year-old male on Eliquis and aspirin presents after mechanical fall forward sustaining a left frontal scalp hematoma and left proximal forearm skin tear; no LOC, patient is neurologically intact. 5 and 5 strength no ataxia, normal speech, skin tear hemostatic no foreign body cleaned at bedside. Large left frontal scalp hematoma. Given age and anticoagulation status will obtain CT head to rule out intracranial hemorrhage. Low suspicion for elbow fracture dislocation or proximal forearm fracture. Patient does not want any analgesia. Patient's tetanus is up-to-date per history. Will discharge patient pending result 22: 15 patient resting comfortably no acute distress neurologically intact. No evidence of intracranial hemorrhage. Family here to take patient home. Home care instructions and return precautions given HPI General Date/Time Provider Initiated Documentation: 09/08/22 18:13. HPI Narrative: 76-year-old male on aspirin and Eliquis presents after mechanical fall at apartment and fell forward hit his left frontal scalp no loss of conscious, also sustained skin tear to left elbow. No nausea no vomiting no chest pain or shortness of breath. Related Data Home Medications Medication Instructions Recorded Confirmed aspirin 81 mg tablet,delayed 81 mg PO DAILY 09/25/12 09/08/22 release (Aspir-) multivitamin 1 ea PO DAILY 09/25/12 09/08/22 sertraline 50 mg tablet 100 mg PO DAILY 09/25/12 09/08/22 cholecalciferol (vitamin D3) 25 1,000 unit PO DAILY 09/21/15 09/08/22 mcg (1,000 unit) tablet nitroglycerin 0.4 mg sublingual 0.4 mg sublingual ONCE PRN 09/21/15 09/08/22 tablet albuterol sulfate 90 mcg/actuation 2 inh PO Q4H PRN PRN 02/16/17 09/08/22 aerosol inhaler (Proventil HFA) ascorbic acid (vitamin C) 1,000 mg 500 mg PO DAILY 02/16/17 09/08/22 tablet (Vitamin C) atorvastatin 40 mg tablet (Lipitor) 40 mg PO DAILY 02/16/17 09/08/22 cyanocobalamin (vitamin B-12) 1,000 mcg PO DAILY 09/22/19 03/26/22 1,000 mcg tablet (Vitamin B-12) acetaminophen 500 mg tablet 1,000 mg PO .Q6 HRS PRN 04/24/20 09/08/22 (Tylenol Extra Strength) insulin glargine 100 unit/mL (3 24 - 26 unit subcut HS 04/24/20 09/08/22 mL) subcutaneous pen (Lantus Solostar U-100 Insulin) pantoprazole 40 mg tablet,delayed 40 mg PO DAILY 04/24/20 09/08/22 release tamsulosin 0.4 mg capsule 0.4 mg PO DAILY 04/24/20 09/08/22 loratadine 10 mg capsule 10 mg PO DAILY #20 caps 03/09/21 09/08/22 apixaban 2.5 mg tablet (Eliquis) 2.5 mg PO BID 06/05/21 09/08/22 insulin lispro 100 unit/mL 1 sliding scale dose subcut 06/05/21 09/08/22 subcutaneous pen (Humalog KwikPen USEASDIRECTD (U-100) Insulin) midodrine 2.5 mg tablet 2.5 mg PO TID 06/05/21 09/08/22 sennosides 8.6 mg tablet (senna) 8.6 mg PO DAILY 06/05/21 09/08/22 trazodone 50 mg tablet 25 mg PO HS 06/05/21 09/08/22 metoprolol tartrate 50 mg tablet 25 mg PO BID #30 tabs 06/06/21 09/08/22 (Lopressor) fluticasone propionate 115 2 puff inhalation BID #12 grams 11/20/21 09/08/22 mcg-salmeterol 21 mcg/actuation HFA inhaler (Advair HFA) budesonide 160 mcg-glycopyr 9 2 inh inhalation BID #10.7 grams 11/26/21 03/26/22 mcg-formot 4.8 mcg/actuation HFA inhaler (Breztri Aerosphere) cyclobenzaprine 10 mg tablet 10 mg PO TID PRN #20 tabs 01/15/22 09/08/22 diphenhydramine HCl 25 mg capsule 25 mg PO Q6H 01/18/22 09/08/22 (Banophen) liraglutide 0.6 mg/0.1 mL (18 mg/3 0.6 mg subcut DAILY 01/18/22 09/08/22 mL) subcutaneous pen injector (Victoza 2-Edy) prednisone 20 mg tablet 50 mg PO DAILY 01/18/22 03/26/22 tiotropium bromide 2.5 2 spray inhalation PRN PRN 01/18/22 09/08/22 mcg/actuation mist for inhalation (Spiriva Respimat) prednisone 50 mg tablet 50 mg PO DAILY #5 tabs 09/06/22 bisacodyl 10 mg rectal suppository 10 mg NC DAILY PRN 09/08/22 09/08/22 (Dulcolax (bisacodyl)) bupropion HCl 100 mg tablet,12 hr 100 mg PO BID 09/08/22 09/08/22 sustained-release oxycodone 10 mg tablet 10 mg PO TID 09/08/22 09/08/22 polyethylene glycol 3350 17 gram 17 g PO BID 09/08/22 09/08/22 oral powder packet (Miralax) Previous Rx's Medication Instructions Recorded loratadine 10 mg capsule 10 mg PO DAILY #20 caps 03/09/21 metoprolol tartrate 50 mg tablet 25 mg PO BID #30 tabs 06/06/21 (Lopressor) fluticasone propionate 115 2 puff inhalation BID #12 grams 11/20/21 mcg-salmeterol 21 mcg/actuation HFA inhaler (Advair HFA) budesonide 160 mcg-glycopyr 9 2 inh inhalation BID #10.7 grams 11/26/21 mcg-formot 4.8 mcg/actuation HFA inhaler (Breztri Aerosphere) cyclobenzaprine 10 mg tablet 10 mg PO TID PRN #20 tabs 01/15/22 prednisone 50 mg tablet 50 mg PO DAILY #5 tabs 09/06/22 Allergies Allergy/AdvReac Type Severity Reaction Status Date / Time pneumococcal vaccine Allergy Severe Swelling/Ed Verified 09/06/22 05:05 nandini sulfamethoxazole Allergy difficulty Verified 09/06/22 05:05 [From Bactrim] breathing trimethoprim [From Bactrim] Allergy difficulty Verified 09/06/22 05:05 breathing General Stated Complaint: Trauma MESERET: 2 Review of Systems Narrative: Review of Systems Constitutional: negative Eyes: negative ENT: negative Cardiovascular: negative Respiratory: negative Gastrointestinal: negative : negative Musculoskeletal: negative Skin: Skin tear Neurologic: Head injury Psych: negative PFSH All Active Problems (Updated 09/08/22 @ 22:15 by Igor Kinsey MD) Anaphylaxis (Acute) Head injury (Acute) Pulmonary scarring (Acute) Chronic respiratory failure with hypoxia (Acute) 2L of O2 by NC COPD (chronic obstructive pulmonary disease) (Chronic) Bronchiectasis (Acute) 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) Basal cell carcinoma of multiple sites (Acute) Leucocytosis (Chronic) Palpitations (Acute) Exertional shortness of breath (Chronic) Neoplasm of unspecified nature of bone, soft tissue, and skin (Acute 06/19/15) Medical History Actinic keratosis (05/01/16) Anemia Basal cell carcinoma of skin (03/11/16) Bilateral cataracts Coronary Artery Disease Depression Diabetes mellitus Diabetic foot ulcer Diabetic ulcer of left foot ESRD on hemodialysis GERD (gastroesophageal reflux disease) Hoarseness Hyperkalemia Moderate pulmonary hypertension Orthostatic hypotension Paroxysmal atrial fibrillation with rapid ventricular response Perihepatic abscess RBBB (right bundle branch block) Renal cell carcinoma of left kidney (05/30/17) Shortness of breath Supraventricular tachycardia Toe infection Tubular adenoma of colon (12/18/16) Surgical History Colonoscopy - MAC (12/18/16) Completion of amputation (09/30/12) L great toe EGD - MAC (12/18/16) H/O partial nephrectomy x3 Heart Stent (12/03/11) Pt records show heart stent placed 12/03/11 at [facility]. 12.02.13HE Hx of cardiac cath x2, per patient Lobectomy Pt states 2 lobes removed from R. lung. No date given. 12.02.HE Osteotomy Partial & Debridment of first metatarsal on Left foot. S/P hemodialysis catheter insertion Family History Mother Heart disease Diabetes Sister Stroke Diabetes Sister Diabetes Cancer laryngeal cancer Sister Diabetes Social History Smoking/Tobacco Use Status: Former Tobacco Use tobacco type: cigarettes Quit Date: 05/05/14 Pack-years: 100 Tobacco: How many years used: 50 Counseling given: provider counseling Smoking risk assessment performed?: Yes Alcohol Intake: never Drug use: Never Substance use type: does not use Household members: spouse Current gender identity: male What type of physical activity do you participate in: none and independent ambulation Do you feel safe at home: Yes Do you feel safe in your relationship?: Yes Exam Narrative Exam Narrative: Physical Examination General: alert, awake, cooperative, resting comfortably, no acute distress HEENT: normocephalic, left frontal scalp hematoma; PERRL, EOM intact, conjunctiva normal; no nasal discharge; moist mucous membranes, oral and pharyngeal mucosa normal, tolerating secretions Neck: supple, trachea midline; full ROM Chest: normal to inspection Respiratory: normal respiratory effort, speaking in full sentences, clear to auscultation, no wheezing, rales or rhonchi Cardiac: regular rate, regular rhythm, S1S2 intact, no murmurs rubs or gallops GI: abdomen soft, non-tender, non-distended; no palpable mass or hepatosplenomegaly Skin: Superficial skin tear to left proximal forearm Neuro: AAOx3, normal speech, moving all extremities; cranial nerves intact, 5/5 strength upper and lower extremities, no ataxia Extremities: Full range of motion all extremities Psych: Appropriate mood and affect Course Vital Signs Vital signs: Vital Signs Temperature 37.1 C 09/08/22 17:49 Pulse 76 09/08/22 17:49 Respiratory Rate 18 09/08/22 17:49 Blood Pressure 92/43 L 09/08/22 17:49 Pulse Oximetry 91 L 09/08/22 17:49 Temperature 37.1 C 09/08/22 17:49 Temperature Source Skin 09/08/22 17:49 Pulse 76 09/08/22 17:49 Respiratory Rate 18 09/08/22 17:49 Respiratory Effort Normal, Non-Labored 09/08/22 18:21 Respiratory Depth Normal 09/08/22 18:18 Respiratory Pattern Normal 09/08/22 18:18 Blood Pressure 99/43 L 09/08/22 18:01 Pulse Oximetry 91 L 09/08/22 17:49 Oxygen Delivery Method Nasal Cannula 09/08/22 17:49 Oxygen Flow Rate 4 09/08/22 17:49 Pain Level 8 09/08/22 17:49
--- NOTE | 2022-09-08 20:59 | DI.VRAD_ITS ---
PROCEDURE INFORMATION: Exam: CT Head Without Contrast Exam date and time: 09/08/2022 8:30 PM Age: 76 years old Clinical indication: Injury or trauma; Blunt trauma (contusions or hematomas); Consciousness not specified; Injury date: 09/08/22; Injury details: Fall 2 hours ago, on ac TECHNIQUE: Imaging protocol: Computed tomography of the head without contrast. Radiation optimization: All CT scans at this facility use at least one of these dose optimization techniques: automated exposure control; mA and/or kV adjustment per patient size (includes targeted exams where dose is matched to clinical indication); or iterative reconstruction. COMPARISON: CT HEAD CERVICAL SPINE WO 02/10/2022 12:37 PM FINDINGS: Brain: Mild volume loss No hemorrhage.Moderate white matter disease No mass effect. Cerebral ventricles: No ventriculomegaly. Paranasal sinuses: Visualized sinuses are unremarkable. No fluid levels. Mastoid air cells: Visualized mastoid air cells are well aerated. Bones/joints: Unremarkable. No acute fracture. Soft tissues: Left frontoparietal scalp swelling IMPRESSION: No acute intracranial hemorrhage Dictated and Authenticated by: Farhan Benjamin MD. Ordering:ANTHONY Costa MD
--- NOTE | 2022-09-09 11:31 | NUR.NOTE ---
Nursing Note:in chart to mail discharge pprwrk
== END 2022-09-08 22:27 | disposition home or self-care (01) ==
PROVIDERS: Emergency Provider Emergency Medicine; PCP Family Medicine
DX: S09.90XA Unspecified injury of head, initial encounter (principal); S51.012A Laceration without foreign body of left elbow, initial encounter; J44.9 Chronic obstructive pulmonary disease, unspecified; R00.2 Palpitations; Z79.01 Long term (current) use of anticoagulants; W19.XXXA Unspecified fall, initial encounter
CPT/HCPCS: 36415; 99284; 70450

== ENCOUNTER 2022-11-13 08:34 | Emergency (ER) | payer MEDICARE, BC, SELFPAY ==
[2022-11-13] VITALS (36 sets, daily range): BP systolic 103–143; BP diastolic 42–61; PULSE 69–89; RESP 14–28; TEMP 36.4; O2SAT 90–97
--- NOTE | 2022-11-13 08:45 | DI.CT_ITS ---
Exam(s) CT CHEST/ABD/PEL W EXAM: CT CHEST/ABD/PEL W CLINICAL HISTORY: fall, L post-lat chest echymosis TTP LLQ TTP. TECHNIQUE: Imaging Protocol: Axial computed tomography images with coronal and sagittal reformatted images were created and reviewed CONTRAST MATERIAL: Intravenous: Omnipaque 350 Contrast volume:100 ml Oral: None COMPARISON: CT CT CHEST/ABD/PEL WO from 09/05/2022 FINDINGS: CHEST: LUNGS: There is again noted decreased right hemithoracic volume and scarring.. There is significant area of infiltrate again noted in the right lower lobe, unchanged from 09/05/2022. No associated ple ural effusion. No improvement. There is also now infiltrate in the basal segments of the left lower lobe which was not previously present. The left upper lobe remains clear with the exception of some atelectasis in the lingular segment. No pleural effusion evident on either side. No pneumothorax. There are acute appearing fractures of the posterior aspects of the left 10th and 11th ribs, not prev iously present. There are no acute rib fractures evident on the opposite-right side. There are no a cute vertebral fractures evident. No sternal fractures. MEDIASTINUM: No evidence of sternal fracture nor mediastinal hematoma. Visualized thyroid unremarkab le. CARDIAC: Right sided aortic arch is again noted. No dextrocardia.Caliber of thoracic aorta is upper normal. No dissection. OSSEOUS: Fractures of the left 10th and 11th ribs as described above.. ABDOMEN: There is no ascites. However, there is an abnormal density now evident in the fat between the right hepatic lobe and the right anterior abdominal wall, this not evident on the prior CT scan of 09/06/19 23 and measuring approximately 3 by 1.5 cm. No other mesenteric findings. No bowel wall hematomas. LIVER: No evidence of liver laceration. No other focal findings in the liver. GALLBLADDER/BILIARY: Gallbladder is slightly distended but with out gallstones nor gallbladder wall e del. CBD is not dilated. PANCREAS: No evidence of pancreatic mass nor dilatation of the pancreatic duct. SPLEEN: Spleen size upper normal. Multiple benign splenic calcified granulomas are again noted. Sma ll splenule subjacent to the spleen again noted. Enhances homogeneous relative to the spleen proper. Splenic and portal veins are patent. ADRENALS: There are no significant adrenal masses. KIDNEYS: No calculi nor hydronephrosis. No solid renal masses. No cysts evident. ABDOMINAL AORTA: Abdominal aorta is heavily calcified but not enlarged. Common iliac arteries are he avily calcified but not enlarged. LYMPH NODES: There is no retroperitoneal nor paraaortic adenopathy. ABDOMINAL WALL: No evidence of significant anterior abdominal wall nor inguinal hernia. Some streaki ng over deep subcutaneous tissue left anterior abdominal wall is unchanged. GI: Abundant fecal material noted in the colon. More so than previous. No true obstruction. No viviana e air. PELVIS: LYMPH NODES: There is no intrapelvic nor inguinal adenopathy. GI: No evidence of appendicitis.No evidence of sigmoid diverticulitis. URINARY BLADDER: Mild thickening of the wall of the bladder on the left side noted. May be significa nt. REPRODUCTIVE: Enlarged prostate gland. Seminal vesicles unremarkable. OSSEOUS: No significant osseous lesions. No pelvic fractures identified. IMPRESSION: 1. There are acute fractures of posterior aspect of the left 10th and 11th ribs. There is no pneumot horax but there is now infiltrate in the left lower lobe. Previously described right lung findings a re of unchanged including significant infiltrate in the right lower lobe. There are no pleural effus ions. 2. Right-sided aortic arch is again noted. 3. In the right-side of the abdomen there is a new abnormal finding in the fat interposed between the right hepatic lobe and the right anterior abdominal wall, this finding measuring approximately 3 x 1 .5 cm and not evident on the prior CT scan of 2 months ago. Although this may be related to trauma, this is on the side opposite of the left-sided rib fractures. No other mesenteric findings. Also no bowel wall hematomas. No subjacent liver laceration. 4. Incidentally noted is asymmetric thickening of the left side of the urinary bladder wall. This ma y be a significant incidental finding. Follow-up with urology recommended. Called by myself to ER physician. RADIATION DOSE DELIVERED: 1,442.12mGy.cm Total DLP DATA REPOSITORY: All CT scans at this facility are submitted to the National Radiology Data Registry (NRDR) Dose Index Registry (DIR) with the [employer] (A[employer]). RADIATION OPTIMIZATION: All CT scans at this facility use at least one of these dose optimization te chniques: automated exposure control; mA and/or kV adjustment per patient size (includes targeted exa ms where dose is matched to clinical indication); or iterative reconstruction.
--- NOTE | 2022-11-13 08:45 | DI.CT_ITS ---
Exam(s) CT HEAD CERVICAL SPINE WO EXAM: CT HEAD CERVICAL SPINE WO CLINICAL HISTORY: 3 falls yesterday, on eliquis, unknown HS, no LOC. TECHNIQUE: Imaging Protocol: Axial computed tomography images with coronal and sagittal reformatted images were created and reviewed COMPARISON: CT CT CHEST/ABD/PEL WO from 01/18/2022 CR XR CHEST 1V IN DI DEPT from 02/10/[address] HEAD WO from 09/08/2022 FINDINGS: BRAIN: No obvious scalp hematoma (as was evident on the CT scan of 09/08/2022). There are no skull fractures nor fluid in the visualized paranasal sinuses. There is no evidence of intracranial hemorrhage, mass effect, or shift of midline structures. There are no extra-axial fluid collections. The ventricles are not enlarged or shifted and there is no blo od within the ventricular system nor within the basal cisterns. Again noted is relatively symmetrical bilateral white matter hypodensity consistent with chronic smal l vessel disease. CERVICAL SPINE: There is no evidence of fracture nor listhesis. No significant prevertebral soft tissue swelling. Mild disc space narrowing. Suspect disc protrusions C5-6 level. There is no significant facet joint malalignment. No significant osseous lesions evident. There is a partially included dilated vascular structure on the right side of the mediastinum which i s consistent with right side aortic arch, as evident on prior CT scan of January 2022. Right jugul ar dialysis catheter noted. IMPRESSION: No acute intracranial findings on this noninfused CT scan of the brain.Chronic small-vessel white mat ter ischemic changes again noted. No evidence of cervical spine fracture, malalignment, nor acute compromise of the cervical spinal can al. Right-sided aortic arch again noted. Called by myself to ER physician. RADIATION DOSE DELIVERED: 1,449.19mGy.cm Total DLP DATA REPOSITORY: All CT scans at this facility are submitted to the National Radiology Data Registry (NRDR) Dose Index Registry (DIR) with the [employer] (ACR). RADIATION OPTIMIZATION: All CT scans at this facility use at least one of these dose optimization te chniques: automated exposure control; mA and/or kV adjustment per patient size (includes targeted exa ms where dose is matched to clinical indication); or iterative reconstruction.
--- NOTE | 2022-11-13 08:45 | RT.EKG_ITS ---
APPROVED REPORT Exam: Resting ECG Reason for Exam: presyncope Patient Location: E HR:83 bpm ECG Measurements Heart Rate 83 AXIS ND 202 P -7 QRSd 128 QRS 80 QT 411 T 1 QTc 482 Conclusion Sinus arrhythmia...V-rate 67- 94, Right bundle branch block present in prior Feb [address] segement or T wave abnormalities to suggest occluisve [place]
--- NOTE | 2022-11-13 09:00 | W.ED.GENAD ---
Discharge Plan Discharge Details Chief Complaint: Fall/Non TraumaCriteria Primary Care Provider: Zakiya Reyna ED Provider: Ragini Adam Home Meds and New Rx's Prescriptions: No Action fluticasone propion-salmeterol [Advair HFA] 115-21 mcg/actuation HFA aerosol inhaler 2 puff inhalation BID Qty: 12 12RF Rx Instructions: Wash mouth after use nitroglycerin 0.4 MG tablet, sublingual 0.4 mg Sublingual ONCE PRN Patient Comments: has never used it at home cholecalciferol (vitamin D3) 1,000 UNIT tablet 1,000 unit PO DAILY Breztri Aerosphere 160-9-4.8 mcg/actuation HFA aerosol inhaler 2 inh inhalation BID Qty: 10.7 12RF Patient Comments: not on med list aspirin [Aspir-81] 81 MG tablet,delayed release (DR/EC) 81 mg PO DAILY multivitamin 1 EACH capsule 1 ea PO DAILY sertraline 50 MG tablet 100 mg PO DAILY atorvastatin [Lipitor] 40 MG tablet 40 mg PO DAILY ascorbic acid (vitamin C) [Vitamin C] 1,000 MG tablet 500 mg PO DAILY albuterol sulfate [Proventil HFA] 6.7 GM HFA aerosol inhaler 2 inh PO Q4H PRN PRN acetaminophen [Tylenol Extra Strength] 500 mg Tablet 1,000 mg PO .Q6 HRS PRN tamsulosin 0.4 mg Capsule 0.4 mg PO DAILY pantoprazole 40 mg tablet,delayed release (DR/EC) 40 mg PO DAILY insulin glargine [Lantus Solostar U-100 Insulin] 100 unit/mL (3 mL) insulin pen 24 - 26 unit SUBCUT HS cyclobenzaprine 10 mg tablet 10 mg PO TID PRNQty: 20 0RF bupropion HCl 100 mg tablet sustained-release 12 hr 100 mg PO BID Patient Comments: TAKE ONE TABLET BY MOUTH TWICE A DAY polyethylene glycol 3350 [Miralax] 17 gram Powder In Packet 17 g PO BID bisacodyl [Dulcolax (bisacodyl)] 10 mg Suppository 10 mg NC DAILY PRN oxycodone 10 mg tablet 10 mg PO TID Patient Comments: TAKE TWO TABLETS BY MOUTH EVERY DAY - MAX DAILY DOSE OF 2 PER DAY cyanocobalamin (vitamin B-12) [Vitamin B-12] 1,000 mcg Tablet 1,000 mcg PO DAILY Patient Comments: not on med list loratadine 10 mg capsule 10 mg PO DAILY Qty: 20 0RF sennosides [senna] 8.6 mg Tablet 8.6 mg PO DAILY trazodone 50 mg tablet 25 mg PO HS Patient Comments: TAKE ONE-HALF TABLET BY MOUTH EVERY EVENING midodrine 2.5 mg tablet 2.5 mg PO TID Patient Comments: TAKE ONE TABLET BY MOUTH THREE TIMES A DAY BEFORE MEALS insulin lispro [Humalog KwikPen Insulin] 100 unit/mL Insulin Pen 1 sliding scale dose SUBCUT USEASDIRECTD Eliquis 2.5 mg tablet 2.5 mg PO BID Patient Comments: TAKE ONE TABLET BY MOUTH TWICE A DAY metoprolol tartrate [Lopressor] 50 mg tablet 25 mg PO BID Qty: 30 1RF diphenhydramine HCl [Banophen] 25 mg capsule 25 mg PO Q6H Patient Comments: TAKE ONE CAPSULE BY MOUTH EVERY 6 HOURS Victoza 2-Edy 0.6 mg/0.1 mL (18 mg/3 mL) pen injector 0.6 mg SUBCUT DAILY Patient Comments: INJECT 0.6MG UNDER THE SKIN ONCE DAILY Spiriva Respimat 2.5 mcg/actuation mist 2 spray INHALATION PRN PRN Patient Comments: Inhale 2 puff as directed once a day prednisone 20 mg tablet 50 mg PO DAILY Patient Comments: not on med list prednisone 50 mg tablet 50 mg PO DAILY Qty: 5 0RF Patient Comments: not on med list Medical Decision Making 76yo M with ESRD on dialysis M/W/F, DM, hx metastatic renal cancer, s/p lobectomy, [facility]RF baseline 4LNC O2 requirement, CAD s/p stenting, on Eliquis, presenting after multiple falls yesterday with presyncope. Vital signs reassuring on arrival, on home O2 settings. Physical exam with echymosis to left posterior-lateral chest wall/back with marked tenderness to palpation, as well as moderate LLQ abdominal tenderness with no peritoneal signs. Non-focal neurologic exam. Given pt on Eliquis, CT head ordered to eval for intracranial hemorrhage though no external signs of head trauma. Labs ordered and reviewed; CBC with leukocytosis to 15.7, Hg of 10.7 (baseline 9-12 on [facility] record review), CMP consistent with ESRD, lipase negative. Troponin negative. EKG sinus with RBBB (RBBB also present on prior Feb 2022), no ST segment or T wave abnormalities to suggest occlusive MT. Imaging independently reviewed, agree with radiology reads below; CT head with no bleed, CT CAP with fractures of left 10th-11th rib & left sided infiltrate. No pneumothorax or hemothorax. Patient advised of incidental findings of lesion near right hepatic lobe and bladder thickening, advised to FU with PCP and urology. Requiring IV morphine for pain. Given age, rib fx, and pain requirement necessities hospital admission. No dialysis available at this facility. Accepted to [facility] [place] to ED under trauma/Dr. Linares. Imaging Data Radiologic Study: Imaging: CT Scan Radiologist's impression: IMPRESSION: 1. There are acute fractures of posterior aspect of the left 10th and 11th ribs. There is no pneumothorax but there is now infiltrate in the left lower lobe. Previously described right lung findings are of unchanged including significant infiltrate in the right lower lobe. There are no pleural effusions. 2. Right-sided aortic arch is again noted. 3. In the right-side of the abdomen there is a new abnormal finding in the fat interposed between the right hepatic lobe and the right anterior abdominal wall, this finding measuring approximately 3 x 1.5 cm and not evident on the prior CT scan of 2 months ago. Although this may be related to trauma, this is on the side opposite of the left-sided rib fractures. No other mesenteric findings. Also no bowel wall hematomas. No subjacent liver laceration. 4. Incidentally noted is asymmetric thickening of the left side of the urinary bladder wall. This may be a significant incidental finding. Follow-up with urology recommended Radiologic Study #2: Imaging: CT Scan Radiologist's impression: IMPRESSION: No acute intracranial findings on this noninfused CT scan of the brain.Chronic small-vessel white matter ischemic changes again noted. No evidence of cervical spine fracture, malalignment, nor acute compromise of the cervical spinal canal. Right-sided aortic arch again noted. Lab Data Lab results reviewed: Yes I reviewed the patient's lab results. Lab results narrative: Laboratory Tests Range/Units 11/13/22 11/13/22 11/13/22 09:20 09:20 09:20 WBC (4.4-10.8) 10^3/uL 15.71 H RBC (4.36-5.78) 10^6/uL 3.33 L Hgb (13.5-17.5) g/dL 10.7 L Hct (40.0-50.0) % 33.8 L MCV (80-95) fL 102 H MCH (27.0-33.0) pg 32.1 MCHC (32.0-36.0) % 31.7 L RDW (11.8-14.1) % 15.1 H Plt Count (130-400) 10^3/uL 295 MPV (8.0-11.0) fL 11.1 H Immature Gran % 1.9 Neutrophils % 81.6 Lymphocytes % 7.1 Monocytes % 7.2 Eosinophils % 1.9 Basophils % 0.3 Nucleated RBC % (0.0-0.3) % 0.0 Absolute Neutrophils (1.2-6.7) 10^3/uL 12.82 H Absolute Lymphocytes (1.2-3.4) 10^3/uL 1.12 L Absolute Monocytes (0.1-0.8) 10^3/uL 1.13 H Absolute Eosinophils (0.0-0.7) 10^3/uL 0.30 Absolute Basophils (0.0-0.2) 10^3/uL 0.05 PT (9.3-11.0) sec 10.0 INR (0.9-1.1) 1.0 APTT (21.5-31.9) sec 28.0 Sodium (136-145) mmol/L 137 Potassium (3.5-5.1) mmol/L 4.3 Chloride (98-107) mmol/L 97 L Carbon Dioxide (21.0-32.0) mmol/L 29.4 Anion Gap (3-11) mmol/L 10.6 BUN (7-18) mg/dL 36 H Creatinine (0.70-1.30) mg/dL 5.7 H* Est GFR (CKD-EPI 2020) (mL/min/1.73m2) 9.66 Glucose (74-106) mg/dL 205 H Calcium (8.5-10.1) mg/dL 8.4 L Magnesium (1.8-2.4) mg/dL 1.6 L Total Bilirubin (0.2-1.0) mg/dL 0.5 AST (15-37) U/L 11 L ALT (16-63) U/L 10 L Alkaline Phosphatase (46-116) U/L 78 Total Protein (6.4-8.2) g/dL 6.5 Albumin (3.4-5.0) g/dL 2.9 L Lipase (16-77) U/L < 10 L Patient ABO/Rh Antibody Screen Range/Units 11/13/22 09:20 WBC (4.4-10.8) 10^3/uL RBC (4.36-5.78) 10^6/uL Hgb (13.5-17.5) g/dL Hct (40.0-50.0) % MCV (80-95) fL MCH (27.0-33.0) pg MCHC (32.0-36.0) % RDW (11.8-14.1) % Plt Count (130-400) 10^3/uL MPV (8.0-11.0) fL Immature Gran % Neutrophils % Lymphocytes % Monocytes % Eosinophils % Basophils % Nucleated RBC % (0.0-0.3) % Absolute Neutrophils (1.2-6.7) 10^3/uL Absolute Lymphocytes (1.2-3.4) 10^3/uL Absolute Monocytes (0.1-0.8) 10^3/uL Absolute Eosinophils (0.0-0.7) 10^3/uL Absolute Basophils (0.0-0.2) 10^3/uL PT (9.3-11.0) sec INR (0.9-1.1) APTT (21.5-31.9) sec Sodium (136-145) mmol/L Potassium (3.5-5.1) mmol/L Chloride (98-107) mmol/L Carbon Dioxide (21.0-32.0) mmol/L Anion Gap (3-11) mmol/L BUN (7-18) mg/dL Creatinine (0.70-1.30) mg/dL Est GFR (CKD-EPI 2020) (mL/min/1.73m2) Glucose (74-106) mg/dL Calcium (8.5-10.1) mg/dL Magnesium (1.8-2.4) mg/dL Total Bilirubin (0.2-1.0) mg/dL AST (15-37) U/L ALT (16-63) U/L Alkaline Phosphatase (46-116) U/L Total Protein (6.4-8.2) g/dL Albumin (3.4-5.0) g/dL Lipase (16-77) U/L Patient ABO/Rh O Positive Antibody Screen NEGATIVE HPI General Mode of arrival: ambulatory. Date/Time Provider Initiated Documentation: 11/13/22 08:43. Limitations to Documentation: no limitations. Information obtained by: patient. HPI Narrative: 76yo M with ESRD on dialysis M/W/F, DM, hx metastatic renal cancer, s/p lobectomy, CHRF baseline 4LNC O2 requirement, CAD s/p stenting, on Eliquis, presenting after multiple falls yesterday. Fell 2 or 3 times which is unusual for him; felt lightheaded prior to each fall. Did not lose consciousness, unsure if he struck his head. This morning had left sided rib pain which prompted him to present to the ED. Pain is minimal at rest, sharp and moderate to severe with movement or palpation. Denies SOB or pleuritic pain. No pain elsewhere. No numbness/tingling/weakness. He is otherwise in his usual state of health with no fevers, chills, rash, cough, dysuria, hematuria, or other concerns. Related Data Home Medications Medication Instructions Recorded Confirmed aspirin 81 mg tablet,delayed 81 mg PO DAILY 09/25/12 11/13/22 release (Aspir-) multivitamin 1 ea PO DAILY 09/25/12 11/13/22 sertraline 50 mg tablet 100 mg PO DAILY 09/25/12 11/13/22 cholecalciferol (vitamin D3) 25 1,000 unit PO DAILY 09/21/15 11/13/22 mcg (1,000 unit) tablet nitroglycerin 0.4 mg sublingual 0.4 mg sublingual ONCE PRN 09/21/15 11/13/22 tablet albuterol sulfate 90 mcg/actuation 2 inh PO Q4H PRN PRN 02/16/17 11/13/22 aerosol inhaler (Proventil HFA) ascorbic acid (vitamin C) 1,000 mg 500 mg PO DAILY 02/16/17 11/13/22 tablet (Vitamin C) atorvastatin 40 mg tablet (Lipitor) 40 mg PO DAILY 02/16/17 11/13/22 cyanocobalamin (vitamin B-12) 1,000 mcg PO DAILY 09/22/19 11/13/22 1,000 mcg tablet (Vitamin B-12) acetaminophen 500 mg tablet 1,000 mg PO .Q6 HRS PRN 04/24/20 11/13/22 (Tylenol Extra Strength) insulin glargine 100 unit/mL (3 24 - 26 unit subcut HS 04/24/20 11/13/22 mL) subcutaneous pen (Lantus Solostar U-100 Insulin) pantoprazole 40 mg tablet,delayed 40 mg PO DAILY 04/24/20 11/13/22 release tamsulosin 0.4 mg capsule 0.4 mg PO DAILY 04/24/20 11/13/22 loratadine 10 mg capsule 10 mg PO DAILY #20 caps 03/09/21 11/13/22 apixaban 2.5 mg tablet (Eliquis) 2.5 mg PO BID 06/05/21 11/13/22 insulin lispro 100 unit/mL 1 sliding scale dose subcut 06/05/21 11/13/22 subcutaneous pen (Humalog KwikPen USEASDIRECTD (U-100) Insulin) midodrine 2.5 mg tablet 2.5 mg PO TID 06/05/21 11/13/22 sennosides 8.6 mg tablet (senna) 8.6 mg PO DAILY 06/05/21 11/13/22 trazodone 50 mg tablet 25 mg PO HS 06/05/21 11/13/22 metoprolol tartrate 50 mg tablet 25 mg PO BID #30 tabs 06/06/21 11/13/22 (Lopressor) fluticasone propionate 115 2 puff inhalation BID #12 grams 11/20/21 11/13/22 mcg-salmeterol 21 mcg/actuation HFA inhaler (Advair HFA) budesonide 160 mcg-glycopyr 9 2 inh inhalation BID #10.7 grams 11/26/21 11/13/22 mcg-formot 4.8 mcg/actuation HFA inhaler (Breztri Aerosphere) cyclobenzaprine 10 mg tablet 10 mg PO TID PRN #20 tabs 01/15/22 11/13/22 diphenhydramine HCl 25 mg capsule 25 mg PO Q6H 09/16/22 07/12/23 (Banophen) liraglutide 0.6 mg/0.1 mL (18 mg/3 0.6 mg subcut DAILY 01/18/22 11/13/22 mL) subcutaneous pen injector (Victoza 2-Edy) prednisone 20 mg tablet 50 mg PO DAILY 01/18/22 11/13/22 tiotropium bromide 2.5 2 spray inhalation PRN PRN 01/18/22 11/13/22 mcg/actuation mist for inhalation (Spiriva Respimat) prednisone 50 mg tablet 50 mg PO DAILY #5 tabs 09/06/22 11/13/22 bisacodyl 10 mg rectal suppository 10 mg NC DAILY PRN 09/08/22 11/13/22 (Dulcolax (bisacodyl)) bupropion HCl 100 mg tablet,12 hr 100 mg PO BID 09/08/22 11/13/22 sustained-release oxycodone 10 mg tablet 10 mg PO TID 09/08/22 11/13/22 polyethylene glycol 3350 17 gram 17 g PO BID 09/08/22 11/13/22 oral powder packet (Miralax) Previous Rx's Medication Instructions Recorded loratadine 10 mg capsule 10 mg PO DAILY #20 caps 03/09/21 metoprolol tartrate 50 mg tablet 25 mg PO BID #30 tabs 06/06/21 (Lopressor) fluticasone propionate 115 2 puff inhalation BID #12 grams 11/20/21 mcg-salmeterol 21 mcg/actuation HFA inhaler (Advair HFA) budesonide 160 mcg-glycopyr 9 2 inh inhalation BID #10.7 grams 11/26/21 mcg-formot 4.8 mcg/actuation HFA inhaler (Breztri Aerosphere) cyclobenzaprine 10 mg tablet 10 mg PO TID PRN #20 tabs 01/15/22 prednisone 50 mg tablet 50 mg PO DAILY #5 tabs 09/06/22 Allergies Allergy/AdvReac Type Severity Reaction Status Date / Time pneumococcal vaccine Allergy Severe Swelling/Ed Verified 11/13/22 08:44 nandini sulfamethoxazole Allergy difficulty Verified 11/13/22 08:44 [From Bactrim] breathing trimethoprim [From Bactrim] Allergy difficulty Verified 11/13/22 08:44 breathing General Stated Complaint: Fall/Non TraumaCriteria MESERET: 4 PFSH All Active Problems (Updated 10/09/22 @ 00:09 by DARYA CARRERA) Pulmonary scarring (Acute) Chronic respiratory failure with hypoxia (Acute) 2L of O2 by NC COPD (chronic obstructive pulmonary disease) (Chronic) Bronchiectasis (Acute) 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) Basal cell carcinoma of multiple sites (Acute) Leucocytosis (Chronic) Palpitations (Acute) Exertional shortness of breath (Chronic) Neoplasm of unspecified nature of bone, soft tissue, and skin (Acute 06/19/15) Medical History Actinic keratosis (05/01/16) Anemia Basal cell carcinoma of skin (03/11/16) Bilateral cataracts Coronary Artery Disease Depression Diabetes mellitus Diabetic foot ulcer Diabetic ulcer of left foot ESRD on hemodialysis GERD (gastroesophageal reflux disease) Hoarseness Hyperkalemia Moderate pulmonary hypertension Orthostatic hypotension Paroxysmal atrial fibrillation with rapid ventricular response Perihepatic abscess RBBB (right bundle branch block) Renal cell carcinoma of left kidney (05/30/17) Shortness of breath Supraventricular tachycardia Toe infection Tubular adenoma of colon (12/18/16) Surgical History Colonoscopy - MAC (12/18/16) Completion of amputation (09/30/12) L great toe EGD - MAC (12/18/16) H/O partial nephrectomy x3 Heart Stent (12/03/11) Pt records show heart stent placed 12/03/11 at [facility]. 12.02.12HE Hx of cardiac cath x2, per patient Lobectomy Pt states 2 lobes removed from R. lung. No date given. 12.02.12HE Osteotomy Partial & Debridment of first metatarsal on Left foot. S/P hemodialysis catheter insertion Family History Mother Heart disease Diabetes Sister Stroke Diabetes Sister Diabetes Cancer laryngeal cancer Sister Diabetes Social History Smoking/Tobacco Use Status: Former Tobacco Use tobacco type: cigarettes Quit Date: 05/05/14 Pack-years: 100 Tobacco: How many years used: 50 Counseling given: provider counseling Smoking risk assessment performed?: Yes Alcohol Intake: never Drug use: Never Substance use type: does not use Household members: spouse Current gender identity: male What type of physical activity do you participate in: none and independent ambulation Do you feel safe at home: Yes Do you feel safe in your relationship?: Yes Exam Narrative Exam Narrative: GENERAL: Alert, in no acute distress. SKIN: Warm and well perfused. Echymosis to left forearm with bandaged skin tears. Echymosis and abrasion to left posterior lateral chest/back in mid-low thoracic region. HEAD: Atraumatic, normocephalic without edema, discoloration or evidence of trauma. Facial bones without deformities or tenderness. EYES: PERRL. No scleral icterus or conjunctival injection. Extraocular muscles intact without nystagmus or diplopia. EARS: Normal appearing pinnae. No hemotympanum. Dried blood left exterior ear. NOSE: No discharge, tenderness, laxity. MOUTH: No malocclusion or trismus. NECK: Trachea midline. No discolorations or edema. CV: Regular rate and rhythm, Normal s1 and s2. No murmurs, rubs, or gallops. PV: Radial pulses 2+ bilaterally and symmetric. Dorsalis pedis pulses 1+ bilaterally and symmetric. 2+ capillary refill. No extremity edema. CHEST: Chest symmetric with respirations. Left posterior lateral chest wall TTP. No crepitus. No step offs. Diminished breath sounds on right (pt states prior lobectomy) ABDOMEN: No ecchymosis or abrasions. Soft, nondistended. TTP of LLQ, no rebound or guarding. BACK: Spine without bony tenderness, no step offs. PELVIC: Pelvis stable, nontender to lateral compression MSK: No gross deformities. Tolerates full range of motion of extremities without tenderness. NEURO: Alert and oriented to person, place, and time. GCS 15. Sensation grossly intact. Moves all extremities freely against gravity. Course Vital Signs Vital signs: Vital Signs Temperature 36.4 C L 11/13/22 08:35 Pulse 83 11/13/22 08:35 Respiratory Rate 18 11/13/22 08:35 Blood Pressure 123/60 11/13/22 08:35 Pulse Oximetry 90 L 11/13/22 08:35 Temperature 36.4 C L 11/13/22 08:35 Temperature Source Temporal Artery Scan 11/13/22 08:35 Pulse 83 11/13/22 08:35 Respiratory Rate 18 11/13/22 08:35 Respiratory Effort Short of Breath 11/13/22 08:43 Blood Pressure 123/60 11/13/22 08:35 Blood Pressure Position Supine 11/13/22 08:35 Pulse Oximetry 90 L 11/13/22 08:35 Oxygen Delivery Method Nasal Cannula 11/13/22 08:35 Oxygen Flow Rate 4 11/13/22 08:35 Pain Level 10 11/13/22 08:48 Critical Care Time Critical Care Time Critical Care Time: Yes Total Critical Care Time: 32 Attestation: Due to a high probability of clinically significant, life threatening deterioration, the patient required my highest level of preparedness to intervene emergently and I personally spent this critical care time directly and personally managing the patient. This critical care time included obtaining a history; examining the patient; pulse oximetry; ordering and review of studies; arranging urgent treatment with development of a management plan; evaluation of patient's response to treatment; frequent reassessment; and, discussions with other providers. This critical care time was performed to assess and manage the high probability of imminent, life-threatening deterioration that could result in multi-organ failure. It was exclusive of separately billable procedures.
[2022-11-13] MEDS: MORPHine 10 MG/ML VIAL 2 MG IVP (09:26)
[2022-11-13 09:31] LABS: Absolute Basophil Count 0.05 10^3/uL (0.0-0.2); Absolute Lymphocyte Count 1.12 10^3/uL (1.2-3.4); Absolute Monocyte Count 1.13 10^3/uL (0.1-0.8); Basophils % 0.3; Eosinophils % 1.9; HCT 33.8 % (40.0-50.0); HGB 10.7 g/dL (13.5-17.5); Immature Grans % 1.9; Lymphocytes % 7.1; MCH 32.1 pg (27.0-33.0); MCHC 31.7 % (32.0-36.0); MCV 102 fL (80-95); MPV 11.1 fL (8.0-11.0); Monocytes % 7.2; Neutrophils % 81.6; Platelet Count 295 10^3/uL (130-400); RBC 3.33 10^6/uL (4.36-5.78); RDW 15.1 % (11.8-14.1); RDW-SD 56.1 fL; WBC 15.71 10^3/uL (4.4-10.8)
[2022-11-13 09:32] LABS: Absolute Neutrophil Count 12.82 10^3/uL (1.2-6.7)
[2022-11-13 09:46] LABS: ALT 10 U/L (16-63); AST 11 U/L (15-37); Albumin 2.9 g/dL (3.4-5.0); Alkaline Phosphatase 78 U/L (46-116); Anion Gap 10.6 mmol/L (3-11); BUN 36 mg/dL (7-18); Bilirubin, Total 0.5 mg/dL (0.2-1.0); CO2 29.4 mmol/L (21.0-32.0); Calcium 8.4 mg/dL (8.5-10.1); Chloride 97 mmol/L (98-107); Estimated GFR 9.66 (mL/min/1.73m2); Glucose 205 mg/dL (74-106); Lipase < 10 U/L (16-77); Magnesium 1.6 mg/dL (1.8-2.4); Potassium 4.3 mmol/L (3.5-5.1); Sodium 137 mmol/L (136-145); Total Protein 6.5 g/dL (6.4-8.2)
[2022-11-13 09:54] LABS: CREATININE 5.7 mg/dL (0.70-1.30)
[2022-11-13] MEDS: Omnipaque 350 MG/ML 500 ML BTL-Imaging package IJ (10:11)
[2022-11-13] MEDS: Normal Saline - Diluent 50 ML VIAL IJ (10:12)
[2022-11-13] MEDS: MORPHine 4 MG/ML SYR IVP (12:41)
[2022-11-13 12:53] LABS: Troponin I < 50 ng/L (<or=60)
[2022-11-13 14:41] LABS: Bilirubin Small (Negative); Blood Moderate (Negative); Clarity Sl Cloudy (Clear); Glucose 100 mg/dL (Negative); Ketones 15 mg/dL (Negative); Leukocyte Esterase Large (Negative); Nitrite Negative (Negative); Urobilinogen 0.2 mg/dL (Up to 0.2)
[2022-11-13 14:51] LABS: Bacteria Rare HPF (Negative); C & S Indicated? Yes; Casts 0-2 Hyaline LPF (Negative); Crystals Negative HPF (Negative); Epithelial Cells Rare HPF (Negative); Mucus Negative (Negative); RBC 0-2 HPF (0-2); WBC >50 HPF (0-5)
== END 2022-11-13 15:56 | disposition short-term general hospital (02) ==
LOC: ER 08:44
PROVIDERS: Emergency Provider Student in an Organized Health Care Education/Training Program; PCP Family Medicine
DX: S22.42XA Multiple fractures of ribs, left side, initial encounter for closed fracture (principal); I45.19 Other right bundle-branch block; R91.8 Other nonspecific abnormal finding of lung field; I12.0 Hypertensive chronic kidney disease with stage 5 chronic kidney disease or end stage renal disease; E11.22 Type 2 diabetes mellitus with diabetic chronic kidney disease; J96.11 Chronic respiratory failure with hypoxia; J44.9 Chronic obstructive pulmonary disease, unspecified; I25.10 Atherosclerotic heart disease of native coronary artery without angina pectoris; Z99.2 Dependence on renal dialysis; Z99.81 Dependence on supplemental oxygen; Z79.01 Long term (current) use of anticoagulants; Z79.4 Long term (current) use of insulin; Z79.82 Long term (current) use of aspirin; Z95.5 Presence of coronary angioplasty implant and graft; Z85.528 Personal history of other malignant neoplasm of kidney; Z87.891 Personal history of nicotine dependence; W18.39XA Other fall on same level, initial encounter; Y93.89 Activity, other specified; Y92.89 Other specified places as the place of occurrence of the external cause; Y99.9 Unspecified external cause status
CPT/HCPCS: 36415; 74177; 80053; 83690; 86850; 86900; 86901; 93005; 96374; 96376; 99285; 70450; 71260; 72125; 81003; 81015; 83735; 84484; 85025; 85610; 85730; 87086; 93010; J2270

== ENCOUNTER 2022-11-24 11:27 | Emergency (ER) | payer MEDICARE, BC, SELFPAY ==
[2022-11-24] VITALS (66 sets, daily range): BP systolic 102–146; BP diastolic 53–78; PULSE 76–96; RESP 11–24; TEMP 37; O2SAT 98–100
--- NOTE | 2022-11-24 11:15 | RT.EKG_ITS ---
APPROVED REPORT Exam: Resting ECG Reason for Exam: sob Patient Location: E HR:90 bpm ECG Measurements Heart Rate 90 AXIS OH 173 P -14 QRSd 123 QRS -87 QT 376 T 25 QTc 460 Conclusion Sinus rhythm...normal P axis, V-rate 60- 99 Right bundle branch block...QRSd>120, terminal axis(90,270)
--- NOTE | 2022-11-24 12:07 | W.ED.GENAD ---
Discharge Plan Disposition Patient Disposition: Home Condition: Stable Discharge Details Clinical Impression: Shortness of breath Primary Care Provider: Zakiya Reyna ED Provider: Gregg Coppola Home Meds and New Rx's Prescriptions: Continued fluticasone propion-salmeterol [Advair HFA] 115-21 mcg/actuation HFA aerosol inhaler 2 puff inhalation BID Qty: 12 12RF Rx Instructions: Wash mouth after use nitroglycerin 0.4 MG tablet, sublingual 0.4 mg Sublingual ONCE PRN Patient Comments: has never used it at home cholecalciferol (vitamin D3) 1,000 UNIT tablet 1,000 unit PO DAILY Breztri Aerosphere 160-9-4.8 mcg/actuation HFA aerosol inhaler 2 inh inhalation BID Qty: 10.7 12RF Patient Comments: not on med list aspirin [Aspir-81] 81 MG tablet,delayed release (DR/EC) 81 mg PO DAILY multivitamin 1 EACH capsule 1 ea PO DAILY sertraline 50 MG tablet 100 mg PO DAILY atorvastatin [Lipitor] 40 MG tablet 40 mg PO HS ascorbic acid (vitamin C) [Vitamin C] 1,000 MG tablet 500 mg PO DAILY albuterol sulfate [Proventil HFA] 6.7 GM HFA aerosol inhaler 2 inh PO Q4H PRN PRN acetaminophen [Tylenol Extra Strength] 500 mg Tablet 1,000 mg PO .Q6 HRS PRN tamsulosin 0.4 mg Capsule 0.4 mg PO DIRECTED Patient Comments: QOD pantoprazole 40 mg tablet,delayed release (DR/EC) 40 mg PO DAILY insulin glargine [Lantus Solostar U-100 Insulin] 100 unit/mL (3 mL) insulin pen 12 unit SUBCUT HS cyclobenzaprine 10 mg tablet 10 mg PO TID PRNQty: 20 0RF bupropion HCl 100 mg tablet sustained-release 12 hr 150 mg PO BID Patient Comments: TAKE ONE TABLET BY MOUTH TWICE A DAY polyethylene glycol 3350 [Miralax] 17 gram Powder In Packet 17 g PO BID bisacodyl [Dulcolax (bisacodyl)] 10 mg Suppository 10 mg TN DAILY PRN oxycodone 10 mg tablet 20 mg PO BID Patient Comments: TAKE TWO TABLETS BY MOUTH EVERY DAY - MAX DAILY DOSE OF 2 PER DAY metoprolol tartrate [Lopressor] 50 mg tablet 50 mg PO BID Fiasp FlexTouch U-100 Insulin 100 unit/mL (3 mL) insulin pen 2 - 6 unit SUBCUT BID cyanocobalamin (vitamin B-12) [Vitamin B-12] 1,000 mcg Tablet 1,000 mcg PO DAILY Patient Comments: not on med list loratadine 10 mg capsule 10 mg PO DAILY Qty: 20 0RF sennosides [senna] 8.6 mg Tablet 8.6 mg PO DAILY trazodone 50 mg tablet 50 mg PO HS Patient Comments: TAKE ONE-HALF TABLET BY MOUTH EVERY EVENING midodrine 2.5 mg tablet 10 mg PO TID Patient Comments: TAKE ONE TABLET BY MOUTH THREE TIMES A DAY BEFORE MEALS insulin lispro [Humalog KwikPen Insulin] 100 unit/mL Insulin Pen 1 sliding scale dose SUBCUT USEASDIRECTD Patient Comments: not on med list Eliquis 2.5 mg tablet 2.5 mg PO BID Patient Comments: TAKE ONE TABLET BY MOUTH TWICE A DAY diphenhydramine HCl [Banophen] 25 mg capsule 25 mg PO Q6H Patient Comments: TAKE ONE CAPSULE BY MOUTH EVERY 6 HOURS Victoza 2-Edy 0.6 mg/0.1 mL (18 mg/3 mL) pen injector 1.8 mg SUBCUT DAILY Patient Comments: INJECT 0.6MG UNDER THE SKIN ONCE DAILY Spiriva Respimat 2.5 mcg/actuation mist 2 spray INHALATION PRN PRN Patient Comments: Inhale 2 puff as directed once a day prednisone 20 mg tablet 50 mg PO DAILY Patient Comments: not on med list prednisone 50 mg tablet 50 mg PO DAILY Qty: 5 0RF Patient Comments: not on med list Discharge Instructions Instructions: Dyspnea (ED) Additional Instructions: Your blood work and cat scan did not show any new concerning findings follow up with your primary care provider within 1 week and attend your scheduled dialysis sessions if you feel more ill, have severe worsening symptoms or high fevers return to the emergency department Medical Decision Making 77 yo male with hx of copd, bronchiectasis, who was d/c'd yesterday after being admitted with back pain s/p fall and evaluated by PT and felt safe for home d/c, comes in with ems after he felt short of breath this morning when he thought his oxygen tanks weren't working. It is unclear if they were actually working or not. He denies chest pain, n/v, has a chronic dry cough that is unchanged. He has no symptoms now, stable vitals, caox4 speaking clearly, has clear lungs, no murmurs, no jvd, no leg swelling or calf tenderness. Suspect this could have been from o2 malfunction but will obtain ekg/troponin, cbc, cmp, d dimer and cxr. pt's labs show continued leukocytosis but seems to be chronic, denies any changes in cough and due to d dimer being elevated had CTA which did not show any significant findings, no infiltrates. He feels well and has no complaints now and would be comfortable with discharge but has no oxygen tanks and the new machine he received he is not sure it works. Respiratory consulted and unable to figure out what machine he has or if they can help him as it is Friday and [facility] do not have access to his records until tomorrow. EMS able to obtain his machine and it does work and he can use it and patient is comfortable going home and prefers this given ressuring work up. He doesn't feel like he can sit in a wheelchair due to his prior rib fractures and feeling dizzy with sitting up and prefers to go by ambulance. He will f/u with pcp, return precautions given. Differential Diagnosis Differential Diagnosis: copd, hypoxia, o2 malfunction Medical Records Medical records reviewed: Yes I reviewed the patient's medical records. Imaging Data Radiologic Study: Attestation: I personally reviewed and interpreted this imaging study as follows: Imaging: X-Ray Radiologist's impression: IMPRESSION: Probable mild pulmonary edema superimposed upon the chronic changes in the lung bases. Lab Data Lab results reviewed: Yes I reviewed the patient's lab results. ECG Data Attestation: I personally reviewed and interpreted this ECG (s) as follows: Prior ECG tracings: available for review Interpretation: sinus rate of 90 pr 173, rbbb, no stemi HPI General Mode of arrival: EMS. Date/Time Provider Initiated Documentation: 11/24/22 11:48. Limitations to Documentation: no limitations. Information obtained by: patient. History of Present Illness 77 year old M presents to the emergency department with the chief complaint of shortness of breath, described as moderate, Patient started experiencing this hour(s) and it has been now resolved. No relieving factors improve symptom(s), No exacerbating factors reported . Patient notes denies chest pain and fever/chills. Patient did receive the following treatments prior to arrival, none Related Data Home Medications Medication Instructions Recorded Confirmed aspirin 81 mg tablet,delayed 81 mg PO DAILY 09/25/12 11/24/22 release (Aspir-) multivitamin 1 ea PO DAILY 09/25/12 11/24/22 sertraline 50 mg tablet 100 mg PO DAILY 09/25/12 11/24/22 cholecalciferol (vitamin D3) 25 1,000 unit PO DAILY 09/21/15 11/24/22 mcg (1,000 unit) tablet nitroglycerin 0.4 mg sublingual 0.4 mg sublingual ONCE PRN 09/21/15 11/24/22 tablet albuterol sulfate 90 mcg/actuation 2 inh PO Q4H PRN PRN 02/16/17 11/24/22 aerosol inhaler (Proventil HFA) ascorbic acid (vitamin C) 1,000 mg 500 mg PO DAILY 02/16/17 11/24/22 tablet (Vitamin C) atorvastatin 40 mg tablet (Lipitor) 40 mg PO HS 02/16/17 11/24/22 cyanocobalamin (vitamin B-12) 1,000 mcg PO DAILY 09/22/19 11/13/22 1,000 mcg tablet (Vitamin B-12) acetaminophen 500 mg tablet 1,000 mg PO .Q6 HRS PRN 04/24/20 11/24/22 (Tylenol Extra Strength) insulin glargine 100 unit/mL (3 12 unit subcut HS 04/24/20 11/24/22 mL) subcutaneous pen (Lantus Solostar U-100 Insulin) pantoprazole 40 mg tablet,delayed 40 mg PO DAILY 04/24/20 11/24/22 release tamsulosin 0.4 mg capsule 0.4 mg PO DIRECTED 04/24/20 11/24/22 loratadine 10 mg capsule 10 mg PO DAILY #20 caps 03/09/21 11/24/22 apixaban 2.5 mg tablet (Eliquis) 2.5 mg PO BID 06/05/21 11/24/22 insulin lispro 100 unit/mL 1 sliding scale dose subcut 06/05/21 11/13/22 subcutaneous pen (Humalog KwikPen USEASDIRECTD (U-100) Insulin) midodrine 2.5 mg tablet 10 mg PO TID 06/05/21 11/24/22 sennosides 8.6 mg tablet (senna) 8.6 mg PO DAILY 06/05/21 11/24/22 trazodone 50 mg tablet 50 mg PO HS 06/05/21 11/24/22 fluticasone propionate 115 2 puff inhalation BID #12 grams 11/20/21 11/24/22 mcg-salmeterol 21 mcg/actuation HFA inhaler (Advair HFA) budesonide 160 mcg-glycopyr 9 2 inh inhalation BID #10.7 grams 11/26/21 11/13/22 mcg-formot 4.8 mcg/actuation HFA inhaler (Breztri Aerosphere) cyclobenzaprine 10 mg tablet 10 mg PO TID PRN #20 tabs 01/15/22 11/24/22 diphenhydramine HCl 25 mg capsule 25 mg PO Q6H 01/18/22 11/24/22 (Banophen) liraglutide 0.6 mg/0.1 mL (18 mg/3 1.8 mg subcut DAILY 01/18/22 11/24/22 mL) subcutaneous pen injector (Victoza 2-Edy) prednisone 20 mg tablet 50 mg PO DAILY 01/18/22 11/13/22 tiotropium bromide 2.5 2 spray inhalation PRN PRN 01/18/22 11/24/22 mcg/actuation mist for inhalation (Spiriva Respimat) prednisone 50 mg tablet 50 mg PO DAILY #5 tabs 09/06/22 11/13/22 bisacodyl 10 mg rectal suppository 10 mg TN DAILY PRN 09/08/22 11/24/22 (Dulcolax (bisacodyl)) bupropion HCl 100 mg tablet,12 hr 150 mg PO BID 09/08/22 11/24/22 sustained-release oxycodone 10 mg tablet 20 mg PO BID 09/08/22 11/24/22 polyethylene glycol 3350 17 gram 17 g PO BID 09/08/22 11/24/22 oral powder packet (Miralax) insulin aspart 2 - 6 unit subcut BID 11/24/22 11/24/22 (niacinamide)(U-100) 100 unit/mL(3 mL) subcutaneous pen (Fiasp FlexTouch U-100 Insulin) metoprolol tartrate 50 mg tablet 50 mg PO BID 11/24/22 11/24/22 (Lopressor) Previous Rx's Medication Instructions Recorded loratadine 10 mg capsule 10 mg PO DAILY #20 caps 03/09/21 fluticasone propionate 115 2 puff inhalation BID #12 grams 11/20/21 mcg-salmeterol 21 mcg/actuation HFA inhaler (Advair HFA) budesonide 160 mcg-glycopyr 9 2 inh inhalation BID #10.7 grams 11/26/21 mcg-formot 4.8 mcg/actuation HFA inhaler (Breztri Aerosphere) cyclobenzaprine 10 mg tablet 10 mg PO TID PRN #20 tabs 01/15/22 prednisone 50 mg tablet 50 mg PO DAILY #5 tabs 09/06/22 Allergies Allergy/AdvReac Type Severity Reaction Status Date / Time pneumococcal vaccine Allergy Severe Swelling/Ed Verified 11/24/22 12:41 nandini sulfamethoxazole Allergy difficulty Verified 11/24/22 12:41 [From Bactrim] breathing trimethoprim [From Bactrim] Allergy difficulty Verified 11/24/22 12:41 breathing General Stated Complaint: SOB/SuddenOnset MESERET: 2 Review of Systems All systems reviewed & are unremarkable except as noted in HPI and below Constitutional Constitutional: Denies chills and Denies fever(s) Cardiovascular Cardiovascular: Denies chest pain Respiratory Respiratory: Denies cough Gastrointestinal Gastrointestinal: Denies abdominal pain, Denies nausea and Denies vomiting Genitourinary Genitourinary: Denies dysuria Musculoskeletal Musculoskeletal: Denies joint swelling Integumentary/Breasts Skin/Breast: Denies rash PFSH All Active Problems (Updated 11/24/22 @ 19:30 by Gregg Coppola MD) Shortness of breath (Acute) Pulmonary scarring (Acute) Chronic respiratory failure with hypoxia (Acute) 2L of O2 by VT COPD (chronic obstructive pulmonary disease) (Chronic) Bronchiectasis (Acute) 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) Basal cell carcinoma of multiple sites (Acute) Leucocytosis (Chronic) Palpitations (Acute) Exertional shortness of breath (Chronic) Neoplasm of unspecified nature of bone, soft tissue, and skin (Acute 06/19/15) Medical History Actinic keratosis (05/01/16) Anemia Basal cell carcinoma of skin (03/11/16) Bilateral cataracts Coronary Artery Disease Depression Diabetes mellitus Diabetic foot ulcer Diabetic ulcer of left foot ESRD on hemodialysis GERD (gastroesophageal reflux disease) Hoarseness Hyperkalemia Moderate pulmonary hypertension Orthostatic hypotension Paroxysmal atrial fibrillation with rapid ventricular response Perihepatic abscess RBBB (right bundle branch block) Renal cell carcinoma of left kidney (05/30/17) Shortness of breath Supraventricular tachycardia Toe infection Tubular adenoma of colon (12/18/16) Surgical History Colonoscopy - MAC (12/18/16) Completion of amputation (09/30/12) L great toe EGD - MAC (12/18/16) H/O partial nephrectomy x3 Heart Stent (12/03/11) Pt records show heart stent placed 12/03/11 at [facility]. 12.02.12HE Hx of cardiac cath x2, per patient Lobectomy Pt states 2 lobes removed from R. lung. No date given. 12.02.12HE Osteotomy Partial & Debridment of first metatarsal on Left foot. S/P hemodialysis catheter insertion Family History Mother Heart disease Diabetes Sister Stroke Diabetes Sister Diabetes Cancer laryngeal cancer Sister Diabetes Social History Smoking/Tobacco Use Status: Former Tobacco Use tobacco type: cigarettes Quit Date: 05/05/14 Pack-years: 100 Tobacco: How many years used: 50 Counseling given: provider counseling Smoking risk assessment performed?: Yes Alcohol Intake: never Drug use: Never Substance use type: does not use Household members: spouse Housing: house Current gender identity: male What type of physical activity do you participate in: none and independent ambulation Do you feel safe at home: Yes Do you feel safe in your relationship?: Yes Additional Social history: lives with his Exam Const General: no acute distress Orientation: alert HENMT Head: normal to inspection Ears: external ears normal General nose exam: external nose normal Mouth: moist mucous membranes Eyes General: appearance normal, both eyes and all related structures Neck Neck: normal visual inspection Resp Effort & Inspection: normal respiratory effort and able to speak in complete sentences Auscultation: clear to auscultation bilaterally Cardio Jugular venous pressure: no JVD Rate: regular rate Heart Sounds: no murmurs Skin General skin exam: no rashes or lesions noted Neuro General: patient alert and patient oriented x3 Extrem General: normal to inspection Psych Mental Status: mental status grossly normal Course Vital Signs Vital signs: Vital Signs Temperature 37 C 11/24/22 11:28 Pulse 94 H 11/24/22 11:28 Respiratory Rate 17 11/24/22 11:28 Blood Pressure 134/61 11/24/22 11:28 Pulse Oximetry 98 11/24/22 11:28 Temperature 37 C 11/24/22 11:28 Temperature Source Skin 11/24/22 11:28 Pulse 83 11/24/22 12:00 Pulse 87 11/24/22 12:01 Respiratory Rate 18 11/24/22 12:01 Respiratory Effort Short of Breath 11/24/22 12:06 Respiratory Depth Normal 11/24/22 12:01 Respiratory Pattern Normal 11/24/22 12:01 Blood Pressure 127/58 L 11/24/22 12:00 Blood Pressure Mean 75 11/24/22 12:00 Pulse Oximetry 98 11/24/22 11:47 Oxygen Delivery Method Nasal Cannula 11/24/22 11:47 Oxygen Flow Rate 4 11/24/22 11:47 Pain Level 0 11/24/22 11:28
[2022-11-24 12:14] LABS: MCH 31.8 pg (27.0-33.0); MCHC 32.4 % (32.0-36.0); MCV 98 fL (80-95); Platelet Count 362 10^3/uL (130-400); RBC 3.46 10^6/uL (4.36-5.78); RDW 14.7 % (11.8-14.1); RDW-SD 53.5 fL; WBC 22.41 10^3/uL (4.4-10.8)
[2022-11-24 12:26] LABS: PTT Activated 25.2 sec (21.5-31.9); Prothrombin Time 10.3 sec (9.3-11.0)
[2022-11-24 12:33] LABS: ALT 15 U/L (16-63); AST 10 U/L (15-37); Albumin 2.9 g/dL (3.4-5.0); Alkaline Phosphatase 110 U/L (46-116); Anion Gap 9.8 mmol/L (3-11); BUN 34 mg/dL (7-18); Bilirubin, Total 0.3 mg/dL (0.2-1.0); CO2 28.2 mmol/L (21.0-32.0); Calcium 8.7 mg/dL (8.5-10.1); Chloride 100 mmol/L (98-107); Estimated GFR 13.85 (mL/min/1.73m2); Glucose 325 mg/dL (74-106); Magnesium 1.4 mg/dL (1.8-2.4); NT-proBNP 1458 pg/mL (<300); Potassium 4.5 mmol/L (3.5-5.1); Sodium 138 mmol/L (136-145); TSH (W/Ref FT4) 5.02 uIU/mL (0.36-3.74); Total Protein 6.4 g/dL (6.4-8.2); Troponin I < 50 ng/L (<or=60)
[2022-11-24 12:41] LABS: CREATININE 4.2 mg/dL (0.70-1.30)
--- NOTE | 2022-11-24 12:57 | DI.RAD_ITS ---
Exam(s) XR PORTABLE CHEST AP EXAM: XR PORTABLE CHEST AP CLINICAL HISTORY: shortness of breath TECHNIQUE: 2D digital imaging was performed of the chest. One image was obtained. An AP view was ob tained. COMPARISON: CR,XR XR PORTABLE CHEST AP from 09/09/2020 CR XR CHEST 1V IN DI DEPT from 02/10/2022 FINDINGS: MEDIASTINUM: Normal. HEART: Normal. PULMONARY VASCULATURE: Normal. LUNGS: Chronic interstitial findings are seen in the lungs bilaterally, greater left greater than rig ht. There may be mild increase in the interstitial markings particularly in the left lung base. No focal consolidating infiltrates are seen. PLEURAL SPACE: No pleural effusion or pneumothorax. BONE:Within normal limits for the patient's age. OTHER FINDINGS:The right IJ catheter is stable. IMPRESSION: 1. Mild increased lung markings in the left lung base superimposed on chronic interstitial fibrotic c hanges. Edema, atelectasis or pneumonia may have this presentation in the left lower lobe. Please c orrelate clinically. DATA REPOSITORY: RADIATION DOSE DELIVERED:
[2022-11-24 12:59] LABS: D-Dimer 1055 ng/mlFEU (<500)
--- NOTE | 2022-11-24 13:00 | DI.CT_ITS ---
Exam(s) CT CHEST PE CTA EXAM: CT CHEST PE CTA CLINICAL HISTORY: dyspnea, elevated d dimer. TECHNIQUE: Imaging Protocol: Axial CT angiography was performed with multi-slice acquisition and mu lti-planar and/or 3D reconstructions. CONTRAST MATERIAL: Intravenous: Omnipaque 350 contrast volume:85 mL COMPARISON: CT CT CHEST/ABD/PEL W from 11/13/2022 FINDINGS: Tracheobronchial tree: Patent where visualized. Pulmonary parenchyma: Calcified granuloma are present. The infiltrates in the left lower lobe have l argely resolved. The opacities in the right lung are stable. No new pulmonary infiltrates are seen. There is pleural and parenchymal scarring present. Pulmonary Arteries: No evidence of filling defect to suggest pulmonary emboli. Mediastinum and Olive: No dominant adenopathy or fluid collection. The esophagus is unremarkable. Visualized thyroid gland: Unremarkable. Pleura: No effusion or pneumothorax. Heart: The heart is not dilated. Moderate coronary artery calcification and/or stents. No pericardia l effusion. Aorta: Thoracic aorta non-dilated. Note is again made of a right-sided aortic arch. Atherosclerosis is present. There is no evidence of dissection. Upper abdomen: Splenic calcified granuloma are present. Soft tissues: Unremarkable. Bones: Within normal limits for the patient's age.There again seen fractures of the posterior aspects of the left 10th and 11th ribs. IMPRESSION: 1. No evidence of pulmonary embolism, thoracic aortic dissection or aneurysm. 2. Fibronodular changes again seen in the right lung. Improved aeration of the left lung. 3. Stable left 10th and 11th rib fractures. RADIATION DOSE DELIVERED: 400.2mGy.cm Total DLP DATA REPOSITORY: All CT scans at this facility are submitted to the National Radiology Data Registry (NRDR) Dose Index Registry (DIR) with the [employer] (ACR). RADIATION OPTIMIZATION: All CT scans at this facility use at least one of these dose optimization te chniques: automated exposure control; mA and/or kV adjustment per patient size (includes targeted exa ms where dose is matched to clinical indication); or iterative reconstruction.
--- NOTE | 2022-11-24 13:19 | DI.VRAD_ITS ---
PROCEDURE INFORMATION: Exam: XR Chest Exam date and time: 11/24/2022 12:48 PM Age: 77 years old Clinical indication: Shortness of breath TECHNIQUE: Imaging protocol: Radiologic exam of the chest. Views: 1 view. COMPARISON: CT CHEST/ABD/PEL W 11/13/2022 10:27 AM FINDINGS: Tubes, catheters and devices: From right internal jugular central venous position is a dialysis catheter in the caudal portion of the superior vena cava. There are electrocardiographic leads on the thorax. Lungs: Similar to CT examination of the right lung volume is reduced. There is apical pleural thickening. There is also pleural thickening of the right lung base. There is mild increase in the interstitial markings in the lower lung zones favoring the left lower lobe. There is also some parenchymal scarring in the left lower lobe similar to examination. Pleural spaces: No pneumothorax or definite pleural effusion. Heart/Mediastinum: Unremarkable. No cardiomegaly. Bones/joints: Unremarkable. IMPRESSION: Probable mild pulmonary edema superimposed upon the chronic changes in the lung bases. Dictated and Authenticated by: Kei Sharpe MD. Ordering:GILBERT Escobedo MD
[2022-11-24 13:34] LABS: Absolute Eosinophil Count 0.45 10^3/uL (0.0-0.7); Absolute Lymphocyte Count 0.67 10^3/uL (1.2-3.4); Absolute Monocyte Count 0.67 10^3/uL (0.1-0.8); Absolute Neutrophil Count 19.94 10^3/uL (1.2-6.7); Bands % 0; Metamyelocytes % 2; Myelocytes % 1
[2022-11-24 13:35] LABS: Diff Comment Manual Differential; RBC Morphology Normal
[2022-11-24 13:36] LABS: Abs Immature Grans 0.67 10^3/uL (0.0-0.06)
[2022-11-24] MEDS: Normal Saline Flush 10 ML SYR IVP (14:46)
[2022-11-24] MEDS: Normal Saline - Diluent 50 ML VIAL IJ (14:46)
[2022-11-24] MEDS: Omnipaque 350 MG/ML 100 ML BTL IJ (14:47)
--- NOTE | 2022-11-24 15:24 | DI.VRAD_ITS ---
PROCEDURE INFORMATION: Exam: CTA Chest With Contrast Exam date and time: 11/24/2022 2:48 PM Age: 77 years old Clinical indication: Other: Dyspnea, elevated d dimer; Prior surgery; Surgery date: 6+ months; Surgery type: Stents, lung TECHNIQUE: Imaging protocol: Computed tomographic angiography of the chest with contrast. Exam focused on the arteries. 3D rendering (Not supervised by radiologist): MIP and/or 3D reconstructed images were created by the technologist. Contrast material: OMNIPAQUE 350; Contrast volume: 85 ml; Contrast route: INTRAVENOUS (IV); COMPARISON: CT CHEST/ABD/PEL W 11/13/2022 10:27 AM FINDINGS: Pulmonary arteries: Normal. No pulmonary emboli. Aorta: Right aortic arch. No aneurysm or dissection. There is a right common carotid artery in the left brachiocephalic artery branching off the aorta. There is no left subclavian artery but there is Kommerell diverticulum. Lungs: The right lung volume is again reduced. There are fiber nodular changes along the lateral and posterior margin of the along similar to the examination performed earlier this week. There is also less fiber nodular changes in the inferior portion of the left lung. There are no lobar consolidations. Pleural spaces: Unremarkable. No pneumothorax. No pleural effusion. Heart: The cardiac apex is on the left. The heart is normal size. There are coronary artery calcifications. No pericardial effusion. Lymph nodes: Unremarkable. No enlarged lymph nodes. Bones/joints: Redemonstrated are fractures of the left tenth and eleventh posterior ribs. Soft tissues: Unremarkable. IMPRESSION: 1. No pulmonary embolism. 2. 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 No aortic aneurysm or dissection. 3. Redemonstrated is reduced right lung volume with fiber nodular changes in the inferior portion of the right lung and to a lesser extent left lower lobe. Dictated and Authenticated by: Kie Sharpe MD. Ordering:GILBERT Escobedo MD
[2022-11-24 15:40] LABS: Troponin I < 50 ng/L (<or=60)
--- NOTE | 2022-11-24 17:15 | RESPIRATORY ---
Addendum entered by Mayda De La Cruz 11/24/22 18:56: 1850-Called Ivonne at [facility] back to ask that she return our phone call MAUREEN as patient remains in the ED Addendum entered by Mayda De La Cruz 11/24/22 17:41: 1734-Called and spoke with [facility] [phone] and the on-call therapist is being paged about issues with the patient's new POC and tanks. Advised that the patient would also need a tank delivered to the hospital in order to get him home. ED updated and waiting for call back on estimated time on-call could get to [facility] Original Note: Patient unable to provide which DME he gets his POC and tanks from. Advised he was discharged home yesterday from [facility] with new device (POC?) and that it wasn't working correctly. Also advising he has multiple tanks at home but none are working. Call out to [facility] but will not be able to get a response until they open tomorrow.
--- NOTE | 2022-11-24 18:14 | NUR.NOTE ---
Nursing Note: Dolores daughter phone number [phone]
--- NOTE | 2022-11-24 18:41 | NUR.NOTE ---
Nursing Note: Per [facility] pt switched vendors from [employer] to [facility]. [place]: [place] [phone] [place]: [place] [phone] [place]: [place] [phone] They cover all of [place].
--- NOTE | 2022-11-24 19:46 | RESPIRATORY ---
Pt home O2 tank was brought in by [employer] to transport pt home. Educated pt on how to place regulator on tank and turn on. Pt verbally stated that he was aware of how to operate tank and regulator because he had been on Home O2 for over a year. Spoke with Ivonne from [facility], pt's current DME provider, to update her on pt status. Informed her that pt has dialysis in the morning and he would be home after 3pm. She stated she would contact pt to set up a time to have a hazmat truck driver go to the home and re-educate pt on Home O2 use.
== END 2022-11-24 20:33 | disposition home or self-care (01) ==
PROVIDERS: Emergency Provider Emergency Medicine; PCP Family Medicine
DX: R06.02 Shortness of breath (principal); J44.9 Chronic obstructive pulmonary disease, unspecified; J96.11 Chronic respiratory failure with hypoxia; I12.0 Hypertensive chronic kidney disease with stage 5 chronic kidney disease or end stage renal disease; E11.22 Type 2 diabetes mellitus with diabetic chronic kidney disease; N18.6 End stage renal disease; Z79.4 Long term (current) use of insulin; Z79.01 Long term (current) use of anticoagulants; Z95.5 Presence of coronary angioplasty implant and graft; Z99.81 Dependence on supplemental oxygen; Z99.2 Dependence on renal dialysis; Z79.82 Long term (current) use of aspirin; Z87.891 Personal history of nicotine dependence
CPT/HCPCS: 71275; 80053; 93005; 99285; 71045; 83735; 83880; 84439; 84443; 84484; 85025; 85379; 85610; 85730; 93010; 99284; J3490

== ENCOUNTER 2022-11-25 16:17 | Emergency (ER) | payer MEDICARE, BC, SELFPAY ==
[2022-11-25] VITALS (17 sets, daily range): BP systolic 94–131; BP diastolic 35–58; PULSE 62–80; RESP 16–23; TEMP 37; O2SAT 92–97
--- NOTE | 2022-11-25 16:15 | RT.EKG_ITS ---
APPROVED REPORT Exam: Resting ECG Reason for Exam: sob Patient Location: E HR:70 bpm ECG Measurements Heart Rate 70 AXIS FL 192 P 23 QRSd 135 QRS -26 QT 410 T 2 QTc 443 Conclusion Sinus rhythm...normal P axis, V-rate 60- 99 Right bundle branch block...QRSd>120, terminal axis(90,270) Inferior infarct, old...Q >35mS, II III aVF
--- NOTE | 2022-11-25 16:46 | ED.GENADUL_ITS ---
Discharge Plan Disposition Patient Disposition: Home Discharge Details Clinical Impression: Shortness of breath Primary Care Provider: Zakiya Reyna ED Provider: Gregg Coppola Home Meds and New Rx's Prescriptions: New prednisone 20 mg tablet 60 mg PO DAILY 4 Days Qty: 12 0RF levofloxacin 250 mg tablet 250 mg PO DAILY Qty: 6 0RF Continued fluticasone propion-salmeterol [Advair HFA] 115-21 mcg/actuation HFA aerosol inhaler 2 puff inhalation BID Qty: 12 12RF Rx Instructions: Wash mouth after use nitroglycerin 0.4 MG tablet, sublingual 0.4 mg Sublingual ONCE PRN Patient Comments: has never used it at home cholecalciferol (vitamin D3) 1,000 UNIT tablet 1,000 unit PO DAILY Breztri Aerosphere 160-9-4.8 mcg/actuation HFA aerosol inhaler 2 inh inhalation BID Qty: 10.7 12RF Patient Comments: not on med list aspirin [Aspir-81] 81 MG tablet,delayed release (DR/EC) 81 mg PO DAILY multivitamin 1 EACH capsule 1 ea PO DAILY sertraline 50 MG tablet 100 mg PO DAILY atorvastatin [Lipitor] 40 MG tablet 40 mg PO HS ascorbic acid (vitamin C) [Vitamin C] 1,000 MG tablet 500 mg PO DAILY albuterol sulfate [Proventil HFA] 6.7 GM HFA aerosol inhaler 2 inh PO Q4H PRN PRN acetaminophen [Tylenol Extra Strength] 500 mg Tablet 1,000 mg PO .Q6 HRS PRN tamsulosin 0.4 mg Capsule 0.4 mg PO DIRECTED Patient Comments: QOD pantoprazole 40 mg tablet,delayed release (DR/EC) 40 mg PO DAILY insulin glargine [Lantus Solostar U-100 Insulin] 100 unit/mL (3 mL) insulin pen 12 unit SUBCUT HS cyclobenzaprine 10 mg tablet 10 mg PO TID PRNQty: 20 0RF bupropion HCl 100 mg tablet sustained-release 12 hr 150 mg PO BID Patient Comments: TAKE ONE TABLET BY MOUTH TWICE A DAY polyethylene glycol 3350 [Miralax] 17 gram Powder In Packet 17 g PO BID bisacodyl [Dulcolax (bisacodyl)] 10 mg Suppository 10 mg [place] DAILY PRN oxycodone 10 mg tablet 20 mg PO BID Patient Comments: TAKE TWO TABLETS BY MOUTH EVERY DAY - MAX DAILY DOSE OF 2 PER DAY metoprolol tartrate [Lopressor] 50 mg tablet 50 mg PO BID Fiasp FlexTouch U-100 Insulin 100 unit/mL (3 mL) insulin pen 2 - 6 unit SUBCUT BID cyanocobalamin (vitamin B-12) [Vitamin B-12] 1,000 mcg Tablet 1,000 mcg PO DAILY Patient Comments: not on med list loratadine 10 mg capsule 10 mg PO DAILY Qty: 20 0RF sennosides [senna] 8.6 mg Tablet 8.6 mg PO DAILY trazodone 50 mg tablet 50 mg PO HS Patient Comments: TAKE ONE-HALF TABLET BY MOUTH EVERY EVENING midodrine 2.5 mg tablet 10 mg PO TID Patient Comments: TAKE ONE TABLET BY MOUTH THREE TIMES A DAY BEFORE MEALS insulin lispro [Humalog KwikPen Insulin] 100 unit/mL Insulin Pen 1 sliding scale dose SUBCUT USEASDIRECTD Patient Comments: not on med list Eliquis 2.5 mg tablet 2.5 mg PO BID Patient Comments: TAKE ONE TABLET BY MOUTH TWICE A DAY diphenhydramine HCl [Banophen] 25 mg capsule 25 mg PO Q6H Patient Comments: TAKE ONE CAPSULE BY MOUTH EVERY 6 HOURS Victoza 2-Edy 0.6 mg/0.1 mL (18 mg/3 mL) pen injector 1.8 mg SUBCUT DAILY Patient Comments: INJECT 0.6MG UNDER THE SKIN ONCE DAILY Spiriva Respimat 2.5 mcg/actuation mist 2 spray INHALATION PRN PRN Patient Comments: Inhale 2 puff as directed once a day prednisone 20 mg tablet 50 mg PO DAILY Patient Comments: not on med list prednisone 50 mg tablet 50 mg PO DAILY Qty: 5 0RF Patient Comments: not on med list Discharge Instructions Instructions: Dyspnea (ED) Additional Instructions: follow up with your primary care provider within 1 week and make sure you go to dialysis on Friday If you feel more ill, have worsening shortness of breath or severe pain return to the emergency department Medical Decision Making 77 yo male on dialysis m/w/f who missed his session today, last had dialysis lastFriday, comes in with continued sensation of shortness of breath. Seen yesterday for similar complaints, had a CTA showing no significant findings, negative troponins and stable vitals. He thought his oxygen machine was broken and it was brought in to the ED and found to be working normally. He states today he still felt short of breath so came here. He denies chest pain, n/v, abdominal pain. He is speaking infull sentences onhis normal 4L NC he has an oxygen saturation of 97%, mild apical wheezing otherwise clear lungs, no jvd, no calf tenderness. Given negative CTA yesterday doubt PE. Will obtain cbc, cmp, troponin, cxr and trial a duoneb. He does appear anxious which is likely contributing to his symptoms. pt stable and feels better, 100% on hisnormal 4L NC. HE is speaking in full sentences. His labs show no significant changes from baseline, continued leukoctysosis and pleufal effusion. I discussed with him that we could admit him for monitoring and IV antibiotics, doesn't need emergent dialysis. We can't admit dialysis patients here and he declines to be transferred at this time, he has decision making capacity at this time. Given he has stable vital signs and appears well do not feel he needs to sign out AMA, will provide him levofloxacin and also prednisone. HE understands he needs to go to his dialysis on Friday and follow up with his primary care provider. Differential Diagnosis Differential Diagnosis: copd, bronchiectasis, pulmonary edema, anxiety Medical Records Medical records reviewed: Yes I reviewed the patient's medical records. Imaging Data Radiologic Study: Attestation: I personally reviewed and interpreted this imaging study as follows: Imaging: X-Ray Radiologist's impression: FINDINGS: Single AP portable view. Dialysis catheter distal aspect is in the right atrium. Heart size is upper normal.? The mediastinum is not widened. There is persistent infiltrate in the lower left lung field.? Also moderate size right pleural effusion noted.? This has slightly increased in size. IMPRESSION: Mild deterioration as described above, when compared to yesterday Lab Data Lab results reviewed: Yes I reviewed the patient's lab results. ECG Data Attestation: I personally reviewed and interpreted this ECG (s) as follows: Prior ECG tracings: available for review Interpretation: sinus rate of 70, pr 192, qtc 443, no significant changes from prior no stemi HPI General Mode of arrival: EMS . Date/Time Provider Initiated Documentation: 11/25/22 16:18 . Limitations to Documentation: no limitations . Information obtained by: patient . History of Present Illness 77 year old M presents to the emergency department with the chief complaint of short of breath, described as moderate, Patient started experiencing this day(s) (2) and it has been intermittent. No relieving factors improve symptom(s), No exacerbating factors reported . Patient notes cough; denies chest pain and fever/chills. Patient did receive the following treatments prior to arrival, none Related Data Home Medications Medication Instructions Recorded Confirmed aspirin 81 mg tablet,delayed 81 mg PO DAILY 09/25/12 11/24/22 release (Aspir-) multivitamin 1 ea PO DAILY 09/25/12 11/24/22 sertraline 50 mg tablet 100 mg PO DAILY 09/25/12 11/24/22 cholecalciferol (vitamin D3) 25 1,000 unit PO DAILY 09/21/15 11/24/22 mcg (1,000 unit) tablet nitroglycerin 0.4 mg sublingual 0.4 mg sublingual ONCE PRN 09/21/15 11/24/22 tablet albuterol sulfate 90 mcg/actuation 2 inh PO Q4H PRN PRN 02/16/17 11/24/22 aerosol inhaler (Proventil HFA) ascorbic acid (vitamin C) 1,000 mg 500 mg PO DAILY 02/16/17 11/24/22 tablet (Vitamin C) atorvastatin 40 mg tablet (Lipitor) 40 mg PO HS 02/16/17 11/24/22 cyanocobalamin (vitamin B-12) 1,000 mcg PO DAILY 09/22/19 11/13/22 1,000 mcg tablet (Vitamin B-12) acetaminophen 500 mg tablet 1,000 mg PO .Q6 HRS PRN 04/24/20 11/24/22 (Tylenol Extra Strength) insulin glargine 100 unit/mL (3 12 unit subcut HS 04/24/20 11/24/22 mL) subcutaneous pen (Lantus Solostar U-100 Insulin) pantoprazole 40 mg tablet,delayed 40 mg PO DAILY 04/24/20 11/24/22 release tamsulosin 0.4 mg capsule 0.4 mg PO DIRECTED 04/24/20 11/24/22 loratadine 10 mg capsule 10 mg PO DAILY #20 caps 03/09/21 11/24/22 apixaban 2.5 mg tablet (Eliquis) 2.5 mg PO BID 06/05/21 11/24/22 insulin lispro 100 unit/mL 1 sliding scale dose subcut 06/05/21 11/13/22 subcutaneous pen (Humalog KwikPen USEASDIRECTD (U-100) Insulin) midodrine 2.5 mg tablet 10 mg PO TID 06/05/21 11/24/22 sennosides 8.6 mg tablet (senna) 8.6 mg PO DAILY 06/05/21 11/24/22 trazodone 50 mg tablet 50 mg PO HS 06/05/21 11/24/22 fluticasone propionate 115 2 puff inhalation BID #12 grams 11/20/21 11/24/22 mcg-salmeterol 21 mcg/actuation HFA inhaler (Advair HFA) budesonide 160 mcg-glycopyr 9 2 inh inhalation BID #10.7 grams 11/26/21 11/13/22 mcg-formot 4.8 mcg/actuation HFA inhaler (Breztri Aerosphere) cyclobenzaprine 10 mg tablet 10 mg PO TID PRN #20 tabs 01/15/22 11/24/22 diphenhydramine HCl 25 mg capsule 25 mg PO Q6H 01/18/22 11/24/22 (Banophen) liraglutide 0.6 mg/0.1 mL (18 mg/3 1.8 mg subcut DAILY 01/18/22 11/24/22 mL) subcutaneous pen injector (Victoza 2-Edy) prednisone 20 mg tablet 50 mg PO DAILY 01/18/22 11/13/22 tiotropium bromide 2.5 2 spray inhalation PRN PRN 01/18/22 11/24/22 mcg/actuation mist for inhalation (Spiriva Respimat) prednisone 50 mg tablet 50 mg PO DAILY #5 tabs 09/06/22 11/13/22 bisacodyl 10 mg rectal suppository 10 mg [place] DAILY PRN 09/08/22 11/24/22 (Dulcolax (bisacodyl)) bupropion HCl 100 mg tablet,12 hr 150 mg PO BID 09/08/22 11/24/22 sustained-release oxycodone 10 mg tablet 20 mg PO BID 09/08/22 11/24/22 polyethylene glycol 3350 17 gram 17 g PO BID 09/08/22 11/24/22 oral powder packet (Miralax) insulin aspart 2 - 6 unit subcut BID 11/24/22 11/24/22 (niacinamide)(U-100) 100 unit/mL(3 mL) subcutaneous pen (Fiasp FlexTouch U-100 Insulin) metoprolol tartrate 50 mg tablet 50 mg PO BID 11/24/22 11/24/22 (Lopressor) levofloxacin 250 mg tablet 250 mg PO DAILY #6 tabs 11/25/22 prednisone 20 mg tablet 60 mg PO DAILY 4 days #12 tabs 11/25/22 Previous Rx's Medication Instructions Recorded loratadine 10 mg capsule 10 mg PO DAILY #20 caps 03/09/21 fluticasone propionate 115 2 puff inhalation BID #12 grams 11/20/21 mcg-salmeterol 21 mcg/actuation HFA inhaler (Advair HFA) budesonide 160 mcg-glycopyr 9 2 inh inhalation BID #10.7 grams 11/26/21 mcg-formot 4.8 mcg/actuation HFA inhaler (Breztri Aerosphere) cyclobenzaprine 10 mg tablet 10 mg PO TID PRN #20 tabs 01/15/22 prednisone 50 mg tablet 50 mg PO DAILY #5 tabs 09/06/22 levofloxacin 250 mg tablet 250 mg PO DAILY #6 tabs 11/25/22 prednisone 20 mg tablet 60 mg PO DAILY 4 days #12 tabs 11/25/22 Allergies Allergy/AdvReac Type Severity Reaction Status Date / Time pneumococcal vaccine Allergy Severe Swelling/Ed Verified 11/24/22 12:41 nandini sulfamethoxazole Allergy difficulty Verified 11/24/22 12:41 [From Bactrim] breathing trimethoprim [From Bactrim] Allergy difficulty Verified 11/24/22 12:41 breathing General Stated Complaint: SOB MESERET: 3 Review of Systems All systems reviewed & are unremarkable except as noted in HPI and below Constitutional Constitutional: Denies chills, Denies fever(s) and Denies weakness Cardiovascular Cardiovascular: Denies chest pain and Reports dyspnea Respiratory Respiratory: Reports cough and Reports dyspnea Gastrointestinal Gastrointestinal: Denies abdominal pain, Denies nausea and Denies vomiting Genitourinary Genitourinary: Denies dysuria Musculoskeletal Musculoskeletal: Denies joint swelling Integumentary/Breasts Skin/Breast: Denies rash Neurologic Neurologic: Denies weakness PFSH All Active Problems (Updated 11/25/22 @ 18:39 by Gregg Coppola MD) Shortness of breath (Acute) Shortness of breath (Acute) Pulmonary scarring (Acute) Chronic respiratory failure with hypoxia (Acute) 2L of O2 by NC COPD (chronic obstructive pulmonary disease) (Chronic) Bronchiectasis (Acute) 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) Basal cell carcinoma of multiple sites (Acute) Leucocytosis (Chronic) Palpitations (Acute) Exertional shortness of breath (Chronic) Neoplasm of unspecified nature of bone, soft tissue, and skin (Acute 06/19/15) Medical History Actinic keratosis (05/01/16) Anemia Basal cell carcinoma of skin (03/11/16) Bilateral cataracts Coronary Artery Disease Depression Diabetes mellitus Diabetic foot ulcer Diabetic ulcer of left foot ESRD on hemodialysis GERD (gastroesophageal reflux disease) Hoarseness Hyperkalemia Moderate pulmonary hypertension Orthostatic hypotension Paroxysmal atrial fibrillation with rapid ventricular response Perihepatic abscess RBBB (right bundle branch block) Renal cell carcinoma of left kidney (05/30/17) Shortness of breath Supraventricular tachycardia Toe infection Tubular adenoma of colon (12/18/16) Surgical History Colonoscopy - MAC (12/18/16) 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 12.02.12HE Hx of cardiac cath x2, per patient Lobectomy Pt states 2 lobes removed from R. lung. No date given. 12.02.12HE Osteotomy Partial & Debridment of first metatarsal on Left foot. S/P hemodialysis catheter insertion Family History Mother Heart disease Diabetes Sister Stroke Diabetes Sister Diabetes Cancer laryngeal cancer Sister Diabetes Social History Smoking/Tobacco Use Status: Former Tobacco Use tobacco type: cigarettes Quit Date: 05/05/14 Pack-years: 100 Tobacco: How many years used: 50 Counseling given: provider counseling Smoking risk assessment performed?: Yes Alcohol Intake: never Drug use: Never Substance use type: does not use Household members: spouse Housing: house Current gender identity: male What type of physical activity do you participate in: none and independent ambulation Do you feel safe at home: Yes Do you feel safe in your relationship?: Yes Additional Social history: lives with his Exam Const General: no acute distress Orientation: alert HENMT Head: normal to inspection Ears: external ears normal General nose exam: external nose normal Mouth: moist mucous membranes Eyes General: appearance normal, both eyes and all related structures Neck Neck: normal visual inspection Resp Effort & Inspection: normal respiratory effort and able to speak in complete sentences Auscultation: wheezes Cardio Jugular venous pressure: no JVD Rate: regular rate Skin General skin exam: no rashes or lesions noted Neuro General: patient alert and patient oriented x3 Extrem General: normal to inspection Psych Mental Status: mental status grossly normal Course Vital Signs Vital signs: Vital Signs Temperature 37.0 C 11/25/22 16:23 Pulse 76 11/25/22 16:23 Respiratory Rate 18 11/25/22 16:23 Blood Pressure 94/35 L 11/25/22 16:23 Pulse Oximetry 96 11/25/22 16:23 Temperature 37.0 C 11/25/22 16:23 Pulse 76 11/25/22 16:23 Respiratory Rate 16 11/25/22 16:35 Respiratory Effort Normal 11/25/22 16:35 Respiratory Depth Normal 11/25/22 16:35 Respiratory Pattern Normal 11/25/22 16:35 Blood Pressure 94/35 L 11/25/22 16:23 Blood Pressure Position Supine 11/25/22 16:23 Pulse Oximetry 96 11/25/22 16:23 Oxygen Delivery Method Nasal Cannula 11/25/22 16:23 Oxygen Flow Rate 4 11/25/22 16:23 Pain Level 0 11/25/22 16:23
[2022-11-25] MEDS: Albuterol/Ipratropium 3 ML UPD VIAL UPD (16:54)
[2022-11-25 16:58] LABS: BE (Venous) 2 mmol/L (-2-3); HCO3 (Venous) 28 mmol/L (23-28); O2 Sat (Venous) 60 %; TCO2 (Venous) 26 mmol/L (24-29); pCO2 (Venous) 54 mmHg (41-51); pH (Venous) 7.33 (7.31-7.41); pO2 (Venous) 34 mmHg
[2022-11-25 17:01] LABS: HCT 34.6 % (40.0-50.0); HGB 10.9 g/dL (13.5-17.5); MCH 31.8 pg (27.0-33.0); MCHC 31.5 % (32.0-36.0); MCV 101 fL (80-95); MPV 11.7 fL (8.0-11.0); Platelet Count 334 10^3/uL (130-400); RBC 3.43 10^6/uL (4.36-5.78); RDW 15.4 % (11.8-14.1); RDW-SD 56.3 fL; WBC 21.26 10^3/uL (4.4-10.8)
[2022-11-25 17:22] LABS: ALT 13 U/L (16-63); AST 10 U/L (15-37); Albumin 3.1 g/dL (3.4-5.0); Alkaline Phosphatase 123 U/L (46-116); Anion Gap 9.4 mmol/L (3-11); BUN 38 mg/dL (7-18); Bilirubin, Total 0.3 mg/dL (0.2-1.0); CO2 27.6 mmol/L (21.0-32.0); Calcium 8.8 mg/dL (8.5-10.1); Chloride 98 mmol/L (98-107); Estimated GFR 11.51 (mL/min/1.73m2); Glucose 435 mg/dL (74-106); Magnesium 1.5 mg/dL (1.8-2.4); NT-proBNP 1926 pg/mL (<300); Potassium 5.2 mmol/L (3.5-5.1); Sodium 135 mmol/L (136-145); Total Protein 6.9 g/dL (6.4-8.2); Troponin I < 50 ng/L (<or=60)
[2022-11-25 17:23] LABS: Absolute Eosinophil Count 0.21 10^3/uL (0.0-0.7); Absolute Monocyte Count 1.49 10^3/uL (0.1-0.8); Absolute Neutrophil Count 17.65 10^3/uL (1.2-6.7); Diff Comment Manual Differential; Metamyelocytes % 1; RBC Morphology Normal
[2022-11-25 17:24] LABS: PTT Activated 27.9 sec (21.5-31.9); Prothrombin Time 9.9 sec (9.3-11.0)
[2022-11-25 17:25] LABS: CREATININE 4.9 mg/dL (0.70-1.30)
--- NOTE | 2022-11-25 17:48 | DI.RAD_ITS ---
Exam(s) XR PORTABLE CHEST AP EXAM: XR PORTABLE CHEST AP CLINICAL HISTORY: shortness of breath. TECHNIQUE: 2D digital imaging was performed. COMPARISON: CR,XR XR PORTABLE CHEST AP from 11/24/2022 FINDINGS: Single AP portable view. Dialysis catheter distal aspect is in the right atrium. Heart size is upper normal. The mediastinum is not widened. There is persistent infiltrate in the lower left lung field. Also moderate size right pleural effusi on noted. This has slightly increased in size. IMPRESSION: Mild deterioration as described above, when compared to yesterday. DATA REPOSITORY: RADIATION DOSE DELIVERED:
[2022-11-25 17:58] LABS: Procalcitonin 0.4 ng/mL
[2022-11-25] MEDS: predniSONE 20 MG TAB 60 MG PO (18:45)
[2022-11-25] MEDS: levoFLOXacin 500 MG, levoFLOXacin 250 MG 750 MG PO (18:45)
== END 2022-11-25 19:50 | disposition home or self-care (01) ==
PROVIDERS: Emergency Provider Emergency Medicine; PCP Family Medicine
DX: R06.02 Shortness of breath (principal); E11.22 Type 2 diabetes mellitus with diabetic chronic kidney disease; I12.0 Hypertensive chronic kidney disease with stage 5 chronic kidney disease or end stage renal disease; N18.6 End stage renal disease; Z99.2 Dependence on renal dialysis; Z79.4 Long term (current) use of insulin; Z79.85 Long-term (current) use of injectable non-insulin antidiabetic drugs; Z79.82 Long term (current) use of aspirin; Z85.528 Personal history of other malignant neoplasm of kidney; J44.9 Chronic obstructive pulmonary disease, unspecified; Z90.5 Acquired absence of kidney
CPT/HCPCS: 80053; 82805; 84145; 93005; 99285; 71045; 83735; 83880; 84484; 85025; 85610; 85730; 93010; J7512; J7620

== ENCOUNTER 2022-11-26 08:15 | Emergency (ER) | payer MEDICARE, BC, SELFPAY ==
--- NOTE | 2022-11-26 08:15 | DI.RAD_ITS ---
Exam(s) XR CHEST 2V PA LATERAL EXAM: XR CHEST 2V PA LATERAL CLINICAL HISTORY: short of breath, CKD, COPD. TECHNIQUE: 2D digital imaging was performed. COMPARISON: CR XR PORTABLE CHEST AP from 11/25/2022 FINDINGS: 2 views: Right supra clavi in dialysis catheter tip is in the right atrium. Heart size is normal. The mediastinum is not widened. There is persistent infiltrate in the left lower lobe. No obvious left pleural effusion. Small righ t pleural effusion again noted. There appears to be mild infiltrate in the right lower lobe. IMPRESSION: Persistent infiltrates. Small right pleural effusion. Right sided dialysis catheter. DATA REPOSITORY: RADIATION DOSE DELIVERED:
--- NOTE | 2022-11-26 08:15 | RT.EKG_ITS ---
APPROVED REPORT Exam: Resting ECG Reason for Exam: SOB Patient Location: E HR:73 bpm ECG Measurements Heart Rate 73 AXIS NM 208 P 5 QRSd 124 QRS -36 QT 407 T -2 QTc 448 Conclusion Sinus rhythm...normal P axis, V-rate 60- 99 Right bundle branch block...QRSd>120, terminal axis(90,270) Inferior infarct, old...Q >35mS, II III aVF sinus rhythm, partial RBBB
[2022-11-26 08:17] VITALS: BP 123/42; PULSE 74; RESP 18; TEMP 36.6
--- NOTE | 2022-11-26 08:22 | ED.GENADUL_ITS ---
Discharge Plan Disposition Patient Disposition: Home Condition: Improving Discharge Details Chief Complaint: SOB Clinical Impression: CKD (chronic kidney disease) Primary Care Provider: Zakiya Reyna ED Provider: Igor Kinsey Home Meds and New Rx's Prescriptions: No Action fluticasone propion-salmeterol [Advair HFA] 115-21 mcg/actuation HFA aerosol inhaler 2 puff inhalation BID Qty: 12 12RF Rx Instructions: Wash mouth after use nitroglycerin 0.4 MG tablet, sublingual 0.4 mg Sublingual ONCE PRN Patient Comments: has never used it at home cholecalciferol (vitamin D3) 1,000 UNIT tablet 1,000 unit PO DAILY Breztri Aerosphere 160-9-4.8 mcg/actuation HFA aerosol inhaler 2 inh inhalation BID Qty: 10.7 12RF Patient Comments: not on med list aspirin [Aspir-81] 81 MG tablet,delayed release (DR/EC) 81 mg PO DAILY multivitamin 1 EACH capsule 1 ea PO DAILY sertraline 50 MG tablet 100 mg PO DAILY atorvastatin [Lipitor] 40 MG tablet 40 mg PO HS ascorbic acid (vitamin C) [Vitamin C] 1,000 MG tablet 500 mg PO DAILY albuterol sulfate [Proventil HFA] 6.7 GM HFA aerosol inhaler 2 inh PO Q4H PRN PRN acetaminophen [Tylenol Extra Strength] 500 mg Tablet 1,000 mg PO .Q6 HRS PRN tamsulosin 0.4 mg Capsule 0.4 mg PO DIRECTED Patient Comments: QOD pantoprazole 40 mg tablet,delayed release (DR/EC) 40 mg PO DAILY insulin glargine [Lantus Solostar U-100 Insulin] 100 unit/mL (3 mL) insulin pen 26 unit SUBCUT HS cyclobenzaprine 10 mg tablet 10 mg PO TID PRNQty: 20 0RF bupropion HCl 100 mg tablet sustained-release 12 hr 150 mg PO BID Patient Comments: TAKE ONE TABLET BY MOUTH TWICE A DAY polyethylene glycol 3350 [Miralax] 17 gram Powder In Packet 17 g PO BID Patient Comments: Per pt pharmacy, pt not taking. bisacodyl [Dulcolax (bisacodyl)] 10 mg Suppository 10 mg SD DAILY PRN oxycodone 10 mg tablet 20 mg PO BID Patient Comments: TAKE TWO TABLETS BY MOUTH EVERY DAY - MAX DAILY DOSE OF 2 PER DAY metoprolol tartrate [Lopressor] 50 mg tablet 50 mg PO BID Fiasp FlexTouch U-100 Insulin 100 unit/mL (3 mL) insulin pen 2 - 6 unit SUBCUT BID cyanocobalamin (vitamin B-12) [Vitamin B-12] 1,000 mcg Tablet 1,000 mcg PO DAILY Patient Comments: not on med list loratadine 10 mg capsule 10 mg PO DAILY Qty: 20 0RF sennosides [senna] 8.6 mg Tablet 8.6 mg PO DAILY trazodone 50 mg tablet 50 mg PO HS Patient Comments: TAKE ONE-HALF TABLET BY MOUTH EVERY EVENING midodrine 2.5 mg tablet 5 mg PO TID Patient Comments: TAKE ONE TABLET BY MOUTH THREE TIMES A DAY BEFORE MEALS insulin lispro [Humalog KwikPen Insulin] 100 unit/mL Insulin Pen 1 sliding scale dose SUBCUT USEASDIRECTD Patient Comments: Per pt pharmacy, no current rx. Pt not taking. Eliquis 2.5 mg tablet 2.5 mg PO BID Patient Comments: TAKE ONE TABLET BY MOUTH TWICE A DAY diphenhydramine HCl [Banophen] 25 mg capsule 25 mg PO Q6H Patient Comments: TAKE ONE CAPSULE BY MOUTH EVERY 6 HOURS Victoza 2-Edy 0.6 mg/0.1 mL (18 mg/3 mL) pen injector 1.8 mg SUBCUT DAILY Patient Comments: INJECT 0.6MG UNDER THE SKIN ONCE DAILY Spiriva Respimat 2.5 mcg/actuation mist 2 spray INHALATION PRN PRN Patient Comments: Inhale 2 puff as directed once a day prednisone 20 mg tablet 50 mg PO DAILY Patient Comments: Per pt pharmacy, one time rx. Pt not taking. prednisone 50 mg tablet 50 mg PO DAILY Qty: 5 0RF Patient Comments: Per pt pharmacy, one time rx. Pt not taking. prednisone 20 mg tablet 60 mg PO DAILY 4 Days Qty: 12 0RF Patient Comments: Per pharmacy, was one time rx. Pt not taking. levofloxacin 250 mg tablet 250 mg PO DAILY Qty: 6 0RF Patient Comments: Per pt pharmacy, no current rx. Pt not taking. Discharge Instructions Instructions: Chronic Kidney Disease (ED) Additional Instructions: Please attend dialysis as scheduled tomorrow Medical Decision Making 77-year-old male history of CKD COPD presents with shortness of breath, patient missed dialysis yesterday, is usually dialyzed Friday. Lungs clear bilaterally, no acute distress. Patient is on nasal cannula uses home oxygen. Consider beginnings of fluid overloaded state in the setting of missing dialysis versus COPD exacerbation versus viral illness versus pneumonia lower suspicion for ACS PE or aortic pathology. Will obtain screening x-ray, basic labs, will provide breathing treatment, likely will attempt to have patient transported to dialysis this morning/afternoon. 1028 have attempted to contact dialysis center however they are closed until tomorrow. Given patient is not fluid overloaded not severely hypertense and relatively stable hyperkalemia he will be able to go home today and receive dialysis tomorrow morning. Patient resting comfortably asymptomatic no acute distress HPI General Date/Time Provider Initiated Documentation: 11/26/22 08:17 . HPI Narrative: 77-year-old male history of CKD on dialysis Friday missed dialysis yesterday, presents with shortness of breath. Related Data Home Medications Medication Instructions Recorded Confirmed aspirin 81 mg tablet,delayed 81 mg PO DAILY 09/25/12 11/26/22 release (Aspir-) multivitamin 1 ea PO DAILY 09/25/12 11/26/22 sertraline 50 mg tablet 100 mg PO DAILY 09/25/12 11/26/22 cholecalciferol (vitamin D3) 25 1,000 unit PO DAILY 09/21/15 11/26/22 mcg (1,000 unit) tablet nitroglycerin 0.4 mg sublingual 0.4 mg sublingual ONCE PRN 09/21/15 11/26/22 tablet albuterol sulfate 90 mcg/actuation 2 inh PO Q4H PRN PRN 02/16/17 11/26/22 aerosol inhaler (Proventil HFA) ascorbic acid (vitamin C) 1,000 mg 500 mg PO DAILY 02/16/17 11/26/22 tablet (Vitamin C) atorvastatin 40 mg tablet (Lipitor) 40 mg PO HS 02/16/17 11/26/22 cyanocobalamin (vitamin B-12) 1,000 mcg PO DAILY 09/22/19 11/26/22 1,000 mcg tablet (Vitamin B-12) acetaminophen 500 mg tablet 1,000 mg PO .Q6 HRS PRN 04/24/20 11/26/22 (Tylenol Extra Strength) insulin glargine 100 unit/mL (3 26 unit subcut HS 04/24/20 11/26/22 mL) subcutaneous pen (Lantus Solostar U-100 Insulin) pantoprazole 40 mg tablet,delayed 40 mg PO DAILY 04/24/20 11/26/22 release tamsulosin 0.4 mg capsule 0.4 mg PO DIRECTED 04/24/20 11/26/22 loratadine 10 mg capsule 10 mg PO DAILY #20 caps 03/09/21 11/26/22 apixaban 2.5 mg tablet (Eliquis) 2.5 mg PO BID 06/05/21 11/26/22 insulin lispro 100 unit/mL 1 sliding scale dose subcut 06/05/21 11/13/22 subcutaneous pen (Humalog KwikPen USEASDIRECTD (U-100) Insulin) midodrine 2.5 mg tablet 5 mg PO TID 06/05/21 11/26/22 sennosides 8.6 mg tablet (senna) 8.6 mg PO DAILY 06/05/21 11/24/22 trazodone 50 mg tablet 50 mg PO HS 06/05/21 11/26/22 fluticasone propionate 115 2 puff inhalation BID #12 grams 11/20/21 11/26/22 mcg-salmeterol 21 mcg/actuation HFA inhaler (Advair HFA) budesonide 160 mcg-glycopyr 9 2 inh inhalation BID #10.7 grams 11/26/21 11/26/22 mcg-formot 4.8 mcg/actuation HFA inhaler (Breztri Aerosphere) cyclobenzaprine 10 mg tablet 10 mg PO TID PRN #20 tabs 01/15/22 11/26/22 diphenhydramine HCl 25 mg capsule 25 mg PO Q6H 01/18/22 11/26/22 (Banophen) liraglutide 0.6 mg/0.1 mL (18 mg/3 1.8 mg subcut DAILY 01/18/22 11/26/22 mL) subcutaneous pen injector (Victoza 2-Edy) prednisone 20 mg tablet 50 mg PO DAILY 01/18/22 11/13/22 tiotropium bromide 2.5 2 spray inhalation PRN PRN 01/18/22 11/26/22 mcg/actuation mist for inhalation (Spiriva Respimat) prednisone 50 mg tablet 50 mg PO DAILY #5 tabs 09/06/22 11/13/22 bisacodyl 10 mg rectal suppository 10 mg SD DAILY PRN 09/08/22 11/26/22 (Dulcolax (bisacodyl)) bupropion HCl 100 mg tablet,12 hr 150 mg PO BID 09/08/22 11/26/22 sustained-release oxycodone 10 mg tablet 20 mg PO BID 09/08/22 11/26/22 polyethylene glycol 3350 17 gram 17 g PO BID 09/08/22 11/24/22 oral powder packet (Miralax) insulin aspart 2 - 6 unit subcut BID 11/24/22 11/26/22 (niacinamide)(U-100) 100 unit/mL(3 mL) subcutaneous pen (Fiasp FlexTouch U-100 Insulin) metoprolol tartrate 50 mg tablet 50 mg PO BID 11/24/22 11/26/22 (Lopressor) levofloxacin 250 mg tablet 250 mg PO DAILY #6 tabs 11/25/22 prednisone 20 mg tablet 60 mg PO DAILY 4 days #12 tabs 11/25/22 Previous Rx's Medication Instructions Recorded loratadine 10 mg capsule 10 mg PO DAILY #20 caps 03/09/21 fluticasone propionate 115 2 puff inhalation BID #12 grams 11/20/21 mcg-salmeterol 21 mcg/actuation HFA inhaler (Advair HFA) budesonide 160 mcg-glycopyr 9 2 inh inhalation BID #10.7 grams 11/26/21 mcg-formot 4.8 mcg/actuation HFA inhaler (Breztri Aerosphere) cyclobenzaprine 10 mg tablet 10 mg PO TID PRN #20 tabs 01/15/22 prednisone 50 mg tablet 50 mg PO DAILY #5 tabs 09/06/22 levofloxacin 250 mg tablet 250 mg PO DAILY #6 tabs 11/25/22 prednisone 20 mg tablet 60 mg PO DAILY 4 days #12 tabs 11/25/22 Allergies Allergy/AdvReac Type Severity Reaction Status Date / Time pneumococcal vaccine Allergy Severe Swelling/Ed Verified 11/24/22 12:41 nandini sulfamethoxazole Allergy difficulty Verified 11/24/22 12:41 [From Bactrim] breathing trimethoprim [From Bactrim] Allergy difficulty Verified 11/24/22 12:41 breathing General MESERET: 3 Review of Systems Narrative: Review of Systems Constitutional: negative Eyes: negative ENT: negative Cardiovascular: negative Respiratory: Shortness of breath Gastrointestinal: negative : negative Musculoskeletal: negative Skin: negative Neurologic: negative Psych: negative PFSH All Active Problems (Updated 11/26/22 @ 10:30 by Igor Kinsey MD) Shortness of breath (Acute) Shortness of breath (Acute) CKD (chronic kidney disease) (Chronic) Pulmonary scarring (Acute) Chronic respiratory failure with hypoxia (Acute) 2L of O2 by NC COPD (chronic obstructive pulmonary disease) (Chronic) Bronchiectasis (Acute) 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) Basal cell carcinoma of multiple sites (Acute) Leucocytosis (Chronic) Palpitations (Acute) Exertional shortness of breath (Chronic) Neoplasm of unspecified nature of bone, soft tissue, and skin (Acute 06/19/15) Medical History Actinic keratosis (05/01/16) Anemia Basal cell carcinoma of skin (03/11/16) Bilateral cataracts Coronary Artery Disease Depression Diabetes mellitus Diabetic foot ulcer Diabetic ulcer of left foot ESRD on hemodialysis GERD (gastroesophageal reflux disease) Hoarseness Hyperkalemia Moderate pulmonary hypertension Orthostatic hypotension Paroxysmal atrial fibrillation with rapid ventricular response Perihepatic abscess RBBB (right bundle branch block) Renal cell carcinoma of left kidney (05/30/17) Shortness of breath Supraventricular tachycardia Toe infection Tubular adenoma of colon (12/18/16) Surgical History Colonoscopy - MAC (12/18/16) 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 12.02.12HE Hx of cardiac cath x2, per patient Lobectomy Pt states 2 lobes removed from R. lung. No date given. 12.02.12HE Osteotomy Partial & Debridment of first metatarsal on Left foot. S/P hemodialysis catheter insertion Family History Mother Heart disease Diabetes Sister Stroke Diabetes Sister Diabetes Cancer laryngeal cancer Sister Diabetes Social History Smoking/Tobacco Use Status: Former Tobacco Use tobacco type: cigarettes Quit Date: 05/05/14 Pack-years: 100 Tobacco: How many years used: 50 Counseling given: provider counseling Smoking risk assessment performed?: Yes Alcohol Intake: never Drug use: Never Substance use type: does not use Household members: spouse Housing: house Current gender identity: male What type of physical activity do you participate in: none and independent ambulation Do you feel safe at home: Yes Do you feel safe in your relationship?: Yes Additional Social history: lives with his Exam Narrative Exam Narrative: Physical Examination General: alert, awake, cooperative, resting comfortably, no acute distress HEENT: normocephalic, atraumatic; PERRL, EOM intact, conjunctiva normal; no nasal discharge; moist mucous membranes, oral and pharyngeal mucosa normal, tolerating secretions Neck: supple, trachea midline; full ROM Chest: normal to inspection Respiratory: normal respiratory effort, speaking in full sentences, clear to auscultation, no wheezing, rales or rhonchi Cardiac: regular rate, regular rhythm, S1S2 intact, no murmurs rubs or gallops GI: abdomen soft, non-tender, non-distended; no palpable mass or hepatosplenomegaly Skin: no lesions, rashes or trauma appreciated Neuro: AAOx3, normal speech, moving all extremities Extremities: Minimal ankle edema Psych: Appropriate mood and affect
[2022-11-26] MEDS: Albuterol/Ipratropium 3 ML UPD VIAL UPD (08:46)
[2022-11-26 09:03] LABS: Abs Immature Grans 0.47 10^3/uL (0.0-0.06); Absolute Basophil Count 0.07 10^3/uL (0.0-0.2); Absolute Eosinophil Count 0.03 10^3/uL (0.0-0.7); Absolute Lymphocyte Count 0.97 10^3/uL (1.2-3.4); Absolute Monocyte Count 0.59 10^3/uL (0.1-0.8); Absolute Neutrophil Count 14.38 10^3/uL (1.2-6.7); Basophils % 0.4; Eosinophils % 0.2; HCT 32.6 % (40.0-50.0); HGB 10.3 g/dL (13.5-17.5); Immature Grans % 2.8; Lymphocytes % 5.9; MCH 31.7 pg (27.0-33.0); MCHC 31.6 % (32.0-36.0); MCV 100 fL (80-95); MPV 11.1 fL (8.0-11.0); Monocytes % 3.6; Neutrophils % 87.1; Platelet Count 337 10^3/uL (130-400); RBC 3.25 10^6/uL (4.36-5.78); RDW 14.9 % (11.8-14.1); RDW-SD 55.2 fL; WBC 16.51 10^3/uL (4.4-10.8)
[2022-11-26 09:30] LABS: Albumin 2.8 g/dL (3.4-5.0); Alkaline Phosphatase 115 U/L (46-116); Anion Gap 10.8 mmol/L (3-11); BUN 44 mg/dL (7-18); Bilirubin, Total 0.3 mg/dL (0.2-1.0); CO2 26.2 mmol/L (21.0-32.0); Calcium 8.6 mg/dL (8.5-10.1); Chloride 98 mmol/L (98-107); Estimated GFR 10.02 (mL/min/1.73m2); Glucose 467 mg/dL (74-106); Potassium 5.3 mmol/L (3.5-5.1); Sodium 135 mmol/L (136-145); Total Protein 6.5 g/dL (6.4-8.2)
[2022-11-26 09:31] LABS: ALT 14 U/L (16-63); AST 9 U/L (15-37)
[2022-11-26 09:49] LABS: CREATININE 5.5 mg/dL (0.70-1.30)
[2022-11-26 09:52] VITALS: PULSE 84; RESP 17; O2SAT 96
[2022-11-26 09:55] VITALS: BP 119/41; O2SAT 97
[2022-11-26 09:56] VITALS: RESP 17
[2022-11-26] MEDS: Insulin REGULAR-Human 100 UNITS/ML UNIT 6 UNITS SC (10:23)
== END 2022-11-26 11:00 | disposition home or self-care (01) ==
PROVIDERS: Emergency Provider Emergency Medicine; PCP Family Medicine
DX: N18.9 Chronic kidney disease, unspecified (principal); J44.9 Chronic obstructive pulmonary disease, unspecified
CPT/HCPCS: 36415; 36416; 80053; 82962; 93005; 96372; 99284; 71046; 85025; 93010; J7620

== ENCOUNTER 2022-11-26 13:56 | Emergency (ER) | payer MEDICARE, BC, SELFPAY ==
[2022-11-26 14:02] VITALS: BP 106/55; PULSE 86; RESP 18; TEMP 36.8; O2SAT 99
--- NOTE | 2022-11-26 14:30 | ED.GENADUL_ITS ---
Discharge Plan Disposition Patient Disposition: Home Discharge Details Chief Complaint: GenMedical Clinical Impression: CKD (chronic kidney disease) Primary Care Provider: Zakiya Reyna ED Provider: Igor Kinsey Home Meds and New Rx's Prescriptions: No Action fluticasone propion-salmeterol [Advair HFA] 115-21 mcg/actuation HFA aerosol inhaler 2 puff inhalation BID Qty: 12 12RF Rx Instructions: Wash mouth after use nitroglycerin 0.4 MG tablet, sublingual 0.4 mg Sublingual ONCE PRN Patient Comments: has never used it at home cholecalciferol (vitamin D3) 1,000 UNIT tablet 1,000 unit PO DAILY Breztri Aerosphere 160-9-4.8 mcg/actuation HFA aerosol inhaler 2 inh inhalation BID Qty: 10.7 12RF Patient Comments: not on med list aspirin [Aspir-81] 81 MG tablet,delayed release (DR/EC) 81 mg PO DAILY multivitamin 1 EACH capsule 1 ea PO DAILY sertraline 50 MG tablet 100 mg PO DAILY atorvastatin [Lipitor] 40 MG tablet 40 mg PO HS ascorbic acid (vitamin C) [Vitamin C] 1,000 MG tablet 500 mg PO DAILY albuterol sulfate [Proventil HFA] 6.7 GM HFA aerosol inhaler 2 inh PO Q4H PRN PRN acetaminophen [Tylenol Extra Strength] 500 mg Tablet 1,000 mg PO .Q6 HRS PRN tamsulosin 0.4 mg Capsule 0.4 mg PO DIRECTED Patient Comments: QOD pantoprazole 40 mg tablet,delayed release (DR/EC) 40 mg PO DAILY insulin glargine [Lantus Solostar U-100 Insulin] 100 unit/mL (3 mL) insulin pen 26 unit SUBCUT HS cyclobenzaprine 10 mg tablet 10 mg PO TID PRNQty: 20 0RF bupropion HCl 100 mg tablet sustained-release 12 hr 150 mg PO BID Patient Comments: TAKE ONE TABLET BY MOUTH TWICE A DAY polyethylene glycol 3350 [Miralax] 17 gram Powder In Packet 17 g PO BID Patient Comments: Per pt pharmacy, pt not taking. bisacodyl [Dulcolax (bisacodyl)] 10 mg Suppository 10 mg [place] DAILY PRN oxycodone 10 mg tablet 20 mg PO BID Patient Comments: TAKE TWO TABLETS BY MOUTH EVERY DAY - MAX DAILY DOSE OF 2 PER DAY metoprolol tartrate [Lopressor] 50 mg tablet 50 mg PO BID Fiasp FlexTouch U-100 Insulin 100 unit/mL (3 mL) insulin pen 2 - 6 unit SUBCUT BID cyanocobalamin (vitamin B-12) [Vitamin B-12] 1,000 mcg Tablet 1,000 mcg PO DAILY Patient Comments: not on med list loratadine 10 mg capsule 10 mg PO DAILY Qty: 20 0RF sennosides [senna] 8.6 mg Tablet 8.6 mg PO DAILY trazodone 50 mg tablet 50 mg PO HS Patient Comments: TAKE ONE-HALF TABLET BY MOUTH EVERY EVENING midodrine 2.5 mg tablet 5 mg PO TID Patient Comments: TAKE ONE TABLET BY MOUTH THREE TIMES A DAY BEFORE MEALS insulin lispro [Humalog KwikPen Insulin] 100 unit/mL Insulin Pen 1 sliding scale dose SUBCUT USEASDIRECTD Patient Comments: Per pt pharmacy, no current rx. Pt not taking. Eliquis 2.5 mg tablet 2.5 mg PO BID Patient Comments: TAKE ONE TABLET BY MOUTH TWICE A DAY diphenhydramine HCl [Banophen] 25 mg capsule 25 mg PO Q6H Patient Comments: TAKE ONE CAPSULE BY MOUTH EVERY 6 HOURS Victoza 2-Edy 0.6 mg/0.1 mL (18 mg/3 mL) pen injector 1.8 mg SUBCUT DAILY Patient Comments: INJECT 0.6MG UNDER THE SKIN ONCE DAILY Spiriva Respimat 2.5 mcg/actuation mist 2 spray INHALATION PRN PRN Patient Comments: Inhale 2 puff as directed once a day prednisone 20 mg tablet 50 mg PO DAILY Patient Comments: Per pt pharmacy, one time rx. Pt not taking. prednisone 50 mg tablet 50 mg PO DAILY Qty: 5 0RF Patient Comments: Per pt pharmacy, one time rx. Pt not taking. prednisone 20 mg tablet 60 mg PO DAILY 4 Days Qty: 12 0RF Patient Comments: Per pharmacy, was one time rx. Pt not taking. levofloxacin 250 mg tablet 250 mg PO DAILY Qty: 6 0RF Patient Comments: Per pt pharmacy, no current rx. Pt not taking. Discharge Instructions Instructions: Chronic Kidney Disease (ED) Additional Instructions: Please attend dialysis tomorrow as scheduled. Medical Decision Making 77-year-old male history of end-stage renal disease on hemodialysis Friday missed dialysis on Friday, presents with chronic shortness of breath. Was seen here earlier received labs nebulized albuterol screening x-ray determined to be stable for discharge and follow-up with dialysis tomorrow. I attempted to call multiple local dialysis centers to try to fit him in today however they are either closed or have. Spoke directly with his dialysis nurse who has him scheduled tomorrow at 10:05 AM. Patient's lungs are clear moving good air speaking full sentences, on baseline nasal cannula not requiring any further titration of O2. Minimal ankle edema without signs of fluid overload currently. Potassium within stable range. Hemodynamically stable. Low suspicion for fluid overload pneumonia or worsening of electrolyte abnormalities. HPI General Date/Time Provider Initiated Documentation: 11/26/22 14:09 . HPI Narrative: 77-year-old male history of end-stage renal disease on hemodialysis Friday missed dialysis on Friday presents for reevaluation today in the setting of chronic shortness of breath. Related Data Home Medications Medication Instructions Recorded Confirmed aspirin 81 mg tablet,delayed 81 mg PO DAILY 09/25/12 11/26/22 release (Aspir-) multivitamin 1 ea PO DAILY 09/25/12 11/26/22 sertraline 50 mg tablet 100 mg PO DAILY 09/25/12 11/26/22 cholecalciferol (vitamin D3) 25 1,000 unit PO DAILY 09/21/15 11/26/22 mcg (1,000 unit) tablet nitroglycerin 0.4 mg sublingual 0.4 mg sublingual ONCE PRN 09/21/15 11/26/22 tablet albuterol sulfate 90 mcg/actuation 2 inh PO Q4H PRN PRN 02/16/17 11/26/22 aerosol inhaler (Proventil HFA) ascorbic acid (vitamin C) 1,000 mg 500 mg PO DAILY 02/16/17 11/26/22 tablet (Vitamin C) atorvastatin 40 mg tablet (Lipitor) 40 mg PO HS 02/16/17 11/26/22 cyanocobalamin (vitamin B-12) 1,000 mcg PO DAILY 09/22/19 11/26/22 1,000 mcg tablet (Vitamin B-12) acetaminophen 500 mg tablet 1,000 mg PO .Q6 HRS PRN 04/24/20 11/26/22 (Tylenol Extra Strength) insulin glargine 100 unit/mL (3 26 unit subcut HS 04/24/20 11/26/22 mL) subcutaneous pen (Lantus Solostar U-100 Insulin) pantoprazole 40 mg tablet,delayed 40 mg PO DAILY 04/24/20 11/26/22 release tamsulosin 0.4 mg capsule 0.4 mg PO DIRECTED 04/24/20 11/26/22 loratadine 10 mg capsule 10 mg PO DAILY #20 caps 03/09/21 11/26/22 apixaban 2.5 mg tablet (Eliquis) 2.5 mg PO BID 06/05/21 11/26/22 insulin lispro 100 unit/mL 1 sliding scale dose subcut 06/05/21 11/13/22 subcutaneous pen (Humalog KwikPen USEASDIRECTD (U-100) Insulin) midodrine 2.5 mg tablet 5 mg PO TID 06/05/21 11/26/22 sennosides 8.6 mg tablet (senna) 8.6 mg PO DAILY 06/05/21 11/24/22 trazodone 50 mg tablet 50 mg PO HS 06/05/21 11/26/22 fluticasone propionate 115 2 puff inhalation BID #12 grams 11/20/21 11/26/22 mcg-salmeterol 21 mcg/actuation HFA inhaler (Advair HFA) budesonide 160 mcg-glycopyr 9 2 inh inhalation BID #10.7 grams 11/26/21 11/26/22 mcg-formot 4.8 mcg/actuation HFA inhaler (Breztri Aerosphere) cyclobenzaprine 10 mg tablet 10 mg PO TID PRN #20 tabs 01/15/22 11/26/22 diphenhydramine HCl 25 mg capsule 25 mg PO Q6H 01/18/22 11/26/22 (Banophen) liraglutide 0.6 mg/0.1 mL (18 mg/3 1.8 mg subcut DAILY 01/18/22 11/26/22 mL) subcutaneous pen injector (Victoza 2-Edy) prednisone 20 mg tablet 50 mg PO DAILY 01/18/22 11/13/22 tiotropium bromide 2.5 2 spray inhalation PRN PRN 01/18/22 11/26/22 mcg/actuation mist for inhalation (Spiriva Respimat) prednisone 50 mg tablet 50 mg PO DAILY #5 tabs 09/06/22 11/13/22 bisacodyl 10 mg rectal suppository 10 mg [place] DAILY PRN 09/08/22 11/26/22 (Dulcolax (bisacodyl)) bupropion HCl 100 mg tablet,12 hr 150 mg PO BID 09/08/22 11/26/22 sustained-release oxycodone 10 mg tablet 20 mg PO BID 09/08/22 11/26/22 polyethylene glycol 3350 17 gram 17 g PO BID 09/08/22 11/24/22 oral powder packet (Miralax) insulin aspart 2 - 6 unit subcut BID 11/24/22 11/26/22 (niacinamide)(U-100) 100 unit/mL(3 mL) subcutaneous pen (Fiasp FlexTouch U-100 Insulin) metoprolol tartrate 50 mg tablet 50 mg PO BID 11/24/22 11/26/22 (Lopressor) levofloxacin 250 mg tablet 250 mg PO DAILY #6 tabs 11/25/22 prednisone 20 mg tablet 60 mg PO DAILY 4 days #12 tabs 11/25/22 Previous Rx's Medication Instructions Recorded loratadine 10 mg capsule 10 mg PO DAILY #20 caps 03/09/21 fluticasone propionate 115 2 puff inhalation BID #12 grams 11/20/21 mcg-salmeterol 21 mcg/actuation HFA inhaler (Advair HFA) budesonide 160 mcg-glycopyr 9 2 inh inhalation BID #10.7 grams 11/26/21 mcg-formot 4.8 mcg/actuation HFA inhaler (Breztri Aerosphere) cyclobenzaprine 10 mg tablet 10 mg PO TID PRN #20 tabs 01/15/22 prednisone 50 mg tablet 50 mg PO DAILY #5 tabs 09/06/22 levofloxacin 250 mg tablet 250 mg PO DAILY #6 tabs 11/25/22 prednisone 20 mg tablet 60 mg PO DAILY 4 days #12 tabs 11/25/22 Allergies Allergy/AdvReac Type Severity Reaction Status Date / Time pneumococcal vaccine Allergy Severe Swelling/Ed Verified 11/24/22 12:41 nandini sulfamethoxazole Allergy difficulty Verified 11/24/22 12:41 [From Bactrim] breathing trimethoprim [From Bactrim] Allergy difficulty Verified 11/24/22 12:41 breathing General Stated Complaint: GenMedical MESERET: 4 Review of Systems Narrative: Review of Systems Constitutional: negative Eyes: negative ENT: negative Cardiovascular: negative Respiratory: Shortness of breath Gastrointestinal: negative : negative Musculoskeletal: negative Skin: negative Neurologic: negative Psych: negative PFSH All Active Problems (Updated 11/26/22 @ 14:34 by Igor Kinsey MD) Shortness of breath (Acute) Shortness of breath (Acute) CKD (chronic kidney disease) (Chronic) CKD (chronic kidney disease) (Chronic) Pulmonary scarring (Acute) Chronic respiratory failure with hypoxia (Acute) 2L of O2 by NC COPD (chronic obstructive pulmonary disease) (Chronic) Bronchiectasis (Acute) 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) Basal cell carcinoma of multiple sites (Acute) Leucocytosis (Chronic) Palpitations (Acute) Exertional shortness of breath (Chronic) Neoplasm of unspecified nature of bone, soft tissue, and skin (Acute 06/19/15) Medical History Actinic keratosis (05/01/16) Anemia Basal cell carcinoma of skin (03/11/16) Bilateral cataracts Coronary Artery Disease Depression Diabetes mellitus Diabetic foot ulcer Diabetic ulcer of left foot ESRD on hemodialysis GERD (gastroesophageal reflux disease) Hoarseness Hyperkalemia Moderate pulmonary hypertension Orthostatic hypotension Paroxysmal atrial fibrillation with rapid ventricular response Perihepatic abscess RBBB (right bundle branch block) Renal cell carcinoma of left kidney (05/30/17) Shortness of breath Supraventricular tachycardia Toe infection Tubular adenoma of colon (12/18/16) Surgical History Colonoscopy - MAC (12/18/16) Completion of amputation (09/30/12) L great toe EGD - MAC (12/18/16) H/O partial nephrectomy x3 Heart Stent (12/03/11) Pt records show heart stent placed 12/03/11 at [facility]. 12.02.12HE Hx of cardiac cath x2, per patient Lobectomy Pt states 2 lobes removed from R. lung. No date given. 12.02.12HE Osteotomy Partial & Debridment of first metatarsal on Left foot. S/P hemodialysis catheter insertion Family History Mother Heart disease Diabetes Sister Stroke Diabetes Sister Diabetes Cancer laryngeal cancer Sister Diabetes Social History Smoking/Tobacco Use Status: Former Tobacco Use tobacco type: cigarettes Quit Date: 05/05/14 Pack-years: 100 Tobacco: How many years used: 50 Counseling given: provider counseling Smoking risk assessment performed?: Yes Alcohol Intake: never Drug use: Never Substance use type: does not use Household members: spouse Housing: house Current gender identity: male What type of physical activity do you participate in: none and independent ambulation Do you feel safe at home: Yes Do you feel safe in your relationship?: Yes Additional Social history: lives with his Exam Narrative Exam Narrative: Physical Examination General: alert, awake, cooperative, resting comfortably, no acute distress HEENT: normocephalic, atraumatic; PERRL, EOM intact, conjunctiva normal; no nasal discharge; moist mucous membranes, oral and pharyngeal mucosa normal, tolerating secretions Neck: supple, trachea midline; full ROM Chest: normal to inspection Respiratory: normal respiratory effort, speaking in full sentences, clear to auscultation, no wheezing, rales or rhonchi Cardiac: regular rate, regular rhythm, S1S2 intact, no murmurs rubs or gallops GI: abdomen soft, non-tender, non-distended; no palpable mass or hepatosplenomegaly Skin: no lesions, rashes or trauma appreciated Neuro: AAOx3, normal speech, moving all extremities Extremities: Minimal ankle edema Psych: Appropriate mood and affect Course Vital Signs Vital signs: Vital Signs Temperature 36.8 C 11/26/22 14:02 Pulse 86 11/26/22 14:02 Respiratory Rate 18 11/26/22 14:02 Blood Pressure 106/55 L 11/26/22 14:02 Pulse Oximetry 99 11/26/22 14:02 Temperature 36.8 C 11/26/22 14:02 Pulse 86 11/26/22 14:02 Respiratory Rate 18 11/26/22 14:02 Blood Pressure 106/55 L 11/26/22 14:02 Blood Pressure Position Sitting 11/26/22 14:02 Pulse Oximetry 99 11/26/22 14:02 Oxygen Delivery Method Nasal Cannula 11/26/22 14:02 Oxygen Flow Rate 4 11/26/22 14:02
== END 2022-11-26 15:42 | disposition home or self-care (01) ==
PROVIDERS: Emergency Provider Emergency Medicine; PCP Family Medicine
DX: N18.9 Chronic kidney disease, unspecified (principal)

== ENCOUNTER 2022-11-27 14:12 | Emergency (ER) | payer MEDICARE, BC, SELFPAY ==
[2022-11-27] VITALS (40 sets, daily range): BP systolic 98–129; BP diastolic 45–57; PULSE 86–105; RESP 13–27; O2SAT 94–97
--- NOTE | 2022-11-27 15:00 | RT.EKG_ITS ---
APPROVED REPORT Exam: Resting ECG Reason for Exam: short of breath Patient Location: E HR:87 bpm ECG Measurements Heart Rate 87 AXIS AL 175 P 1 QRSd 120 QRS -21 QT 374 T 5 QTc 451 Conclusion Sinus rhythm V-rate 60- 99 IRBBB QRSd>120 Inferior infarct, old...Q >35mS, II III aVF No ST segment or T wave abnormalities to suggest occlusive CA
--- NOTE | 2022-11-27 15:00 | W.ED.GENAD ---
Discharge Plan Disposition Patient Disposition: Against Medical Advice Condition: Stable Discharge Details Clinical Impression: COPD (chronic obstructive pulmonary disease), Leucocytosis, Shortness of breath Primary Care Provider: Zakiya Reyna ED Provider: Ragini Adam Home Meds and New Rx's Prescriptions: No Action fluticasone propion-salmeterol [Advair HFA] 115-21 mcg/actuation HFA aerosol inhaler 2 puff inhalation BID Qty: 12 12RF Rx Instructions: Wash mouth after use nitroglycerin 0.4 MG tablet, sublingual 0.4 mg Sublingual ONCE PRN Patient Comments: has never used it at home cholecalciferol (vitamin D3) 1,000 UNIT tablet 1,000 unit PO DAILY Breztri Aerosphere 160-9-4.8 mcg/actuation HFA aerosol inhaler 2 inh inhalation BID Qty: 10.7 12RF Patient Comments: not on med list aspirin [Aspir-81] 81 MG tablet,delayed release (DR/EC) 81 mg PO DAILY multivitamin 1 EACH capsule 1 ea PO DAILY sertraline 50 MG tablet 100 mg PO DAILY atorvastatin [Lipitor] 40 MG tablet 40 mg PO HS ascorbic acid (vitamin C) [Vitamin C] 1,000 MG tablet 500 mg PO DAILY albuterol sulfate [Proventil HFA] 6.7 GM HFA aerosol inhaler 2 inh PO Q4H PRN PRN acetaminophen [Tylenol Extra Strength] 500 mg Tablet 1,000 mg PO .Q6 HRS PRN tamsulosin 0.4 mg Capsule 0.4 mg PO DIRECTED Patient Comments: QOD pantoprazole 40 mg tablet,delayed release (DR/EC) 40 mg PO DAILY insulin glargine [Lantus Solostar U-100 Insulin] 100 unit/mL (3 mL) insulin pen 26 unit SUBCUT HS cyclobenzaprine 10 mg tablet 10 mg PO TID PRNQty: 20 0RF bupropion HCl 100 mg tablet sustained-release 12 hr 150 mg PO BID Patient Comments: TAKE ONE TABLET BY MOUTH TWICE A DAY polyethylene glycol 3350 [Miralax] 17 gram Powder In Packet 17 g PO BID Patient Comments: Per pt pharmacy, pt not taking. bisacodyl [Dulcolax (bisacodyl)] 10 mg Suppository 10 mg W[place] DAILY PRN oxycodone 10 mg tablet 20 mg PO BID Patient Comments: TAKE TWO TABLETS BY MOUTH EVERY DAY - MAX DAILY DOSE OF 2 PER DAY metoprolol tartrate [Lopressor] 50 mg tablet 50 mg PO BID Fiasp FlexTouch U-100 Insulin 100 unit/mL (3 mL) insulin pen 2 - 6 unit SUBCUT BID cyanocobalamin (vitamin B-12) [Vitamin B-12] 1,000 mcg Tablet 1,000 mcg PO DAILY Patient Comments: not on med list loratadine 10 mg capsule 10 mg PO DAILY Qty: 20 0RF sennosides [senna] 8.6 mg Tablet 8.6 mg PO DAILY trazodone 50 mg tablet 50 mg PO HS Patient Comments: TAKE ONE-HALF TABLET BY MOUTH EVERY EVENING midodrine 2.5 mg tablet 5 mg PO TID Patient Comments: TAKE ONE TABLET BY MOUTH THREE TIMES A DAY BEFORE MEALS insulin lispro [Humalog KwikPen Insulin] 100 unit/mL Insulin Pen 1 sliding scale dose SUBCUT USEASDIRECTD Patient Comments: Per pt pharmacy, no current rx. Pt not taking. Eliquis 2.5 mg tablet 2.5 mg PO BID Patient Comments: TAKE ONE TABLET BY MOUTH TWICE A DAY diphenhydramine HCl [Banophen] 25 mg capsule 25 mg PO Q6H Patient Comments: TAKE ONE CAPSULE BY MOUTH EVERY 6 HOURS Victoza 2-Edy 0.6 mg/0.1 mL (18 mg/3 mL) pen injector 1.8 mg SUBCUT DAILY Patient Comments: INJECT 0.6MG UNDER THE SKIN ONCE DAILY Spiriva Respimat 2.5 mcg/actuation mist 2 spray INHALATION PRN PRN Patient Comments: Inhale 2 puff as directed once a day prednisone 20 mg tablet 50 mg PO DAILY Patient Comments: Per pt pharmacy, one time rx. Pt not taking. prednisone 50 mg tablet 50 mg PO DAILY Qty: 5 0RF Patient Comments: Per pt pharmacy, one time rx. Pt not taking. prednisone 20 mg tablet 60 mg PO DAILY 4 Days Qty: 12 0RF Patient Comments: Per pharmacy, was one time rx. Pt not taking. levofloxacin 250 mg tablet 250 mg PO DAILY Qty: 6 0RF Patient Comments: Per pt pharmacy, no current rx. Pt not taking. Discharge Instructions Instructions: Dyspnea (ED) Additional Instructions: Please see your primary care doctor as soon as possible. Make sure you go to dialysis on Friday. Please return to the emergency department if you change your mind, or if you have an new or worsening symptoms. Referrals: Zakiya Reyna MD [Primary Care Provider] - Medical Decision Making 77yo M with hx CKD on dialysis M/W/F, COPD, bronchiectesis s/p lobectomy, DM, CAD s/p stenting, afib on eliquis, hx malignancy, presenting from dialysis (after completed dialysis) for shortness of breath x several days and chest pain yesterday which has since resolved as well as diffuse abdominal pain for the past day. Dialysis MD reportedly concerned about change in mental status. Vital signs and physical exam reassuring on arrival, no increased work of breathing. Given report of shortness of breath and pleuritic chest pain, hx malignancy, CTA chest ordered as well as CT abd/pelvis for new abdominal pain. Mentating well on my exam however dialysis MD concerned about change in mental status, so given recent falls CT head also ordered. [facility] medical records reviewed, in summary: 11/13 Seen in this ED for presyncope and frequent falls, found to have left 10th-11th rib fx, transferred to [facility] 11/24 Seen in this ED after hospital dc the prior day for SOB, concern for home O2 not working. Reassuring workup, dc home 11/25 Seen in this ED for SOB, missed scheduled dialysis that day (friday). Found to have pleural effusion, determined to be okay to wait for Wed dialysis, offered transfer/admission which he declined, dc on levofloxacin and prednisone 11/26 Seen in this ED for SOB, attempted to arrange dialysis same day but unsuccessful, no indication for emergent dialysis, dc with plan to go to dialysis the following day (wed) Labs today with increasing leukocytosis (24.7) today compared to prior visits, CMP consistent with ESRD, no actionable abnormalities. EKG NSR, appropriate intervals, no ST segment or T wave abnormalities to suggest occlusive CT, troponin negative x 2. CT head, CT chest, and CT abd/pelvis independently reviewed, no intracranial bleed, no bowel obstruction, no pulmonary embolism, agree with radiology reads below. Some air in bladder noted on CT; patient denies any dysuria/hematuria, no suprapubic tenderness, is requesting discharge home and does not want to provide urine sample. Reassuring workup again today, is on levofloxacin currently which should cover UTI as well, however given his frequent ED visits and increasing leukocytsois I am concerned that should he go home he will worsen. At a minimum he is likely deconditioned and requires further PT/OT and a higher level of care/services than he is currently getting at home. He is oriented x three and verbalizes understanding of my concerns, states that he needs to go home to care for his who is wheelchair bound. I discussed my advice that he be transferred to a facility where he could receive dialysis and additional workup and management; he verbalized understanding of my concern, again refused, and again stated that he needed to go home. He has decision making capacity and I have no indication to hold him against his will. He was advised to follow up closely with his primary care doctor and to call them tomorrow, encouraged to return to the emergency department should he change his mind. Discharge instructions including return precautions were reviewed and he verbalized understanding. All questions were answered. Medical Records Medical records reviewed: Yes I reviewed the patient's medical records. Imaging Data Radiologic Study: Imaging: CT Scan Radiologist's impression: IMPRESSION: No acute intracranial findings on this noninfused CT scan of the brain. Chronic small-vessel white matter ischemic changes are again noted. Radiologic Study #2: Imaging: CT Scan Radiologist's impression: IMPRESSION: 1. No evidence of acute pulmonary emboli nor pulmonary infarction.? No improvement in bilateral lung infiltrates.? Fractures of the posterior aspects of the left 10th and 11th ribs are again noted.? No new fractures evident. 2. There are no pleural effusions. 3. Moderately thickened urinary bladder wall.? Also air is seen in the urinary bladder which is possibly related to recent instrumentation versus infection. Lab Data Lab results reviewed: Yes I reviewed the patient's lab results. HPI General Mode of arrival: EMS. Date/Time Provider Initiated Documentation: 11/27/22 14:37. Limitations to Documentation: no limitations. Information obtained by: patient and old records reviewed. HPI Narrative: 77yo M with hx CKD on dialysis M/W/F, COPD, bronchiectesis s/p lobectomy, DM, CAD s/p stenting, afib on eliquis, presenting from dialysis (after completed dialysis) for shortness of breath x several days. Had chest pain yesterday which has since resolved; sharp, substernal, worse with inspiration. No increasing orthopnea or dyspnea on exertion. Also reported abdominal pain and no bowel movement in awhile. No dark or bloody bowel movements. Dialysis MD reportedly concerned about change in mental status. Related Data Home Medications Medication Instructions Recorded Confirmed aspirin 81 mg tablet,delayed 81 mg PO DAILY 09/25/12 11/26/22 release (Aspir-) multivitamin 1 ea PO DAILY 09/25/12 11/26/22 sertraline 50 mg tablet 100 mg PO DAILY 09/25/12 11/26/22 cholecalciferol (vitamin D3) 25 1,000 unit PO DAILY 09/21/15 11/26/22 mcg (1,000 unit) tablet nitroglycerin 0.4 mg sublingual 0.4 mg sublingual ONCE PRN 09/21/15 11/26/22 tablet albuterol sulfate 90 mcg/actuation 2 inh PO Q4H PRN PRN 02/16/17 11/26/22 aerosol inhaler (Proventil HFA) ascorbic acid (vitamin C) 1,000 mg 500 mg PO DAILY 02/16/17 11/26/22 tablet (Vitamin C) atorvastatin 40 mg tablet (Lipitor) 40 mg PO HS 02/16/17 11/26/22 cyanocobalamin (vitamin B-12) 1,000 mcg PO DAILY 09/22/19 11/26/22 1,000 mcg tablet (Vitamin B-12) acetaminophen 500 mg tablet 1,000 mg PO .Q6 HRS PRN 04/24/20 11/26/22 (Tylenol Extra Strength) insulin glargine 100 unit/mL (3 26 unit subcut HS 04/24/20 11/26/22 mL) subcutaneous pen (Lantus Solostar U-100 Insulin) pantoprazole 40 mg tablet,delayed 40 mg PO DAILY 04/24/20 11/26/22 release tamsulosin 0.4 mg capsule 0.4 mg PO DIRECTED 04/24/20 11/26/22 loratadine 10 mg capsule 10 mg PO DAILY #20 caps 03/09/21 11/26/22 apixaban 2.5 mg tablet (Eliquis) 2.5 mg PO BID 06/05/21 11/26/22 insulin lispro 100 unit/mL 1 sliding scale dose subcut 06/05/21 11/13/22 subcutaneous pen (Humalog KwikPen USEASDIRECTD (U-100) Insulin) midodrine 2.5 mg tablet 5 mg PO TID 06/05/21 11/26/22 sennosides 8.6 mg tablet (senna) 8.6 mg PO DAILY 06/05/21 11/24/22 trazodone 50 mg tablet 50 mg PO HS 06/05/21 11/26/22 fluticasone propionate 115 2 puff inhalation BID #12 grams 11/20/21 11/26/22 mcg-salmeterol 21 mcg/actuation HFA inhaler (Advair HFA) budesonide 160 mcg-glycopyr 9 2 inh inhalation BID #10.7 grams 11/26/21 11/26/22 mcg-formot 4.8 mcg/actuation HFA inhaler (Breztri Aerosphere) cyclobenzaprine 10 mg tablet 10 mg PO TID PRN #20 tabs 01/15/22 11/26/22 diphenhydramine HCl 25 mg capsule 25 mg PO Q6H 01/18/22 11/26/22 (Banophen) liraglutide 0.6 mg/0.1 mL (18 mg/3 1.8 mg subcut DAILY 01/18/22 11/26/22 mL) subcutaneous pen injector (Victoza 2-Edy) prednisone 20 mg tablet 50 mg PO DAILY 01/18/22 11/13/22 tiotropium bromide 2.5 2 spray inhalation PRN PRN 01/18/22 11/26/22 mcg/actuation mist for inhalation (Spiriva Respimat) prednisone 50 mg tablet 50 mg PO DAILY #5 tabs 09/06/22 11/13/22 bisacodyl 10 mg rectal suppository 10 mg WV DAILY PRN 09/08/22 11/26/22 (Dulcolax (bisacodyl)) bupropion HCl 100 mg tablet,12 hr 150 mg PO BID 09/08/22 11/26/22 sustained-release oxycodone 10 mg tablet 20 mg PO BID 09/08/22 11/26/22 polyethylene glycol 3350 17 gram 17 g PO BID 09/08/22 11/24/22 oral powder packet (Miralax) insulin aspart 2 - 6 unit subcut BID 11/24/22 11/26/22 (niacinamide)(U-100) 100 unit/mL(3 mL) subcutaneous pen (Fiasp FlexTouch U-100 Insulin) metoprolol tartrate 50 mg tablet 50 mg PO BID 11/24/22 11/26/22 (Lopressor) levofloxacin 250 mg tablet 250 mg PO DAILY #6 tabs 11/25/22 prednisone 20 mg tablet 60 mg PO DAILY 4 days #12 tabs 11/25/22 Previous Rx's Medication Instructions Recorded loratadine 10 mg capsule 10 mg PO DAILY #20 caps 03/09/21 fluticasone propionate 115 2 puff inhalation BID #12 grams 11/20/21 mcg-salmeterol 21 mcg/actuation HFA inhaler (Advair HFA) budesonide 160 mcg-glycopyr 9 2 inh inhalation BID #10.7 grams 11/26/21 mcg-formot 4.8 mcg/actuation HFA inhaler (Breztri Aerosphere) cyclobenzaprine 10 mg tablet 10 mg PO TID PRN #20 tabs 01/15/22 prednisone 50 mg tablet 50 mg PO DAILY #5 tabs 09/06/22 levofloxacin 250 mg tablet 250 mg PO DAILY #6 tabs 11/25/22 prednisone 20 mg tablet 60 mg PO DAILY 4 days #12 tabs 11/25/22 Allergies Allergy/AdvReac Type Severity Reaction Status Date / Time pneumococcal vaccine Allergy Severe Swelling/Ed Verified 11/27/22 14:22 nandini sulfamethoxazole Allergy difficulty Verified 11/27/22 14:22 [From Bactrim] breathing trimethoprim [From Bactrim] Allergy difficulty Verified 11/27/22 14:22 breathing General Stated Complaint: SOB MESERET: 3 Review of Systems Narrative: See HPI PFSH All Active Problems (Updated 11/27/22 @ 19:39 by Ragini Adam MD) Shortness of breath (Acute) Shortness of breath (Acute) CKD (chronic kidney disease) (Chronic) CKD (chronic kidney disease) (Chronic) Pulmonary scarring (Acute) Chronic respiratory failure with hypoxia (Acute) 2L of O2 by NC COPD (chronic obstructive pulmonary disease) (Chronic) Bronchiectasis (Acute) 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) Basal cell carcinoma of multiple sites (Acute) Leucocytosis (Chronic) Palpitations (Acute) Exertional shortness of breath (Chronic) Neoplasm of unspecified nature of bone, soft tissue, and skin (Acute 06/19/15) Medical History Actinic keratosis (05/01/16) Anemia Basal cell carcinoma of skin (03/11/16) Bilateral cataracts Coronary Artery Disease Depression Diabetes mellitus Diabetic foot ulcer Diabetic ulcer of left foot ESRD on hemodialysis GERD (gastroesophageal reflux disease) Hoarseness Hyperkalemia Moderate pulmonary hypertension Orthostatic hypotension Paroxysmal atrial fibrillation with rapid ventricular response Perihepatic abscess RBBB (right bundle branch block) Renal cell carcinoma of left kidney (05/30/17) Shortness of breath Supraventricular tachycardia Toe infection Tubular adenoma of colon (12/18/16) Surgical History Colonoscopy - MAC (12/18/16) Completion of amputation (09/30/12) L great toe EGD - MAC (12/18/16) H/O partial nephrectomy x3 Heart Stent (12/03/11) Pt records show heart stent placed 12/03/11 at [facility]. 12.02.12HE Hx of cardiac cath x2, per patient Lobectomy Pt states 2 lobes removed from R. lung. No date given. 12.02.12HE Osteotomy Partial & Debridment of first metatarsal on Left foot. S/P hemodialysis catheter insertion Family History Mother Heart disease Diabetes Sister Stroke Diabetes Sister Diabetes Cancer laryngeal cancer Sister Diabetes Social History Smoking/Tobacco Use Status: Never Tobacco: How many years used: 50 Counseling given: provider counseling Smoking risk assessment performed?: Yes Alcohol Intake: never Drug use: Never Substance use type: does not use Household members: spouse Housing: house Current gender identity: male What type of physical activity do you participate in: none and independent ambulation Do you feel safe at home: Yes Do you feel safe in your relationship?: Yes Additional Social history: lives with his who is dependant on Alvaro Exam Narrative Exam Narrative: General: Alert, well appearing, well nourished, in no acute distress. Head: Normocephalic, atraumatic Neck: Trachea midline, Neck supple. ENT: MMM. No oropharyngeal lesions or exudate. Cardiac: RRR, no murmurs appreciated Resp: No respiratory distress. CTAB. Abd: Soft, non-distended, diffusely mildly tender to palpation : No suprapubic tenderness. No CVA tenderness. Extremities: No deformities. No peripheral edema. Neuro: GCS 15. PERRL. EOMI. Fluent speech, no dysarthria. Motor- 5/5 strength symmetric bilateral upper and lower extremities Sensation- Intact to light touch and symmetric multiple dermatomes including upper and lower extremities Coordination- No dysmetria on finger to nose Gait/station: Normal stance. No truncal ataxia. Steady gait with equal normal steps Course Vital Signs Vital signs: Vital Signs Pulse 94 H 11/27/22 14:17 Respiratory Rate 18 11/27/22 14:17 Blood Pressure 98/45 L 11/27/22 14:17 Pulse Oximetry 97 11/27/22 14:17 Pulse 94 H 11/27/22 14:17 Respiratory Rate 18 11/27/22 14:26 Respiratory Effort Normal, Non-Labored 11/27/22 14:26 Respiratory Depth Normal 11/27/22 14:26 Respiratory Pattern Normal 11/27/22 14:26 Blood Pressure 98/45 L 11/27/22 14:17 Pulse Oximetry 97 11/27/22 14:17 Oxygen Delivery Method Room Air 11/27/22 14:17 Oxygen Flow Rate 0 11/27/22 14:17
--- NOTE | 2022-11-27 15:12 | DI.CT_ITS ---
Exam(s) CT CHEST PE ABD PELVIS W EXAM: CT CHEST PE ABD PELVIS W CLINICAL HISTORY: short of breath, recent fall with rib fx, cancer. TECHNIQUE: Imaging Protocol: Axial CT angiography was performed with multi-slice acquisition and m ulti-planar and/or 3D reconstructions. CONTRAST MATERIAL: Intravenous: Omnipaque 350 Contrast volume:100 ml Oral: None COMPARISON: CT CT CHEST PE CTA from 11/24/2022 FINDINGS: CHEST: PULMONARY ARTERIES: There are no obvious intra-arterial filling defects to suggest the presence of ac [place] pulmonary emboli. LUNGS: Previously described bilateral lung infiltrates appear stable compared to 3 days ago. No impr ovement. No prominent pleural effusions. No obstructing findings in the trachea and mainstem bronch i.. MEDIASTINUM: There is no hilar nor mediastinal adenopathy. Visualized thyroid unremarkable.Right-side d aortic arch again evident. CARDIAC: Heart size upper normal. Thin pericardial effusion. Right-sided aortic arch. No dissectio n. No significant dilatation. OSSEOUS: Previously described fractures of the posterior left 10th and 11th ribs again noted.. No ne w additional rib fractures evident.No new compression fractures.. ABDOMEN: There is no ascites. LIVER: There are no focal hepatic lesions nor dilatation of intrahepatic ducts. GALLBLADDER/BILIARY: Contrast excretion in the gallbladder lumen. No gallbladder wall edema. CBD is not dilated. PANCREAS: No evidence of pancreatic mass nor dilatation of the pancreatic duct. SPLEEN: Spleen size upper normal. Multiple calcified splenic granulomas are again noted. Splenic an d portal veins are patent. ADRENALS: There are no significant adrenal masses. KIDNEYS:No cysts evident. No calculi nor hydronephrosis. No solid renal masses. ABDOMINAL AORTA: Calcified but not enlarged. LYMPH NODES: There is no retroperitoneal or para-aortic adenopathy. ABDOMINAL WALL/GI: No evidence of significant anterior abdominal wall hernia. No bowel obstruction. PELVIS: LYMPH NODES: There is no intrapelvic nor inguinal adenopathy. GI: No evidence of appendicitis.No evidence of sigmoid diverticulitis. URINARY BLADDER: Contrast is seen in the bladder. Also air. REPRODUCTIVE: Enlarged prostate. OSSEOUS: No significant osseous lesions. No new fractures. IMPRESSION: 1. No evidence of acute pulmonary emboli nor pulmonary infarction. No improvement in bilateral lung infiltrates. Fractures of the posterior aspects of the left 10th and 11th ribs are again noted. No new fractures evident. 2. There are no pleural effusions. 3. Moderately thickened urinary bladder wall. Also air is seen in the urinary bladder which is possi amber related to recent instrumentation versus infection. RADIATION DOSE DELIVERED: 1,535.29mGy.cm Total DLP DATA REPOSITORY: All CT scans at this facility are submitted to the National Radiology Data Registry (NRDR) Dose Index Registry (DIR) with the [employer] (ACR). RADIATION OPTIMIZATION: All CT scans at this facility use at least one of these dose optimization te chniques: automated exposure control; mA and/or kV adjustment per patient size (includes targeted exa ms where dose is matched to clinical indication); or iterative reconstruction.
--- NOTE | 2022-11-27 15:14 | CMPROGNOTE_ITS ---
Date of service: 11/27/22 Time of Service: 15:14 Care Management Progress Note Progress Note Text Progress Note Text: ERIN met with Alvaro, who was primarily concerned about his . He shared that he and his live in [facility] with their two cats and one dog. CM called , Kimber [phone]) who reported she was doing fine. CM completed initial assessment Kimber did not identify any additional needs or services at this time. She reports having [facility] and services through [facility]. Kimber utilizes a wheel chair at baseline though is able to transfer to the toilet on her own. Mario has [facility] RN, PT. Mario has his own wheelchair that he utilizes when he leaves the home, including dialysis on ,, at [facility] (P#[phone]). He transports via [employer] [employer] [facility] and is scheduled to do so through the end of December. He was a no show for RCT on Friday which appears to have created a jonh effect with his health and frequency of ED visits as he missed dialysis. He did attend dialysis today, but was sent to the ED following his appointment. ERIN was consulted by ED to talk with Alvaro; Alvaro only identified wanting to check on his . ERIN connected with his and let Alvaro know that she reported she was fine at home, waiting for him to return.
--- NOTE | 2022-11-27 15:42 | NUR.NOTE ---
Nursing Note: this nurse attempted to call patient home phone number multiple times. Was no able to get a hold of her
--- NOTE | 2022-11-27 16:00 | DI.CT_ITS ---
Exam(s) CT HEAD WO EXAM: CT HEAD WO CLINICAL HISTORY: frequent falls, sending MD concerned for AMS. TECHNIQUE: Imaging Protocol: Axial computed tomography images with coronal and sagittal reformatted images were created and reviewed COMPARISON: CT CT HEAD CERVICAL SPINE WO from 11/13/2022 FINDINGS: There are no skull fractures. There is no fluid in the visualized paranasal sinuses. There is no evidence of intracranial hemorrhage, mass effect, or shift of midline structures. There are no extra-axial fluid collections. The ventricles are not enlarged or shifted and there is no blo od within the ventricular system nor within the basal cisterns. Again noted is abundant bilateral periventricular hypodensity consistent with chronic small vessel di sease. No obvious acute infarct. IMPRESSION: No acute intracranial findings on this noninfused CT scan of the brain. Chronic small-vessel white matter ischemic changes are again noted. RADIATION DOSE DELIVERED: 875.31mGy.cm Total DLP DATA REPOSITORY: All CT scans at this facility are submitted to the National Radiology Data Registry (NRDR) Dose Index Registry (DIR) with the [employer] (ACR). RADIATION OPTIMIZATION: All CT scans at this facility use at least one of these dose optimization te chniques: automated exposure control; mA and/or kV adjustment per patient size (includes targeted exa ms where dose is matched to clinical indication); or iterative reconstruction.
[2022-11-27 16:12] LABS: Abs Immature Grans 0.72 10^3/uL (0.0-0.06); HCT 33.6 % (40.0-50.0); MCH 32.4 pg (27.0-33.0); MCHC 32.7 % (32.0-36.0); MCV 99 fL (80-95); MPV 10.6 fL (8.0-11.0); Platelet Count 383 10^3/uL (130-400); RDW 15.4 % (11.8-14.1); RDW-SD 55.6 fL; WBC 24.78 10^3/uL (4.4-10.8)
[2022-11-27 16:23] LABS: Absolute Lymphocyte Count 2.23 10^3/uL (1.2-3.4); Absolute Monocyte Count 1.49 10^3/uL (0.1-0.8); Absolute Neutrophil Count 21.06 10^3/uL (1.2-6.7); Diff Comment Manual Differential; RBC Morphology Normal
[2022-11-27 16:30] LABS: ALT 12 U/L (16-63); AST 6 U/L (15-37); Albumin 2.9 g/dL (3.4-5.0); Alkaline Phosphatase 115 U/L (46-116); Anion Gap 8.4 mmol/L (3-11); BUN 18 mg/dL (7-18); Bilirubin, Total 0.4 mg/dL (0.2-1.0); CO2 30.6 mmol/L (21.0-32.0); CREATININE 3.2 mg/dL (0.70-1.30); Calcium 8.6 mg/dL (8.5-10.1); Chloride 99 mmol/L (98-107); Glucose 210 mg/dL (74-106); Magnesium 1.5 mg/dL (1.8-2.4); Potassium 4.1 mmol/L (3.5-5.1); Sodium 138 mmol/L (136-145); Total Protein 6.7 g/dL (6.4-8.2); Troponin I < 50 ng/L (<or=60)
[2022-11-27] MEDS: Normal Saline - Diluent 50 ML VIAL IJ (16:48)
[2022-11-27] MEDS: Omnipaque 350 MG/ML 100 ML BTL IJ (16:48)
[2022-11-27 19:27] LABS: Troponin I < 50 ng/L (<or=60)
--- NOTE | 2022-11-27 19:48 | NUR.NOTE ---
Pt placed on care management to be seen by primary as soon as possible.
== END 2022-11-27 19:58 | disposition left against medical advice (07) ==
LOC: ER 20:02
PROVIDERS: Emergency Provider Student in an Organized Health Care Education/Training Program; PCP Family Medicine
DX: J44.1 Chronic obstructive pulmonary disease with (acute) exacerbation (principal); R06.02 Shortness of breath; D72.829 Elevated white blood cell count, unspecified
CPT/HCPCS: 71275; 74177; 80053; 93005; 99285; 70450; 83735; 84484; 85025; 93010; 99284; J3490

== ENCOUNTER 2022-11-28 12:45 | Emergency (ER) | payer MEDICARE, BC, SELFPAY ==
[2022-11-28] VITALS (69 sets, daily range): BP systolic 100–129; BP diastolic 45–89; PULSE 84–100; RESP 18–20; TEMP 36.1–37.1; O2SAT 94–100
--- NOTE | 2022-11-28 | DI.RAD_ITS ---
Exam(s) XR CHEST 2V PA LATERAL EXAM: CHEST TECHNIQUE: 2D digital imaging was performed of the chest. Two images were obtained. PA and lateral views were obtained. COMPARISON: CR XR CHEST 2V PA LATERAL from 11/26/2022 FINDINGS: MEDIASTINUM: Normal. HEART: Normal. PULMONARY VASCULATURE: Normal. LUNGS: Stable bilateral basilar infiltrates are pristine. No new infiltrates are present. PLEURAL SPACE: There is blunting of the right costophrenic angle suggesting a right pleural effusion. No left pleural effusion. No pneumothorax. BONE:Within normal limits for the patient's age. OTHER FINDINGS:The tip of the dialysis catheter is in stable position and appears to lie in the right atrium. IMPRESSION: Stable infiltrates and small right pleural effusion. DATA REPOSITORY: RADIATION DOSE DELIVERED:
--- NOTE | 2022-11-28 14:00 | DI.RAD_ITS ---
Exam(s) XR SHOULDER RT COMPLETE 2+V EXAM: SHOULDER CLINICAL HISTORY: . TECHNIQUE: 2D digital imaging was performed of the right shoulder. Five images were obtained. AP, Grashey, Y-view and axillary views were obtained. COMPARISON: No exams were available for comparison FINDINGS: BONES: No acute fracture is present. No bony destructive lesion is seen. JOINTS: No dislocation present. There are degenerative changes seen at the acromioclavicular and blair ohumeral joints. SOFT TISSUE: Normal. A dialysis catheter is partially imaged. IMPRESSION: No acute fracture or dislocation. DATA REPOSITORY: RADIATION DOSE DELIVERED:
--- NOTE | 2022-11-28 14:00 | DI.CT_ITS ---
Exam(s) CT HEAD CERVICAL SPINE WO CLINICAL HISTORY: . TECHNIQUE: Imaging Protocol: Axial computed tomography images with coronal and sagittal reformatted images were created and reviewed COMPARISON: CT CT HEAD CERVICAL SPINE WO from 11/13/2022 FINDINGS: BRAIN: There are no skull fractures. No prominent scalp hematoma. There is evidence of previous surgery in the right maxillary sinus. No fluid levels. There is no evidence of intracranial hemorrhage, mass effect, or shift of midline structures. There are no extra-axial fluid collections. The ventricles are not enlarged or shifted and there is no blo od within the ventricular system nor within the basal cisterns. Again noted is prominent bilateral periventricular hypodensity consistent with chronic small vessel d isease. No obvious acute infarct. CERVICAL SPINE: There is no evidence of fracture nor listhesis. No significant prevertebral soft tissue swelling. There is multilevel mild disc space narrowing. Some facet arthropathy is noted, most prominent at th e C3-4 and C4-5 levels. There is mild degenerative anterolisthesis of C3 upon C4. This is unchanged from 11/13/2022. Multilevel facet arthropathy. There is no significant facet joint malalignment. No significant osseous lesions evident. IMPRESSION: No acute intracranial findings on this noninfused CT scan of the brain.Chronic small-vessel white mat ter ischemic changes again noted, unchanged from 11/13/2022 No evidence of cervical spine fracture, malalignment, nor acute compromise of the cervical spinal can al. Chronic multilevel degenerative changes, unchanged from 11/13/2022. By myself to ER. RADIATION DOSE DELIVERED: 1,610.96mGy.cm Total DLP DATA REPOSITORY: All CT scans at this facility are submitted to the National Radiology Data Registry (NRDR) Dose Index Registry (DIR) with the [employer] ([employer]). RADIATION OPTIMIZATION: All CT scans at this facility use at least one of these dose optimization te chniques: automated exposure control; mA and/or kV adjustment per patient size (includes targeted exa ms where dose is matched to clinical indication); or iterative reconstruction.
[2022-11-28 17:45] LABS: NT-proBNP 4398 pg/mL (<300)
[2022-11-28] MEDS: Normal Saline 250 ML 500 ML IV (17:49)
[2022-11-28 18:01] LABS: BE (Venous) 2 mmol/L (-2-3); HCO3 (Venous) 27 mmol/L (23-28); O2 Sat (Venous) 61 %; TCO2 (Venous) 25 mmol/L (24-29); pCO2 (Venous) 50 mmHg (41-51); pH (Venous) 7.35 (7.31-7.41); pO2 (Venous) 34 mmHg
[2022-11-28 18:06] LABS: Abs Immature Grans 0.52 10^3/uL (0.0-0.06); HCT 34.4 % (40.0-50.0); HGB 11.2 g/dL (13.5-17.5); MCH 32.6 pg (27.0-33.0); MCHC 32.6 % (32.0-36.0); MCV 100 fL (80-95); MPV 11.3 fL (8.0-11.0); Platelet Count 384 10^3/uL (130-400); RBC 3.44 10^6/uL (4.36-5.78); RDW 15.7 % (11.8-14.1); RDW-SD 57.1 fL; WBC 21.23 10^3/uL (4.4-10.8)
[2022-11-28 18:07] LABS: Absolute Lymphocyte Count 0.64 10^3/uL (1.2-3.4); Absolute Monocyte Count 1.27 10^3/uL (0.1-0.8); Absolute Neutrophil Count 18.47 10^3/uL (1.2-6.7)
[2022-11-28 18:08] LABS: Myelocytes % 3
[2022-11-28 18:09] LABS: Diff Comment Manual Differential
[2022-11-28 18:10] LABS: Lactate 1.9 mmol/L (0.6-1.4)
[2022-11-28 18:11] LABS: Calcium 8.3 mg/dL (8.5-10.1)
[2022-11-28 18:12] LABS: BUN 29 mg/dL (7-18); Glucose 389 mg/dL (74-106)
[2022-11-28 18:13] LABS: Anion Gap 10.2 mmol/L (3-11); CO2 27.8 mmol/L (21.0-32.0); CREATININE 5.1 mg/dL (0.70-1.30); Chloride 96 mmol/L (98-107); ETHANOL BLOOD < 3.0 mg/dL (<10); Estimated GFR 10.97 (mL/min/1.73m2); Magnesium 1.5 mg/dL (1.8-2.4); Potassium 4.7 mmol/L (3.5-5.1); Sodium 134 mmol/L (136-145); Troponin I < 50 ng/L (<or=60)
--- NOTE | 2022-11-28 18:15 | RT.EKG_ITS ---
APPROVED REPORT Exam: Resting ECG Reason for Exam: sob Patient Location: E HR:87 bpm ECG Measurements Heart Rate 87 AXIS PA 190 P 2 QRSd 119 QRS 35 QT 381 T 7 QTc 459 Conclusion Age not entered, assumed to be 50 years old for purpose of ECG interpretation Sinus rhythm...normal P axis, V-rate 60- 99 IRBBB and LPFB...RAD, QRSd>120, term axis(90,270) Inferior infarct, old...Q >35mS, II III aVF Sinus rhythm, RBBB, LAFB. No change from prior 11/27/22. WD
--- NOTE | 2022-11-28 18:15 | ED.PROG_ITS ---
Date of service: 11/28/22 Time of Service: 18:15 Medical Decision Making See paper note from down time. In short patient is a 77 year old male with hx of ESRD, GERD, A-fib, RBBB, SVT,Foot Ulcer who presents with worsening confusion and near syncope. he is due for dialysis tomorrow. 1649: Spoke with [facility] [place] [facility] they are unable to consider patient for transfer today, due to medicine team over-serviced. 1814 Ceftriaxone ordered 2gm IVPB, Patient has received 500 cc NS. 1815: [facility] transfer center called, They are full, they have declined due to patient being hemodynamically stable. Will discuss case with hospitalist for overnight admission for IV abx if possible until. Spoke with Hospitalist, patient is not a candidate for admission here. 1924: [facility] transfer center called, they are unable to accept new dialysis patients at this time. 1924: [facility] called in [facility], Spoke to [employer] Rep[employer]r, she will reach out to Nephrology and call back. 1935: Patient sitting in bed, hemodynamically stable, requesting to use urinal. Will consider calling [facility] for transfer. Urinalysis shows greater than 50 WBCs large leukocytes 5-10 RBCs, culture is pending at this time. 2033: Spoke with Dr. Yossi Smith at [facility] who agrees to accept patient for admission. Discussed patient case in details with him he verbalizes understanding. Discussed plan of care with patient who verbalizes understanding. He did call his on his cell phone and informed her of the transfer to [place]. He is alert at this time. We will recheck another blood sugar prior to transfer. Transfer paperwork filled out. Repeat BGL 417 14 units of regular insulin subcu ordered. This text was generated using [employer] dictation system, please disregard any oddities of phrase or misspellings. Patient transferred to [place] with EMS, remained hemodynamically stable throughout the remainder of his stay. Medical Records Medical records reviewed: Yes I reviewed the patient's medical records. Lab Data Lab results reviewed: Yes I reviewed the patient's lab results. Labs: 11/28/22 14:03 Blood Blood Culture - Pending 11/28/22 13:20 Blood Blood Culture - Pending 11/28/22 20:05 Urine - Reflex from Ua Urine Culture - Pending Laboratory Tests Range/Units 11/28/22 11/28/22 11/28/22 13:20 13:20 13:20 WBC (4.4-10.8) 10^3/uL RBC (4.36-5.78) 10^6/uL Hgb (13.5-17.5) g/dL Hct (40.0-50.0) % MCV (80-95) fL MCH (27.0-33.0) pg MCHC (32.0-36.0) % RDW (11.8-14.1) % Plt Count (130-400) 10^3/uL MPV (8.0-11.0) fL Immature Gran % Neutrophils % Lymphocytes % Monocytes % Eosinophils % Basophils % Myelocytes % Nucleated RBC % (0.0-0.3) % Absolute Neutrophils (1.2-6.7) 10^3/uL Absolute Lymphocytes (1.2-3.4) 10^3/uL Absolute Monocytes (0.1-0.8) 10^3/uL Absolute Eosinophils (0.0-0.7) 10^3/uL Absolute Basophils (0.0-0.2) 10^3/uL VBG pH (7.31-7.41) VBG pCO2 (41-51) mmHg VBG pO2 mmHg VBG HCO3 (23-28) mmol/L VBG Total CO2 (24-29) mmol/L VBG O2 Saturation % VBG Base Excess (-2-3) mmol/L VBG Lactate (0.6-1.4) mmol/L 1.9 H Sodium (136-145) mmol/L 134 L Potassium (3.5-5.1) mmol/L 4.7 Chloride (98-107) mmol/L 96 L Carbon Dioxide (21.0-32.0) mmol/L 27.8 Anion Gap (3-11) mmol/L 10.2 BUN (7-18) mg/dL 29 H Creatinine (0.70-1.30) mg/dL 5.1 H* D Est GFR (CKD-EPI 2020) (mL/min/1.73m2) 10.97 Glucose (74-106) mg/dL 389 H Calcium (8.5-10.1) mg/dL 8.3 L Magnesium (1.8-2.4) mg/dL 1.5 L Troponin I (<or=60) ng/L < 50 NT-Pro-B Natriuret Pep (<300) pg/mL 4398 H Urine Color (Yellow) Urine Clarity (Clear) Urine pH (5-8) Ur Specific Collins (1.005-1.025) Urine Protein (Negative) mg/dL Urine Ketones (Negative) mg/dL Urine Blood (Negative) Urine Nitrite (Negative) Urine Bilirubin (Negative) Urine Urobilinogen (Up to 0.2) mg/dL Ur Leukocyte Esterase (Negative) Urine RBC (0-2) HPF Urine WBC (0-5) HPF Ur Epithelial Cells (Negative) HPF Urine Crystals (Negative) HPF Urine Bacteria (Negative) HPF Urine Casts (Negative) LPF Urine Mucus (Negative) Ur Culture Indicated? Urine Glucose (Negative) mg/dL Urine Opiates Screen Urine Methadone Screen Ur Barbiturates Screen Ur Tricyclics Screen Ur Amphetamines Screen U Benzodiazepines Scrn Urine Cocaine Screen Ur THC Screen Ethyl Alcohol (<10) mg/dL < 3.0 Range/Units 11/28/22 11/28/22 11/28/22 13:20 13:20 13:20 WBC (4.4-10.8) 10^3/uL 21.23 H RBC (4.36-5.78) 10^6/uL 3.44 L Hgb (13.5-17.5) g/dL 11.2 L Hct (40.0-50.0) % 34.4 L MCV (80-95) fL 100 H MCH (27.0-33.0) pg 32.6 MCHC (32.0-36.0) % 32.6 RDW (11.8-14.1) % 15.7 H Plt Count (130-400) 10^3/uL 384 MPV (8.0-11.0) fL 11.3 H Immature Gran % 0.0 Neutrophils % 87.0 Lymphocytes % 3.0 Monocytes % 6.0 Eosinophils % 0.0 Basophils % 0.0 Myelocytes % 3 Nucleated RBC % (0.0-0.3) % 0.0 Absolute Neutrophils (1.2-6.7) 10^3/uL 18.47 H Absolute Lymphocytes (1.2-3.4) 10^3/uL 0.64 L Absolute Monocytes (0.1-0.8) 10^3/uL 1.27 H Absolute Eosinophils (0.0-0.7) 10^3/uL 0.00 Absolute Basophils (0.0-0.2) 10^3/uL 0.00 VBG pH (7.31-7.41) 7.35 VBG pCO2 (41-51) mmHg 50 VBG pO2 mmHg 34 VBG HCO3 (23-28) mmol/L 27 VBG Total CO2 (24-29) mmol/L 25 VBG O2 Saturation % 61 VBG Base Excess (-2-3) mmol/L 2 VBG Lactate (0.6-1.4) mmol/L Sodium (136-145) mmol/L Potassium (3.5-5.1) mmol/L Chloride (98-107) mmol/L Carbon Dioxide (21.0-32.0) mmol/L Anion Gap (3-11) mmol/L BUN (7-18) mg/dL Creatinine (0.70-1.30) mg/dL Est GFR (CKD-EPI 2020) (mL/min/1.73m2) Glucose (74-106) mg/dL Calcium (8.5-10.1) mg/dL Magnesium (1.8-2.4) mg/dL Troponin I (<or=60) ng/L NT-Pro-B Natriuret Pep (<300) pg/mL Urine Color (Yellow) Urine Clarity (Clear) Urine pH (5-8) Ur Specific Collins (1.005-1.025) Urine Protein (Negative) mg/dL Urine Ketones (Negative) mg/dL Urine Blood (Negative) Urine Nitrite (Negative) Urine Bilirubin (Negative) Urine Urobilinogen (Up to 0.2) mg/dL Ur Leukocyte Esterase (Negative) Urine RBC (0-2) HPF Urine WBC (0-5) HPF Ur Epithelial Cells (Negative) HPF Urine Crystals (Negative) HPF Urine Bacteria (Negative) HPF Urine Casts (Negative) LPF Urine Mucus (Negative) Ur Culture Indicated? Urine Glucose (Negative) mg/dL Urine Opiates Screen Cancelled Urine Methadone Screen Cancelled Ur Barbiturates Screen Cancelled Ur Tricyclics Screen Cancelled Ur Amphetamines Screen Cancelled U Benzodiazepines Scrn Cancelled Urine Cocaine Screen Cancelled Ur THC Screen Cancelled Ethyl Alcohol (<10) mg/dL Range/Units 11/28/22 11/28/22 20:05 20:05 WBC (4.4-10.8) 10^3/uL RBC (4.36-5.78) 10^6/uL Hgb (13.5-17.5) g/dL Hct (40.0-50.0) % MCV (80-95) fL MCH (27.0-33.0) pg MCHC (32.0-36.0) % RDW (11.8-14.1) % Plt Count (130-400) 10^3/uL MPV (8.0-11.0) fL Immature Gran % Neutrophils % Lymphocytes % Monocytes % Eosinophils % Basophils % Myelocytes % Nucleated RBC % (0.0-0.3) % Absolute Neutrophils (1.2-6.7) 10^3/uL Absolute Lymphocytes (1.2-3.4) 10^3/uL Absolute Monocytes (0.1-0.8) 10^3/uL Absolute Eosinophils (0.0-0.7) 10^3/uL Absolute Basophils (0.0-0.2) 10^3/uL VBG pH (7.31-7.41) VBG pCO2 (41-51) mmHg VBG pO2 mmHg VBG HCO3 (23-28) mmol/L VBG Total CO2 (24-29) mmol/L VBG O2 Saturation % VBG Base Excess (-2-3) mmol/L VBG Lactate (0.6-1.4) mmol/L Sodium (136-145) mmol/L Potassium (3.5-5.1) mmol/L Chloride (98-107) mmol/L Carbon Dioxide (21.0-32.0) mmol/L Anion Gap (3-11) mmol/L BUN (7-18) mg/dL Creatinine (0.70-1.30) mg/dL Est GFR (CKD-EPI 2020) (mL/min/1.73m2) Glucose (74-106) mg/dL Calcium (8.5-10.1) mg/dL Magnesium (1.8-2.4) mg/dL Troponin I (<or=60) ng/L NT-Pro-B Natriuret Pep (<300) pg/mL Urine Color (Yellow) Yellow Urine Clarity (Clear) Cloudy Urine pH (5-8) 7.0 Ur Specific Collins (1.005-1.025) 1.025 Urine Protein (Negative) mg/dL 100 H Urine Ketones (Negative) mg/dL Negative Urine Blood (Negative) Moderate H Urine Nitrite (Negative) Negative Urine Bilirubin (Negative) Negative Urine Urobilinogen (Up to 0.2) mg/dL 0.2 Ur Leukocyte Esterase (Negative) Large H Urine RBC (0-2) HPF 5-10 H Urine WBC (0-5) HPF >50 H Ur Epithelial Cells (Negative) HPF Few Urine Crystals (Negative) HPF Negative Urine Bacteria (Negative) HPF Few Urine Casts (Negative) LPF Negative Urine Mucus (Negative) Negative Ur Culture Indicated? Yes Urine Glucose (Negative) mg/dL 250 H Urine Opiates Screen Negative Urine Methadone Screen Negative Ur Barbiturates Screen Negative Ur Tricyclics Screen Negative Ur Amphetamines Screen Negative U Benzodiazepines Scrn Negative Urine Cocaine Screen Negative Ur THC Screen Negative Ethyl Alcohol (<10) mg/dL Discharge Plan Disposition Patient Disposition: Transfer-Acute Inpatient Care Specific Acute Inpt Facility: [facility] Condition: Stable Discharge Details Clinical Impression: UTI (urinary tract infection), Weakness, Confusion associated with infection, CKD (chronic kidney disease), Hyperglycemia Primary Care Provider: Zakiya Reyna ED Provider: Margaux Garcia Home Meds and New Rx's Prescriptions: No Action fluticasone propion-salmeterol [Advair HFA] 115-21 mcg/actuation HFA aerosol inhaler 2 puff inhalation BID Qty: 12 12RF Rx Instructions: Wash mouth after use nitroglycerin 0.4 MG tablet, sublingual 0.4 mg Sublingual ONCE PRN Patient Comments: has never used it at home cholecalciferol (vitamin D3) 1,000 UNIT tablet 1,000 unit PO DAILY Breztri Aerosphere 160-9-4.8 mcg/actuation HFA aerosol inhaler 2 inh inhalation BID Qty: 10.7 12RF Patient Comments: not on med list aspirin [Aspir-81] 81 MG tablet,delayed release (DR/EC) 81 mg PO DAILY multivitamin 1 EACH capsule 1 ea PO DAILY sertraline 50 MG tablet 100 mg PO DAILY atorvastatin [Lipitor] 40 MG tablet 40 mg PO HS ascorbic acid (vitamin C) [Vitamin C] 1,000 MG tablet 500 mg PO DAILY albuterol sulfate [Proventil HFA] 6.7 GM HFA aerosol inhaler 2 inh PO Q4H PRN PRN acetaminophen [Tylenol Extra Strength] 500 mg Tablet 1,000 mg PO .Q6 HRS PRN tamsulosin 0.4 mg Capsule 0.4 mg PO DIRECTED Patient Comments: QOD pantoprazole 40 mg tablet,delayed release (DR/EC) 40 mg PO DAILY insulin glargine [Lantus Solostar U-100 Insulin] 100 unit/mL (3 mL) insulin pen 26 unit SUBCUT HS cyclobenzaprine 10 mg tablet 10 mg PO TID PRNQty: 20 0RF bupropion HCl 100 mg tablet sustained-release 12 hr 150 mg PO BID Patient Comments: TAKE ONE TABLET BY MOUTH TWICE A DAY polyethylene glycol 3350 [Miralax] 17 gram Powder In Packet 17 g PO BID Patient Comments: Per pt pharmacy, pt not taking. bisacodyl [Dulcolax (bisacodyl)] 10 mg Suppository 10 mg UT DAILY PRN oxycodone 10 mg tablet 20 mg PO BID Patient Comments: TAKE TWO TABLETS BY MOUTH EVERY DAY - MAX DAILY DOSE OF 2 PER DAY metoprolol tartrate [Lopressor] 50 mg tablet 50 mg PO BID Fiasp FlexTouch U-100 Insulin 100 unit/mL (3 mL) insulin pen 2 - 6 unit SUBCUT BID cyanocobalamin (vitamin B-12) [Vitamin B-12] 1,000 mcg Tablet 1,000 mcg PO DAILY Patient Comments: not on med list loratadine 10 mg capsule 10 mg PO DAILY Qty: 20 0RF sennosides [senna] 8.6 mg Tablet 8.6 mg PO DAILY trazodone 50 mg tablet 50 mg PO HS Patient Comments: TAKE ONE-HALF TABLET BY MOUTH EVERY EVENING midodrine 2.5 mg tablet 5 mg PO TID Patient Comments: TAKE ONE TABLET BY MOUTH THREE TIMES A DAY BEFORE MEALS insulin lispro [Humalog KwikPen Insulin] 100 unit/mL Insulin Pen 1 sliding scale dose SUBCUT USEASDIRECTD Patient Comments: Per pt pharmacy, no current rx. Pt not taking. Eliquis 2.5 mg tablet 2.5 mg PO BID Patient Comments: TAKE ONE TABLET BY MOUTH TWICE A DAY diphenhydramine HCl [Banophen] 25 mg capsule 25 mg PO Q6H Patient Comments: TAKE ONE CAPSULE BY MOUTH EVERY 6 HOURS Victoza 2-Edy 0.6 mg/0.1 mL (18 mg/3 mL) pen injector 1.8 mg SUBCUT DAILY Patient Comments: INJECT 0.6MG UNDER THE SKIN ONCE DAILY Spiriva Respimat 2.5 mcg/actuation mist 2 spray INHALATION PRN PRN Patient Comments: Inhale 2 puff as directed once a day prednisone 20 mg tablet 50 mg PO DAILY Patient Comments: Per pt pharmacy, one time rx. Pt not taking. prednisone 50 mg tablet 50 mg PO DAILY Qty: 5 0RF Patient Comments: Per pt pharmacy, one time rx. Pt not taking. prednisone 20 mg tablet 60 mg PO DAILY 4 Days Qty: 12 0RF Patient Comments: Per pharmacy, was one time rx. Pt not taking. levofloxacin 250 mg tablet 250 mg PO DAILY Qty: 6 0RF Patient Comments: Per pt pharmacy, no current rx. Pt not taking.
[2022-11-28] MEDS: cefTRIAXone 2 GM/50 ML BAG IVPB (18:23)
[2022-11-28 20:16] LABS: Bilirubin Negative (Negative); Blood Moderate (Negative); Clarity Cloudy (Clear); Glucose 250 mg/dL (Negative); Ketones Negative (Negative); Leukocyte Esterase Large (Negative); Nitrite Negative (Negative); Specific Gravity 1.025 (1.005-1.025); Urobilinogen 0.2 mg/dL (Up to 0.2)
[2022-11-28 20:24] LABS: Epithelial Cells Few HPF (Negative); WBC >50 HPF (0-5)
[2022-11-28 20:25] LABS: Bacteria Few HPF (Negative); C & S Indicated? Yes; Casts Negative LPF (Negative); Crystals Negative HPF (Negative); Mucus Negative (Negative)
[2022-11-28 20:36] LABS: *AMPHETAMINES SCREEN URINE Negative (Negative); *BARBITURATES SCREEN URINE Negative (Negative); *BENZODIAZEPINES SCREEN URINE Negative (Negative); Cannabinoids THC Negative (Negative); Cocaine Screen,Urine Negative (Negative); METHADONE URINE SCREEN Negative (Negative); OPIATES URINE SCREEN Negative (Negative); Tricyclic Antidepressants Negative (Negative)
[2022-11-28] MEDS: Insulin REGULAR-Human 100 UNITS/ML UNIT 14 UNITS SC (21:09)
== END 2022-11-28 21:47 | disposition short-term general hospital (02) ==
PROVIDERS: Physician Assistant; Emergency Provider Registered Nurse Emergency; PCP Family Medicine
DX: N18.9 Chronic kidney disease, unspecified (principal); R53.1 Weakness; N39.0 Urinary tract infection, site not specified; B99.9 Unspecified infectious disease; I48.91 Unspecified atrial fibrillation; E11.65 Type 2 diabetes mellitus with hyperglycemia
CPT/HCPCS: 80048; 80307; 82805; 87040; 93005; 96361; 96365; 96372; 99285; 70450; 71046; 72125; 73030; 80320; 81003; 81015; 83605; 83735; 83880; 84484; 85025; 87086; 93010

== ENCOUNTER 2023-01-02 19:05 | Outpatient (REF) | payer MEDICARE, SELFPAY ==
[2023-01-02 17:01] LABS: Bilirubin Negative (Negative); Blood Moderate (Negative); Clarity Turbid (Clear); Glucose 500 mg/dL (Negative); Ketones Negative (Negative); Leukocyte Esterase Large (Negative); Nitrite Negative (Negative); Specific Gravity 1.025 (1.005-1.025); Urobilinogen 0.2 mg/dL (Up to 0.2)
[2023-01-02 17:24] LABS: C & S Indicated? Yes; WBC >50 HPF (0-5)
== END 2023-01-02 19:06 | disposition home or self-care (01) ==
LOC: NCHCN 19:05
PROVIDERS: PCP Family Medicine; Visit Provider Family Medicine
DX: R30.0 Dysuria (principal)
CPT/HCPCS: 81003; 81015; 87086

== ENCOUNTER 2023-01-23 19:10 | Outpatient (REF) | payer MEDICARE, SELFPAY ==
[2023-01-23 16:54] LABS: Bilirubin Negative (Negative); Blood Moderate (Negative); Clarity Cloudy (Clear); Glucose >=1000 mg/dL (Negative); Ketones Trace mg/dL (Negative); Leukocyte Esterase Large (Negative); Nitrite Negative (Negative); Specific Gravity 1.025 (1.005-1.025); Urobilinogen 0.2 mg/dL (Up to 0.2)
[2023-01-23 16:58] LABS: Bacteria Many HPF (Negative); C & S Indicated? Yes; Casts Negative LPF (Negative); Crystals Negative HPF (Negative); Epithelial Cells Rare HPF (Negative); Mucus Moderate (Negative); WBC 20-50 HPF (0-5)
== END 2023-01-23 19:11 | disposition home or self-care (01) ==
LOC: LBN 19:10
PROVIDERS: PCP Family Medicine; Visit Provider Family Medicine
DX: R30.0 Dysuria (principal); R82.998 Other abnormal findings in urine
CPT/HCPCS: 81003; 81015; 87086

== ENCOUNTER 2023-02-19 09:01 | Emergency (ER) | payer MEDICARE, BC, SELFPAY ==
[2023-02-19] VITALS (14 sets, daily range): BP systolic 138–154; BP diastolic 69–77; PULSE 80–101; RESP 18–23; TEMP 36.3; O2SAT 98–100
--- NOTE | 2023-02-19 08:45 | RT.EKG_ITS ---
APPROVED REPORT Exam: Resting ECG Reason for Exam: abnormal electrolytes Patient Location: E HR:88 bpm ECG Measurements Heart Rate 88 AXIS LA 197 P 19 QRSd 112 QRS 89 QT 384 T -15 QTc 464 Conclusion Sinus rhythm...normal P axis, V-rate 60- 99 IRBBB and LPFB...RAD, QRSd>120, term axis(90,270) Low voltage, precordial leads...precordial leads <1.0mV Nonspecific ST depression, anterior leads...ST <-0.10mV, V2-V4 sinus rhtyhm, normal axis, low voltage, bifascicular block, with t wave inversions anterior leads
[2023-02-19 09:35] LABS: Abs Immature Grans 0.24 10^3/uL (0.0-0.06); Absolute Basophil Count 0.05 10^3/uL (0.0-0.2); Absolute Eosinophil Count 0.12 10^3/uL (0.0-0.7); Absolute Lymphocyte Count 0.91 10^3/uL (1.2-3.4); Absolute Monocyte Count 0.71 10^3/uL (0.1-0.8); Absolute Neutrophil Count 8.77 10^3/uL (1.2-6.7); Basophils % 0.5; Eosinophils % 1.1; HCT 35.4 % (40.0-50.0); HGB 10.9 g/dL (13.5-17.5); Immature Grans % 2.2; Lymphocytes % 8.4; MCH 31.1 pg (27.0-33.0); MCHC 30.8 % (32.0-36.0); MCV 101 fL (80-95); MPV 11.2 fL (8.0-11.0); Monocytes % 6.6; Neutrophils % 81.2; Platelet Count 253 10^3/uL (130-400); RDW 16.1 % (11.8-14.1); RDW-SD 59.9 fL
[2023-02-19 09:52] LABS: ALT 17 U/L (16-63); AST 16 U/L (15-37); Anion Gap 6.8 mmol/L (3-11); BUN 30 mg/dL (7-18); CO2 28.2 mmol/L (21.0-32.0); Calcium 9.4 mg/dL (8.5-10.1); Chloride 97 mmol/L (98-107); Estimated GFR 14.69 (mL/min/1.73m2); Magnesium 1.7 mg/dL (1.8-2.4); Potassium 5.3 mmol/L (3.5-5.1); Sodium 132 mmol/L (136-145)
[2023-02-19 09:53] LABS: Glucose 519 mg/dL (74-106)
[2023-02-19 10:07] LABS: BE (Venous) 3 mmol/L (-2-3); HCO3 (Venous) 29 mmol/L (23-28); O2 Sat (Venous) 28 %; TCO2 (Venous) 28 mmol/L (24-29); pCO2 (Venous) 54 mmHg (41-51); pH (Venous) 7.34 (7.31-7.41); pO2 (Venous) 22 mmHg
[2023-02-19 10:10] LABS: Bilirubin Negative (Negative); Blood Trace-intact (Negative); Clarity Clear (Clear); Glucose >=1000 mg/dL (Negative); Ketones Negative (Negative); Leukocyte Esterase Trace (Negative); Nitrite Negative (Negative); Specific Gravity 1.015 (1.005-1.025); Urobilinogen 0.2 mg/dL (Up to 0.2)
[2023-02-19 10:20] LABS: Bacteria Rare HPF (Negative); C & S Indicated? Yes; Casts 0-2 Hyaline LPF (Negative); Crystals Negative HPF (Negative); Epithelial Cells Rare HPF (Negative); Mucus Negative (Negative); RBC 0-2 HPF (0-2); WBC 20-50 HPF (0-5)
--- NOTE | 2023-02-19 10:24 | ED.GENADUL_ITS ---
Discharge Plan Disposition Patient Disposition: Home Discharge Details Clinical Impression: Diabetes, Acute hyperglycemia, Diarrhea, Acute hyperkalemia Primary Care Provider: Zakiya Reyna ED Provider: Neelima Dodge Home Meds and New Rx's Prescriptions: Continued fluticasone propion-salmeterol [Advair HFA] 115-21 mcg/actuation HFA aerosol inhaler 2 puff inhalation BID Qty: 12 12RF Rx Instructions: Wash mouth after use nitroglycerin 0.4 MG tablet, sublingual 0.4 mg Sublingual ONCE PRN Patient Comments: has never used it at home cholecalciferol (vitamin D3) 1,000 UNIT tablet 1,000 unit PO DAILY Breztri Aerosphere 160-9-4.8 mcg/actuation HFA aerosol inhaler 2 inh inhalation BID Qty: 10.7 12RF Patient Comments: not on med list aspirin [Aspir-81] 81 MG tablet,delayed release (DR/EC) 81 mg PO DAILY multivitamin 1 EACH capsule 1 ea PO DAILY sertraline 50 MG tablet 100 mg PO DAILY atorvastatin [Lipitor] 40 MG tablet 40 mg PO HS ascorbic acid (vitamin C) [Vitamin C] 1,000 MG tablet 500 mg PO DAILY albuterol sulfate [Proventil HFA] 6.7 GM HFA aerosol inhaler 2 inh PO Q4H PRN PRN acetaminophen [Tylenol Extra Strength] 500 mg Tablet 1,000 mg PO .Q6 HRS PRN tamsulosin 0.4 mg Capsule 0.4 mg PO DIRECTED Patient Comments: QOD pantoprazole 40 mg tablet,delayed release (DR/EC) 40 mg PO DAILY insulin glargine [Lantus Solostar U-100 Insulin] 100 unit/mL (3 mL) insulin pen 26 unit SUBCUT HS cyclobenzaprine 10 mg tablet 10 mg PO TID PRNQty: 20 0RF bupropion HCl 100 mg tablet sustained-release 12 hr 150 mg PO BID Patient Comments: TAKE ONE TABLET BY MOUTH TWICE A DAY polyethylene glycol 3350 [Miralax] 17 gram Powder In Packet 17 g PO BID Patient Comments: Per pt pharmacy, pt not taking. bisacodyl [Dulcolax (bisacodyl)] 10 mg Suppository 10 mg PA DAILY PRN oxycodone 10 mg tablet 20 mg PO BID Patient Comments: TAKE TWO TABLETS BY MOUTH EVERY DAY - MAX DAILY DOSE OF 2 PER DAY metoprolol tartrate [Lopressor] 50 mg tablet 50 mg PO BID Fiasp FlexTouch U-100 Insulin 100 unit/mL (3 mL) insulin pen 2 - 6 unit SUBCUT BID cyanocobalamin (vitamin B-12) [Vitamin B-12] 1,000 mcg Tablet 1,000 mcg PO DAILY Patient Comments: not on med list loratadine 10 mg capsule 10 mg PO DAILY Qty: 20 0RF sennosides [senna] 8.6 mg Tablet 8.6 mg PO DAILY trazodone 50 mg tablet 50 mg PO HS Patient Comments: TAKE ONE-HALF TABLET BY MOUTH EVERY EVENING midodrine 2.5 mg tablet 5 mg PO TID Patient Comments: TAKE ONE TABLET BY MOUTH THREE TIMES A DAY BEFORE MEALS insulin lispro [Humalog KwikPen Insulin] 100 unit/mL Insulin Pen 1 sliding scale dose SUBCUT USEASDIRECTD Patient Comments: Per pt pharmacy, no current rx. Pt not taking. Eliquis 2.5 mg tablet 2.5 mg PO BID Patient Comments: TAKE ONE TABLET BY MOUTH TWICE A DAY diphenhydramine HCl [Banophen] 25 mg capsule 25 mg PO Q6H Patient Comments: TAKE ONE CAPSULE BY MOUTH EVERY 6 HOURS Victoza 2-Edy 0.6 mg/0.1 mL (18 mg/3 mL) pen injector 1.8 mg SUBCUT DAILY Patient Comments: INJECT 0.6MG UNDER THE SKIN ONCE DAILY Spiriva Respimat 2.5 mcg/actuation mist 2 spray INHALATION PRN PRN Patient Comments: Inhale 2 puff as directed once a day prednisone 20 mg tablet 50 mg PO DAILY Patient Comments: Per pt pharmacy, one time rx. Pt not taking. prednisone 50 mg tablet 50 mg PO DAILY Qty: 5 0RF Patient Comments: Per pt pharmacy, one time rx. Pt not taking. levofloxacin 250 mg tablet 250 mg PO DAILY Qty: 6 0RF Patient Comments: Per pt pharmacy, no current rx. Pt not taking. Discharge Instructions Instructions: Acute Diarrhea (ED), Diabetic Hyperglycemia (ED) Additional Instructions: you have an appt at [facility] Mar.13 at 830am in [facility] please go to dialysis today bananas, rice, applesauce, toast please follow-up for stool sample with persistent watery diarrhea take your insulin and check your blood sugar daily you will be contacted for increased support in your home Referrals: Zakiya Reyna MD [Primary Care Provider] - 1 week Discharge Data Discharge Date/Time-TO BE ENTERED AT DEPARTURE: 02/19/23 12:00 Medical Decision Making 77-year-old male presents with report of weakness and diarrhea, has missed 2 dialysis appointments. States he has felt weak and had difficulty getting up. Patient is alert and oriented, he appears chronically ill, his vitals are stable and he is in no acute distress He does have mild hyperkalemia 5.3 but remainder of his labs are relatively stable for him He is given 500 cc of fluid, we attempted to obtain a stool culture, however patient was unable to supply and it sounds like he has had some formed stools so less likely that this is C. 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 HPI Narrative: 77-year-old gentleman with history of insulin-dependent diabetes, COPD, chronic oxygen dependency, renal failure, dialysis dependent he presents with report of diarrhea with intermittent loose stools since Friday. Patient was quite weak today and unable to get out of his bed, normally he is partially ambulatory at home. He resides with his who is also weird wheelchair-bound, they are both insulin-dependent diabetics. He is not used his insulin for the past 5 days. Denies any nausea or vomiting. Has not checked his blood sugar for the past 5 days. Denies any fever or chills. Denies any known blood in his stool. Last dialysis was Friday last week. Has not felt well did not feel he can make his dialysis appointments.'s been a dialysis patient for the past 2 years. He does still produce urine. He denies any cough or fever. Denies known sick contacts. States he felt quite weak today which is because he called the ambulance. Denies any new shortness of breath, history of bronchiectasis with lung resection the age of 12. Related Data Home Medications Medication Instructions Recorded Confirmed aspirin 81 mg tablet,delayed 81 mg PO DAILY 09/25/12 11/26/22 release (Aspir-) multivitamin 1 ea PO DAILY 09/25/12 11/26/22 sertraline 50 mg tablet 100 mg PO DAILY 09/25/12 11/26/22 cholecalciferol (vitamin D3) 25 1,000 unit PO DAILY 09/21/15 11/26/22 mcg (1,000 unit) tablet nitroglycerin 0.4 mg sublingual 0.4 mg sublingual ONCE PRN 09/21/15 11/26/22 tablet albuterol sulfate 90 mcg/actuation 2 inh PO Q4H PRN PRN 02/16/17 11/26/22 aerosol inhaler (Proventil HFA) ascorbic acid (vitamin C) 1,000 mg 500 mg PO DAILY 02/16/17 11/26/22 tablet (Vitamin C) atorvastatin 40 mg tablet (Lipitor) 40 mg PO HS 02/16/17 11/26/22 cyanocobalamin (vitamin B-12) 1,000 mcg PO DAILY 09/22/19 11/26/22 1,000 mcg tablet (Vitamin B-12) acetaminophen 500 mg tablet 1,000 mg PO .Q6 HRS PRN 04/24/20 11/26/22 (Tylenol Extra Strength) insulin glargine 100 unit/mL (3 26 unit subcut HS 04/24/20 11/26/22 mL) subcutaneous pen (Lantus Solostar U-100 Insulin) pantoprazole 40 mg tablet,delayed 40 mg PO DAILY 04/24/20 11/26/22 release tamsulosin 0.4 mg capsule 0.4 mg PO DIRECTED 04/24/20 11/26/22 loratadine 10 mg capsule 10 mg PO DAILY #20 caps 03/09/21 11/26/22 apixaban 2.5 mg tablet (Eliquis) 2.5 mg PO BID 06/05/21 11/26/22 insulin lispro 100 unit/mL 1 sliding scale dose subcut 06/05/21 11/13/22 subcutaneous pen (Humalog KwikPen USEASDIRECTD (U-100) Insulin) midodrine 2.5 mg tablet 5 mg PO TID 06/05/21 11/26/22 sennosides 8.6 mg tablet (senna) 8.6 mg PO DAILY 06/05/21 11/24/22 trazodone 50 mg tablet 50 mg PO HS 06/05/21 11/26/22 fluticasone propionate 115 2 puff inhalation BID #12 grams 11/20/21 11/26/22 mcg-salmeterol 21 mcg/actuation HFA inhaler (Advair HFA) budesonide 160 mcg-glycopyr 9 2 inh inhalation BID #10.7 grams 11/26/21 11/26/22 mcg-formot 4.8 mcg/actuation HFA inhaler (Breztri Aerosphere) cyclobenzaprine 10 mg tablet 10 mg PO TID PRN #20 tabs 01/15/22 11/26/22 diphenhydramine HCl 25 mg capsule 25 mg PO Q6H 01/18/22 11/26/22 (Banophen) liraglutide 0.6 mg/0.1 mL (18 mg/3 1.8 mg subcut DAILY 01/18/22 11/26/22 mL) subcutaneous pen injector (Victoza 2-Edy) prednisone 20 mg tablet 50 mg PO DAILY 01/18/22 11/13/22 tiotropium bromide 2.5 2 spray inhalation PRN PRN 01/18/22 11/26/22 mcg/actuation mist for inhalation (Spiriva Respimat) prednisone 50 mg tablet 50 mg PO DAILY #5 tabs 09/06/22 11/13/22 bisacodyl 10 mg rectal suppository 10 mg PA DAILY PRN 09/08/22 11/26/22 (Dulcolax (bisacodyl)) bupropion HCl 100 mg tablet,12 hr 150 mg PO BID 09/08/22 11/26/22 sustained-release oxycodone 10 mg tablet 20 mg PO BID 09/08/22 11/26/22 polyethylene glycol 3350 17 gram 17 g PO BID 09/08/22 11/24/22 oral powder packet (Miralax) insulin aspart 2 - 6 unit subcut BID 11/24/22 11/26/22 (niacinamide)(U-100) 100 unit/mL(3 mL) subcutaneous pen (Fiasp FlexTouch U-100 Insulin) metoprolol tartrate 50 mg tablet 50 mg PO BID 11/24/22 11/26/22 (Lopressor) levofloxacin 250 mg tablet 250 mg PO DAILY #6 tabs 11/25/22 Previous Rx's Medication Instructions Recorded loratadine 10 mg capsule 10 mg PO DAILY #20 caps 03/09/21 fluticasone propionate 115 2 puff inhalation BID #12 grams 11/20/21 mcg-salmeterol 21 mcg/actuation HFA inhaler (Advair HFA) budesonide 160 mcg-glycopyr 9 2 inh inhalation BID #10.7 grams 11/26/21 mcg-formot 4.8 mcg/actuation HFA inhaler (Breztri Aerosphere) cyclobenzaprine 10 mg tablet 10 mg PO TID PRN #20 tabs 01/15/22 prednisone 50 mg tablet 50 mg PO DAILY #5 tabs 09/06/22 levofloxacin 250 mg tablet 250 mg PO DAILY #6 tabs 11/25/22 Allergies Allergy/AdvReac Type Severity Reaction Status Date / Time pneumococcal vaccine Allergy Severe Swelling/Ed Verified 11/27/22 14:22 nandini sulfamethoxazole Allergy difficulty Verified 11/27/22 14:22 [From Bactrim] breathing trimethoprim [From Bactrim] Allergy difficulty Verified 11/27/22 14:22 breathing General Stated Complaint: Nausea/Vomit/Diar MESERET: 3 PFSH All Active Problems (Updated 02/19/23 @ 11:28 by ALIZA Min) Acute hyperkalemia (Acute) Diarrhea (Acute) Acute hyperglycemia (Acute) Diabetes (Chronic) Pulmonary scarring (Acute) Chronic respiratory failure with hypoxia (Acute) 2L of O2 by CT COPD (chronic obstructive pulmonary disease) (Chronic) Bronchiectasis (Acute) 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) Basal cell carcinoma of multiple sites (Acute) Leucocytosis (Chronic) Palpitations (Acute) Exertional shortness of breath (Chronic) Neoplasm of unspecified nature of bone, soft tissue, and skin (Acute 06/19/15) Medical History Actinic keratosis (05/01/16) Anemia Basal cell carcinoma of skin (03/11/16) Bilateral cataracts Coronary Artery Disease Depression Diabetes mellitus Diabetic foot ulcer Diabetic ulcer of left foot ESRD on hemodialysis GERD (gastroesophageal reflux disease) Hoarseness Hyperkalemia Moderate pulmonary hypertension Orthostatic hypotension Paroxysmal atrial fibrillation with rapid ventricular response Perihepatic abscess RBBB (right bundle branch block) Renal cell carcinoma of left kidney (05/30/17) Shortness of breath Supraventricular tachycardia Toe infection Tubular adenoma of colon (12/18/16) Surgical History Colonoscopy - MAC (12/18/16) Completion of amputation (09/30/12) L great toe EGD - MAC (12/18/16) H/O partial nephrectomy x3 Heart Stent (12/03/11) Pt records show heart stent placed 12/03/11 at [facility]. 12.02.13HE Hx of cardiac cath x2, per patient Lobectomy Pt states 2 lobes removed from R. lung. No date given. 12.02.13HE Osteotomy Partial & Debridment of first metatarsal on Left foot. S/P hemodialysis catheter insertion Family History Mother Heart disease Diabetes Sister Stroke Diabetes Sister Diabetes Cancer laryngeal cancer Sister Diabetes Social History Smoking/Tobacco Use Status: Never Tobacco: How many years used: 50 Counseling given: provider counseling Smoking risk assessment performed?: Yes Alcohol Intake: never Drug use: Never Substance use type: does not use Household members: spouse Housing: house Current gender identity: male What type of physical activity do you participate in: none and independent ambulation Do you feel safe at home: Yes Do you feel safe in your relationship?: Yes Additional Social history: lives with his who is dependant on [employer] Vital Signs Vital signs: Vital Signs Temperature 36.3 C L 02/19/23 09:01 Pulse 92 H 02/19/23 09:01 Respiratory Rate 18 02/19/23 09:01 Blood Pressure 149/71 H 02/19/23 09:01 Pulse Oximetry 100 02/19/23 09:01 Temperature 36.3 C L 02/19/23 09:01 Temperature Source Skin 02/19/23 09:01 Pulse 92 H 02/19/23 09:01 Respiratory Rate 18 02/19/23 09:01 Blood Pressure 149/71 H 02/19/23 09:01 Pulse Oximetry 100 02/19/23 09:01 Oxygen Delivery Method Room Air 02/19/23 09:01 Oxygen Flow Rate 0 02/19/23 09:01 Pain Level 0 02/19/23 09:01 Lab/Test Results Lab/Test Results: 02/19/23 10:02 Urine - Reflex from Ua Urine Culture - Pending 02/19/23 09:45 Blood Blood Culture - Pending 02/19/23 09:25 Blood Blood Culture - Pending Laboratory Tests Range/Units 02/19/23 02/19/23 02/19/23 09:25 09:25 10:02 WBC (4.4-10.8) 10^3/uL 10.80 RBC (4.36-5.78) 10^6/uL 3.50 L Hgb (13.5-17.5) g/dL 10.9 L Hct (40.0-50.0) % 35.4 L MCV (80-95) fL 101 H MCH (27.0-33.0) pg 31.1 MCHC (32.0-36.0) % 30.8 L RDW (11.8-14.1) % 16.1 H Plt Count (130-400) 10^3/uL 253 MPV (8.0-11.0) fL 11.2 H Immature Gran % 2.2 Neutrophils % 81.2 Lymphocytes % 8.4 Monocytes % 6.6 Eosinophils % 1.1 Basophils % 0.5 Nucleated RBC % (0.0-0.3) % 0.0 Absolute Neutrophils (1.2-6.7) 10^3/uL 8.77 H Absolute Lymphocytes (1.2-3.4) 10^3/uL 0.91 L Absolute Monocytes (0.1-0.8) 10^3/uL 0.71 Absolute Eosinophils (0.0-0.7) 10^3/uL 0.12 Absolute Basophils (0.0-0.2) 10^3/uL 0.05 VBG pH (7.31-7.41) VBG pCO2 (41-51) mmHg VBG pO2 mmHg VBG HCO3 (23-28) mmol/L VBG Total CO2 (24-29) mmol/L VBG O2 Saturation % VBG Base Excess (-2-3) mmol/L Sodium (136-145) mmol/L 132 L Potassium (3.5-5.1) mmol/L 5.3 H Chloride (98-107) mmol/L 97 L Carbon Dioxide (21.0-32.0) mmol/L 28.2 Anion Gap (3-11) mmol/L 6.8 BUN (7-18) mg/dL 30 H Creatinine (0.70-1.30) mg/dL 4.0 H* Est GFR (CKD-EPI 2020) (mL/min/1.73m2) 14.69 Glucose (74-106) mg/dL 519 H* Calcium (8.5-10.1) mg/dL 9.4 Magnesium (1.8-2.4) mg/dL 1.7 L Cancelled AST (15-37) U/L 16 ALT (16-63) U/L 17 Urine Color (Yellow) Yellow Urine Clarity (Clear) Clear Urine pH (5-8) 7.0 Ur Specific [place] (1.005-1.025) 1.015 Urine Protein (Negative) mg/dL 30 H Urine Ketones (Negative) mg/dL Negative Urine Blood (Negative) Trace-intact H Urine Nitrite (Negative) Negative Urine Bilirubin (Negative) Negative Urine Urobilinogen (Up to 0.2) mg/dL 0.2 Ur Leukocyte Esterase (Negative) Trace H Urine RBC (0-2) HPF 0-2 Urine WBC (0-5) HPF 20-50 H Ur Epithelial Cells (Negative) HPF Rare Urine Crystals (Negative) HPF Negative Urine Bacteria (Negative) HPF Rare Urine Casts (Negative) LPF 0-2 Hyaline Urine Mucus (Negative) Negative Ur Culture Indicated? Yes Urine Glucose (Negative) mg/dL >=1000 H Range/Units 02/19/23 10:03 WBC (4.4-10.8) 10^3/uL RBC (4.36-5.78) 10^6/uL Hgb (13.5-17.5) g/dL Hct (40.0-50.0) % MCV (80-95) fL MCH (27.0-33.0) pg MCHC (32.0-36.0) % RDW (11.8-14.1) % Plt Count (130-400) 10^3/uL MPV (8.0-11.0) fL Immature Gran % Neutrophils % Lymphocytes % Monocytes % Eosinophils % Basophils % Nucleated RBC % (0.0-0.3) % Absolute Neutrophils (1.2-6.7) 10^3/uL Absolute Lymphocytes (1.2-3.4) 10^3/uL Absolute Monocytes (0.1-0.8) 10^3/uL Absolute Eosinophils (0.0-0.7) 10^3/uL Absolute Basophils (0.0-0.2) 10^3/uL VBG pH (7.31-7.41) 7.34 VBG pCO2 (41-51) mmHg 54 H VBG pO2 mmHg 22 VBG HCO3 (23-28) mmol/L 29 H VBG Total CO2 (24-29) mmol/L 28 VBG O2 Saturation % 28 VBG Base Excess (-2-3) mmol/L 3 Sodium (136-145) mmol/L Potassium (3.5-5.1) mmol/L Chloride (98-107) mmol/L Carbon Dioxide (21.0-32.0) mmol/L Anion Gap (3-11) mmol/L BUN (7-18) mg/dL Creatinine (0.70-1.30) mg/dL Est GFR (CKD-EPI 2020) (mL/min/1.73m2) Glucose (74-106) mg/dL Calcium (8.5-10.1) mg/dL Magnesium (1.8-2.4) mg/dL AST (15-37) U/L ALT (16-63) U/L Urine Color (Yellow) Urine Clarity (Clear) Urine pH (5-8) Ur Specific [place] (1.005-1.025) Urine Protein (Negative) mg/dL Urine Ketones (Negative) mg/dL Urine Blood (Negative) Urine Nitrite (Negative) Urine Bilirubin (Negative) Urine Urobilinogen (Up to 0.2) mg/dL Ur Leukocyte Esterase (Negative) Urine RBC (0-2) HPF Urine WBC (0-5) HPF Ur Epithelial Cells (Negative) HPF Urine Crystals (Negative) HPF Urine Bacteria (Negative) HPF Urine Casts (Negative) LPF Urine Mucus (Negative) Ur Culture Indicated? Urine Glucose (Negative) mg/dL
--- NOTE | 2023-02-19 10:25 | DI.RAD_ITS ---
Exam(s) XR PORTABLE CHEST AP EXAM: XR PORTABLE CHEST AP CLINICAL HISTORY: weakness TECHNIQUE: 2D digital imaging was performed of the chest. One image was obtained. An AP view was ob tained. COMPARISON: CR XR CHEST 1V IN DI DEPT from 02/10/2022 CR,XR XR PORTABLE CHEST AP from 11/24/2022 CR XR PORTABLE CHEST AP from 11/25/2022 FINDINGS: MEDIASTINUM: Normal. HEART: Normal. PULMONARY VASCULATURE: Normal. LUNGS: Persistent linear infiltrates are seen in the left lung base which appear chronic. There also chronic pleural changes in the right hemithorax with loss of volume. No new infiltrates are seen. PLEURAL SPACE: No pleural effusion or pneumothorax. BONE:Within normal limits for the patient's age. OTHER FINDINGS:The dual lumen central venous catheter is in good position. IMPRESSION: No acute pulmonary findings. DATA REPOSITORY: RADIATION DOSE DELIVERED:
[2023-02-19] MEDS: Normal Saline 500 ML IV (10:27)
[2023-02-19] MEDS: Insulin REGULAR-Human 100 UNITS/ML UNIT 12 UNITS SC (10:51)
== END 2023-02-19 12:00 | disposition home or self-care (01) ==
LOC: ER 12:12
PROVIDERS: Emergency Provider Physician Assistant; PCP Family Medicine
DX: R19.7 Diarrhea, unspecified (principal); E11.65 Type 2 diabetes mellitus with hyperglycemia; N18.6 End stage renal disease; I48.0 Paroxysmal atrial fibrillation; I45.2 Bifascicular block; J44.9 Chronic obstructive pulmonary disease, unspecified; R55 Syncope and collapse; N39.0 Urinary tract infection, site not specified; R41.0 Disorientation, unspecified; Z79.4 Long term (current) use of insulin; Z79.82 Long term (current) use of aspirin; Z99.2 Dependence on renal dialysis; Z90.5 Acquired absence of kidney; Z99.81 Dependence on supplemental oxygen
CPT/HCPCS: 36415; 80048; 82805; 82962; 87040; 93005; 96360; 99285; 71045; 81003; 81015; 83735; 84450; 84460; 85025; 87086; 93010

== ENCOUNTER 2023-02-21 08:30 | Emergency (ER) | payer MEDICARE, BC, SELFPAY ==
[2023-02-21] VITALS (74 sets, daily range): BP systolic 101–149; BP diastolic 44–123; PULSE 66–95; RESP 9–24; TEMP 37.1; O2SAT 81–100
--- NOTE | 2023-02-21 08:45 | RT.EKG_ITS ---
APPROVED REPORT Exam: Resting ECG Reason for Exam: SOB Patient Location: E HR:70 bpm ECG Measurements Heart Rate 70 AXIS IN 211 P -2 QRSd 116 QRS 62 QT 420 T 15 QTc 453 Conclusion Sinus rhythm...normal P axis, V-rate 60- 99 IRBBB and LPFB...RAD, QRSd>120, term axis(90,270) Low voltage, precordial leads...precordial leads <1.0mV
--- NOTE | 2023-02-21 09:01 | ED.GENADUL_ITS ---
Discharge Plan Disposition Patient Disposition: Transfer-Acute Inpatient Care Specific Acute Inpt Facility: [place] Discharge Details Clinical Impression: Diarrhea, Weakness, Dialysis complication, COPD (chronic obstructive pulmonary disease) Primary Care Provider: Zakiya Reyna ED Provider: Neelima Dodge Home Meds and New Rx's Prescriptions: No Action fluticasone propion-salmeterol [Advair HFA] 115-21 mcg/actuation HFA aerosol inhaler 2 puff inhalation BID Qty: 12 12RF Rx Instructions: Wash mouth after use nitroglycerin 0.4 MG tablet, sublingual 0.4 mg Sublingual ONCE PRN Patient Comments: has never used it at home cholecalciferol (vitamin D3) 1,000 UNIT tablet 1,000 unit PO DAILY Breztri Aerosphere 160-9-4.8 mcg/actuation HFA aerosol inhaler 2 inh inhalation BID Qty: 10.7 12RF Patient Comments: not on med list aspirin [Aspir-81] 81 MG tablet,delayed release (DR/EC) 81 mg PO DAILY multivitamin 1 EACH capsule 1 ea PO DAILY sertraline 50 MG tablet 100 mg PO DAILY atorvastatin [Lipitor] 40 MG tablet 40 mg PO HS ascorbic acid (vitamin C) [Vitamin C] 1,000 MG tablet 500 mg PO DAILY albuterol sulfate [Proventil HFA] 6.7 GM HFA aerosol inhaler 2 inh PO Q4H PRN PRN acetaminophen [Tylenol Extra Strength] 500 mg Tablet 1,000 mg PO .Q6 HRS PRN tamsulosin 0.4 mg Capsule 0.4 mg PO DIRECTED Patient Comments: QOD pantoprazole 40 mg tablet,delayed release (DR/EC) 40 mg PO DAILY insulin glargine [Lantus Solostar U-100 Insulin] 100 unit/mL (3 mL) insulin pen 26 unit SUBCUT HS cyclobenzaprine 10 mg tablet 10 mg PO TID PRNQty: 20 0RF bupropion HCl 100 mg tablet sustained-release 12 hr 150 mg PO BID Patient Comments: TAKE ONE TABLET BY MOUTH TWICE A DAY polyethylene glycol 3350 [Miralax] 17 gram Powder In Packet 17 g PO BID Patient Comments: Per pt pharmacy, pt not taking. bisacodyl [Dulcolax (bisacodyl)] 10 mg Suppository 10 mg [place] DAILY PRN oxycodone 10 mg tablet 20 mg PO BID Patient Comments: TAKE TWO TABLETS BY MOUTH EVERY DAY - MAX DAILY DOSE OF 2 PER DAY metoprolol tartrate [Lopressor] 50 mg tablet 50 mg PO BID Fiasp FlexTouch U-100 Insulin 100 unit/mL (3 mL) insulin pen 2 - 6 unit SUBCUT BID cyanocobalamin (vitamin B-12) [Vitamin B-12] 1,000 mcg Tablet 1,000 mcg PO DAILY Patient Comments: not on med list loratadine 10 mg capsule 10 mg PO DAILY Qty: 20 0RF sennosides [senna] 8.6 mg Tablet 8.6 mg PO DAILY trazodone 50 mg tablet 50 mg PO HS Patient Comments: TAKE ONE-HALF TABLET BY MOUTH EVERY EVENING midodrine 2.5 mg tablet 5 mg PO TID Patient Comments: TAKE ONE TABLET BY MOUTH THREE TIMES A DAY BEFORE MEALS insulin lispro [Humalog KwikPen Insulin] 100 unit/mL Insulin Pen 1 sliding scale dose SUBCUT USEASDIRECTD Patient Comments: Per pt pharmacy, no current rx. Pt not taking. Eliquis 2.5 mg tablet 2.5 mg PO BID Patient Comments: TAKE ONE TABLET BY MOUTH TWICE A DAY diphenhydramine HCl [Banophen] 25 mg capsule 25 mg PO Q6H Patient Comments: TAKE ONE CAPSULE BY MOUTH EVERY 6 HOURS Victoza 2-Edy 0.6 mg/0.1 mL (18 mg/3 mL) pen injector 1.8 mg SUBCUT DAILY Patient Comments: INJECT 0.6MG UNDER THE SKIN ONCE DAILY Spiriva Respimat 2.5 mcg/actuation mist 2 spray INHALATION PRN PRN Patient Comments: Inhale 2 puff as directed once a day prednisone 20 mg tablet 50 mg PO DAILY Hold Instructions: Pt Stopped/Never Started Patient Comments: Per pt pharmacy, one time rx. Pt not taking. prednisone 50 mg tablet 50 mg PO DAILY Qty: 5 0RF Hold Instructions: Pt Stopped/Never Started Patient Comments: Per pt pharmacy, one time rx. Pt not taking. levofloxacin 250 mg tablet 250 mg PO DAILY Qty: 6 0RF Hold Instructions: Pt Stopped/Never Started Patient Comments: Per pt pharmacy, no current rx. Pt not taking. Discharge Data Discharge Date/Time-TO BE ENTERED AT DEPARTURE: 02/21/23 20:09 Medical Decision Making <Margaux Garcia NP - Last Filed: 02/21/23 23:03> 77-year-old male with a past medical history of end-stage renal disease on dialysis Friday, insulin-dependent diabetes, frequent falls who lives at home with his who is in a wheelchair he is also had a partial nephrectomy, history of anemia GERD A-fib with RVR perihepatic abscess, history of diabetic ulcers of his feet has had multiple toe amputations also had a cardiac catheter presents to the ER via EMS for chief complaint of shortness of breath and feeling as if he is drowning underwater he reports frequent falls from getting up from a sitting position. He has been having vomiting for the last 3 days and diarrhea for the last 1 to 2 weeks. He is due for dialysis today at around 10 AM. He denies any fever or chills. He was recently seen here approximately 48 hours prior to arrival for same. Patient presents with a c-collar in place which was placed by EMS. He is complaining of neck pain. He also did hit his head. He reports that he is taking blood thinners. He is on Eliquis he did not take any of his daily a.m. medications this morning. On exam he does have multiple healing bruises noted in a couple of skin tears to his dorsum of his left hand bleeding is controlled at this time. He does have a dialysis port noted to his right upper anterior chest, no surrounding redness or erythema. Abdomen is soft nontender with palpation all 4 quadrants. Unable to assess gait at this time. No significant edema noted to his bilateral lower extremities. Work-up ordered including serial troponin, CBC CMP, proBNP, urinalysis CT head C-spine. Lipase 1039: Spoke with Dr. Kimble at [facility] at [facility] regarding patient case he called as patient had an appointment for dialysis at proximately 10 AM this morning. He reports that patient is frail this is been recurrent episodes of fall and he is unable to take care of his at this time as she is confused as well. He also reports that his concerns for this patient being too unstable to continue to be seen at the dialysis clinic due to frailty, and de-conditioning. He does recommend admission if possible at this time at this time I am awaiting CT results and work-up results. 1141: [facility] transfer center called to request transfer. At this time pending CT C-spine results. 1159: Spoke with [facility] Nephrology fellow, he agrees to consult for dialysis if patient is admitted for inpatient. At this time [facility] and will call me back regarding capacity for MedSurg. CT head and neck is negative for anything acute. 1223: Spoke with [facility] transfer center they do not [facility] ordered and home health ordered. Will call Dialysis center to see if patient can get into clinic today by the end of the day. Home health order ordered for physical therapy, Occupational Therapy and emergency medicine medical director due to frequent falls and complex care and 1229: Spoke again with enterprise architect manager Swetha at Dialysis clinic who states that spoke with Dr. Jalloh regarding patient, relayed labs to her. Will attempt [facility] transfer, if needed. 1310: Spoke with Dr. Echevarria hospitalist with [facility] regarding patient case in details. At this time there is no acute or urgent need for dialysis for transfer according to her. Patient has generalized weakness and chronic de conditioning. Chest x-ray portable added on to rule out pneumonia. PT is currently walking him with a walker and doing their eval for DC discharge. PT finished with Eval, 1335: Spoke again with Dr. Rondon with [facility] Nephrology at Dialysis, he requests admission for observation until can be dialyzed on Friday. Will try with hospitalist, He recommends labs for potassium over the Esvin Rondon cell # [phone]. Will call hospitalist. Spoke with Dr. Jimenez regarding patient case in details she recommends CT abdomen pelvis due to not nausea vomiting diarrhea. She does not agree to accept patient here for admission or observation over the weekend. CT ordered. 1449: Spoke with [facility] supervisor, he recommends calling outpatient dialysis clinic to get patient dialysis. [facility] is no longer in service. 1513: Call made to [facility] transfer center to get in touch with Dialysis clinic, no answer. Will speak with nephrology attending Dr. Baumann, who is unable to help me at this time, Call out to [facility]. 1531: Spoke with [place] transfer [facility], will send to ED provider, Spoke with ED Dr. Winston. Who agrees to accept patient if needed. Care to be handed off to ALIZA Min pending transfer to [place]. Discussed plan of care with patient who verbalizes understanding is in agreement with the plan. I also did confirm with him that he wants to be a full code he does wish at this time to have CPR and or intubation if needed which he verbalized to me. This text was generated using [employer] dictation system, please disregard any oddities of phrase or misspellings. LB: Care accepted in transition from Margauxjoanna Anguloton nurse practitioner pending transfer to [place], patient was transferred without incident in stable condition Medical Records Medical records reviewed: Yes I reviewed the patient's medical records. Imaging Data Radiologic Study: Imaging: CT Scan Radiologist's impression: FINDINGS: VISUALIZED LUNG BASES: Please note that this patient has been shown on previous chest CT scan to have a right-sided aortic arch.. There is persistent infiltrate in the right lower lobe. Minimal amount of pleural fluid. There is also some infiltrate in the left lung base although this exhibits some improvement from 11/27/[address] scan. Heart size is normal but there is now a pericardial effusion now evident which en circles the heart and exhibits relatively uniform thickness of 1 cm. Coronary artery calcifications noted. Dialysis catheter in the lower SVC-RA ju nction. ABDOMEN: There is some haziness of the mesentery around the liver but with out true fluid ascites. LIVER: Liver appears upper normal size. There are no distinct focal hepatic lesions. GALLBLADDER/BILIARY: No obvious gallbladder pathology. CBD is not dilated. PANCREAS: No evidence of pancreatic mass nor dilatation of the pancreatic duct. SPLEEN: Multiple sclerotic granulomas are noted. Spleen size is upper normal. ADRENALS: There are no significant adrenal masses. KIDNEYS:Mild perinephric streaking noted bilaterally. Evidence of prior surgery in the lower pole region of the left kidney. No renal masses nor calculi nor hydronephrosis. No obvious cysts.. ABDOMINAL AORTA: Aorta is calcified but not enlarged. Common iliac arteries also calcified but not enlarged. LYMPH NODES: There is no retroperitoneal nor paraaortic adenopathy. ABDOMINAL WALL: No evidence of significant anterior abdominal wall nor inguinal hernia. GI: There is no evidence of bowel obstruction, free air, nor abscess. PELVIS: LYMPH NODES: There is no intrapelvic nor inguinal adenopathy. GI: No evidence of appendicitis.No evidence of sigmoid diverticulitis. URINARY BLADDER: There is diffuse thickening of the urinary bladder wall including at the level both ureterovesical junctions. However, the ureters are not dilated. There is no gas within the urinary bladder wall. REPRODUCTIVE: Prostate exhibits moderate enlargement. Seminal vesicles unremarkable. OSSEOUS: Fractures of the left 12th, 11th, 10th ribs noted. No vertebral compression fractures nor listhesis. Moderate disc space narrowing L5-S1. Slight loss of height of L2 superior endplate which does not have acute appearance. IMPRESSION: 1. Persist int right lower lobe infiltrate. Left rib fractures again noted lower left 3 ribs. 2. New pericardial effusion with uniform thickness approximately 9-10 mm, not previously present on CT scan of 11/27/2022. 3. Evidence of prior surgery lower pole left kidney. Some perinephric streaking is again noted. No new renal findings and no hydronephrosis. 4. There is diffuse thickening of the urinary bladder wall either related to cystitis and/or uroepithelial neoplasm. Ureters do not appear obstructed. 5. No ascites but there is some mesenteric haziness anterior to the right hepatic lobe evident. Radiologic Study #2: Imaging: X-Ray Radiologist's impression: XR CHEST 1V IN DI DEPT EXAM: XR CHEST 1V IN DI DEPT CLINICAL HISTORY: SOB. TECHNIQUE: 2D digital imaging was performed. COMPARISON: CR XR PORTABLE CHEST AP from 02/19/2023 FINDINGS: Single AP portable view. Distal tip of what appears to be a probable right supra clavi dialysis catheter is in the right atrium. Heart size is upper normal. The mediastinum is not widened. There is a moderate size right pleural effusion which has not decreased in size. Some infiltrate noted in both lung bases. Mild improvement in the left lung base infiltrate. No obvious pleural effusion on the left side. IMPRESSION: Persistent moderate size right pleural effusion. Persistent left lung base infiltrate with minimal improvement. No obvious pleural fluid on the left side. Lab Data Lab results reviewed: Yes I reviewed the patient's lab results. Labs: 02/21/23 09:30 Urine - Reflex from Ua Urine Culture - Pending Laboratory Tests Range/Units 02/21/23 02/21/23 02/21/23 09:18 09:30 10:25 WBC (4.4-10.8) 10^3/uL 11.07 H RBC (4.36-5.78) 10^6/uL 3.30 L Hgb (13.5-17.5) g/dL 10.3 L Hct (40.0-50.0) % 33.1 L MCV (80-95) fL 100 H MCH (27.0-33.0) pg 31.2 MCHC (32.0-36.0) % 31.1 L RDW (11.8-14.1) % 15.9 H Plt Count (130-400) 10^3/uL 240 MPV (8.0-11.0) fL 11.6 H Immature Gran % 2.0 Neutrophils % 75.4 Lymphocytes % 12.8 Monocytes % 7.9 Eosinophils % 1.4 Basophils % 0.5 Nucleated RBC % (0.0-0.3) % 0.0 Absolute Neutrophils (1.2-6.7) 10^3/uL 8.35 H Absolute Lymphocytes (1.2-3.4) 10^3/uL 1.42 Absolute Monocytes (0.1-0.8) 10^3/uL 0.87 H Absolute Eosinophils (0.0-0.7) 10^3/uL 0.15 Absolute Basophils (0.0-0.2) 10^3/uL 0.06 PT (9.1-11.1) sec 11.0 INR (0.9-1.1) 1.1 APTT (23.6-32.8) sec 27.0 Sodium (136-145) mmol/L 132 L Potassium (3.5-5.1) mmol/L 5.1 Chloride (98-107) mmol/L 97 L Carbon Dioxide (21.0-32.0) mmol/L 29.0 Anion Gap (3-11) mmol/L 6.0 BUN (7-18) mg/dL 32 H Creatinine (0.70-1.30) mg/dL 4.4 H* Est GFR (CKD-EPI 2020) (mL/min/1.73m2) 13.10 Glucose (74-106) mg/dL 425 H Calcium (8.5-10.1) mg/dL 9.0 Magnesium (1.8-2.4) mg/dL 1.8 Total Bilirubin (0.2-1.0) mg/dL 0.3 AST (15-37) U/L 9 L ALT (16-63) U/L 16 Alkaline Phosphatase (46-116) U/L 93 Troponin I (<or=60) ng/L < 50 NT-Pro-B Natriuret Pep (<300) pg/mL 2520 H Total Protein (6.4-8.2) g/dL 6.4 Albumin (3.4-5.0) g/dL 3.1 L Lipase (16-77) U/L < 10 L Urine Color (Yellow) Yellow Urine Clarity (Clear) Sl Cloudy Urine pH (5-8) 7.0 Ur Specific [place] (1.005-1.025) 1.015 Urine Protein (Negative) mg/dL 100 H Urine Ketones (Negative) mg/dL Trace H Urine Blood (Negative) Moderate H Urine Nitrite (Negative) Negative Urine Bilirubin (Negative) Negative Urine Urobilinogen (Up to 0.2) mg/dL 0.2 Ur Leukocyte Esterase (Negative) Small H Urine RBC (0-2) HPF >50 H Urine WBC (0-5) HPF >50 H Ur Epithelial Cells (Negative) HPF Rare Urine Crystals (Negative) HPF Negative Urine Bacteria (Negative) HPF Negative Urine Casts (Negative) LPF Negative Urine Mucus (Negative) Negative Ur Culture Indicated? Yes Urine Glucose (Negative) mg/dL >=1000 H Add-On Test Request DONE <ALIZA Min - Last Filed: 02/21/23 20:56> 77-year-old male with a past medical history of end-stage renal disease on dialysis Friday, insulin-dependent diabetes, frequent falls who lives at home with his who is in a wheelchair he is also had a partial nephrectomy, history of anemia GERD A-fib with RVR perihepatic abscess, history of diabetic ulcers of his feet has had multiple toe amputations also had a cardiac catheter presents to the ER via EMS for chief complaint of shortness of breath and feeling as if he is drowning underwater he reports frequent falls from getting up from a sitting position. He has been having vomiting for the last 3 days and diarrhea for the last 1 to 2 weeks. He is due for dialysis today at around 10 AM. He denies any fever or chills. He was recently seen here approximately 48 hours prior to arrival for same. Patient presents with a c-collar in place which was placed by EMS. He is complaining of neck pain. He also did hit his head. He reports that he is taking blood thinners. He is on Eliquis he did not take any of his daily a.m. medications this morning. On exam he does have multiple healing bruises noted in a couple of skin tears to his dorsum of his left hand bleeding is controlled at this time. He does have a dialysis port noted to his right upper anterior chest, no surrounding redness or erythema. Abdomen is soft nontender with palpation all 4 quadrants. Unable to assess gait at this time. No significant edema noted to his bilateral lower extremities. Work-up ordered including serial troponin, CBC CMP, proBNP, urinalysis CT head C-spine. Lipase 1039: Spoke with Dr. Kimble at [facility] at [facility] regarding patient case he called as patient had an appointment for dialysis at approximately 10 AM this morning. He reports that patient is frail this is been recurrent episodes of fall and he is unable to take care of his at this time as she is confused as well. He also reports that his concerns for her being too unstable to continue to be seen at the dialysis clinic. He does recommend admission if possible at this time at this time I am awaiting CT results and work-up results. 1141: [facility] transfer center called to request transfer. At this time pending CT C-spine results. 1159: Spoke with [facility] Nephrology fellow, he agrees to consult for dialysis if patient is admitted for inpatient. At this time [facility] and will call me back regarding capacity for MedSurg. CT head and neck is negative for anything acute. 1223: Spoke with [facility] transfer center they do not have capacity for MedSurg at this time at their facility or [facility]. PT eval ordered and home health ordered. Will call Dialysis center to see if patient can get into clinic today by the end of the day. Home health order ordered for physical therapy, Occupational Therapy and emergency medicine medical director due to frequent falls and complex care and 1229: Spoke again with enterprise architect managerNICOLE Posada at Dialysis clinic who states that spoke with Dr. Jalloh regarding patient, relayed labs to her. Will attempt [facility] transfer, if needed. 1310: Spoke with Dr. Echevarria hospitalist with [facility] regarding patient case in details. At this time there is no acute or urgent need for dialysis for transfer according to her. Patient has generalized weakness and chronic deconditioning. Chest x-ray portable added on to rule out pneumonia. PT is currently walking him with a walker and doing their eval for DC discharge. PT finished with Eval, 1335: Spoke again with Dr. Rondon with [facility] Nephrology at Dialysis, he requests admission for observation until can be dialyzed on Friday. Will try with hospitalist, He recommends labs for potassium over the Esvin Rondon cell # [phone]. Will call hospitalist. Spoke with Dr. Jimenez regarding patient case in details she recommends CT abdomen pelvis due to not nausea vomiting diarrhea. She does not agree to accept patient here for admission or observation over the weekend. CT ordered. 1449: Spoke with [facility] supervisor, he recommends calling outpatient dialysis clinic to get patient dialysis. [facility] is no longer in service. 1513: Call made to [facility] transfer center to get in touch with Dialysis clinic, no answer. Will speak with nephrology attending Dr. Baumann, who is unable to help me at this time, Call out to [facility]. 1531: Spoke with [place] transfer center, will send to ED provider, Spoke with ED Dr. Winston. Who agrees to accept patient if needed. Care to be handed off to ALIZA Min pending transfer to [place]. Discussed plan of care with patient who verbalizes understanding is in agreement with the plan. I also did confirm with him that he wants to be a full code he does wish at this time to have CPR and or intubation if needed which he verbalized to me. This text was generated using [employer] dictation system, please disregard any oddities of phrase or misspellings. LB: Care accepted in transition from Margaux Garcia nurse practitioner pending transfer to [place], patient was transferred without incident in stable condition HPI <Margaux Garcia, MANUFACTURING TECHNOLOGIST - Last Filed: 02/21/23 23:03> General Mode of arrival: EMS . Date/Time Provider Initiated Documentation: 02/21/23 08:45 . Limitations to Documentation: altered mental status and physical limitation (Hard of hearing, AMS) . Information obtained by: patient, EMS, RN notes reviewed and old records reviewed . HPI Narrative: 77-year-old male with a past medical history of end-stage renal disease on dialysis Friday, insulin-dependent diabetes, frequent falls who lives at home with his who is in a wheelchair he is also had a partial nephrectomy, history of anemia GERD A-fib with RVR perihepatic abscess, history of diabetic ulcers of his feet has had multiple toe amputations also had a cardiac catheter presents to the ER via EMS for chief complaint of shortness of breath and feeling as if he is drowning underwater he reports frequent falls from getting up from a sitting position. He has been having vomiting for the last 3 days and diarrhea for the last 1 to 2 weeks. He is due for dialysis today at around 10 AM. He denies any fever or chills. He was recently seen here approximately 48 hours prior to arrival for same. Related Data Home Medications Medication Instructions Recorded Confirmed aspirin 81 mg tablet,delayed 81 mg PO DAILY 09/25/12 02/21/23 release (Aspir-) multivitamin 1 ea PO DAILY 09/25/12 02/21/23 sertraline 50 mg tablet 100 mg PO DAILY 09/25/12 02/21/23 cholecalciferol (vitamin D3) 25 1,000 unit PO DAILY 09/21/15 02/21/23 mcg (1,000 unit) tablet nitroglycerin 0.4 mg sublingual 0.4 mg sublingual ONCE PRN 09/21/15 02/21/23 tablet albuterol sulfate 90 mcg/actuation 2 inh PO Q4H PRN PRN 02/16/17 02/21/23 aerosol inhaler (Proventil HFA) ascorbic acid (vitamin C) 1,000 mg 500 mg PO DAILY 02/16/17 02/21/23 tablet (Vitamin C) atorvastatin 40 mg tablet (Lipitor) 40 mg PO HS 02/16/17 02/21/23 cyanocobalamin (vitamin B-12) 1,000 mcg PO DAILY 09/22/19 02/21/23 1,000 mcg tablet (Vitamin B-12) acetaminophen 500 mg tablet 1,000 mg PO .Q6 HRS PRN 04/24/20 02/21/23 (Tylenol Extra Strength) insulin glargine 100 unit/mL (3 26 unit subcut HS 04/24/20 02/21/23 mL) subcutaneous pen (Lantus Solostar U-100 Insulin) pantoprazole 40 mg tablet,delayed 40 mg PO DAILY 04/24/20 02/21/23 release tamsulosin 0.4 mg capsule 0.4 mg PO DIRECTED 04/24/20 02/21/23 loratadine 10 mg capsule 10 mg PO DAILY #20 caps 03/09/21 02/21/23 apixaban 2.5 mg tablet (Eliquis) 2.5 mg PO BID 06/05/21 02/21/23 insulin lispro 100 unit/mL 1 sliding scale dose subcut 06/05/21 02/21/23 subcutaneous pen (Humalog KwikPen USEASDIRECTD (U-100) Insulin) midodrine 2.5 mg tablet 5 mg PO TID 06/05/21 02/21/23 sennosides 8.6 mg tablet (senna) 8.6 mg PO DAILY 06/05/21 02/21/23 trazodone 50 mg tablet 50 mg PO HS 06/05/21 02/21/23 fluticasone propionate 115 2 puff inhalation BID #12 grams 11/20/21 02/21/23 mcg-salmeterol 21 mcg/actuation HFA inhaler (Advair HFA) budesonide 160 mcg-glycopyr 9 2 inh inhalation BID #10.7 grams 11/26/21 02/21/23 mcg-formot 4.8 mcg/actuation HFA inhaler (Breztri [employer]) cyclobenzaprine 10 mg tablet 10 mg PO TID PRN #20 tabs 01/15/22 02/21/23 diphenhydramine HCl 25 mg capsule 25 mg PO Q6H 01/18/22 02/21/23 (Banophen) liraglutide 0.6 mg/0.1 mL (18 mg/3 1.8 mg subcut DAILY 01/18/22 02/21/23 mL) subcutaneous pen injector (Victoza 2-Edy) prednisone 20 mg tablet 50 mg PO DAILY 01/18/22 02/21/23 tiotropium bromide 2.5 2 spray inhalation PRN PRN 01/18/22 02/21/23 mcg/actuation mist for inhalation (Spiriva Respimat) prednisone 50 mg tablet 50 mg PO DAILY #5 tabs 09/06/22 02/21/23 bisacodyl 10 mg rectal suppository 10 mg NH DAILY PRN 09/08/22 02/21/23 (Dulcolax (bisacodyl)) bupropion HCl 100 mg tablet,12 hr 150 mg PO BID 09/08/22 02/21/23 sustained-release oxycodone 10 mg tablet 20 mg PO BID 09/08/22 02/21/23 polyethylene glycol 3350 17 gram 17 g PO BID 09/08/22 02/21/23 oral powder packet (Miralax) insulin aspart 2 - 6 unit subcut BID 11/24/22 02/21/23 (niacinamide)(U-100) 100 unit/mL(3 mL) subcutaneous pen (Fiasp FlexTouch U-100 Insulin) metoprolol tartrate 50 mg tablet 50 mg PO BID 11/24/22 02/21/23 (Lopressor) levofloxacin 250 mg tablet 250 mg PO DAILY #6 tabs 11/25/22 02/21/23 Previous Rx's Medication Instructions Recorded loratadine 10 mg capsule 10 mg PO DAILY #20 caps 03/09/21 fluticasone propionate 115 2 puff inhalation BID #12 grams 11/20/21 mcg-salmeterol 21 mcg/actuation HFA inhaler (Advair HFA) budesonide 160 mcg-glycopyr 9 2 inh inhalation BID #10.7 grams 11/26/21 mcg-formot 4.8 mcg/actuation HFA inhaler (Breztri [employer]) cyclobenzaprine 10 mg tablet 10 mg PO TID PRN #20 tabs 01/15/22 prednisone 50 mg tablet 50 mg PO DAILY #5 tabs 09/06/22 levofloxacin 250 mg tablet 250 mg PO DAILY #6 tabs 11/25/22 Allergies Allergy/AdvReac Type Severity Reaction Status Date / Time pneumococcal vaccine Allergy Severe Swelling/Ed Verified 11/27/22 14:22 nandini sulfamethoxazole Allergy difficulty Verified 11/27/22 14:22 [From Bactrim] breathing trimethoprim [From Bactrim] Allergy difficulty Verified 11/27/22 14:22 breathing General Stated Complaint: [facility] MESERET: 2 PFSH <Margaux Garcia NP - Last Filed: 02/21/23 23:03> All Active Problems (Updated 02/21/23 @ 20:56 by ALIZA Min) Dialysis complication (Acute) Weakness (Acute) Diarrhea (Acute) Acute hyperkalemia (Acute) Diarrhea (Acute) Acute hyperglycemia (Acute) Diabetes (Chronic) Pulmonary scarring (Acute) Chronic respiratory failure with hypoxia (Acute) 2L of O2 by NC COPD (chronic obstructive pulmonary disease) (Chronic) Bronchiectasis (Acute) 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) Basal cell carcinoma of multiple sites (Acute) Leucocytosis (Chronic) Palpitations (Acute) Exertional shortness of breath (Chronic) Neoplasm of unspecified nature of bone, soft tissue, and skin (Acute 06/19/15) Medical History Actinic keratosis (05/01/16) Anemia Basal cell carcinoma of skin (03/11/16) Bilateral cataracts Coronary Artery Disease Depression Diabetes mellitus Diabetic foot ulcer Diabetic ulcer of left foot ESRD on hemodialysis GERD (gastroesophageal reflux disease) Hoarseness Hyperkalemia Moderate pulmonary hypertension Orthostatic hypotension Paroxysmal atrial fibrillation with rapid ventricular response Perihepatic abscess RBBB (right bundle branch block) Renal cell carcinoma of left kidney (05/30/17) Shortness of breath Supraventricular tachycardia Toe infection Tubular adenoma of colon (12/18/16) Surgical History Colonoscopy - MAC (12/18/16) Completion of amputation (09/30/12) L great toe EGD - MAC (12/18/16) H/O partial nephrectomy x3 Heart Stent (12/03/11) Pt records show heart stent placed 12/03/11 at [facility] 12.02.12HE Hx of cardiac cath x2, per patient Lobectomy Pt states 2 lobes removed from R. lung. No date given. 12.02.12HE Osteotomy Partial & Debridment of first metatarsal on Left foot. S/P hemodialysis catheter insertion Family History Mother Heart disease Diabetes Sister Stroke Diabetes Sister Diabetes Cancer laryngeal cancer Sister Diabetes Social History Smoking/Tobacco Use Status: Never Tobacco: How many years used: 50 Counseling given: provider counseling Smoking risk assessment performed?: Yes Alcohol Intake: never Drug use: Never Substance use type: does not use Household members: spouse Housing: house Current gender identity: male What type of physical activity do you participate in: none and independent ambulation Do you feel safe at home: Yes Do you feel safe in your relationship?: Yes Additional Social history: lives with his who is dependant on [employer] <Margaux Garcia NP - Last Filed: 02/21/23 23:03> Vital Signs Vital signs: Vital Signs Temperature 37.1 C 02/21/23 08:37 Pulse 70 02/21/23 08:37 Blood Pressure 144/60 H 02/21/23 08:37 Pulse Oximetry 99 02/21/23 08:37 Temperature 37.1 C 02/21/23 08:37 Temperature Source Temporal Artery Scan 02/21/23 08:37 Pulse 70 02/21/23 08:37 Blood Pressure 144/60 H 02/21/23 08:37 Pulse Oximetry 99 02/21/23 08:37 Oxygen Delivery Method Nasal Cannula 02/21/23 08:37 Oxygen Flow Rate 2 02/21/23 08:37 Sign Out <Margaux Garcia NP - Last Filed: 02/21/23 23:03> Sign Out Data: Sign Out Comment: Stage III end-stage renal patient on dialysis normally gets dialysis Friday. Missed his dialysis appointment today. Presents for shortness of breath weakness nausea vomiting diarrhea and chronic deconditioning. He is on 2 L nasal cannula normally uses a walker at home. PT eval done here in the department and home health ordered. [facility] unable to take patient at this time. They were unable to take him for dialysis today. To be transferred to [place] ER for dialysis and possible admission for weakness. Accepted by Dr. Winston Last updated by Margaux Garcia NP at 02/21/23 16:22
[2023-02-21 09:26] LABS: Abs Immature Grans 0.22 10^3/uL (0.0-0.06); Absolute Basophil Count 0.06 10^3/uL (0.0-0.2); Absolute Eosinophil Count 0.15 10^3/uL (0.0-0.7); Absolute Lymphocyte Count 1.42 10^3/uL (1.2-3.4); Absolute Monocyte Count 0.87 10^3/uL (0.1-0.8); Absolute Neutrophil Count 8.35 10^3/uL (1.2-6.7); Basophils % 0.5; Eosinophils % 1.4; HCT 33.1 % (40.0-50.0); HGB 10.3 g/dL (13.5-17.5); Lymphocytes % 12.8; MCH 31.2 pg (27.0-33.0); MCHC 31.1 % (32.0-36.0); MCV 100 fL (80-95); MPV 11.6 fL (8.0-11.0); Monocytes % 7.9; Neutrophils % 75.4; Platelet Count 240 10^3/uL (130-400); RDW 15.9 % (11.8-14.1); RDW-SD 57.7 fL; WBC 11.07 10^3/uL (4.4-10.8)
[2023-02-21 09:43] LABS: Bilirubin Negative (Negative); Blood Moderate (Negative); Clarity Sl Cloudy (Clear); Glucose >=1000 mg/dL (Negative); Ketones Trace mg/dL (Negative); Leukocyte Esterase Small (Negative); Nitrite Negative (Negative); Specific Gravity 1.015 (1.005-1.025); Urobilinogen 0.2 mg/dL (Up to 0.2)
[2023-02-21 09:46] LABS: ALT 16 U/L (16-63); AST 9 U/L (15-37); Albumin 3.1 g/dL (3.4-5.0); Alkaline Phosphatase 93 U/L (46-116); BUN 32 mg/dL (7-18); Bilirubin, Total 0.3 mg/dL (0.2-1.0); Chloride 97 mmol/L (98-107); Glucose 425 mg/dL (74-106); Lipase < 10 U/L (16-77); Magnesium 1.8 mg/dL (1.8-2.4); Potassium 5.1 mmol/L (3.5-5.1); Sodium 132 mmol/L (136-145); Total Protein 6.4 g/dL (6.4-8.2); Troponin I < 50 ng/L (<or=60)
[2023-02-21 09:48] LABS: CREATININE 4.4 mg/dL (0.70-1.30)
[2023-02-21 09:55] LABS: Bacteria Negative HPF (Negative); C & S Indicated? Yes; Casts Negative LPF (Negative); Crystals Negative HPF (Negative); Epithelial Cells Rare HPF (Negative); Mucus Negative (Negative); RBC >50 HPF (0-2); WBC >50 HPF (0-5)
[2023-02-21 10:15] LABS: Lab Add On Test DONE
[2023-02-21 10:43] LABS: INR 1.1 (0.9-1.1)
[2023-02-21 10:46] LABS: NT-proBNP 2520 pg/mL (<300)
--- NOTE | 2023-02-21 11:30 | DI.CT_ITS ---
Exam(s) CT HEAD CERVICAL SPINE WO EXAM: CT HEAD CERVICAL SPINE WO CLINICAL HISTORY: Fall, Head Injury, Neck pain, On Eliquis. TECHNIQUE: Imaging Protocol: Axial computed tomography images with coronal and sagittal reformatted images were created and reviewed COMPARISON: CT CT HEAD CERVICAL SPINE WO from 11/28/2022 FINDINGS: BRAIN: There are no skull fractures. Evidence of previous right maxillary sinus surgery. There is no evidence of intracranial hemorrhage, mass effect, or shift of midline structures. There are no extra-axial fluid collections. The ventricles are not enlarged or shifted and there is no blo od within the ventricular system nor within the basal cisterns. Periventricular hypodensity again noted consistent with chronic small vessel disease, similar to prev ious. No obvious new territorial infarct. CERVICAL SPINE: There is no evidence of fracture nor significant new listhesis. No significant prevertebral soft tis jordana swelling. Disc spaces are relatively well preserved. Posterior annular bulging at C5-6 again noted. There is facet arthropathy again evident. There is no significant facet joint malalignment. No significant osseous lesions evident. IMPRESSION: No acute intracranial findings on this noninfused CT scan of the brain.Chronic small-vessel white mat ter ischemic changes again noted No evidence of cervical spine fracture, malalignment, nor acute compromise of the cervical spinal can al. Called by myself to ER RADIATION DOSE DELIVERED: Total DLP DATA REPOSITORY: All CT scans at this facility are submitted to the National Radiology Data Registry (NRDR) Dose Index Registry (DIR) with the [employer] (ACR). RADIATION OPTIMIZATION: All CT scans at this facility use at least one of these dose optimization te chniques: automated exposure control; mA and/or kV adjustment per patient size (includes targeted exa ms where dose is matched to clinical indication); or iterative reconstruction.
[2023-02-21 12:20] LABS: Troponin I < 50 ng/L (<or=60)
--- NOTE | 2023-02-21 13:00 | IN_ITS ---
PT Notes Visit Reasons: [facility] Physical Therapy Inpatient Initial Evaluation Date: 02/21/2023 Referring Doctor: Margaux Garcia NP PT Orders: PT CONSULT: Safety consult for D/C. Fall safety assessment Precautions: Fall. Standard. Activity as tolerated. Patient Profile/Admitting Diagnosis: Alvaro is a 77-year-old male admitted to the ED due to frequent falls generalized weakness and, and shortness of breath. Referral to PT was made in order to provide recommendations for safe discharge destination. 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) Basal cell carcinoma of multiple sites (Acute) Leucocytosis (Chronic) Palpitations (Acute) Exertional shortness of breath (Chronic) Neoplasm of unspecified nature of bone, soft tissue, and skin (Acute 06/19/15) Medical History Actinic keratosis (05/01/16) Anemia Basal cell carcinoma of skin (03/11/16) Bilateral cataracts Coronary Artery Disease Depression Diabetes mellitus Diabetic foot ulcer Diabetic ulcer of left foot ESRD on hemodialysis GERD (gastroesophageal reflux disease) Hoarseness Hyperkalemia Moderate pulmonary hypertension Orthostatic hypotension Paroxysmal atrial fibrillation with rapid ventricular response Perihepatic abscess RBBB (right bundle branch block) Renal cell carcinoma of left kidney (05/30/17) Shortness of breath Supraventricular tachycardia Toe infection Tubular adenoma of colon (12/18/16) Surgical History Colonoscopy - MAC (12/18/16) Completion of amputation (09/30/12) L great toeEGD - MAC (12/18/16) H/O partial nephrectomy x3 Heart Stent (12/03/11) Pt records show heart stent placed 12/[facility]11 [facility]. 12.02.13HEHx of cardiac cath x2, per patient Lobectomy Pt states 2 lobes removed from R. lung. No date given. 12.02.12HE Osteotomy Partial & Debridment of first metatarsal on Left foot.S/P hemodialysis catheter insertion Social History/Home Situation: Lives with who herself is physically handicapped and is wheelchair-bound. Patient goes to dialysis at [facility] 3 times a week. independent with all aspects of ADLs without an assistive device although patient admittedly states that he has been falling. Equipment Owned/DME: [facility] Subjective: Realizes increasing weakness due to chronic effect of hemodialysis and co- morbidities above and is agreeable to using front-wheeled walker to increase stability and reduce fall risk while increasing activity tolerance. Objective: General Observation: Supine in bed. Oxygen supplementation at 4 L/min via NC. Telemetry monitoring in place. Mental Status: Alert and oriented as to person, place, time, and purpose. Able to pay attention, focus, and respond appropriately. Pain: Denies Vital Signs: Closely moniored via tele. Oxygen saturation went down to the low 70s% with short distance ambulation using FWW ROM: Right Upper Extremity: Shoulder Flexion WFL. Shoulder abduction WFL. Elbow flexion WFL. Wrist flexion WFL. Functional opening and closing of hand WFL. Left Upper Extremity: Shoulder Flexion WFL. Shoulder abduction WFL. Elbow flexion WFL. Wrist flexion WFL. Functional opening and closing of hand WFL. Right Lower Extremity: Hip flexion WFL. Hip abduction WFL. Knee flexion WFL. Ankle dorsiflexion to neutral only. Ankle plantarflexion WFL. Left Lower Extremity: Hip flexion WFL. Hip abduction WFL. Knee flexion WFL. Ankle dorsiflexion to neutral only . Ankle plantarflexion WFL. Strength: Right Upper Extremity: Shoulder flexors 3+/5. Shoulder abductors 3+/5. Elbow flexors 4-/5. Elbow extensors 4-/5. Technology Lab Teacher strong. Left Upper Extremity: Shoulder flexors 3+/5. Shoulder abductors 3+/5. Elbow fle xors 4-/5. Elbow extensors 4-/5. Technology Lab Teacher strong. Right Lower Extremity: Hip flexors 3+/5. Hip abductors 3+/5. Knee flexors 4-/5. Knee extensors 4-/5. Ankle dorsiflexors 3-/5. Ankle plantarflexors 4-/5. Left Lower Extremity: Hip flexors 3+/5. Hip abductors 3+/5. Knee flexors 4-/5. Knee extensors 4-/5. Ankle dorsiflexors 3-/5. Ankle plantarflexors 4-/5. Bed Mobility/Transfers: Supine to sit stand by assist with cues provided to use B UE for support and for safety Sit to supine stand by assist with cues provided to use B UE for support and for safety Sit to stand contact guard assist with cues provided to use B UE for support, appeared more stable with use of FWW Stand to sit stand by assist with cues provided to use B UE for support, appeared more stable with use of FWW Bed to reclining chair stand by assist with cues provided to use B UE for support, appeared more stable with use of FWW Reclining chair to bed stand by assist with cues provided to use B UE for support, appeared more stable with use of FWW Gait: Facilitated safe and correct performance of level surface ambulation using FWW with step through gait pattern covering a distance of about 50 feet before patient desaturated to the low 70s% on room air limiting distance covered. Stand by assist initially but provided contact guard when oxygen saturation went below normal limit to ensure safety. Step height and length asymmetric. Mylene decreased. Mildly short of breath but resolved with rest. Balance: Static Sitting: Good Dynamic Sitting: Fair Static Standing: Fair Dynamic Standing: Fair Special Tests: Mobility Limitations Standardized Measure [facility] AM-PAC 6 clicks Basic Mobility Inpatient Short Form: Raw Score: 21 CMS Score: 21% deficit Informed Consent/Education: Patient was instructed in purpose of PT consult and plan of care. Agreeable to proceed with established PT POC to achieve personal goals. Assessment: Appeared more stable and better able to conserve energy with use of FWW. Will benefit from continued use of oxygen supplementation to minimize onset of fatigue while increasing activity tolerance. Patient presents with clinical signs and symptoms consistent with current/admitting diagnoses that have resulted to mobility limitations, gait instability, generalized weakness, and overall ADL decline as demonstrated by the following impairment level findings: 1. Decreased strength to B UE/LE major muscle groups 2. Impaired sitting/standing balance 3. Impaired activity tolerance 4. Shortness of breath Impairments are contributing to the following functional limitations: 1. Difficulty with ambulation without assistive device 2. Increased completion time for mobility ADL performance 3. Increased risk for falls 4. Difficulty with managing steps alone safely Patient is assessed as a [id number] complexity based on the following: History:77 year-old male with past medical history as indicated above Examination: Demonstrable impairment in strength, balance, and mobility level with underlying impairments and functional limitations as exhibited above as well as deficit score of 21% utilizing the [facility] Mobility Inpatient Short Form Presentation: Evolving Decision Makin mderate complexity Goals: N/A. PT evaluation in 1 treatment session only for functional mobility training and safety recommendations. Plan of Care/Treatment Plan: N/A. PT evaluation in 1 treatment session only for functional mobility training and safety recommendations. DISCHARGE RECOMMENDATIONS: [] Home with no services [] [X patient will benefit from home health PT services in order to progress mobility level using least restrictive assistive ambulatory device, assess home safety, identify additional equipment needs, and establish a functional maintenance program that will increase ability of patient to remain at home.] Home with services. [] Home with outpatient PT [] [] SNF for continued rehabilitation [] [] Penitentiary Care [] [] SNF versus LTC based on ability to participate and progress [] TREATMENT CODE/TIME: 04762 x 21 minutes for 1 unit beginning 13:00 PM. Thank you for the opportunity to participate in the care of this patient. Ivis Ibrahim PT, DPT, CLT [facility] [place], [place]
--- NOTE | 2023-02-21 13:10 | DI.RAD_ITS ---
Exam(s) XR CHEST 1V IN DI DEPT EXAM: XR CHEST 1V IN DI DEPT CLINICAL HISTORY: SOB. TECHNIQUE: 2D digital imaging was performed. COMPARISON: CR XR PORTABLE CHEST AP from 02/19/2023 FINDINGS: Single AP portable view. Distal tip of what appears to be a probable right supra clavi dialysis catheter is in the right atriu m. Heart size is upper normal. The mediastinum is not widened. There is a moderate size right pleural effusion which has not decreased in size. Some infiltrate not ed in both lung bases. Mild improvement in the left lung base infiltrate. No obvious pleural effusi on on the left side. IMPRESSION: Persistent moderate size right pleural effusion. Persistent left lung base infiltrate with minimal improvement. No obvious pleural fluid on the left side. DATA REPOSITORY: RADIATION DOSE DELIVERED:
[2023-02-21 13:57] LABS: Source Nasal/Nares
[2023-02-21 14:28] LABS: COVID-19 PCR Negative (Negative)
--- NOTE | 2023-02-21 15:10 | DI.CT_ITS ---
Exam(s) CT ABDOMEN PELVIS WO EXAM: CT ABDOMEN PELVIS WO CLINICAL HISTORY: N/V/D. TECHNIQUE: Imaging Protocol: Axial computed tomography images with coronal and sagittal reformatted images were created and reviewed CONTRAST MATERIAL: Intravenous: none Oral: None COMPARISON: CT CT CHEST PE ABD PELVIS W from 11/27/2022 CR XR CHEST 2V PA LATERAL from 11/28/2022 CR XR PORTABLE CHEST AP from 02/19/2023 FINDINGS: VISUALIZED LUNG BASES: Please note that this patient has been shown on previous chest CT scan to have a right-sided aortic arch.. There is persistent infiltrate in the right lower lobe. Minimal amount of pleural fluid. There is also some infiltrate in the left lung base although this exhibits some i mprovement from 11/27/[address] scan. Heart size is normal but there is now a pericardial effusion now evident which en circles the heart a nd exhibits relatively uniform thickness of 1 cm. Coronary artery calcifications noted. Dialysis ca theter in the lower SVC-RA junction. ABDOMEN: There is some haziness of the mesentery around the liver but with out true fluid ascites. LIVER: Liver appears upper normal size. There are no distinct focal hepatic lesions. GALLBLADDER/BILIARY: No obvious gallbladder pathology. CBD is not dilated. PANCREAS: No evidence of pancreatic mass nor dilatation of the pancreatic duct. SPLEEN: Multiple sclerotic granulomas are noted. Spleen size is upper normal. ADRENALS: There are no significant adrenal masses. KIDNEYS:Mild perinephric streaking noted bilaterally. Evidence of prior surgery in the lower pole re gion of the left kidney. No renal masses nor calculi nor hydronephrosis. No obvious cysts.. ABDOMINAL AORTA: Aorta is calcified but not enlarged. Common iliac arteries also calcified but not e nlarged. LYMPH NODES: There is no retroperitoneal nor paraaortic adenopathy. ABDOMINAL WALL: No evidence of significant anterior abdominal wall nor inguinal hernia. GI: There is no evidence of bowel obstruction, free air, nor abscess. PELVIS: LYMPH NODES: There is no intrapelvic nor inguinal adenopathy. GI: No evidence of appendicitis.No evidence of sigmoid diverticulitis. URINARY BLADDER: There is diffuse thickening of the urinary bladder wall including at the level both ureterovesical junctions. However, the ureters are not dilated. There is no gas within the urinary bladder wall. REPRODUCTIVE: Prostate exhibits moderate enlargement. Seminal vesicles unremarkable. OSSEOUS: Fractures of the left 12th, 11th, 10th ribs noted. No vertebral compression fractures nor l isthesis. Moderate disc space narrowing L5-S1. Slight loss of height of L2 superior endplate which does not have acute appearance. IMPRESSION: 1. Persist int right lower lobe infiltrate. Left rib fractures again noted lower left 3 ribs. 2. New pericardial effusion with uniform thickness approximately 9-10 mm, not previously present on C T scan of 11/27/2022. 3. Evidence of prior surgery lower pole left kidney. Some perinephric streaking is again noted. No new renal findings and no hydronephrosis. 4. There is diffuse thickening of the urinary bladder wall either related to cystitis and/or uroepit helial neoplasm. Ureters do not appear obstructed. 5. No ascites but there is some mesenteric haziness anterior to the right hepatic lobe evident. Findings as above. RADIATION DOSE DELIVERED: Total DLP DATA REPOSITORY: All CT scans at this facility are submitted to the National Radiology Data Registry (NRDR) Dose Index Registry (DIR) with the [employer] (ACR). RADIATION OPTIMIZATION: All CT scans at this facility use at least one of these dose optimization te chniques: automated exposure control; mA and/or kV adjustment per patient size (includes targeted exa ms where dose is matched to clinical indication); or iterative reconstruction.
[2023-02-21] MEDS: Normal Saline 1,000 ML 150 ML IV (16:01)
[2023-02-21] MEDS: Ondansetron 4 MG/2 ML VIAL IVP (16:01)
[2023-02-21 16:23] LABS: BE (Venous) 3 mmol/L (-2-3); HCO3 (Venous) 28 mmol/L (23-28); O2 Sat (Venous) 53 %; TCO2 (Venous) 27 mmol/L (24-29); pCO2 (Venous) 49 mmHg (41-51); pH (Venous) 7.36 (7.31-7.41); pO2 (Venous) 30 mmHg
--- NOTE | 2023-02-21 18:05 | NUR.NOTE ---
Nursing Note: Pt updated multiple times with plan of care. Pt has personal cell phone for use and call light within reach. Pt demonstrated effective use of call light. pt thanked this RN for care.
--- NOTE | 2023-02-21 20:08 | NUR.NOTE ---
Nursing Note: Report called to [facility] ER. Report given in SBAR format for proper clarity.
== END 2023-02-21 20:09 | disposition short-term general hospital (02) ==
PROVIDERS: Registered Nurse Emergency; Emergency Provider Physician Assistant; PCP Family Medicine
DX: J44.9 Chronic obstructive pulmonary disease, unspecified (principal); R19.7 Diarrhea, unspecified; R53.1 Weakness; T82.9XXA Unspecified complication of cardiac and vascular prosthetic device, implant and graft, initial encounter; N18.6 End stage renal disease
CPT/HCPCS: 36415; 80053; 82805; 83690; 87635; 93005; 96374; 97162; 99285; 70450; 71045; 72125; 74176; 81003; 81015; 83735; 83880; 84484; 85025; 85610; 85730; 87086; 93010; J2405

== ENCOUNTER 2023-03-09 11:42 | Emergency (ER) | payer MEDICARE, BC, SELFPAY ==
[2023-03-09] VITALS (29 sets, daily range): BP systolic 104–136; BP diastolic 41–73; PULSE 86–156; RESP 16–27; O2SAT 90–100
--- NOTE | 2023-03-09 11:30 | RT.EKG_ITS ---
APPROVED REPORT Exam: Resting ECG Reason for Exam: Chest Pain Patient Location: E HR:91 bpm ECG Measurements Heart Rate 91 AXIS WI 191 P -9 QRSd 114 QRS 59 QT 368 T -15 QTc 453 Conclusion Sinus rhythm...normal P axis, V-rate 60- 99 IRBBB and LPFB...RAD, QRSd>120, term axis(90,270) Low voltage, extremity and precordial leads...extremity<0.5mV, precordial<1.0mV
[2023-03-09 12:04] LABS: Abs Immature Grans 0.25 10^3/uL (0.0-0.06); Absolute Basophil Count 0.04 10^3/uL (0.0-0.2); Absolute Eosinophil Count 0.09 10^3/uL (0.0-0.7); Absolute Lymphocyte Count 1.17 10^3/uL (1.2-3.4); Absolute Neutrophil Count 9.25 10^3/uL (1.2-6.7); Basophils % 0.3; Eosinophils % 0.8; HCT 31.1 % (40.0-50.0); HGB 9.5 g/dL (13.5-17.5); Immature Grans % 2.1; Lymphocytes % 9.9; MCHC 30.5 % (32.0-36.0); MCV 102 fL (80-95); MPV 11.3 fL (8.0-11.0); Monocytes % 8.5; Neutrophils % 78.4; Platelet Count 334 10^3/uL (130-400); RBC 3.06 10^6/uL (4.36-5.78); RDW 15.9 % (11.8-14.1); RDW-SD 58.6 fL
[2023-03-09 12:21] LABS: ALT 6 U/L (16-63); AST 7 U/L (15-37); Albumin 2.8 g/dL (3.4-5.0); Alkaline Phosphatase 95 U/L (46-116); Anion Gap 6.4 mmol/L (3-11); BUN 40 mg/dL (7-18); Bilirubin, Total 0.3 mg/dL (0.2-1.0); CO2 26.6 mmol/L (21.0-32.0); Calcium 9.1 mg/dL (8.5-10.1); Chloride 97 mmol/L (98-107); Estimated GFR 13.47 (mL/min/1.73m2); Glucose 386 mg/dL (74-106); Magnesium 1.4 mg/dL (1.8-2.4); Potassium 5.2 mmol/L (3.5-5.1); Sodium 130 mmol/L (136-145); Total Protein 6.4 g/dL (6.4-8.2); Troponin I < 50 ng/L (<or=60)
[2023-03-09 12:28] LABS: CREATININE 4.3 mg/dL (0.70-1.30)
--- NOTE | 2023-03-09 12:30 | DI.RAD_ITS ---
Exam(s) XR PORTABLE CHEST AP EXAM: XR PORTABLE CHEST AP CLINICAL HISTORY: chest pain TECHNIQUE: 2D digital imaging was performed of the chest. One image was obtained. An AP view was ob tained. COMPARISON: CR XR PORTABLE CHEST AP from 02/19/2023 FINDINGS: Examination limited by decreased inspiration and patient positioning. MEDIASTINUM: Normal. HEART: Normal. PULMONARY VASCULATURE: Normal. LUNGS: There are bilateral interstitial infiltrates which have progressed since the prior examination . PLEURAL SPACE: There is an enlarging right pleural effusion. BONE:Within normal limits for the patient's age. OTHER FINDINGS:The dual lumen central venous catheter is stable in position. IMPRESSION: 1. Interval progression of the bilateral infiltrates and right pleural effusion. DATA REPOSITORY: RADIATION DOSE DELIVERED:
[2023-03-09] MEDS: Magnesium Oxide 400 MG TAB PO (13:10)
--- NOTE | 2023-03-09 13:12 | DI.VRAD_ITS ---
PROCEDURE INFORMATION: Exam: XR Chest Exam date and time: 03/09/2023 1:00 PM Age: 77 years old Clinical indication: Other: Chest pain TECHNIQUE: Imaging protocol: Radiologic exam of the chest. Views: 1 view. COMPARISON: CR XR CHEST 1V IN DI DEPT 21/02/2023 15:12 FINDINGS: Tubes, catheters and devices: Right IJ central line in place unchanged from prior study. Lungs: Progression of bilateral interstitial infiltrates. Pleural spaces: Enlarging right pleural effusion. Heart/Mediastinum: Stable cardiomediastinal silhouette. Bones/joints: Unremarkable for patient's age. IMPRESSION: 1. Interval progression of bilateral pneumonia. 2. Enlarging right pleural effusion. Dictated and Authenticated by: Latesha Ochoa MD. Ordering:BOBBY Horan MD
--- NOTE | 2023-03-09 13:25 | ED.GENADUL_ITS ---
Discharge Plan Disposition Patient Disposition: Against Medical Advice Discharge Details Clinical Impression: Pneumonia, Acute hyperkalemia, Pleural effusion, Chest pain Primary Care Provider: Zakiya Reyna ED Provider: Aung Hanson Home Meds and New Rx's Prescriptions: New amoxicillin-pot clavulanate 875-125 mg tablet 1 tab PO BID Qty: 14 0RF doxycycline hyclate 100 mg capsule 100 mg PO BID Qty: 10 0RF Continued fluticasone propion-salmeterol [Advair HFA] 115-21 mcg/actuation HFA aerosol inhaler 2 puff inhalation BID Qty: 12 12RF Rx Instructions: Wash mouth after use nitroglycerin 0.4 MG tablet, sublingual 0.4 mg Sublingual ONCE PRN Patient Comments: has never used it at home cholecalciferol (vitamin D3) 1,000 UNIT tablet 1,000 unit PO DAILY Patient Comments: sometimes Breztri Aerosphere 160-9-4.8 mcg/actuation HFA aerosol inhaler 2 inh inhalation BID Qty: 10.7 12RF Patient Comments: not on med list aspirin [Aspir-81] 81 MG tablet,delayed release (DR/EC) 81 mg PO DAILY multivitamin 1 EACH capsule 1 ea PO DAILY Patient Comments: I think, sometimes atorvastatin [Lipitor] 40 MG tablet 40 mg PO HS Patient Comments: I think so ascorbic acid (vitamin C) [Vitamin C] 1,000 MG tablet 500 mg PO DAILY Patient Comments: sometimes albuterol sulfate [Proventil HFA] 6.7 GM HFA aerosol inhaler 2 inh PO Q4H PRN PRN tamsulosin 0.4 mg Capsule 0.4 mg PO DIRECTED Patient Comments: QOD insulin glargine [Lantus Solostar U-100 Insulin] 100 unit/mL (3 mL) insulin pen 26 unit SUBCUT HS cyclobenzaprine 10 mg tablet 10 mg PO TID PRNQty: 20 0RF bupropion HCl 100 mg tablet sustained-release 12 hr 150 mg PO BID Patient Comments: TAKE ONE TABLET BY MOUTH TWICE A DAY oxycodone 10 mg tablet 20 mg PO BID Patient Comments: TAKE TWO TABLETS BY MOUTH EVERY DAY - MAX DAILY DOSE OF 2 PER DAY metoprolol tartrate [Lopressor] 50 mg tablet 50 mg PO BID Fiasp FlexTouch U-100 Insulin 100 unit/mL (3 mL) insulin pen 2 - 6 unit SUBCUT BID cyanocobalamin (vitamin B-12) [Vitamin B-12] 1,000 mcg Tablet 1,000 mcg PO DAILY Patient Comments: sometimes sennosides [senna] 8.6 mg Tablet 8.6 mg PO DAILY midodrine 2.5 mg tablet 5 mg PO TID Patient Comments: TAKE ONE TABLET BY MOUTH THREE TIMES A DAY BEFORE MEALS Eliquis 2.5 mg tablet 2.5 mg PO BID Patient Comments: TAKE ONE TABLET BY MOUTH TWICE A DAY Victoza 2-Edy 0.6 mg/0.1 mL (18 mg/3 mL) pen injector 1.8 mg SUBCUT DAILY Patient Comments: INJECT 0.6MG UNDER THE SKIN ONCE DAILY Spiriva Respimat 2.5 mcg/actuation mist 2 spray INHALATION PRN PRN Patient Comments: Inhale 2 puff as directed once a day Discontinued sertraline 50 MG tablet 100 mg PO DAILY Hold Instructions: In don't even know what that is pantoprazole 40 mg tablet,delayed release (DR/EC) 40 mg PO DAILY polyethylene glycol 3350 [Miralax] 17 gram Powder In Packet 17 g PO BID Patient Comments: Per pt pharmacy, pt not taking. trazodone 50 mg tablet 50 mg PO HS Hold Instructions: No. I don't know. No. Patient Comments: TAKE ONE-HALF TABLET BY MOUTH EVERY EVENING insulin lispro [Humalog KwikPen Insulin] 100 unit/mL Insulin Pen 1 sliding scale dose SUBCUT USEASDIRECTD Patient Comments: Per pt pharmacy, no current rx. Pt not taking. prednisone 20 mg tablet 50 mg PO DAILY Hold Instructions: Pt Stopped/Never Started Patient Comments: Per pt pharmacy, one time rx. Pt not taking. prednisone 50 mg tablet 50 mg PO DAILY Qty: 5 0RF Hold Instructions: Pt Stopped/Never Started Patient Comments: Per pt pharmacy, one time rx. Pt not taking. Discharge Instructions Instructions: Pneumonia (ED) Additional Instructions: Please take full course of antibiotic as prescribed. Please go to your dialysis tomorrow. You are leaving AGAINST MEDICAL ADVICE and may have life-threatening or lifestyle modifying disease and will go untreated. Please follow-up with your doctor. Please return to the ER at any time should you desire treatment as recommended. Referrals: Zakiya Reyna MD [Primary Care Provider] - Medical Decision Making 1325 --77-year-old male with multimedical problems including history of end- stage renal disease on hemodialysis, here with chest pain and shortness of breath with cough. Patient was recently hospitalized. History regarding hospitalization unclear as patient is poor historian as is his . We will attempt to obtain discharge summary from [facility]. EKG was reviewed and interpreted by me: Please see report, sinus rhythm 91 bpm, T wave inversions noted V1 and V2, right bundle branch block pattern present, T wave inversions more pronounced than prior. Initial labs reviewed and mild leukocytosis of 11.8 noted. Patient is anemic wi th hemoglobin 9.5. Mild hyperkalemia noted with potassium 5.2. Patient is hyperglycemic with glucose of 386. He has no anion gap acidosis. Chest x-ray was interpreted by radiology: Interval progression of bilateral pneumonia. Enlarging right pleural effusion. Imaging was compared to recent chest x-ray from 02/21/2023. Plan to initiate treatment with ceftriaxone IV and doxycycline IV. 1504 --still waiting on labs discharge summary from [facility]. Patient requires admission for ongoing IV antibiotics. We do not have the capability to admit the patient here given no dialysis. I have called [facility] transfer center to request transfer. Awaiting callback. 1535 --delta troponin negative. [facility] transfer center called back and noted that they had no capacity to accept the patient transfer. I will contact [facility] as he was most recently hospitalized there. 1555 --I discussed treatment plan with the patient.. Patient declines plan and wishes to leave against medical advise. I reiterated my concerns to the patient and explained the risks of leaving prior to completion of workup and treatment. I specifically emphasized the possibility of life-threatening or lifestyle modifying disease that would not be appropriately treated if they leave. Patient verbalized understanding of my concerns and the potential for life threatening or lifestyle modifying disease. Patient has capacity to make informed decision. I again explained my concerns and urged the patient to stay for treatment as outlined. Patient continued to refuse. I then discussed potential less ideal alternatives to diagnostic/treatment plan as outlines and patient refused. I recommended that the patient follow-up with primary care physician MAUREEN or return to the Emergency Department at any time for further treatment. I recommended patient have his dialysis as scheduled tomorrow. I will prescribe oral antibiotics. Lab Data Lab results reviewed: Yes I reviewed the patient's lab results. Labs: 03/09/23 14:17 Blood Blood Culture - Pending 03/09/23 14:07 Blood Blood Culture - Pending Laboratory Tests Range/Units 03/09/23 03/09/23 11:30 14:07 WBC (4.4-10.8) 10^3/uL 11.80 H RBC (4.36-5.78) 10^6/uL 3.06 L Hgb (13.5-17.5) g/dL 9.5 L Hct (40.0-50.0) % 31.1 L MCV (80-95) fL 102 H MCH (27.0-33.0) pg 31.0 MCHC (32.0-36.0) % 30.5 L RDW (11.8-14.1) % 15.9 H Plt Count (130-400) 10^3/uL 334 MPV (8.0-11.0) fL 11.3 H Immature Gran % 2.1 Neutrophils % 78.4 Lymphocytes % 9.9 Monocytes % 8.5 Eosinophils % 0.8 Basophils % 0.3 Nucleated RBC % (0.0-0.3) % 0.0 Absolute Neutrophils (1.2-6.7) 10^3/uL 9.25 H Absolute Lymphocytes (1.2-3.4) 10^3/uL 1.17 L Absolute Monocytes (0.1-0.8) 10^3/uL 1.00 H Absolute Eosinophils (0.0-0.7) 10^3/uL 0.09 Absolute Basophils (0.0-0.2) 10^3/uL 0.04 VBG Lactate (0.6-1.4) mmol/L 0.9 Sodium (136-145) mmol/L 130 L Potassium (3.5-5.1) mmol/L 5.2 H Chloride (98-107) mmol/L 97 L Carbon Dioxide (21.0-32.0) mmol/L 26.6 Anion Gap (3-11) mmol/L 6.4 BUN (7-18) mg/dL 40 H Creatinine (0.70-1.30) mg/dL 4.3 H* Est GFR (CKD-EPI 2020) (mL/min/1.73m2) 13.47 Glucose (74-106) mg/dL 386 H Calcium (8.5-10.1) mg/dL 9.1 Magnesium (1.8-2.4) mg/dL 1.4 L Total Bilirubin (0.2-1.0) mg/dL 0.3 AST (15-37) U/L 7 L ALT (16-63) U/L 6 L Alkaline Phosphatase (46-116) U/L 95 Troponin I (<or=60) ng/L < 50 Total Protein (6.4-8.2) g/dL 6.4 Albumin (3.4-5.0) g/dL 2.8 L Procalcitonin ng/mL 0.1 HPI General Date/Time Provider Initiated Documentation: 03/09/23 11:43 . Related Data Home Medications Medication Instructions Recorded Confirmed aspirin 81 mg tablet,delayed 81 mg PO DAILY 09/25/12 03/09/23 release (Aspir-) multivitamin 1 ea PO DAILY 09/25/12 03/09/23 cholecalciferol (vitamin D3) 25 1,000 unit PO DAILY 09/21/15 03/09/23 mcg (1,000 unit) tablet nitroglycerin 0.4 mg sublingual 0.4 mg sublingual ONCE PRN 09/21/15 03/09/23 tablet albuterol sulfate 90 mcg/actuation 2 inh PO Q4H PRN PRN 02/16/17 03/09/23 aerosol inhaler (Proventil HFA) ascorbic acid (vitamin C) 1,000 mg 500 mg PO DAILY 02/16/17 03/09/23 tablet (Vitamin C) atorvastatin 40 mg tablet (Lipitor) 40 mg PO HS 02/16/17 03/09/23 cyanocobalamin (vitamin B-12) 1,000 mcg PO DAILY 09/22/19 02/21/23 1,000 mcg tablet (Vitamin B-12) insulin glargine 100 unit/mL (3 26 unit subcut HS 04/24/20 03/09/23 mL) subcutaneous pen (Lantus Solostar U-100 Insulin) tamsulosin 0.4 mg capsule 0.4 mg PO DIRECTED 04/24/20 02/21/23 apixaban 2.5 mg tablet (Eliquis) 2.5 mg PO BID 06/05/21 03/09/23 midodrine 2.5 mg tablet 5 mg PO TID 06/05/21 03/09/23 sennosides 8.6 mg tablet (senna) 8.6 mg PO DAILY 06/05/21 02/21/23 fluticasone propionate 115 2 puff inhalation BID #12 grams 11/20/21 03/09/23 mcg-salmeterol 21 mcg/actuation HFA inhaler (Advair HFA) budesonide 160 mcg-glycopyr 9 2 inh inhalation BID #10.7 grams 11/26/21 03/09/23 mcg-formot 4.8 mcg/actuation HFA inhaler (Breztri Aerosphere) cyclobenzaprine 10 mg tablet 10 mg PO TID PRN #20 tabs 01/15/22 03/09/23 liraglutide 0.6 mg/0.1 mL (18 mg/3 1.8 mg subcut DAILY 01/18/22 03/09/23 mL) subcutaneous pen injector (Victoza 2-Edy) tiotropium bromide 2.5 2 spray inhalation PRN PRN 01/18/22 03/09/23 mcg/actuation mist for inhalation (Spiriva Respimat) bupropion HCl 100 mg tablet,12 hr 150 mg PO BID 09/08/22 03/09/23 sustained-release oxycodone 10 mg tablet 20 mg PO BID 09/08/22 03/09/23 insulin aspart 2 - 6 unit subcut BID 11/24/22 03/09/23 (niacinamide)(U-100) 100 unit/mL(3 mL) subcutaneous pen (Fiasp FlexTouch U-100 Insulin) metoprolol tartrate 50 mg tablet 50 mg PO BID 11/24/22 03/09/23 (Lopressor) amoxicillin 875 mg-potassium 1 tab PO BID #14 tabs 03/09/23 clavulanate 125 mg tablet doxycycline hyclate 100 mg capsule 100 mg PO BID #10 caps 03/09/23 Previous Rx's Medication Instructions Recorded fluticasone propionate 115 2 puff inhalation BID #12 grams 11/20/21 mcg-salmeterol 21 mcg/actuation HFA inhaler (Advair HFA) budesonide 160 mcg-glycopyr 9 2 inh inhalation BID #10.7 grams 11/26/21 mcg-formot 4.8 mcg/actuation HFA inhaler (Breztri Off [employer]) cyclobenzaprine 10 mg tablet 10 mg PO TID PRN #20 tabs 01/15/22 amoxicillin 875 mg-potassium 1 tab PO BID #14 tabs 03/09/23 clavulanate 125 mg tablet doxycycline hyclate 100 mg capsule 100 mg PO BID #10 caps 03/09/23 Allergies Allergy/AdvReac Type Severity Reaction Status Date / Time pneumococcal vaccine Allergy Severe Swelling/Ed Verified 03/09/23 11:48 nandini sulfamethoxazole Allergy difficulty Verified 03/09/23 11:48 [From Bactrim] breathing trimethoprim [From Bactrim] Allergy difficulty Verified 03/09/23 11:48 breathing General Stated Complaint: Chest Pain MESERET: 2 PFSH All Active Problems (Updated 03/09/23 @ 15:59 by Aung Hanson MD) Chest pain (Acute) Pleural effusion (Acute) Acute hyperkalemia (Acute) Pneumonia (Acute) Dialysis complication (Acute) Weakness (Acute) Diarrhea (Acute) Acute hyperkalemia (Acute) Diarrhea (Acute) Acute hyperglycemia (Acute) Diabetes (Chronic) Pulmonary scarring (Acute) Chronic respiratory failure with hypoxia (Acute) 2L of O2 by NC COPD (chronic obstructive pulmonary disease) (Chronic) Bronchiectasis (Acute) 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) Basal cell carcinoma of multiple sites (Acute) Leucocytosis (Chronic) Palpitations (Acute) Exertional shortness of breath (Chronic) Neoplasm of unspecified nature of bone, soft tissue, and skin (Acute 06/19/15) Medical History Actinic keratosis (05/01/16) Anemia Basal cell carcinoma of skin (03/11/16) Bilateral cataracts Coronary Artery Disease Depression Diabetes mellitus Diabetic foot ulcer Diabetic ulcer of left foot ESRD on hemodialysis GERD (gastroesophageal reflux disease) Hoarseness Hyperkalemia Moderate pulmonary hypertension Orthostatic hypotension Paroxysmal atrial fibrillation with rapid ventricular response Perihepatic abscess RBBB (right bundle branch block) Renal cell carcinoma of left kidney (05/30/17) Shortness of breath Supraventricular tachycardia Toe infection Tubular adenoma of colon (12/18/16) Surgical History Colonoscopy - MAC (12/18/16) 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 12.02.12HE Hx of cardiac cath x2, per patient Lobectomy Pt states 2 lobes removed from R. lung. No date given. 12.02.12HE Osteotomy Partial & Debridment of first metatarsal on Left foot. S/P hemodialysis catheter insertion Family History Mother Heart disease Diabetes Sister Stroke Diabetes Sister Diabetes Cancer laryngeal cancer Sister Diabetes Social History Smoking/Tobacco Use Status: Never Tobacco: How many years used: 50 Counseling given: provider counseling Smoking risk assessment performed?: Yes Alcohol Intake: never Drug use: Never Substance use type: does not use Household members: spouse Housing: house Current gender identity: male What type of physical activity do you participate in: none and independent ambulation Do you feel safe at home: Yes Do you feel safe in your relationship?: Yes Additional Social history: lives with his who is dependant on Alvaro Course Vital Signs Vital signs: Vital Signs Pulse 93 H 03/09/23 11:42 Respiratory Rate 22 03/09/23 11:42 Blood Pressure 134/61 03/09/23 11:42 Pulse Oximetry 97 03/09/23 11:42 Pulse 95 H 03/09/23 12:30 Pulse 93 H 03/09/23 12:01 Respiratory Rate 16 03/09/23 12:30 Respiratory Effort Normal, Non-Labored 03/09/23 11:57 Respiratory Depth Normal 03/09/23 11:57 Respiratory Pattern Normal 03/09/23 11:57 Blood Pressure 115/55 L 03/09/23 12:30 Blood Pressure Mean 63 03/09/23 12:01 Blood Pressure Position Sitting 03/09/23 11:42 Pulse Oximetry 100 03/09/23 12:16 Oxygen Delivery Method Nasal Cannula 03/09/23 11:42 Oxygen Flow Rate 3 03/09/23 11:42 Pain Level 5 03/09/23 11:42 Lab/Test Results Lab/Test Results: Laboratory Tests Range/Units 03/09/23 11:30 WBC (4.4-10.8) 10^3/uL 11.80 H RBC (4.36-5.78) 10^6/uL 3.06 L Hgb (13.5-17.5) g/dL 9.5 L Hct (40.0-50.0) % 31.1 L MCV (80-95) fL 102 H MCH (27.0-33.0) pg 31.0 MCHC (32.0-36.0) % 30.5 L RDW (11.8-14.1) % 15.9 H Plt Count (130-400) 10^3/uL 334 MPV (8.0-11.0) fL 11.3 H Immature Gran % 2.1 Neutrophils % 78.4 Lymphocytes % 9.9 Monocytes % 8.5 Eosinophils % 0.8 Basophils % 0.3 Nucleated RBC % (0.0-0.3) % 0.0 Absolute Neutrophils (1.2-6.7) 10^3/uL 9.25 H Absolute Lymphocytes (1.2-3.4) 10^3/uL 1.17 L Absolute Monocytes (0.1-0.8) 10^3/uL 1.00 H Absolute Eosinophils (0.0-0.7) 10^3/uL 0.09 Absolute Basophils (0.0-0.2) 10^3/uL 0.04 Sodium (136-145) mmol/L 130 L Potassium (3.5-5.1) mmol/L 5.2 H Chloride (98-107) mmol/L 97 L Carbon Dioxide (21.0-32.0) mmol/L 26.6 Anion Gap (3-11) mmol/L 6.4 BUN (7-18) mg/dL 40 H Creatinine (0.70-1.30) mg/dL 4.3 H* Est GFR (CKD-EPI 2020) (mL/min/1.73m2) 13.47 Glucose (74-106) mg/dL 386 H Calcium (8.5-10.1) mg/dL 9.1 Magnesium (1.8-2.4) mg/dL 1.4 L Total Bilirubin (0.2-1.0) mg/dL 0.3 AST (15-37) U/L 7 L ALT (16-63) U/L 6 L Alkaline Phosphatase (46-116) U/L 95 Troponin I (<or=60) ng/L < 50 Total Protein (6.4-8.2) g/dL 6.4 Albumin (3.4-5.0) g/dL 2.8 L
[2023-03-09] MEDS: cefTRIAXone 1 GM/50 ML BAG IVPB (13:38)
[2023-03-09] MEDS: AZITHROMYCIN 500 MG in Normal Saline 250 ML 250 MG IVPB (14:08)
[2023-03-09 14:11] LABS: Lactate 0.9 mmol/L (0.6-1.4)
--- NOTE | 2023-03-09 14:32 | NUR.NOTE ---
Nursing Note: Blood cultures were obtained after abx initiated. Abx started by another RN covering. aware.
[2023-03-09 14:52] LABS: Procalcitonin 0.1 ng/mL
[2023-03-09 15:44] LABS: Troponin I < 50 ng/L (<or=60)
[2023-03-09] MEDS: VANCOMYCIN 1,500 MG in Normal Saline 250 ML 166.6666 MG IVPB (16:37)
== END 2023-03-09 17:11 | disposition left against medical advice (07) ==
PROVIDERS: Emergency Provider Student in an Organized Health Care Education/Training Program; PCP Family Medicine
DX: J18.9 Pneumonia, unspecified organism (principal); J90 Pleural effusion, not elsewhere classified; I12.0 Hypertensive chronic kidney disease with stage 5 chronic kidney disease or end stage renal disease; E11.22 Type 2 diabetes mellitus with diabetic chronic kidney disease; N18.6 End stage renal disease; I25.10 Atherosclerotic heart disease of native coronary artery without angina pectoris; I48.0 Paroxysmal atrial fibrillation; D64.9 Anemia, unspecified; Z79.4 Long term (current) use of insulin; Z79.01 Long term (current) use of anticoagulants; Z99.2 Dependence on renal dialysis; Z95.5 Presence of coronary angioplasty implant and graft; Z53.29 Procedure and treatment not carried out because of patient's decision for other reasons
CPT/HCPCS: 36415; 80053; 84145; 87040; 93005; 96365; 96375; 99285; 71045; 83605; 83735; 84484; 85025; 93010; J0456; J0696

== ENCOUNTER 2023-04-07 01:34 | Emergency (ER) | payer MEDICARE, BC, SELFPAY ==
[2023-04-07] VITALS (61 sets, daily range): BP systolic 68–142; BP diastolic 22–77; PULSE 66–104; RESP 0–31; TEMP 36.2; O2SAT 82–98
--- NOTE | 2023-04-07 01:30 | RT.EKG_ITS ---
APPROVED REPORT Exam: Resting ECG Reason for Exam: head injury Patient Location: E HR:73 bpm ECG Measurements Heart Rate 73 AXIS FL 231 P 6 QRSd 125 QRS 64 QT 395 T 16 QTc 437 Conclusion Sinus rhythm with non-specific intraventricular conduction delay, biphasic p-waves indicative of atri al enlargement, no pattern injury ischemia is present
--- NOTE | 2023-04-07 01:45 | DI.CT_ITS ---
Exam(s) CT CHEST/ABD/PEL W EXAM: CT CHEST/ABD/PEL W CLINICAL HISTORY: fall, right sided rib pain, right hip pain. TECHNIQUE: Imaging Protocol: Axial computed tomography images with coronal and sagittal reformatted images were created and reviewed CONTRAST MATERIAL: Intravenous: Omnipaque 350 Contrast volume:100 ml Oral: None COMPARISON: CR XR CHEST 2V PA LATERAL from 11/28/2022 CR XR PORTABLE CHEST AP from 02/19/[address] ABDOMEN PELVIS WO from 02/21/2023 CR,XR XR PORTABLE CHEST AP from 03/09/2023 FINDINGS: CHEST: LUNGS: There is again noted an element of volume loss in the right hemithorax.. Also elevated right hemidiaphragm. There is significant infiltrate pleural based in the right lower lobe again noted. A lso right upper lobe and there is diffuse pleural thickening on the right side again noted. In the l eft lung there is a nodular infiltrate in the upper lobe measuring 1.6 by 1.7 cm and other slightly s maller patchy nodular infiltrates are seen in the upper and left lower lobes as well as calcified gra nuloma in the lower lobe. There is a small left pleural effusion which was not evident on 02/21/2023 . MEDIASTINUM: Enlarged right paratracheal lymph node noted. No prominent hilar adenopathy. No adenop athy in the anterior mediastinal fat visualized thyroid unremarkable. CARDIAC: Heart size is normal. Right-sided aortic arch is again noted. The size of the pericardial effusion has significantly decreased, presently measuring 2-3 mm. OSSEOUS: There are multiple partially healed fractures of left 7th through 12th ribs, inclusive. OTHER: Large bore right supra clavi in dialysis catheter distal tip is in the SVC RA junction ABDOMEN: There is no ascites. LIVER: Again noted is abnormal haziness in the anterior right mesenteric on the. Cannot exclude an el ement of omental cake. There is also now a tiny amount of perihepatic ascites, not present fluid in t he right paracolic gutter. There are no discrete focal hepatic lesions identified. No dilated intrahe patic ducts. GALLBLADDER/BILIARY: No obvious gallbladder pathology. CBD is not dilated. PANCREAS: No evidence of pancreatic mass nor dilatation of the pancreatic duct. SPLEEN: Spleen size upper normal. Multiple calcified splenic granulomas are again noted. ADRENALS: There are no significant adrenal masses. KIDNEYS: Evidence of previous surgery in the inferior pole region of the left kidney again noted. No new mass in this region. No new cysts nor solid lesions in either kidney. A focal vascular calcificat ion again noted in the right kidney. No nephrolithiasis. No hydronephrosis. No hydroureter. Uniformly thickened bladder wall noted which is unchanged from previous. Mildly enlarged prostate noted. ABDOMINAL AORTA: Calcified but not enlarged. Common iliac arteries are also calcified but not enlarge d. LYMPH NODES: Para-aortic lymphadenopathy noted. There are also an enlarged lymph nodes in left side o f the pelvis along the iliac vessels. The largest of these lymph nodes measures approximately 3 x 2 c m. Smaller lymph nodes are seen along the right iliac chain. There is no obvious inguinal adenopathy. ABDOMINAL WALL: No evidence of significant anterior abdominal wall nor inguinal hernia. GI: There is no evidence of bowel obstruction. PELVIS: LYMPH NODES: Lymphadenopathy as described above both sides of the pelvis, more prominent on the left side. No inguinal adenopathy. GI: No evidence of appendicitis.No evidence of sigmoid diverticulitis. URINARY BLADDER: Uniformly thickened urinary bladder wall again noted. REPRODUCTIVE: Prostate size minimally prominent. OSSEOUS: There is an acute intertrochanteric fracture of the right hip. Some displacement. No other a cute fractures identified. IMPRESSION: 1. Extensive pleural base right lung infiltrates and extensive right pleural thickening without overl cristopher rib destruction. Decreased right hemithoracic volume again noted. Also patchy nodular infiltrate s in the left lung evident and a small left pleural effusion which was not previously evident. 2. Slightly enlarged right paratracheal lymph node. 3. The size of the pericardial effusion has significantly decreased. 4. Right supraclavi in dialysis catheter distal tip is at the SVC-RA junction 5. Right-sided aortic arch again noted. No aneurysm. 6. Acute intertrochanteric fracture of the right hip noted. This was not evident on CT scan of 2022 7. Small amount of ascites in addition to previously described mesenteric stranding. 8. There is intrapelvic lymphadenopathy along the left iliac vessels with lymph nodes measuring up to 3 x 2 cm. Increased in size from previous. Slightly enlarged lymph nodes are also noted in the right side of the pelvis as well as in the para-aortic region. Suspicious for lymphoma. No inguinal adenop athy. No axillary adenopathy. 9. Evidence of prior surgery in the lower pole region of the left kidney. No new mass at this level. 10. Other findings as above. RADIATION DOSE DELIVERED: Total DLP DATA REPOSITORY: All CT scans at this facility are submitted to the National Radiology Data Registry (NRDR) Dose Index Registry (DIR) with the [employer] ([employer]). RADIATION OPTIMIZATION: All CT scans at this facility use at least one of these dose optimization te chniques: automated exposure control; mA and/or kV adjustment per patient size (includes targeted exa ms where dose is matched to clinical indication); or iterative reconstruction.
--- NOTE | 2023-04-07 01:45 | DI.CT_ITS ---
Exam(s) CT HEAD CERVICAL SPINE WO EXAM: CT HEAD CERVICAL SPINE WO CLINICAL HISTORY: fall, head injury, neck pain. TECHNIQUE: Imaging Protocol: Axial computed tomography images with coronal and sagittal reformatted images were created and reviewed COMPARISON: CT CT HEAD CERVICAL SPINE WO from 02/21/2023 FINDINGS: BRAIN: There is motion artifact limiting evaluation. There are no obvious skull fractures nor fluid in the visualized paranasal sinuses. There is no evidence of intracranial hemorrhage, mass effect, or shift of midline structures. There are no extra-axial fluid collections. The ventricles are not enlarged or shifted and there is no blo od within the ventricular system nor within the basal cisterns. There is abundant bilateral periventricular hypodensity consistent with chronic small vessel disease. CERVICAL SPINE: There is no evidence of fracture.. No significant prevertebral soft tissue swelling. Mild degenerative anterolisthesis evident of C 3 upon C4, related to facet arthropathy. Multilevel facet arthropathy noted. There is no significant facet joint malalignment. No significant osseous lesions evident. IMPRESSION: No acute intracranial findings on this noninfused CT scan of the brain. No evidence of cervical spine fracture, malalignment, nor acute compromise of the cervical spinal can al. Multilevel degenerative changes. Mild degenerative anterolisthesis of C3 upon C4. RADIATION DOSE DELIVERED: Total DLP DATA REPOSITORY: All CT scans at this facility are submitted to the National Radiology Data Registry (NRDR) Dose Index Registry (DIR) with the [employer] ([employer]). RADIATION OPTIMIZATION: All CT scans at this facility use at least one of these dose optimization te chniques: automated exposure control; mA and/or kV adjustment per patient size (includes targeted exa ms where dose is matched to clinical indication); or iterative reconstruction.
--- NOTE | 2023-04-07 01:50 | DI.CT_ITS ---
Exam(s) CT THORACIC LUMBAR SPINE REC EXAM: CT THORACIC LUMBAR SPINE REC CLINICAL HISTORY: fall, back pain TECHNIQUE: COMPARISON: CT CT CHEST/ABD/PEL W from 04/07/2023 FINDINGS: THORACIC SPINAL COLUMN: No fractures nor listhesis. No prominent disc space narrowing. No facet isidra nt malalignment. Multilevel intervertebral antral disc space calcification. LUMBOSACRAL SPINAL COLUMN: There is slight loss of height of superior endplate of the L2 vertebral bg dy on its right side. This was also evident on CT scan of February 21, 2023. No listhesis. No signi ficant osseous lesions. There is disc space narrowing at L5-S1 level chronic type. Also bilateral f oraminal stenosis at this level, more prominent on the right side. There is significant narrowing of the right neural foramina at L5-S1 level with impingement of the exiting right nerve root at this le yasmany. IMPRESSION: 1. No significant osseous findings in the thoracic spinal column. 2. Mild superior endplate compression fracture L2 vertebral body again noted. 3. Significant right-sided L5-S1 neural foramen stenosis with significant impingement of the exiting right L5 nerve root at this level. 4. No lytic nor blastic osseous lesions identified
[2023-04-07 02:04] LABS: BE (Venous) 2 mmol/L (-2-3); HCO3 (Venous) 28 mmol/L (23-28); O2 Sat (Venous) 39 %; TCO2 (Venous) 27 mmol/L (24-29); pCO2 (Venous) 51 mmHg (41-51); pH (Venous) 7.35 (7.31-7.41); pO2 (Venous) 25 mmHg
[2023-04-07] MEDS: Normal Saline 1,000 ML 1000 ML IV ×2 (02:05→04:54)
[2023-04-07] MEDS: MORPHine 10 MG/ML VIAL 2 MG IVP ×2 (02:19→03:43)
[2023-04-07] MEDS: Omnipaque 350 MG/ML 100 ML BTL IJ (02:22)
--- NOTE | 2023-04-07 02:24 | W.ED.GENAD ---
Discharge Plan Disposition Patient Disposition: Transfer-Acute Inpatient Care Specific Acute Inpt Facility: [facility] Discharge Details Clinical Impression: Closed wedge compression fracture of T8 vertebra, Urinary tract infection, Right rib fracture, ESRD (end stage renal disease) on dialysis, Multifocal pneumonia, Closed intertrochanteric fracture of right hip Primary Care Provider: Zakiya Reyna ED Provider: Bola Pretty Home Meds and New Rx's Prescriptions: No Action fluticasone propion-salmeterol [Advair HFA] 115-21 mcg/actuation HFA aerosol inhaler 2 puff inhalation BID Qty: 12 12RF Rx Instructions: Wash mouth after use nitroglycerin 0.4 MG tablet, sublingual 0.4 mg Sublingual ONCE PRN Patient Comments: has never used it at home cholecalciferol (vitamin D3) 1,000 UNIT tablet 1,000 unit PO DAILY Patient Comments: sometimes Breztri Aerosphere 160-9-4.8 mcg/actuation HFA aerosol inhaler 2 inh inhalation BID Qty: 10.7 12RF Patient Comments: not on med list aspirin [Aspir-81] 81 MG tablet,delayed release (DR/EC) 81 mg PO DAILY multivitamin 1 EACH capsule 1 ea PO DAILY Hold Instructions: Pt Stopped/Never Started Patient Comments: I think, sometimes atorvastatin [Lipitor] 40 MG tablet 40 mg PO HS Patient Comments: I think so ascorbic acid (vitamin C) [Vitamin C] 1,000 MG tablet 500 mg PO DAILY Patient Comments: sometimes albuterol sulfate [Proventil HFA] 6.7 GM HFA aerosol inhaler 2 inh PO Q4H PRN PRN insulin glargine [Lantus Solostar U-100 Insulin] 100 unit/mL (3 mL) insulin pen 26 unit SUBCUT HS bupropion HCl 100 mg tablet sustained-release 12 hr 150 mg PO BID Patient Comments: TAKE ONE TABLET BY MOUTH TWICE A DAY oxycodone 10 mg tablet 20 mg PO BID Patient Comments: TAKE TWO TABLETS BY MOUTH EVERY DAY - MAX DAILY DOSE OF 2 PER DAY metoprolol tartrate [Lopressor] 50 mg tablet 50 mg PO BID Fiasp FlexTouch U-100 Insulin 100 unit/mL (3 mL) insulin pen 2 - 6 unit SUBCUT BID amoxicillin-pot clavulanate 875-125 mg tablet 1 tab PO BID Qty: 14 0RF cyanocobalamin (vitamin B-12) [Vitamin B-12] 1,000 mcg Tablet 1,000 mcg PO DAILY Patient Comments: sometimes sennosides [senna] 8.6 mg Tablet 8.6 mg PO DAILY midodrine 2.5 mg tablet 5 mg PO TID Patient Comments: TAKE ONE TABLET BY MOUTH THREE TIMES A DAY BEFORE MEALS Eliquis 2.5 mg tablet 2.5 mg PO BID Patient Comments: TAKE ONE TABLET BY MOUTH TWICE A DAY Victoza 2-Edy 0.6 mg/0.1 mL (18 mg/3 mL) pen injector 1.8 mg SUBCUT DAILY Patient Comments: INJECT 0.6MG UNDER THE SKIN ONCE DAILY Spiriva Respimat 2.5 mcg/actuation mist 2 spray INHALATION PRN PRN Patient Comments: Inhale 2 puff as directed once a day Medical Decision Making The patient was seen and examined. This appears to be a multiple trauma from multiple falls. The patient clinically most likely has a right hip and right rib fractures on the examination. Additionally, the patient appears to be having at least a mild COPD exacerbation with some modest hypoxia. The patient also had an initial blood glucose level over 500 per EMS, meaning that he is not been regulating his glucose level with insulin therapy throughout the day today. The patient is due for end-stage renal dialysis tomorrow and will require this after contrast-enhanced studies tonight through the emergency room. The patient will likely require IV insulin after the level has returned and after some hydration here in the emergency room. The patient has a relatively low blood pressure, but the fact that he takes midodrine makes this likely his baseline. This may be responsible for his ongoing intermittent falls. Because the patient is requiring dialysis, I will try to find a tertiary care center that the patient can be transferred to for both traumatic care as well as advanced medical care including dialysis. Disposition depends on locating a facility after the work-up is completed. HPI General Date/Time Provider Initiated Documentation: 04/07/23 01:45. HPI Narrative: The patient is a 77-year-old male, with a past medical history significant for orthostatic hypotension, end-stage renal disease on hemodialysis, pulmonary hypertension, paroxysmal atrial fibrillation on anticoagulation, hyperlipidemia, and diabetes mellitus with long-term insulin use, who presents to the emergency department this evening after having repeated falls at home over the course of at least the last 24 hours. The patient's was admitted to the hospital earlier in the day today and apparently she is the primary caregiver at her home. It is unclear if the patient was home alone or if there was a never caregiver present. Reportedly, the patient has had multiple falls and appears to have skin tears on both upper extremities as well as on the scalp both frontally and on the right temporal aspect. The patient reports significant pain in his right chest wall to deep inspiration and tells me that I think my ribs are injured. He also reports having pain in his right upper thigh and hip. The patient has a shortened and externally rotated right hip. Related Data Home Medications Medication Instructions Recorded Confirmed aspirin 81 mg tablet,delayed 81 mg PO DAILY 09/25/12 04/07/23 release (Aspir-) multivitamin 1 ea PO DAILY 09/25/12 04/07/23 cholecalciferol (vitamin D3) 25 1,000 unit PO DAILY 09/21/15 04/07/23 mcg (1,000 unit) tablet nitroglycerin 0.4 mg sublingual 0.4 mg sublingual ONCE PRN 09/21/15 04/07/23 tablet albuterol sulfate 90 mcg/actuation 2 inh PO Q4H PRN PRN 02/16/17 04/07/23 aerosol inhaler (Proventil HFA) ascorbic acid (vitamin C) 1,000 mg 500 mg PO DAILY 02/16/17 04/07/23 tablet (Vitamin C) atorvastatin 40 mg tablet (Lipitor) 40 mg PO HS 02/16/17 04/07/23 cyanocobalamin (vitamin B-12) 1,000 mcg PO DAILY 09/22/19 04/07/23 1,000 mcg tablet (Vitamin B-12) insulin glargine 100 unit/mL (3 26 unit subcut HS 04/24/20 04/07/23 mL) subcutaneous pen (Lantus Solostar U-100 Insulin) apixaban 2.5 mg tablet (Eliquis) 2.5 mg PO BID 06/05/21 04/07/23 midodrine 2.5 mg tablet 5 mg PO TID 06/05/21 04/07/23 sennosides 8.6 mg tablet (senna) 8.6 mg PO DAILY 06/05/21 04/07/23 fluticasone propionate 115 2 puff inhalation BID #12 grams 11/20/21 04/07/23 mcg-salmeterol 21 mcg/actuation HFA inhaler (Advair HFA) budesonide 160 mcg-glycopyr 9 2 inh inhalation BID #10.7 grams 11/26/21 04/07/23 mcg-formot 4.8 mcg/actuation HFA inhaler (Breztri Aerosphere) liraglutide 0.6 mg/0.1 mL (18 mg/3 1.8 mg subcut DAILY 01/18/22 04/07/23 mL) subcutaneous pen injector (Victoza 2-Edy) tiotropium bromide 2.5 2 spray inhalation PRN PRN 01/18/22 04/07/23 mcg/actuation mist for inhalation (Spiriva Respimat) bupropion HCl 100 mg tablet,12 hr 150 mg PO BID 09/08/22 04/07/23 sustained-release oxycodone 10 mg tablet 20 mg PO BID 09/08/22 04/07/23 insulin aspart 2 - 6 unit subcut BID 11/24/22 04/07/23 (niacinamide)(U-100) 100 unit/mL(3 mL) subcutaneous pen (Fiasp FlexTouch U-100 Insulin) metoprolol tartrate 50 mg tablet 50 mg PO BID 11/24/22 04/07/23 (Lopressor) amoxicillin 875 mg-potassium 1 tab PO BID #14 tabs 03/09/23 04/07/23 clavulanate 125 mg tablet Previous Rx's Medication Instructions Recorded fluticasone propionate 115 2 puff inhalation BID #12 grams 11/20/21 mcg-salmeterol 21 mcg/actuation HFA inhaler (Advair HFA) budesonide 160 mcg-glycopyr 9 2 inh inhalation BID #10.7 grams 11/26/21 mcg-formot 4.8 mcg/actuation HFA inhaler (Breztri Aerosphere) amoxicillin 875 mg-potassium 1 tab PO BID #14 tabs 03/09/23 clavulanate 125 mg tablet Allergies Allergy/AdvReac Type Severity Reaction Status Date / Time pneumococcal vaccine Allergy Severe Swelling/Ed Verified 03/09/23 11:48 nandini sulfamethoxazole Allergy difficulty Verified 03/09/23 11:48 [From Bactrim] breathing trimethoprim [From Bactrim] Allergy difficulty Verified 03/09/23 11:48 breathing General Stated Complaint: Fall/Non TraumaCriteria MESERET: 2 PFSH All Active Problems (Updated 04/07/23 @ 05:14 by Bola Pretty MD) Closed intertrochanteric fracture of right hip (Acute) Multifocal pneumonia (Acute) ESRD (end stage renal disease) on dialysis (Acute) Right rib fracture (Acute) Urinary tract infection (Acute) Closed wedge compression fracture of T8 vertebra (Acute) Chest pain (Acute) Pleural effusion (Acute) Acute hyperkalemia (Acute) Pneumonia (Acute) Pulmonary scarring (Acute) Chronic respiratory failure with hypoxia (Acute) 2L of O2 by NC COPD (chronic obstructive pulmonary disease) (Chronic) Bronchiectasis (Acute) 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) Basal cell carcinoma of multiple sites (Acute) Leucocytosis (Chronic) Palpitations (Acute) Exertional shortness of breath (Chronic) Neoplasm of unspecified nature of bone, soft tissue, and skin (Acute 06/19/15) Medical History Actinic keratosis (05/01/16) Anemia Basal cell carcinoma of skin (03/11/16) Bilateral cataracts Coronary Artery Disease Depression Diabetes mellitus Diabetic foot ulcer Diabetic ulcer of left foot ESRD on hemodialysis GERD (gastroesophageal reflux disease) Hoarseness Hyperkalemia Moderate pulmonary hypertension Orthostatic hypotension Paroxysmal atrial fibrillation with rapid ventricular response Perihepatic abscess RBBB (right bundle branch block) Renal cell carcinoma of left kidney (05/30/17) Shortness of breath Supraventricular tachycardia Toe infection Tubular adenoma of colon (12/18/16) Surgical History Colonoscopy - MAC (12/18/16) 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 12.02.12HE Hx of cardiac cath x2, per patient Lobectomy Pt states 2 lobes removed from R. lung. No date given. 12.02.12HE Osteotomy Partial & Debridment of first metatarsal on Left foot. S/P hemodialysis catheter insertion Family History Mother Heart disease Diabetes Sister Stroke Diabetes Sister Diabetes Cancer laryngeal cancer Sister Diabetes Social History Smoking/Tobacco Use Status: Never Tobacco: How many years used: 50 Counseling given: provider counseling Smoking risk assessment performed?: Yes Alcohol Intake: never Drug use: Never Substance use type: does not use Household members: spouse Housing: house Current gender identity: male What type of physical activity do you participate in: none and independent ambulation Do you feel safe at home: Yes Do you feel safe in your relationship?: Yes Additional Social history: lives with his who is dependant on [employer] Exam Const Other: The patient is chronically ill-appearing with relatively well-preserved personal hygiene. Both upper extremities are covered with diffuse ecchymosis. There are scattered skin tears and various degrees of healing on both of the upper extremities. There are several lacerations or abrasions to the scalp that also have contracted granulation tissue covering them. The patient has a modest hypoxia on room air. There is an intermittent bronchospastic cough. Neck Other: The patient moves his neck spontaneously in all directions. He reports no pain to the palpation of the posterior spinous processes in the cervical spine but does report pain to palpation of the base of the skull posteriorly. Chest Other: The patient reports severe right-sided rib pain to lateral compression of the chest wall. Resp Other: There are coarse rhonchi diffusely in both lungs. Cardio Other: The heart sounds are regular in rate and rhythm, there are no abnormalities of S1 or S2 appreciated GI Other: Abdomen is soft and nontender to palpation Neuro Other: The patient spontaneously moves all 4 extremities and reports no obvious sensory changes that he knows of. He has normal speech. Cranial nerves II through XII are grossly intact. The patient is disoriented to time and is easily confused Course Reevaluation(s) Initial Evaluation: The patient continues to complain the pain despite having several rounds of IV morphine and acetaminophen here in the emergency room. The patient's blood pressure came down relatively significantly to 70/31. His CT scans returned with concerning findings for multifocal pneumonia in the right lung and a occult urinary tract infection, in addition to a right hip fracture, right rib fractures, and a T8 compression fracture. This places the patient's markedly elevated white count in a much more concerning fashion, as does the hypoxia which was initially felt to be related to splinting from the clinical rib fractures during the initial examination. The patient continues to be stable in appearance sitting upright and conversant. He does not appear to be in any respiratory distress but does have intermittent bronchospastic coughing after returning from [place]. The patient will be placed on IV piperacillin and IV vancomycin, in addition to having another fluid bolus of 1000 cc of normal saline and a peripheral norepinephrine drip. Placing a central line in this patient is complicated by the fact that he has a indwelling dialysis catheter which is tunneled through right subclavian. This complicates approaches from above in the neck and shoulders. The hip fracture makes a femoral line a poor consideration, and is a poor consideration for long-term management anyway. I did discuss the case with Dr. Linares from the trauma service at [facility] [place]. We discussed both the traumatic nature of this presentation and the multiple medical problems that will ensue with this patient as well. He agreed to have the patient brought to the emergency department as a trauma consultation and will discuss the case with the appropriate admitting service and coordinate care with them. Vital Signs Vital signs: Vital Signs Temperature 36.2 C L 04/07/23 01:37 Pulse 70 04/07/23 01:37 Respiratory Rate 18 04/07/23 01:37 Blood Pressure 83/37 L 04/07/23 01:37 Pulse Oximetry 94 04/07/23 01:37 Temperature 36.2 C L 04/07/23 01:37 Temperature Source Tympanic 04/07/23 01:37 Pulse 70 04/07/23 01:37 Respiratory Rate 18 04/07/23 01:37 Respiratory Effort Normal 04/07/23 02:02 Blood Pressure 83/37 L 04/07/23 01:37 Blood Pressure Position Supine 04/07/23 01:37 Pulse Oximetry 94 04/07/23 01:37 Oxygen Delivery Method Nasal Cannula 04/07/23 01:37 Oxygen Flow Rate 4 04/07/23 01:37 Pain Level 6 04/07/23 02:02 Lab/Test Results Lab/Test Results: Laboratory Tests Range/Units 04/07/23 01:57 PT Cancelled INR Cancelled APTT Cancelled VBG pH (7.31-7.41) 7.35 VBG pCO2 (41-51) mmHg 51 VBG pO2 mmHg 25 VBG HCO3 (23-28) mmol/L 28 VBG Total CO2 (24-29) mmol/L 27 VBG O2 Saturation % 39 VBG Base Excess (-2-3) mmol/L 2 Critical Care Time Critical Care Time Critical Care Time: Yes Total Critical Care Time: 60 Attestation: The patient required multiple interpretations of acquired data and modification of care plan related to this, including implementation of SIRS management in the setting of a multitrauma presentation with antibiotics, fluid resuscitation, and IV pressors. This is in the setting of joint stabilization and pain management of multiple traumatic injuries. This time is exclusionary of any procedures or teaching.
[2023-04-07 02:30] LABS: ALT 12 U/L (16-63); AST 19 U/L (15-37); Albumin 2.6 g/dL (3.4-5.0); Alkaline Phosphatase 143 U/L (46-116); Anion Gap 8.3 mmol/L (3-11); BUN 55 mg/dL (7-18); Bilirubin, Total 0.3 mg/dL (0.2-1.0); CO2 28.7 mmol/L (21.0-32.0); Calcium 8.9 mg/dL (8.5-10.1); Chloride 94 mmol/L (98-107); Estimated GFR 9.21 (mL/min/1.73m2); Glucose 435 mg/dL (74-106); Sodium 131 mmol/L (136-145); Total Protein 6.8 g/dL (6.4-8.2)
[2023-04-07 02:32] LABS: Troponin I < 50 ng/L (<or=60)
[2023-04-07 02:34] LABS: CREATININE 5.9 mg/dL (0.70-1.30); Potassium 6.6 mmol/L (3.5-5.1)
[2023-04-07 02:45] LABS: INR 1.1 (0.9-1.1); PTT Activated 30.7 sec (23.6-32.8)
[2023-04-07 02:54] LABS: Absolute Basophil Count 0.06 10^3/uL (0.0-0.2); Absolute Monocyte Count 1.52 10^3/uL (0.1-0.8); Absolute Neutrophil Count 16.61 10^3/uL (1.2-6.7); Basophils % 0.3; Eosinophils % 0.5; HCT 31.6 % (40.0-50.0); HGB 9.6 g/dL (13.5-17.5); Lymphocytes % 6.5; MCH 29.6 pg (27.0-33.0); MCHC 30.4 % (32.0-36.0); MCV 98 fL (80-95); MPV 12.3 fL (8.0-11.0); Monocytes % 7.6; Neutrophils % 83.1; Platelet Count 364 10^3/uL (130-400); RBC 3.24 10^6/uL (4.36-5.78); RDW 16.2 % (11.8-14.1); RDW-SD 58.2 fL; WBC 19.99 10^3/uL (4.4-10.8)
--- NOTE | 2023-04-07 03:23 | DI.VRAD_ITS ---
PROCEDURE INFORMATION: Exam: CT Head Without Contrast Exam date and time: 04/07/2023 2:32 AM Age: 77 years old Clinical indication: Injury or trauma; Blunt trauma (contusions or hematomas); Consciousness not specified; Injury date: 04/16/23; Injury details: Fall, head injury, neck pain TECHNIQUE: Imaging protocol: Computed tomography of the head without contrast. Radiation optimization: All CT scans at this facility use at least one of these dose optimization techniques: automated exposure control; mA and/or kV adjustment per patient size (includes targeted exams where dose is matched to clinical indication); or iterative reconstruction. COMPARISON: CT HEAD CERVICAL SPINE WO 02/21/2023 11:21 AM FINDINGS: Brain: Periventricular and subcortical white matter areas of hypoattenuation, likely chronic small vessel ischemic change, demyelination, or gliosis. There is parenchymal atrophy. No intracranial mass, acute hemorrhage, or acute infarction. Cerebral ventricles: No ventriculomegaly. Paranasal sinuses: Minimal ethmoid and right maxillary sinus disease. Mastoid air cells: Normal as visualized. Bones/joints: Normal. Soft tissues: Minimal right frontal soft tissue swelling/contusion. Vasculature: Atherosclerotic vascular disease. IMPRESSION: 1. No acute intracranial abnormality. 2. Minimal right frontal soft tissue swelling/contusion. PROCEDURE INFORMATION: Exam: CT Cervical Spine Without Contrast Exam date and time: 04/07/2023 2:32 AM Age: 77 years old Clinical indication: Injury or trauma; Blunt trauma (contusions or hematomas); Consciousness not specified; Injury date: 04/16/23; Injury details: Fall, head injury, neck pain TECHNIQUE: Imaging protocol: Computed tomography of the cervical spine without contrast. Radiation optimization: All CT scans at this facility use at least one of these dose optimization techniques: automated exposure control; mA and/or kV adjustment per patient size (includes targeted exams where dose is matched to clinical indication); or iterative reconstruction. COMPARISON: CT HEAD CERVICAL SPINE WO 02/21/2023 11:21 AM FINDINGS: Bones/joints: Degenerative changes of the atlantoaxial articulation. Multilevel degenerative disc disease, manifest by disc space narrowing and minimal osteophyte formation, causing ventral thecal sac indentation. Mild multilevel bilateral facet and uncovertebral arthropathy. No acute fracture or malalignment. Left C3-C4, bilateral C4-C5, and left C5-C6 neural foraminal narrowing. Lungs: 13 mm irregular consolidation or nodular focus within the left lung apex (series 17, image 44), not definitively characterized on this study. Mild right apical pleuroparenchymal scarring. Vasculature: Atherosclerotic vascular disease. Partially visualized right internal jugular dual lumen central venous catheter. Soft tissues: Normal. IMPRESSION: 1. No acute fracture or malalignment. 2. Multilevel cervical spine spondylosis. 3. 13 mm irregular consolidation or nodular focus within the left lung apex (series 17, image 44), not definitively characterized on this study. Recommend further evaluation. Dictated and Authenticated by: Triston Dickey MD. Ordering:FARHAD Plaza MD
[2023-04-07] MEDS: Normal Saline - Diluent 50 ML VIAL IJ (03:29)
[2023-04-07] MEDS: Normal Saline Flush 10 ML SYR IVP (03:29)
[2023-04-07 03:31] LABS: Diff Comment Agrees w/ Instrument; RBC Morphology Normal
[2023-04-07] MEDS: INSULIN REGULAR IN 0.9 % NACL 100 UNIT/100 ML BAG 7.74 UNIT IV (03:37)
[2023-04-07] MEDS: ACETAMINOPHEN 1,000 MG/100 ML BTL 400 MG IVPB (03:45)
--- NOTE | 2023-04-07 04:10 | DI.VRAD_ITS ---
PROCEDURE INFORMATION: Exam: CT Thoracic Spine Without Contrast Exam date and time: 04/07/2023 2:39 AM Age: 77 years old Clinical indication: Injury or trauma; Blunt trauma (contusions or hematomas); Injury date: 04/06/23; Injury details: Back pain, multiple falls TECHNIQUE: Imaging protocol: Computed tomography of the thoracic spine without contrast. Radiation optimization: All CT scans at this facility use at least one of these dose optimization techniques: automated exposure control; mA and/or kV adjustment per patient size (includes targeted exams where dose is matched to clinical indication); or iterative reconstruction. COMPARISON: CT CHEST/ABD/PEL W 04/07/2023 2:39 AM FINDINGS: Bones/joints: At T8, there is a subtle compression fracture through the superior endplate with mild loss of anterior vertebral height and sclerosis of the upper portion of the vertebral body which is not confidently seen on comparison CT chest exam from November 27, 2022 suggesting either acute-subacute fracture or fracture progression. Otherwise, no acute fracture or malalignment is seen in the thoracic spine. There is thoracic degenerative change with anterior osteophytes at multiple levels. No significant thoracic spinal stenosis is seen. There are subacute fractures through the posterior aspect of the left 9th, 10th, and 11th ribs with bony callus formation but incomplete bony union. Soft tissues: No gross superficial soft tissue fluid collection or mass is seen through the visualized thoracic region. Notes: CT imaging through the chest was obtained concurrently and will be dictated separately. IMPRESSION: 1. Compression fracture deformity through the superior endplate at T8 with mild loss of anterior vertebral height and sclerosis through the upper portion of the vertebral body, not confidently seen on the comparison CT chest exam from November 27, 2022 suggesting either an acute-subacute fracture or acute-subacute fracture progression. Clinical correlation is recommended. 2. Otherwise no acute fracture or malalignment is seen in the thoracic spine. PROCEDURE INFORMATION: Exam: CT Lumbar Spine Without Contrast Exam date and time: 04/07/2023 2:39 AM Age: 77 years old Clinical indication: Injury or trauma; Blunt trauma (contusions or hematomas); Injury date: 04/06/23; Injury details: Back pain, multiple falls TECHNIQUE: Imaging protocol: Computed tomography of the lumbar spine without contrast. Radiation optimization: All CT scans at this facility use at least one of these dose optimization techniques: automated exposure control; mA and/or kV adjustment per patient size (includes targeted exams where dose is matched to clinical indication); or iterative reconstruction. COMPARISON: CT CHEST/ABD/PEL W 04/07/2023 2:39 AM FINDINGS: Bones/joints: There is a superior endplate compression fracture deformity at L2 with mild loss of anterior vertebral height, grossly stable compared with the prior CT examination of the abdomen and pelvis from February 21, 2023. No new acute fracture or malalignment is seen in the lumbar spine. There appears to have been prior lumbar surgery with a right-sided hemilaminectomy defect at S1 on image 959 of series 10. T12-L1: Disc height preserved. Anterior osteophytes. No significant central canal narrowing or neural foraminal narrowing. L1-L2: Disc height preserved. Large anterior osteophytes. No significant central canal narrowing or neural foraminal narrowing. No gross focal disc herniation. L2-L3: Disc height preserved. Small vacuum disc deformity. Large anterior osteophytes. No focal disc herniation. No significant central canal narrowing or neural foraminal narrowing. L3-L4: Disc height preserved. Anterior osteophytes. No significant central canal narrowing. Mild bilateral foraminal narrowing. L4-L5: L4-L5 disc height preserved. Large anterior osteophytes. Moderate bilateral facet arthrosis. Mild central canal narrowing. Mild bilateral foraminal narrowing. L5-S1: Loss of disc height with a vacuum disc deformity, anterior osteophyte formation, and posterior osteophytic ridging which extends laterally into the neural foramina bilaterally. Prior posterior surgical decompression. Mild left and severe right-sided foraminal narrowing with gross flattening of the right L5 nerve root, image 65 of series 16. Soft tissues: No gross superficial soft tissue fluid collection or mass is seen through the visualized lumbar region. Notes: CT imaging through the abdomen and pelvis was obtained concurrently and will be dictated separately. IMPRESSION: 1. No acute lumbar fracture or malalignment is seen. 2. Severe narrowing of the right L5-S1 neural foramen with gross flattening of the right L5 nerve root. Dictated and Authenticated by: Mohsen Angel MD. Ordering:FARHAD Plaza MD
--- NOTE | 2023-04-07 04:25 | DI.VRAD_ITS ---
PROCEDURE INFORMATION: Exam: CT Chest With Contrast; Diagnostic Exam date and time: 04/07/2023 2:39 AM Age: 77 years old Clinical indication: Injury or trauma; Generalized; Blunt trauma (contusions or hematomas); Injury date: 04/06/23; Injury details: Multiple falls, right sided rib pain, right hip pain TECHNIQUE: Imaging protocol: Diagnostic computed tomography of the chest with contrast. Radiation optimization: All CT scans at this facility use at least one of these dose optimization techniques: automated exposure control; mA and/or kV adjustment per patient size (includes targeted exams where dose is matched to clinical indication); or iterative reconstruction. Contrast material: OMNIPAQUE 350; Contrast volume: 100 ml; Contrast route: INTRAVENOUS (IV); COMPARISON: CT CHEST PE ABD PELVIS W 11/27/2022 5:06 PM FINDINGS: Limitations: Extensive streak artifact, created largely by arm positioning. Tubes, catheters and devices: Large-bore dual-lumen right internal jugular central venous catheter in-situ with its tip at the cavoatrial junction. Thyroid: Normal-sized thyroid gland. Lungs: Extensive patchy bilateral pulmonary opacity with dependent consolidation in the right lower lobe. Pleural spaces: Small bilateral pleural effusions. No pneumothorax. Heart: Normal-sized heart. Trace pericardial fluid. Artifact along the coronary arteries suggesting coronary artery calcification and/or coronary artery stents. Lymph nodes: Scattered mildly prominent mediastinal lymph nodes with an enlarged right paratracheal node measuring 2.3 cm on image 28 of series 5. Vasculature: Right-sided aortic arch with mirror image branching. No thoracic aortic aneurysm. Bones/joints: Superior endplate compression deformity at T8 with mild loss of anterior vertebral height and sclerosis of the upper vertebral body, not seen on a comparison CT chest exam from November 24, 2022. Acute-subacute fracture or acute-subacute fracture component suspected. Clinical correlation recommended. Subacute fractures through the posteromedial aspect of the left 9th, 10th, and 11th ribs with bony callus formation but incomplete bony union. Subacute fractures through the posterior aspect of the left 8th-10th ribs with bony callus formation but incomplete bony union, with the 9th and 10th ribs each fractured in two places. Focal sclerosis in the anterolateral aspect of the left 4th and 5th ribs suspicious for incompletely healed subacute fractures. Soft tissues: No gross soft tissue mass or fluid collection seen in the chest wall. IMPRESSION: 1. Superior endplate compression deformity at T8 with mild loss of anterior vertebral height and sclerosis of the upper vertebral body, not seen on a comparison CT chest exam from November 24, 2022. Acute-subacute fracture or acute-subacute fracture component suspected. Clinical correlation recommended. 2. Subacute rib fractures, as detailed above. 3. Scattered mildly prominent mediastinal lymph nodes with an enlarged right paratracheal node measuring 2.3 cm on image 28 of series 5, increased in size since the comparison exam from November 24, 2022. Although nonspecific, a metastatic jai lymphoma should be excluded. Clinical correlation and follow-up recommended. 4. Small bilateral pleural effusions. 5. Extensive patchy bilateral pulmonary opacity with dependent consolidation in the right lower lobe. Although nonspecific, the appearance is suspicious for an acute multifocal pulmonary infection. Clinical correlation is recommended. Underlying pathology such as a neoplasm is not confidently excluded in the right lower lobe. Post treatment follow-up imaging is recommended to document complete resolution. PROCEDURE INFORMATION: Exam: CT Abdomen And Pelvis With Contrast Exam date and time: 04/07/2023 2:39 AM Age: 77 years old Clinical indication: Injury or trauma; Generalized; Blunt trauma (contusions or hematomas); Injury date: 04/06/23; Injury details: Multiple falls, right sided rib pain, right hip pain TECHNIQUE: Imaging protocol: Computed tomography of the abdomen and pelvis with contrast. Contrast material: OMNIPAQUE 350; Contrast volume: 100 ml; Contrast route: INTRAVENOUS (IV); COMPARISON: CT ABDOMEN PELVIS WO 02/21/2023 2:57 PM FINDINGS: Liver: Unenhanced liver partially obscured by artifact but grossly unremarkable, as seen. Gallbladder and bile ducts: Gallbladder partially collapsed. No calcified gallstones seen. No biliary dilatation. Pancreas: Severe atrophy of the pancreas. Clinical correlation recommended to exclude pancreatic insufficiency. Spleen: Scattered calcified splenic granulomas. Adrenal glands: Normal appearing adrenal glands. Kidneys and ureters: Apparent surgical material along the lower pole of the left kidney. Correlation with surgical history recommended. No radiopaque renal calculi or hydronephrosis. Asymmetrically prominent visualization of the urothelium in the left renal pelvis and left renal collecting system, nonspecific. Acute urinary tract infection? Clinical correlation recommended. Stomach and bowel: No oral contrast. Stomach partially decompressed. No small bowel dilatation to suggest obstruction. Normal-appearing colon. No evidence of diverticulitis or colitis. Appendix: Appendix partially obscured but normal in caliber and appearance through its visualized portion. Intraperitoneal space: Small amount of free fluid in the anterior pelvis and extending along the paracolic gutters. Hazy fat stranding in the omentum and in the central small bowel mesentery, nonspecific. No frankly organized drainable fluid collection or free air seen. Vasculature: Normal caliber abdominal aorta. Lymph nodes: Enlarged left pelvic sidewall lymph nodes with enlarged left external iliac nodes measuring 2.5 cm x 1.6 cm on image 108 and 3.0 cm x 1.8 cm on image 115 of series 5. Scattered mildly prominent retroperitoneal lymph nodes. Further evaluation recommended. Urinary bladder: Urinary bladder partially decompressed but with prominent circumferential bladder wall thickening and hazy indistinctness of the bladder margins suspicious for acute cystitis. Reproductive: Normal-sized prostate gland and seminal vesicles. Coarse prostate calcifications. Bones/joints: Acute intertrochanteric fracture through the proximal right femur. No additional acute fracture is seen along the bones of the abdomen or pelvis. Soft tissues: No significant ventral or inguinal hernia. IMPRESSION: 1. Acute intertrochanteric fracture through the proximal right femur. 2. Small amount of fluid in the anterior pelvis and extending along the paracolic gutters with hazy fat stranding in the central small bowel mesentery and omentum, nonspecific. Clinical correlation is recommended. 3. Urinary bladder partially decompressed but with prominent circumferential bladder wall thickening and hazy indistinctness of the bladder margins suspicious for acute cystitis. Clinical correlation is recommended. 4. Asymmetrically prominent visualization of the urothelium in the left renal collecting system and renal pelvis, further suggesting an acute urinary tract infection. 5. Enlarged left pelvic sidewall lymph nodes with enlarged left external iliac nodes measuring 2.5 cm x 1.6 cm on image 108 and 3.0 cm x 1.8 cm on image 115 of series 5, increased in size since the comparison exam from November 27, 2022. Metastatic nodes or lymphoma could have this appearance. Further evaluation is recommended. Scattered mildly prominent retroperitoneal lymph nodes. Dictated and Authenticated by: Mohsen Angel MD. Ordering:FARHAD Plaza MD
[2023-04-07] MEDS: PIPERACILLIN/TAZO 2.25 GM in Normal Saline 50 ML IVPB (04:51)
[2023-04-07 04:53] LABS: Lactate 1.9 mmol/L (0.6-1.4)
[2023-04-07] MEDS: Norepinephrine in D5W 8 MG/250 ML BAG 9.375 MG IV (05:05)
[2023-04-07 05:13] LABS: Troponin I < 50 ng/L (<or=60)
[2023-04-07] MEDS: VANCOMYCIN 1,500 MG in Normal Saline 500 ML 333.3333 MG IVPB (05:26)
[2023-04-07] MEDS: HYDROmorphone 2 MG/ML SYR (05:28)
== END 2023-04-07 08:18 | disposition short-term general hospital (02) ==
LOC: ER 06:37
PROVIDERS: Emergency Provider Emergency Medicine Emergency Medical Services; PCP Family Medicine
DX: S41.112A Laceration without foreign body of left upper arm, initial encounter (principal); S41.111A Laceration without foreign body of right upper arm, initial encounter; S01.81XA Laceration without foreign body of other part of head, initial encounter; S72.091A Other fracture of head and neck of right femur, initial encounter for closed fracture; S22.31XA Fracture of one rib, right side, initial encounter for closed fracture; S22.060A Wedge compression fracture of T7-T8 vertebra, initial encounter for closed fracture; I12.0 Hypertensive chronic kidney disease with stage 5 chronic kidney disease or end stage renal disease; E11.22 Type 2 diabetes mellitus with diabetic chronic kidney disease; N18.6 End stage renal disease; E11.65 Type 2 diabetes mellitus with hyperglycemia; J18.9 Pneumonia, unspecified organism; N39.0 Urinary tract infection, site not specified; I25.10 Atherosclerotic heart disease of native coronary artery without angina pectoris; I48.0 Paroxysmal atrial fibrillation; Z79.82 Long term (current) use of aspirin; Z79.4 Long term (current) use of insulin; Z79.01 Long term (current) use of anticoagulants; Z90.5 Acquired absence of kidney; Z23 Encounter for immunization; Z85.528 Personal history of other malignant neoplasm of kidney; W18.39XA Other fall on same level, initial encounter; Z91.81 History of falling; Y93.89 Activity, other specified; Y92.018 Other place in single-family (private) house as the place of occurrence of the external cause
CPT/HCPCS: 74177; 80053; 82805; 86850; 86900; 86901; 90471; 93005; 96361; 96365; 96368; 96375; 99285; 70450; 71260; 72125; 83605; 84484; 85025; 85610; 85730; 93010; J0131; J1170; J2270; J2543; J3490